=== PATIENT | female | born 1960 | race Caucasian/White ===

== ENCOUNTER 2016-12-09 10:14 | Inpatient (IN) | payer OTHER ==
[2016-12-09] MEDS ORDERED: LIDOCAINE 1% 2 ML INJ ONE (10:40)
[2016-12-09 11:10] LABS: % IMMATURE GRANULYOCYTES 0.4 % (0.0-1.1); ABSOLUTE IMMATURE GRANULOCYTES 0.03 10^3/uL (0.00-0.10); ADD DIFF? NO; ADD MORPH? NO; ADD SCAN? NO; ATYPICAL LYMPHOCYTE FLAG 0 (0-99); FRAGMENT RBC FLAG 0 (0-99); HEMATOCRIT 42.2 % (38.0-47.0); LEFT SHIFT FLG 0 (0-99); LIPEMIA HEMOLYSIS FLAG 90 (0-99); MEAN CELL HEMOGLOBIN 30.9 pg (27.9-34.1); MEAN CELL HEMOGLOBIN CONCENTR. 35.5 g/dL (32.4-36.7); MEAN CELL VOLUME 86.8 fL (81.5-99.8); MEAN PLATELET VOLUME 10.5 fL (8.7-11.7); PLATELET CLUMPS FLAG 0 (0-99); PLATELET COUNT 261 10^3/uL (150-400); RED BLOOD CELL COUNT 4.86 10^6/uL (4.18-5.33); RED CELL DISTRIBUTION WIDTH 14.1 % (11.5-15.2)
[2016-12-09] MEDS ORDERED: cefOXitin SODIUM 1 GM in D5W 50 ML IV ONE (11:30)
[2016-12-09 11:43] LABS: ANION GAP 14 mEq/L (8-16); CALCIUM 9.7 mg/dL (8.5-10.4); CARBON DIOXIDE 26 mEq/l (22-31); CHLORIDE 99 mEq/L (97-110); CREATININE 0.7 mg/dL (0.6-1.0); GLOMERULAR FILTRATION RATE > 60; GLUCOSE 104 mg/dL (70-100); POTASSIUM 3.4 mEq/L (3.5-5.2); SODIUM 139 mEq/L (134-144)
[2016-12-09] MEDS ORDERED: BUPIVACAINE 0.5% 30 ML SDV ONE (11:43)
[2016-12-09] MEDS ORDERED: SKIN ADHESIVE (DERMABOND) 1 EACH TP ONE (11:43)
[2016-12-09] MEDS ORDERED: morphINE *ANESTHESIA ONLY* 10 MG/ML VIAL ONE (11:51)
[2016-12-09] MEDS ORDERED: LIDOCAINE 2% 5 ML SDV ONE (11:54)
[2016-12-09] MEDS ORDERED: diphenhydrAMINE 25 MG CAP PO PRN (12:01)
[2016-12-09] MEDS ORDERED: HYDROCODONE/APAP 5/325 TAB PO PRN (12:01)
[2016-12-09] MEDS ORDERED: ONDANSETRON DISINTEGRATING 4 MG TAB PO PRN (12:01)
[2016-12-09] MEDS ORDERED: NALOXONE HCL 0.4 MG/ML INJ IVP PRN (12:01)
[2016-12-09] MEDS ORDERED: DEXAMETHASONE 4 MG/ML VIAL ONE (12:50)
[2016-12-09] MEDS ORDERED: ONDANSETRON 4 MG/2 ML VIAL ONE (12:50)
[2016-12-09] MEDS ORDERED: PROPOFOL/EMULSION 500 MG/50 ML BOTTLE IV ONE (12:56)
[2016-12-09] MEDS ORDERED: NEOSTIGMINE METHYLSULFATE 5 MG/5 ML SYR ONE (13:32)
[2016-12-09] MEDS ORDERED: GLYCOPYRROLATE 0.2 MG/1 ML VIAL ONE ×2 (13:32)
--- NOTE | 2016-12-09 14:43 | GOP ---
[f rep st] OPERATIVE REPORT DATE OF OPERATION: 12/09/2016 SURGEON: Tasha Cat MD WIRE SPINNER: MARIA DEL ROSARIO Flaherty ANESTHESIA: General. ANESTHESIOLOGIST: Dr. Christina Bahena PREOPERATIVE DIAGNOSIS: Moderately differentiated adenocarcinoma of the ascending colon. POSTOPERATIVE DIAGNOSIS: Moderately differentiated adenocarcinoma of the ascending colon. PROCEDURE PERFORMED: 1. Laparoscopic right hemicolectomy with primary anastomosis. 2. Laparoscopic adhesiolysis. FINDINGS: She had a lot of adhesions from her previous surgeries. SPECIMENS: Ascending colon. ESTIMATED BLOOD LOSS: 25 cc. INDICATIONS: The patient is a 56-year-old woman who had a screening colonoscopy. An 8 mm polyp was found in the ascending colon, which showed moderately differentiated adenocarcinoma and it was completely removed at the time of colonoscopy. She presents for right hemicolectomy. DESCRIPTION OF PROCEDURE: The patient was brought into the operating room, placed supine on the table, and general anesthesia was administered. Her abdomen was prepped and draped in the usual sterile fashion. I infiltrated all sites with 0.5% Marcaine prior to making incisions. I made an incision beneath her umbilicus. I elevated it. I inserted the Veress needle, it passed the hanging drop test. Her abdomen insufflated easily to a pressure of 15 mmHg. Under direct vision, I placed a 5 mm trocar in her lower abdomen. I explored. I performed adhesiolysis. I then was able to place a 10 mm trocar in her upper midline. I continued to perform more adhesiolysis, getting her omentum down from her abdominal wall. I then lifted her right colon anterior, I identified the right colic artery. I divided this with the Harmonic. Her appendix was completely retrocecal. I then divided these attachments. The terminal ileum was quite mobile. I continued my dissection medial, and then I retracted the colon to perform my lateral dissection, coming around the hepatic flexure. Again, there were a lot of adhesions in this area. The duodenum was visualized and protected. Once I felt there was enough reach, I then made a small midline incision over a previous scar. I inserted an Herbert wound protector. I pulled up the terminal ileum and the ascending colon. I selected my points of transection on the terminal ileum and on the transverse colon. I could palpate the blood supply on the transverse colon. I aligned these on the antimesenteric borders. I placed Vicryl pop-offs. I then made enterotomies in each limb of the bowel. I transected the terminal ileum and the transverse colon. I passed the specimen off the field. I made an enterotomy in each limb of the bowel to create a [id number], functional end-to-end anastomosis. There was healthy bleeding mucosa. I then sutured the defect closed with 3-0 Vicryl swedge, followed by 3-0 Vicryl pop- offs. The bowel was returned to the abdomen. I placed a [place] drain around the Herbert wound protector, replaced the 10 mm port and examined the abdomen. There were no signs of injury. The anastomosis was widely patent, and there was no twisting or torsion of the bowel. The ports removed under direct vision. The abdomen was allowed to desufflate. I closed the fascia at the 10 mm trocar site with 0 Vicryl. I closed skin with 3-0 Vicryl followed by 4-0 Monocryl. Dermabond applied. She was awakened in the operating room, extubated, transferred to PACU in stable condition. /[id number]/MODL MTDD
[2016-12-09] MEDS: HYDROmorphONE/DILAUDID 6 MG/30 ML PCA IV PRN (15:58)
[2016-12-09] MEDS: NS 1,000 ML IV SCH (15:58)
[2016-12-09] MEDS: ONDANSETRON 4 MG/2 ML VIAL IVP PRN (16:03)
[2016-12-10] MEDS: ONDANSETRON 4 MG/2 ML VIAL IVP PRN (01:49)
[2016-12-10] MEDS: NS 1,000 ML IV SCH ×2 (01:53→21:31)
[2016-12-10] MEDS: HYDROmorphONE/DILAUDID 6 MG/30 ML PCA IV PRN ×2 (02:59→18:55)
[2016-12-10 05:23] LABS: % IMMATURE GRANULYOCYTES 0.3 % (0.0-1.1); ABSOLUTE IMMATURE GRANULOCYTES 0.04 10^3/uL (0.00-0.10); ADD DIFF? NO; ADD MORPH? NO; ADD SCAN? NO; ATYPICAL LYMPHOCYTE FLAG 0 (0-99); FRAGMENT RBC FLAG 0 (0-99); HEMATOCRIT 35.3 % (38.0-47.0); HEMOGLOBIN 12.4 g/dL (12.6-16.3); LEFT SHIFT FLG 0 (0-99); LIPEMIA HEMOLYSIS FLAG 90 (0-99); MEAN CELL HEMOGLOBIN 31.2 pg (27.9-34.1); MEAN CELL HEMOGLOBIN CONCENTR. 35.1 g/dL (32.4-36.7); MEAN CELL VOLUME 88.7 fL (81.5-99.8); MEAN PLATELET VOLUME 10.6 fL (8.7-11.7); PLATELET CLUMPS FLAG 0 (0-99); PLATELET COUNT 218 10^3/uL (150-400); RED BLOOD CELL COUNT 3.98 10^6/uL (4.18-5.33); RED CELL DISTRIBUTION WIDTH 14.6 % (11.5-15.2)
[2016-12-10 05:36] LABS: ANION GAP 10 mEq/L (8-16); CALCIUM 8.9 mg/dL (8.5-10.4); CARBON DIOXIDE 25 mEq/l (22-31); CHLORIDE 101 mEq/L (97-110); CREATININE 0.7 mg/dL (0.6-1.0); GLOMERULAR FILTRATION RATE > 60; GLUCOSE 108 mg/dL (70-100); POTASSIUM 3.8 mEq/L (3.5-5.2); SODIUM 136 mEq/L (134-144)
[2016-12-10] MEDS: HYDROCHLOROTHIAZIDE 25 MG TAB PO SCH (08:40)
[2016-12-10] MEDS: ERTAPENEM 1 GM in NS 100 ML IV SCH (08:40)
[2016-12-10] MEDS: ENOXAPARIN 40 MG/0.4 ML SYR SC SCH (08:40)
[2016-12-10] MEDS: LISINOPRIL 40 MG TAB PO SCH (08:41)
[2016-12-10] MEDS ORDERED: NON-FORMULARY NEW DRUG (Quinapril Hcl [Accupril 40 Mg] 40 MG) PO SCH (09:00)
[2016-12-10] MEDS ORDERED: HYDROCHLOROTHIAZIDE 50 MG TAB PO SCH (09:00)
[2016-12-10] MEDS: KETOROLAC 15 MG/1 ML SDV IVP SCH ×2 (11:14→18:12)
--- NOTE | 2016-12-10 12:45 | SOAPPROG ---
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, IS, S: Feeling well o: Sitting in bed CTAB no increased work of breathing Regular rate BS present, soft and appropriately tender Incisions cdi Plan: 12/10/16 12:43 Objective: Vital Signs Temp Pulse Resp BP Pulse Ox 36.8 C 80 16 93/76 L 95 12/10/16 10:00 12/10/16 12:00 12/10/16 12:00 12/10/16 12:00 12/10/16 12:00 Laboratory Results 12/10/16 04:50 12/10/16 04:50 12/09/16 12/10/16 12/11/16 05:59 05:59 05:59 Intake Total 4851 342 Output Total 525 Balance 5380 342 ICD10 Worksheet Patient Problems: Problems Problem Status Onset Colon cancer Acute - ICD10 Problem Qualifiers (1) Colon cancer Qualifiers: Colon location: C
[2016-12-11] MEDS: KETOROLAC 15 MG/1 ML SDV IVP SCH ×5 (00:12→23:13)
[2016-12-11] MEDS: ACETAMINOPHEN 325 MG TAB PO PRN ×2 (00:36→14:58)
[2016-12-11 05:53] LABS: % IMMATURE GRANULYOCYTES 0.4 % (0.0-1.1); ABSOLUTE IMMATURE GRANULOCYTES 0.04 10^3/uL (0.00-0.10); ADD DIFF? NO; ADD MORPH? NO; ADD SCAN? NO; ATYPICAL LYMPHOCYTE FLAG 0 (0-99); FRAGMENT RBC FLAG 0 (0-99); HEMATOCRIT 33.1 % (38.0-47.0); HEMOGLOBIN 11.2 g/dL (12.6-16.3); LEFT SHIFT FLG 0 (0-99); LIPEMIA HEMOLYSIS FLAG 90 (0-99); MEAN CELL HEMOGLOBIN 31.1 pg (27.9-34.1); MEAN CELL HEMOGLOBIN CONCENTR. 33.8 g/dL (32.4-36.7); MEAN CELL VOLUME 91.9 fL (81.5-99.8); MEAN PLATELET VOLUME 10.6 fL (8.7-11.7); PLATELET CLUMPS FLAG 0 (0-99); PLATELET COUNT 192 10^3/uL (150-400); RED CELL DISTRIBUTION WIDTH 15.2 % (11.5-15.2)
[2016-12-11] MEDS: NS 1,000 ML IV SCH ×2 (07:31→18:18)
[2016-12-11] MEDS: LISINOPRIL 40 MG TAB PO SCH (09:11)
[2016-12-11] MEDS: ENOXAPARIN 40 MG/0.4 ML SYR SC SCH (09:12)
[2016-12-11] MEDS: HYDROCHLOROTHIAZIDE 25 MG TAB PO SCH (09:12)
[2016-12-11] MEDS: ERTAPENEM 1 GM in NS 100 ML IV SCH (09:12)
[2016-12-11] MEDS: HYDROmorphONE/DILAUDID 6 MG/30 ML PCA IV PRN (09:52)
--- NOTE | 2016-12-11 09:54 | SOAPPROG ---
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 Still belching o: Sitting in bed CTAB no increased work of breathing Regular rate BS present, distended and appropriately tender Incisions cdi Plan: 12/10/16 12:43 12/11/16 09:53 Objective: Vital Signs Temp Pulse Resp BP Pulse Ox 37.3 C 98 16 135/96 H 92 12/11/16 07:59 12/11/16 07:59 12/11/16 07:59 12/11/16 07:59 12/11/16 07:59 Laboratory Results 12/11/16 05:12 12/10/16 04:50 12/10/16 12/11/16 12/12/16 05:59 05:59 05:59 Intake Total 2586 4595 Output Total 525 550 Balance 0 2526 ICD10 Worksheet Patient Problems: Problems Problem Status Onset Colon cancer Acute - ICD10 Problem Qualifiers (1) Colon cancer Qualifiers: Colon location: C
[2016-12-11] MEDS ORDERED: FAMOTIDINE 20 MG/2 ML SDV IVP ONE (15:54)
[2016-12-11] MEDS ORDERED: FAMOTIDINE 20 MG/NACL/50 ML BAG IV ONE (16:30)
[2016-12-11] MEDS: FAMOTIDINE 20 MG/NACL/50 ML BAG IV SCH (20:07)
[2016-12-12] MEDS: NS 1,000 ML IV SCH ×3 (05:39→20:03)
[2016-12-12] MEDS: KETOROLAC 15 MG/1 ML SDV IVP SCH ×4 (05:39→23:18)
[2016-12-12] MEDS: FAMOTIDINE 20 MG/NACL/50 ML BAG IV SCH ×2 (07:35→20:03)
[2016-12-12] MEDS: HYDROCHLOROTHIAZIDE 25 MG TAB PO SCH (07:35)
[2016-12-12] MEDS: LISINOPRIL 40 MG TAB PO SCH (07:36)
[2016-12-12] MEDS: ENOXAPARIN 40 MG/0.4 ML SYR SC SCH (07:36)
[2016-12-12] MEDS: HYDROmorphONE/DILAUDID 6 MG/30 ML PCA IV PRN (07:47)
[2016-12-12] MEDS: ERTAPENEM 1 GM in NS 100 ML IV SCH (07:55)
--- NOTE | 2016-12-12 11:08 | SOAPPROG ---
SOAP Progress Note Assessment/Plan: Assessment:POD #3 s/p right hemicolectomy for moderately differentiated adenocarcinoma in a polyp that was completely removed ascending colon Path pending Neuro- MANAGER INCOME TAX Supplemental O2, encouraged ambulation, IS Home BP meds Passing flatus yesterday, none yet today. Limited clear liquids until passing more flatus Increased distension - AXR this am to determine SBO versus ileus Heme/ID - IV invanz for leukocytosis, continue to follow Ppx - lovenox Dispo: continue inpatient until return of bowel function S: Still distended, stable compared to yesterday. Pain controlled with MANAGER INCOME TAX o: Sitting in bed, appears uncomfortable due to distension CTAB no increased work of breathing Regular rate BS hypoactive, distended and tender Incisions cdi Objective: Vital Signs Temp Pulse Resp BP Pulse Ox 37.1 C 113 H 22 H 140/87 H 87 L 12/12/16 09:34 12/12/16 09:34 12/12/16 09:34 12/12/16 09:34 12/12/16 09:34 Laboratory Results 12/11/16 05:12 12/10/16 04:50 12/11/16 12/12/16 12/13/16 05:59 05:59 05:59 Intake Total 3815 2602 Output Total 550 750 Balance 3889 170 ICD10 Worksheet Patient Problems: Problems Problem Status Onset Colon cancer Acute
[2016-12-12] MEDS: ACETAMINOPHEN 325 MG TAB PO PRN ×2 (12:05→18:10)
[2016-12-12 13:23] LABS: COLOR AMBER; LEUKOCYTE ESTERASE,URINE 2+ (NEGATIVE); NITRITE,URINE NEGATIVE (NEGATIVE)
[2016-12-12 13:30] LABS: BACTERIA TRACE /hpf (NONE SEEN); MUCUS TRACE /lpf (NONE-1+); WBC,URINE 50-182 /hpf (0-3)
[2016-12-13] MEDS: HYDROmorphONE/DILAUDID 6 MG/30 ML PCA IV PRN (04:51)
[2016-12-13] MEDS: KETOROLAC 15 MG/1 ML SDV IVP SCH (04:51)
[2016-12-13 05:26] LABS: ANION GAP 12 mEq/L (8-16); CALCIUM 8.3 mg/dL (8.5-10.4); CARBON DIOXIDE 24 mEq/l (22-31); CHLORIDE 104 mEq/L (97-110); CREATININE 1.8 mg/dL (0.6-1.0); GLOMERULAR FILTRATION RATE 29; GLUCOSE 85 mg/dL (70-100); POTASSIUM 3.2 mEq/L (3.5-5.2); SODIUM 140 mEq/L (134-144)
[2016-12-13 05:32] LABS: % IMMATURE GRANULYOCYTES 0.5 % (0.0-1.1); ABSOLUTE IMMATURE GRANULOCYTES 0.02 10^3/uL (0.00-0.10); ADD DIFF? NO; ADD MORPH? NO; ADD SCAN? YES; ATYPICAL LYMPHOCYTE FLAG 0 (0-99); FRAGMENT RBC FLAG 0 (0-99); HEMATOCRIT 34.6 % (38.0-47.0); HEMOGLOBIN 11.9 g/dL (12.6-16.3); LIPEMIA HEMOLYSIS FLAG 90 (0-99); MEAN CELL HEMOGLOBIN 30.4 pg (27.9-34.1); MEAN CELL HEMOGLOBIN CONCENTR. 34.4 g/dL (32.4-36.7); MEAN CELL VOLUME 88.5 fL (81.5-99.8); MEAN PLATELET VOLUME 11.1 fL (8.7-11.7); PLATELET CLUMPS FLAG 0 (0-99); PLATELET COUNT 252 10^3/uL (150-400); RED BLOOD CELL COUNT 3.91 10^6/uL (4.18-5.33); RED CELL DISTRIBUTION WIDTH 14.9 % (11.5-15.2)
[2016-12-13 05:36] LABS: LEFT SHIFT FLG 300 (0-99)
[2016-12-13 06:04] LABS: SCAN POSITIVE
[2016-12-13 06:10] LABS: POLYCHROMASIA 2+
[2016-12-13 06:12] LABS: PLATELET ESTIMATE ADEQUATE (ADEQ)
[2016-12-13] MEDS: ERTAPENEM 1 GM in NS 100 ML IV SCH (08:00)
[2016-12-13] MEDS ORDERED: D5W 1/2 NS W/ 20 KCl/L 1,000 ML IV SCH (08:00)
[2016-12-13] MEDS: ENOXAPARIN 40 MG/0.4 ML SYR SC SCH (08:02)
[2016-12-13] MEDS: POTASSIUM Cl (KCl) 100 ML IV SCH ×2 (08:36→10:17)
[2016-12-13] MEDS ORDERED: NS 500 ML IV ONE ×2 (08:46→18:11)
[2016-12-13] MEDS: FAMOTIDINE 20 MG/NACL/50 ML BAG IV SCH (08:52)
--- NOTE | 2016-12-13 09:11 | SOAPPROG ---
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 Supplemental O2, encouraged ambulation, IS CV - Home BP meds held d/t hypotension this morning GI - AXR yesterday shows ileus - no SBO. No flatus or BM. Place NG tube - UA yesterday + for trichomonas, pt has history and treated in past with flagyl. Not sexually active. Will treat with flagyl when taking PO FEN - Hypokalemia - replacement today, fluids changed from NS to D5 1/2+20K. Elevated Cr - check urine lytes. NPO Heme/ID - Leukocytosis resolved. Continue IV invanz Ppx - Lovenox, SCDs Dispo: Hospitalist consult today for assistance with complicated clinical picture and comorbidities. Continue inpatient until return of bowel function. Seen with Dr. Cat S: Increasing distension. Became hypotensive while sitting upright in chair. Very uncomfortable but pain controlled with SUPERVISOR TILE AND MOTTLE. Went for 3 walks yesterday and sat up in chair. o: Laying in bed, appears uncomfortable due to distension Decreased at bases bilaterally, tachypneic Regular rate BS hypoactive, distended and tender throughout Incisions cdi Objective: Vital Signs Temp Pulse Resp BP Pulse Ox 36.9 C 102 H 18 81/62 L 96 12/13/16 08:00 12/13/16 08:00 12/13/16 08:00 12/13/16 08:00 12/13/16 08:00 Laboratory Results 12/13/16 04:53 12/13/16 04:53 12/12/16 12/13/16 12/14/16 05:59 05:59 05:59 Intake Total 6131 4752 Output Total 958 950 Balance 1702 3201 ICD10 Worksheet Patient Problems: Problems Problem Status Onset Colon cancer Acute
--- NOTE | 2016-12-13 09:59 | GCON ---
[f rep st] CONSULTATION INTERNAL MEDICINE CONSULTATION DATE OF CONSULTATION: 12/13/2016 REASON FOR CONSULTATION: Acute renal failure, hypertension. HISTORY OF PRESENT ILLNESS: This is a 56-year-old female with a history of hypertension. A polyp w as found under routine colonoscopy, and she underwent hemicolectomy on 12/09/2016. This apparently went well without any complications. Over the last 7 days, she has had some failure to progress in terms of bowel function. In fact, today she is a lot more distended and an NG tube has been ordered . Labs were drawn today and creatinine is 1.8 with a baseline of 0.7. She has also had some elemen t of hypotension this morning with blood pressures in the 80s. The patient was actually feeling a l ittle bit dyspneic when I saw her. She says sitting up improves her dyspnea. She has not had any f latus. Her abdominal pain seems to be manageable. No chest pain. No wheezing. No cough or produc tive phlegm. No dysuria. REVIEW OF SYSTEMS: A 10-point review of systems was obtained and other than stated above is negativ e. PAST MEDICAL HISTORY: Hypertension. PAST SURGICAL HISTORY: Cholecystectomy and spinal surgery. MEDICATIONS: Medications in the hospital are reviewed and have included hydrochlorothiazide 50 mg, lisinopril. She also had a few doses of Toradol with 1 dose early this morning. She has also been o n amlodipine. These medications have been held. SOCIAL HISTORY: Patient does smoke 2-3 cigarettes per day. Moderate alcohol use. 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 FAMILY HISTORY: Had an uncle with colon cancer. PHYSICAL EXAM: VITAL SIGNS: Afebrile. Blood pressure this morning is 81/62, heart rate 102, oxyge n saturation is 96% on 3 L. GENERAL: The patient was sitting up with moderate dyspnea but in no ap parent distress. HEENT: Nonicteric sclerae. Extraocular muscles intact. Moist mucous membranes. NECK: Supple. No thyromegaly. LUNGS: Good effort. Markedly decreased breath sounds but no wheez ing. No rales either. CARDIOVASCULAR: Regular rate and rhythm. No murmurs or gallops. ABDOMEN: Decreased bowel sounds, distended, a little bit on the firmer side. EXTREMITIES: No clubbing, cya nosis, or edema. SKIN: Without rash. Warm, dry, intact. NEUROLOGIC: Alert and oriented x3. Mov es all 4 extremities equally. PSYCH: Normal mood and affect. LABS: White blood cell count is 4, which is down from 15 the day after surgery. Sodium is 140, pot assium 3.2, creatinine again is 1.8. UA done yesterday shows 2+ leukocyte esterase and 50-182 white cells. Chest x-ray I personally reviewed and interpreted, shows bibasilar atelectasis. ASSESSMENT: This is a 56-year-old female who is status post colectomy, postoperative day #4, with p ostoperative ileus, hypotension, and acute renal failure. PLAN: 1. Hypotension. I think most likely she is intravascularly dry, although I am thrown off a little bit by her dyspnea and mild hypoxia. I think those are related to atelectasis and especially due to the severe distention. She also has very decreased breath sounds and she probably also has an [place] ent of COPD exacerbation. I agree with fluid bolus and will switch her fluids to normal saline and increase the rate. However, I will get a chest x-ray, just to rule out evolving pulmonary edema. 2. Acute renal failure. This also could be prerenal versus less likely ATN or medication-related. Agree with holding all of her antihypertensives and would probably not restart her hydrochlorothiaz mallika until she is discharged or somewhat after that. I agree with holding Toradol. We will check ur ine lytes to get a better idea, although the dose of hydrochlorothiazide that she got yesterday may skew this. We will continue with volume resuscitation and increase IV fluids. We will follow this closely and avoid any nephrotoxins. 3. Possible urinary tract infection. We will check urine culture. She does have Trichomonas on he r urine. Probably should treat that. 4. History of hypertension. Again, we will hold her medications. 5. Possible COPD exacerbation. We will start DuoNeb here we will hold off on any steroids unless w e absolutely need it since she just had surgery. 6. DVT prophylaxis. I am going to hold her Lovenox for tomorrow to wait and see what her creatinin e does, either use a lower dose or switch her over to heparin if it is worse. Thank you for this consultation, and we will follow along with you. /[id number]/MODL
[2016-12-13] MEDS: NS W/ 20 KCl/L 1,000 ML IV SCH ×2 (10:15→18:41)
[2016-12-13] MEDS: IPRATROPIUM/ALBUTEROL 3 ML DEYVIAL IH SCH ×4 (10:19→21:30)
[2016-12-13] MEDS ORDERED: ACETAMINOPHEN 160 MG/5 ML UDCUP PO PRN (13:05)
[2016-12-13] MEDS ORDERED: NS 1,000 ML IV ONE (19:57)
--- NOTE | 2016-12-13 20:04 | HOSPPROG ---
Hospitalist Progress Note Assessment/Plan: Called to bedside for increased WOB, abd pain and black stool, persistent hypotension S: c/o increased crampy abd pain, distension, dizzy with standing A&P: 1. Persistent hypotension some improvement this afternoon after 1L bolus and NS running since then. Bolused 500cc this emerald and still BP <90 -check H/H, lactate, type/screen, AXR -+UTI, on Ertapenem. Afebrile 2. SOB -may be due to abd distension, atelectasis on CXR today -repeat CXR now since been getting IVFs 3. Melena: concern for bleeding -check H/H 4. Abdominal pain: AXR with new pneumoperitoneum (personally reviewed by me) -discussed cased with Dr. Cat and is taking to OR tonight 5.MARTA: likely multifactorial with hypotension, ACEI, [place]. Transfer to ICU Critical care time spent: 60min bedside with patient, evaluating labs/imaging, and d/w Dr. Cat Objective: Vital Signs Temp Pulse Resp BP Pulse Ox 36.7 C 122 H 46 H 83/65 L 87 L 12/13/16 19:45 12/13/16 19:45 12/13/16 19:45 12/13/16 19:45 12/13/16 17:52 Laboratory Results 12/13/16 04:53 12/13/16 04:53 12/12/16 12/13/16 12/14/16 05:59 05:59 05:59 Intake Total 2452 2785 1800 Output Total 750 950 800 Balance 1702 1835 1000 - Physical Exam Constitutional: other (mild distress) Eyes: PERRL Ears, Nose, Mouth, Throat: moist mucous membranes, hearing normal, other (NG in place) Cardiovascular: tachycardia Respiratory: no respiratory distress, other (increased WOB, ) Gastrointestinal: normoactive bowel sounds, soft, non-tender abdomen, distension Genitourinary: no bladder fullness Skin: warm Musculoskeletal: full muscle strength Neurologic: AAOx3 Psychiatric: interacting appropriately ICD10 Worksheet Patient Problems: Problems Problem Status Onset Colon cancer Acute
[2016-12-13 20:57] LABS: HEMATOCRIT 33.6 % (38.0-47.0); HEMOGLOBIN 11.3 g/dL (12.6-16.3)
[2016-12-13] MEDS ORDERED: NS BOLUS 1000 ML (Wide open) IV ONE (21:00)
[2016-12-13] MEDS ORDERED: fentaNYL 100 MCG/2 ML INJ ONE (21:34)
[2016-12-13] MEDS ORDERED: PROPOFOL 200 MG/20 ML VIAL ONE (21:34)
[2016-12-13] MEDS ORDERED: ROCURONIUM 50 MG/5 ML VIAL ONE (21:35)
[2016-12-13] MEDS ORDERED: PHENYLEPHRINE HCL 100 MCG/ML SYR ONE (21:35)
[2016-12-13] MEDS ORDERED: ONDANSETRON 4 MG/2 ML VIAL ONE (21:35)
[2016-12-13] MEDS ORDERED: epHEDrine SULFATE 10 MG/ML SYR ONE (21:36)
[2016-12-13] MEDS ORDERED: MIDAZOLAM 2 MG/2 ML VIAL ONE ×2 (21:38→22:44)
--- NOTE | 2016-12-13 21:40 | SOAPPROG ---
SOAP Progress Note Assessment/Plan: Assessment: Worsening respiratory status. CXR now with free air that I did not see prior. Will take to OR to explore. Risks and benefits discussed. Plan: 12/10/16 12:43 12/11/16 09:53 12/13/16 21:40 Objective: Vital Signs Temp Pulse Resp BP Pulse Ox 36.7 C 121 H 36 H 92/66 L 90 L 12/13/16 19:45 12/13/16 20:44 12/13/16 20:44 12/13/16 20:44 12/13/16 20:44 Laboratory Results 12/13/16 20:35 12/13/16 04:53 12/12/16 12/13/16 12/14/16 05:59 05:59 05:59 Intake Total 2452 2785 1800 Output Total 750 950 800 Balance 1702 1835 1000 ICD10 Worksheet Patient Problems: Problems Problem Status Onset Colon cancer Acute - ICD10 Problem Qualifiers (1) Colon cancer Qualifiers: Colon location: C
--- NOTE | 2016-12-13 23:46 | POSTOPPROG ---
Post Op Note Date of Operation: 12/13/16 Surgeon: Tasha Cat Circular Knife Machine Cutter: khoa Anesthesiologist: ant Anesthesia: GET(General Endotracheal) Pre-op Diagnosis: sepsis, free air Post-op Diagnosis: anastomotic leak Indication: 56 yo with colon cancer. Worsening condition Procedure: ex lap bowel resection Findings: leak at anastomosis Inf/Abcess present in the surg proc area at time of surgery?: Yes Depth: Organ Space Drains: Rick Brush, Wound Vac Specimen(s): ileocolic anastomosis
[2016-12-14] MEDS: PROPOFOL/EMULSION 100 ML IV SCH ×4 (00:24→23:05)
[2016-12-14] MEDS: fentaNYL/NACL 100 ML IV SCH ×3 (00:24→19:55)
[2016-12-14] MEDS ORDERED: ALTEPLASE 2 MG VIAL IVP PRN (00:27)
[2016-12-14 00:39] LABS: BASE EXCESS -10.4 mEq/L (-2.5-2.5); BICARBONATE 18 mEq/L (22-26); MEASURED OXYGEN SATURATION 95 % (92-95); PCO2 56 mmHg (34-38); PO2 97 mmHg (65-75); TCO2 20 mEq/L (23-27)
[2016-12-14 00:40] LABS: SIMV YES
[2016-12-14 00:41] LABS: END TIDAL CO2 39; P/F RATIO 97 RATIO; PATIENT RATE 12; PRESSURE SUPPORT 7
[2016-12-14 00:44] LABS: O2 CONCENTRATIION 100 % (0-100)
[2016-12-14] MEDS: PETROLAT,WHT/MIN OIL/SOD CHL 3.5 GM OPHT.OINT EACHEYE PRN (01:34)
[2016-12-14] MEDS ORDERED: NS BOLUS 1000 ML (Wide open) IV ONE ×2 (02:30→11:00)
[2016-12-14 04:45] LABS: ABSOLUTE NRBC COUNT 0.02 10^3/uL (0-0.01); ADD MORPH? NO; ADD SCAN? YES; ATYPICAL LYMPHOCYTE FLAG 0 (0-99); FRAGMENT RBC FLAG 0 (0-99); HEMATOCRIT 29.3 % (38.0-47.0); HEMOGLOBIN 9.8 g/dL (12.6-16.3); LIPEMIA HEMOLYSIS FLAG 80 (0-99); MEAN CELL HEMOGLOBIN 30.7 pg (27.9-34.1); MEAN CELL HEMOGLOBIN CONCENTR. 33.4 g/dL (32.4-36.7); MEAN CELL VOLUME 91.8 fL (81.5-99.8); MEAN PLATELET VOLUME 10.8 fL (8.7-11.7); NRBC-AUTO% 0.3 % (0.0-0.2); PLATELET CLUMPS FLAG 0 (0-99); PLATELET COUNT 225 10^3/uL (150-400); RED BLOOD CELL COUNT 3.19 10^6/uL (4.18-5.33)
[2016-12-14 04:52] LABS: LEFT SHIFT FLG 300 (0-99)
[2016-12-14 05:01] LABS: ANION GAP 11 mEq/L (8-16); CARBON DIOXIDE 19 mEq/l (22-31); CHLORIDE 113 mEq/L (97-110); GLUCOSE 69 mg/dL (70-100); POTASSIUM 4.6 mEq/L (3.5-5.2); SODIUM 143 mEq/L (134-144)
[2016-12-14 05:07] LABS: CREATININE 3.1 mg/dL (0.6-1.0); GLOMERULAR FILTRATION RATE 15
[2016-12-14 05:17] LABS: BASE EXCESS -7.9 mEq/L (-2.5-2.5); BICARBONATE 18 mEq/L (22-26); MEASURED OXYGEN SATURATION 93 % (92-95); PCO2 38 mmHg (34-38); PO2 72 mmHg (65-75); TCO2 19 mEq/L (23-27)
[2016-12-14] MEDS: IPRATROPIUM/ALBUTEROL 3 ML DEYVIAL IH SCH (05:18)
[2016-12-14 05:22] LABS: END TIDAL CO2 30; O2 CONCENTRATIION 60 % (0-100); P/F RATIO 120 RATIO; PATIENT RATE 18; PRESSURE SUPPORT 7
[2016-12-14 05:25] LABS: ADD DIFF? YES; SCAN POSITIVE
[2016-12-14] MEDS ORDERED: PROTOCOL POTASSIUM 1 DOSE MISC PRN (05:26)
[2016-12-14 05:31] LABS: PLATELET ESTIMATE ADEQUATE (ADEQ)
[2016-12-14 05:32] LABS: POLYCHROMASIA 1+
[2016-12-14] MEDS ORDERED: NS 1,000 ML IV SCH (07:15)
[2016-12-14] MEDS: CHLORHEXIDINE GLUCONATE 15 ML UDL PO SCH ×2 (08:29→20:03)
[2016-12-14] MEDS ORDERED: FAMOTIDINE 20 MG/NACL 50 ML IV SCH (09:00)
[2016-12-14] MEDS ORDERED: FAMOTIDINE 20 MG/NACL/50 ML BAG IV SCH (09:00)
--- NOTE | 2016-12-14 09:26 | SOAPPROG ---
SOAP Progress Note Assessment/Plan: Assessment:s/p ex lap bowel resection for anastomotic leak s/p R hemicolectomy for moderately differentiated adenocarcinoma in a polyp that was completely removed ascending colon Neuro - sedated propofol/fentanyl Resp - intubated post-op. maybe extubate today CV - hypotension, fluid resuscitation. PICC placement today GI - NG tube in place. awaiting return of bowel function - ponce. trichomonas in urine. MARTA Wound - midline abdomen wound vac change monday FEN- NPO. hypokalemia resolved - continue to follow. Heme/ID - IV invanz. PPx - PPI, heparin, scds Dispo: continue ICU care. appreciate hospitalists. Seen c Dr. Cat S: Intubated and sedated o: Laying in bed, intubated and sedated Decreased at bases bilaterally Regular rate BS absent, less distended than yesterday TARA x 2 serosanguinous Wound vac intact to suction Ponce 12/26/16 15:23 Objective: Vital Signs Temp Pulse Resp BP Pulse Ox 39.2 C H 109 H 22 H 73/44 L 96 12/14/16 08:00 12/14/16 08:37 12/14/16 08:37 12/14/16 08:00 12/14/16 08:37 Microbiology 12/13/16 22:05 Gram Stain - Final Abdomen - Aspirate Laboratory Results 12/14/16 04:30 12/14/16 04:30 12/13/16 12/14/16 12/15/16 05:59 05:59 05:59 Intake Total 5974 0419 Output Total 950 1320 Balance 1830 7868 ICD10 Worksheet Patient Problems: Problems Problem Status Onset Colon cancer Acute
[2016-12-14] MEDS: NOREPINEPHRINE/NS 500 ML IV SCH ×2 (09:50→17:10)
[2016-12-14] MEDS: ERTAPENEM 1 GM in NS 100 ML IV SCH ×2 (09:53→12:43)
[2016-12-14] MEDS ORDERED: ALBUMIN 5% 500 ML IV ONE (09:55)
[2016-12-14] MEDS ORDERED: NOREPINEPHRINE BITARTRATE 4 MG in D5W 500 ML IV SCH (10:00)
[2016-12-14] MEDS ORDERED: ALBUMIN 5% 500 ML BOTTLE IV ONE (10:00)
[2016-12-14] MEDS ORDERED: PANTOPRAZOLE SODIUM 40 MG in NS 100 ML IV SCH (10:00)
[2016-12-14] MEDS: ACETAMINOPHEN 650 MG SUPP PR PRN ×2 (10:12→17:39)
[2016-12-14 10:24] LABS: BICARBONATE 16 mEq/L (22-26); MEASURED OXYGEN SATURATION 93 % (92-95); PCO2 34 mmHg (34-38); PO2 80 mmHg (65-75); TCO2 17 mEq/L (23-27)
[2016-12-14 10:25] LABS: END TIDAL CO2 25; O2 CONCENTRATIION 50 % (0-100); P/F RATIO 160 RATIO; PATIENT RATE 22; PRESSURE SUPPORT 7; SIMV YES
[2016-12-14] MEDS ORDERED: SODIUM BICARBONATE 50 MEQ/50 ML SYR IVP ONE ×3 (10:54→17:14)
--- NOTE | 2016-12-14 11:12 | GCON ---
[f rep st] CONSULTATION INFECTIOUS DISEASE CONSULTATION DATE OF CONSULTATION: 12/14/2016 REFERRING PHYSICIAN: Tarah Lawton MD REASON FOR CONSULTATION: Septic shock. HISTORY OF PRESENT ILLNESS: The patient is a 56-year-old female who was recently diagnosed with desiree nocarcinoma of the ascending colon and underwent laparoscopic right hemicolectomy with primary anast omosis and lysis of adhesions on 12/09/2016, who I am asked to see in consultation for septic shock. Yesterday, the patient was noted to have acute renal failure with increasing dyspnea, as well as h ypotension. Chest x-ray was performed and revealed free air under the diaphragm. Based on that fin ding, patient was taken to the operating room yesterday, at which point in time she was noted to hav e an anastomotic leak requiring laparotomy and bowel resection. The patient had been receiving erta penem 1 g IV daily postoperatively. Gram stain of the abdominal fluid intraoperatively shows 3+ gra m-positive rods, 4+ gram-positive cocci, 3+ gram-negative rods, and 1+ yeast. Cultures are currentl y pending. The patient has experienced persistent hypotension and has been initiated on Levophed. Her renal function has continued to decline with a creatinine this morning of 3.1. She has remained intubated. A wound VAC was placed over her abdominal wound. Two TARA drains are in place with seros anguineous output. Blood cultures were obtained this a.m. The patient's urinalysis was notable for 50-182 white blood cells, with Trichomonas being present. Chest x-ray has shown right basilar cons olidation or atelectasis. Given the above findings, I am now asked to assist in the patient's ongoi ng management. PAST MEDICAL HISTORY: Hypertension. PAST SURGICAL HISTORY: As above; cholecystectomy, spinal surgery. CURRENT MEDICATIONS: Ertapenem 1 g IV daily. Levophed drip. DuoNebs q.i.d. Norvasc 10 mg p.o. austyn hermosillo (held). Peridex b.i.d. Fentanyl drip. Heparin 5000 units subcutaneous q.8 hours. Protonix 40 mg IV daily. Propofol drip. ALLERGIES: No known drug allergies. SOCIAL HISTORY: Patient smokes 2-3 cigarettes daily. Moderate alcohol use is noted. FAMILY HISTORY: Colon cancer in an uncle. REVIEW OF SYSTEMS: A 10-system review cannot be completed due to the patient being intubated. Othe r items were reviewed with nursing staff this a.m. PHYSICAL EXAMINATION: VITAL SIGNS: Temperature 39.2, heart rate 110, blood pressure 73/44, respira tory rate 23, oxygen saturation 96% on 50% FiO2. GENERAL: Patient is an obese female who is [place] taqu[employer] and sedated. She appears nontoxic. HEENT: There is no scleral icterus, conjunctival injection , or conjunctival petechiae. Endotracheal tube is in place. There is an NG tube in place. NECK: Supple without palpable lymphadenopathy or thyromegaly. CHEST: Clear to auscultation bilaterally w ithout adventitious sounds. The patient is mechanically ventilated. The respiratory effort is incr eased. CARDIOVASCULAR: Tachycardic without murmurs, gallops, or rubs. ABDOMEN: Distended with a wound VAC in place in the midline. There is no surrounding erythema. TARA drains x2 shows serosangui neous output. No bowel sounds are present. Diffuse tenderness is present. MUSCULOSKELETAL: There is no cyanosis, clubbing, or edema. SKIN: No rash is noted. No stigmata of endocarditis. : A Koenig catheter is in place. NEUROLOGIC: Patient is intubated and sedated. LYMPHATICS: There are no cervical or supraclavicular nodes palpable. LABORATORY DATA: White blood cell count 6.5, hematocrit 29.3, platelets 225, neutrophils 43%, bands 29%. Serum creatinine is 3.1, bicarb 19, pH 7.29. Lactic acid is pending. Urinalysis shows 50-18 2 white blood cells with Trichomonas being noted. Abdominal Gram stain as outlined in the history o f present illness. Blood cultures x2 sets pending. IMPRESSION: Septic shock due to anastomotic leak post hemicolectomy with polymicrobial Gram stain, including yeast: Gram stain consistent with enteric lemuel. Gram-positive cocci are present, rawilliamin g the possibility of Enterococcus. Postoperative nature of infection and prior receipt of ertapenem does raise consideration of Pseudomonas as potential contributor. Will modify antibiotic therapy t o include daptomycin, piperacillin/tazobactam, and micafungin. Will use daptomycin instead of vanco mycin given acute renal failure and recent data showing that increased risk of nephrotoxicity with v ancomycin and piperacillin/tazobactam in combination. We will continue blood pressure support with vasopressors as needed. Follow up of cultures over time will be necessary for definitive antibiotic therapy. RECOMMENDATIONS: 1. Zosyn 2.25 g IV q.6 hours. 2. Daptomycin 600 mg IV q.48 hours. 3. Micafungin 100 mg IV daily. 4. Discontinue ertapenem. 5. Followup abdominal and blood cultures as available. 6. Continued ICU supportive care/treatment of septic shock. Thank you for this consultation. We will continue to follow the patient with you. /[id number]/MODL
[2016-12-14] MEDS ORDERED: ALBUTEROL 60 PUFFS/8 GM MDI IH SCH (11:15)
[2016-12-14 11:29] LABS: CK-MB INTERPRETATION NEGATIVE (NEGATIVE)
[2016-12-14] MEDS: ALBUMIN 5% 500 ML IV ONE ×2 (11:37→12:29)
[2016-12-14] MEDS: DAPTOmycin 600 MG in NS 100 ML IV SCH (11:50)
[2016-12-14] MEDS: ALBUTEROL 60 PUFFS/8 GM MDI IH SCH ×3 (11:53→20:30)
[2016-12-14] MEDS: VASOPRESSIN/DEXTROSE 250 ML IV SCH ×2 (12:28→23:27)
[2016-12-14] MEDS: MICAFUNGIN NA 100 MG in NS 100 ML IV SCH (12:28)
[2016-12-14] MEDS: PIPERACILLIN/TAZO 2.25 GM/DEX 50 ML IV SCH ×3 (13:00→23:35)
--- NOTE | 2016-12-14 14:31 | HOSPPROG ---
Hospitalist Progress Note Assessment/Plan: * status post colectomy with anastomotic leak and intra-abdominal sepsis/ abscess * ID consulted and antibiotics modified * septic shock * on vasopressin and Levophed * lactate has normalized * continue aggressive care * acute respiratory failure * continue ventilator * oliguric acute failure * nephrology consulted * continue IV fluids * potassium is normal * history of hypertension * holding medications * Trichomonas in urine * DVT prophylaxis * heparin * GI prophylaxis 40 minutes of critical care time spent Subjective: Events overnight noted. Currently on 2 pressors. Is denying pain Objective: Vital Signs Temp Pulse Resp BP Pulse Ox 38.7 C H 107 H 22 H 89/59 L 95 12/14/16 12:00 12/14/16 12:00 12/14/16 12:00 12/14/16 12:00 12/14/16 12:00 Microbiology 12/13/16 22:05 Gram Stain - Final Abdomen - Aspirate Laboratory Results 12/14/16 04:30 12/14/16 04:30 12/13/16 12/14/16 12/15/16 05:59 05:59 05:59 Intake Total 2785 4236 Output Total 950 1320 135 Balance 1835 2916 -135 discussed with General surgery, Infectious Disease, Nephrology - Physical Exam Constitutional: no apparent distress, appears nourished, not in pain Eyes: anicteric sclera Ears, Nose, Mouth, Throat: moist mucous membranes Cardiovascular: tachycardia Respiratory: no respiratory distress, no rales or rhonchi, clear to auscultation Gastrointestinal: other ( absent bowel sounds distended soft) Neurologic: other ( responding to questions) ICD10 Worksheet Patient Problems: Problems Problem Status Onset Colon cancer Acute
[2016-12-14 15:08] LABS: HEMOGLOBIN 9.3 g/dL (12.6-16.3); MEAN CELL HEMOGLOBIN 31.1 pg (27.9-34.1); MEAN CELL HEMOGLOBIN CONCENTR. 34.4 g/dL (32.4-36.7); MEAN CELL VOLUME 90.3 fL (81.5-99.8); RED BLOOD CELL COUNT 2.99 10^6/uL (4.18-5.33); RED CELL DISTRIBUTION WIDTH 16.1 % (11.5-15.2)
[2016-12-14 15:44] LABS: ANION GAP 11 mEq/L (8-16); CALCIUM 6.6 mg/dL (8.5-10.4); CARBON DIOXIDE 17 mEq/l (22-31); CHLORIDE 114 mEq/L (97-110); CREATININE 2.9 mg/dL (0.6-1.0); GLOMERULAR FILTRATION RATE 17; GLUCOSE 164 mg/dL (70-100); POTASSIUM 3.7 mEq/L (3.5-5.2); SODIUM 142 mEq/L (134-144)
--- NOTE | 2016-12-14 15:53 | GCON ---
[f rep st] CONSULTATION PULMONARY CRITICAL CARE CONSULTATION. DATE OF CONSULTATION: 12/14/2016 REASON FOR CONSULTATION: Acute respiratory failure in a patient with abdominal sepsis from perforation. HISTORY OF PRESENT ILLNESS: The patient is a 56-year-old, who underwent hemicolectomy on 12/09 for recently diagnosed adenocarcinoma of the ascending colon. Postoperatively, she developed hypotension, renal insufficiency, and dyspnea. Evaluation showed air under the diaphragm, and she was felt to have an anastomotic leak. She was taken back to the operating room late yesterday, where she was found to have an anastomotic leak. The bowel otherwise looked good. A Rick-Brush drain was placed, along with a wound VAC. The bowel was repaired. The patient was returned to the intensive care unit on the ventilator. She has been hypotensive, requiring norepinephrine. CVP has been in the 8-13 range. Postop x-ray shows bibasilar atelectasis/consolidation, worse on the right than the left. She has been seen by Infectious Disease. PAST MEDICAL HISTORY: Remarkable for systemic hypertension. HOME MEDICATIONS: Included amlodipine, hydrochlorothiazide, aspirin and Accupril. PAST SURGICAL HISTORY: Cholecystectomy, spinal surgery. DRUG ALLERGIES: None known. SOCIAL HISTORY: The patient is single, with a supportive family. She smokes minimally, drinks some alcohol. FAMILY HISTORY: Positive for colon cancer. REVIEW OF SYSTEMS: Unobtainable. PHYSICAL EXAMINATION: GENERAL: Reveals a woman who appears comfortable, on the ventilator. VITAL SIGNS: Blood pressure is currently 90/60, heart rate 105 , with sinus rhythm on the monitor. Respiratory rate is 22. She is on the ventilator. FiO2 is at 40%. Saturations are 95%. She is febrile to 38.7. HEENT: Remarkable for a nasogastric tube draining bilious material and an oral endotracheal tube. Pupils appear equal. NECK: Without thyromegaly or lymphadenopathy. There is no obvious jugular venous distention. CHEST: Clear anteriorly. Breath sounds are diminished at the bases. There are a few rales present, primarily at the right base, more so than the left. There are no rhonchi, no wheezes. HEART: Tachycardic and regular. There is a soft systolic murmur. ABDOMEN: Postoperative. Rick Brush drains are in place. Wound VAC is in place. Koenig catheter is present. She is making little urine postoperatively. EXTREMITIES: Remarkable for some edema/anasarca. NEUROLOGIC: Appears to be intact. She moves all extremities, opens eyes to stimulation, can nod weakly. DATABASE: Chest x-ray shows bibasilar atelectasis and/or infiltrate, right greater than left. Lines and tubes are in good position. LABORATORY: Arterial blood gas shows a pH of 7.31, pCO2 of 34, and pO2 of 80, on 50% FiO2, and a tidal volume of 700. CO2 of 17, base excess -8. Lactate is 1.5. White blood cell count is 6500, hematocrit 29, platelets 225,000. Sodium is 143, potassium 4.6, CO2 19, BUN 39, with a creatinine of 3.1, up from 23 and 1.8 yesterday. On admission, creatinine was 0.7, with a BUN of 10. Urinalysis 2 days ago showed red cells, as well as white cells. Blood cultures are pending. Abdominal cultures are pending. Some yeast was seen. Urine culture is no growth at 24 hours. ASSESSMENT: 1. Abdominal sepsis, with hypotension, requiring norepinephrine. This is associated with acidosis. Intravenous fluids are being given. CVP is currently high at 13 to 14. Appropriate antibiotics are being given. 2. Peritonitis, status post anastomotic leak. Status post re-exploration and repair of her anastomotic leak yesterday. Stable at this time. 3. Acute respiratory failure secondary to #1 and #2. The patient will be kept on the ventilator. Appropriate ventilatory support will be maintained. Bicarb will be given. Chest x-ray and blood gases will be followed. Appropriate sedation and pain control will be maintained per protocols. Albuterol will be given while on the ventilator. 4. History of carcinoma of the colon. 5. Deep vein thrombosis prophylaxis, on subcu heparin. However, this is currently being held secondary to her surgery and some rectal blood. 6. Gastrointestinal prophylaxis: Pepcid. 7. Anemia. Postoperative hematocrit is 29, secondary to acute blood loss anemia and delusional issues. Hematocrit on admission was 42. 8. Acute renal failure. She is making little urine, BUN has climbed to 39, with a creatinine of 3.1. Renal consultation will be obtained. 9. Metabolic: Hypokalemia, on replacement. Metabolic acidosis: For bicarb. Hypocalcemia also is present. PLAN AND RECOMMENDATIONS: Patient will be kept on the ventilator for now, with appropriate ventilatory strategies. Blood gas and chest x-ray will be followed. Antibiotics will be continued per recommendations of Infectious Disease. She is on antifungals as well. Blood pressure will be supported with norepinephrine and with vasopressin initially. CVP will be kept in the 12 range. Sedation and pain management will be maintained. Subcu heparin can likely be started tomorrow. Laboratory, blood gas and chest x-rays will be followed. 65 minutes of critical care time spent directly with the patient. Discussed with her surgery, respiratory, nursing. Further plans and recommendations will be made based on her progress over the next 12-24 hours. /[id number]/MODL MTDD
--- NOTE | 2016-12-14 16:08 | WOCRNPDOC ---
WOCRN Advanced Assessment Note - Skin Integrity Problem, Advanced Assess Abdomen Dressing Type: Black Vac Foam (one piece), Wound Vac Dressing Description: Clean/Dry, Intact Exudate Amount: Scant Exudate Color: Red Exudate Characteristic(s): Serosanguinous Integumentary Issue Intervention: Dressing Changed (three pieces black foam, to follow wound contour.) Sirisha Wound Tissue: Intact Sirisha Wound Swelling: Mild Wound Bed Color: Red Wound Bed Constitution: Granulation Tissue, Smooth Tissue Wound Edges: Well Defined Site Odor: None Site Measurement - Head-to-Toe Length X Width X Depth (cm): 22 x 3.5 x 3.5 Skin Integrity Problem Comment: VAC dressing change to L abd surgical wound per protocol and request of Dr. Cat. Used one package small granufoam. Report to ESTER Hall.
[2016-12-14] MEDS: HEPARIN 5,000 UNIT/0.5 ML SYR SC SCH ×2 (16:23→21:07)
[2016-12-14 16:33] LABS: BASE EXCESS -6.5 mEq/L (-2.5-2.5); BICARBONATE 18 mEq/L (22-26); MEASURED OXYGEN SATURATION 93 % (92-95); PCO2 35 mmHg (34-38); PO2 79 mmHg (65-75); TCO2 19 mEq/L (23-27)
[2016-12-14 16:34] LABS: END TIDAL CO2 26; O2 CONCENTRATIION 40 % (0-100); P/F RATIO 198 RATIO; PRESSURE SUPPORT 7; SIMV YES
--- NOTE | 2016-12-14 16:43 | GCON ---
[f rep st] CONSULTATION REFERRING PHYSICIAN: Tarah Lawton MD REASON FOR CONSULTATION: Acute renal failure, sepsis. HISTORY OF PRESENT ILLNESS: The patient is a 56-year-old female, who was admitted on December 09 for elective hemicolectomy for a colon polyp. This was done with primary anastomosis. She failed to progress normally following her surgery, in terms of bowel function and became more distended. Yesterday, she developed some hypotension. She was noted to have some free air on chest x-ray , and taken back to the operating room for exploration and found to have an anastomotic leak. She underwent further resection with ileocolic anastomosis. She received approximately 4 L fluid resuscitation; she is net 13 kg up from admission. Overnight she was oliguric, but her urine output has picked up this morning. She was started on vasopressor and Levophed. Her blood pressure dipped as low as the 70s systolic, but now is back up to the low 100s. Her creatinine was 0.7 on December 10, then bumped to 1.8 yesterday and 3.1 today. A subsequent lab later this afternoon showed a creatinine of 2.9. She was receiving Toradol 15 mg 4 times daily up through yesterday, as well as lisinopril up to 2 days ago. PAST MEDICAL HISTORY: Hypertension. SURGICAL HISTORY: Cholecystectomy and spinal surgery. CURRENT MEDICATIONS: Daptomycin 600 mg IV q.40 hours, micafungin 100 mg IV daily, Zosyn 2.25 g IV q.6 hours, vasopressin, Levophed, subcutaneous heparin. SOCIAL HISTORY: She smokes 2-3 cigarettes per day and uses alcohol moderately. 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 FAMILY HISTORY: Uncle with colon cancer. REVIEW OF SYSTEMS: Unable to obtain as patient is intubated. PHYSICAL EXAMINATION: VITAL SIGNS: Blood pressure 103/68, heart rate 100, respiratory rate 22, saturating 94% on 40% FiO2. Last temp 38.7 Celsius. CVP 14. GENERAL: Intubated, sedated, but does open eyes to touch on exam. HEAD: Atraumatic. NECK: No gross lymphadenopathy. HEART: Tachycardic. Regular rate. No murmurs gallops, rubs. LUNGS: Clear to auscultation bilaterally. ABDOMEN: Soft, nondistended. She has an open wound centrally with a wound VAC on and 2 TARA drains with serosanguineous fluid. Absent bowel sounds. LOWER EXTREMITIES: Appear mildly edematous but without pitting. Hands and feet are warm and still well perfused. SKIN: No obvious rashes. MUSCULOSKELETAL: No gross joint swelling or deformities. LABS: Sodium 143, potassium 4.6, CO2 19, BUN 39, creatinine 2.9, calcium 7.0. CK 47. Bicarbonate 16. White count 7, hemoglobin 9.3, platelets 208. Urine 2 days ago showed infection. Urine sodium was 45, creatinine was 214. Micro: Enterococcus growing from her abdomen. Urine culture: No growth thus far. Chest x-ray, I personally reviewed, showed bibasilar atelectasis, and poor expansion of both lungs. IMPRESSION AND PLAN: 1. Acute kidney injury. This likely is related to a combination of fluid shifts related to her abdominal infection, vasoconstrictive issues related to use of Toradol as well as lisinopril, and hypotension. She likely has acute tubular necrosis but does appear to have shown some initial response to IV fluids with increase in urine output and decreasing creatinine. I am hopeful that she will recover without requiring hemodialysis. Avoid further NSAIDs, CHRISTIAN inhibitors, ARBs, and nephrotoxins. Pharmacy to adjust antibiotic doses based on renal function. 2. Abdominal sepsis. Resection of further segment of bowel due to anastomotic leak yesterday, with ileocolic anastomosis. She appears to be doing better after the surgery and with fluid resuscitation. 3. Acidosis, this is mild. She has received bicarbonate boluses and I do not feel that further sodium bicarbonate is warranted at this time. However, she will develop further acidosis with use of ongoing saline, so I will add some bicarbonate to her maintenance IV fluids. 4. Anemia, mild, postoperative. Follow, transfuse p.r.n. Thank you for this consultation. /[id number]/MODL MTDD
[2016-12-14] MEDS: SODIUM BICARBONATE 75 MEQ in 1/2 NS 1,000 ML IV SCH ×2 (17:10→23:50)
[2016-12-14] MEDS: ACETAMINOPHEN 650 MG/20.3 ML UDCUP PO PRN (22:20)
[2016-12-15] MEDS: ALBUTEROL 60 PUFFS/8 GM MDI IH SCH ×7 (00:14→23:37)
[2016-12-15] MEDS: ACETAMINOPHEN 650 MG/20.3 ML UDCUP PO PRN ×4 (03:14→15:12)
[2016-12-15] MEDS: fentaNYL/NACL 100 ML IV SCH ×5 (03:46→23:33)
[2016-12-15 04:11] LABS: BASE EXCESS -5.5 mEq/L (-2.5-2.5); BICARBONATE 18 mEq/L (22-26); MEASURED OXYGEN SATURATION 92 % (92-95); PCO2 34 mmHg (34-38); PO2 77 mmHg (65-75); TCO2 19 mEq/L (23-27)
[2016-12-15 04:13] LABS: O2 CONCENTRATIION 40 % (0-100); P/F RATIO 193 RATIO; PATIENT RATE 22; PRESSURE SUPPORT 7; SIMV YES
[2016-12-15 04:31] LABS: ABSOLUTE NRBC COUNT 0.02 10^3/uL (0-0.01); ADD DIFF? YES; ADD MORPH? NO; ATYPICAL LYMPHOCYTE FLAG 0 (0-99); FRAGMENT RBC FLAG 0 (0-99); HEMATOCRIT 29.6 % (38.0-47.0); HEMOGLOBIN 10.3 g/dL (12.6-16.3); LIPEMIA HEMOLYSIS FLAG 90 (0-99); MEAN CELL HEMOGLOBIN 30.2 pg (27.9-34.1); MEAN CELL HEMOGLOBIN CONCENTR. 34.8 g/dL (32.4-36.7); MEAN CELL VOLUME 86.8 fL (81.5-99.8); MEAN PLATELET VOLUME 10.8 fL (8.7-11.7); NRBC-AUTO% 0.2 % (0.0-0.2); PLATELET CLUMPS FLAG 20 (0-99); PLATELET COUNT 251 10^3/uL (150-400); RED BLOOD CELL COUNT 3.41 10^6/uL (4.18-5.33); RED CELL DISTRIBUTION WIDTH 15.9 % (11.5-15.2)
[2016-12-15 04:41] LABS: LEFT SHIFT FLG 300 (0-99)
[2016-12-15 04:42] LABS: ADD SCAN? NO
[2016-12-15 04:46] LABS: INR 1.32 (0.83-1.16); PROTIME(PATIENT) 16.4 SEC (12.0-15.0)
[2016-12-15 04:47] LABS: APTT 44.8 SEC (23.0-38.0)
[2016-12-15 04:56] LABS: ALANINE AMINOTRANSFERASE 64 IU/L (9-52); ALBUMIN 2.1 g/dL (3.5-5.0); ALKALINE PHOSPHATASE 94 IU/L (38-126); ANION GAP 12 mEq/L (8-16); ASPARTATE AMINOTRANSFERASE 346 IU/L (14-46); BILIRUBIN,TOTAL 2.8 mg/dL (0.1-1.4); CALCIUM 6.9 mg/dL (8.5-10.4); CARBON DIOXIDE 17 mEq/l (22-31); CHLORIDE 114 mEq/L (97-110); CREATININE 2.3 mg/dL (0.6-1.0); GLOMERULAR FILTRATION RATE 22; GLUCOSE 101 mg/dL (70-100); POTASSIUM 3.6 mEq/L (3.5-5.2); SODIUM 143 mEq/L (134-144); TOTAL PROTEIN 4.5 g/dL (6.3-8.2)
[2016-12-15 05:02] LABS: BILIRUBIN-CONJUGATED 2.3 mg/dL (0.0-0.5); BILIRUBIN-UNCONJUGATED 0.5 mg/dL (0.0-1.1)
[2016-12-15 05:33] LABS: LARGE PLATELETS PRESENT; PLATELET ESTIMATE ADEQUATE (ADEQ); TOXIC VACUOLIZATION PRESENT
[2016-12-15] MEDS: PROPOFOL/EMULSION 100 ML IV SCH ×4 (05:35→20:17)
[2016-12-15 05:37] LABS: POLYCHROMASIA 1+
[2016-12-15] MEDS: PIPERACILLIN/TAZO 2.25 GM/DEX 50 ML IV SCH ×4 (05:37→23:30)
[2016-12-15] MEDS: HEPARIN 5,000 UNIT/0.5 ML SYR SC SCH ×3 (05:44→22:52)
[2016-12-15] MEDS: NOREPINEPHRINE/NS 500 ML IV SCH ×3 (07:19→17:28)
[2016-12-15] MEDS: VASOPRESSIN/DEXTROSE 250 ML IV SCH ×3 (07:43→21:31)
[2016-12-15] MEDS: CHLORHEXIDINE GLUCONATE 15 ML UDL PO SCH ×2 (07:58→20:18)
[2016-12-15] MEDS: MICAFUNGIN NA 100 MG in NS 100 ML IV SCH (08:53)
[2016-12-15] MEDS ORDERED: FAMOTIDINE 20 MG/NACL 50 ML IV SCH (09:00)
--- NOTE | 2016-12-15 09:37 | PCMIDPN ---
Assessment/Plan: # Severe Sepsis secondary to peritonitis following anastomotic leak s/p washout 12/13, generally remains quite ill remaining on 2 pressors, persistent bandemia and fever. Some measures of improvement including Vent setting minimal and increased UOP & Cr down a bit, tachycardia resolved. Gram stain from OR polymicrobial including yeast. Cx only show enterococcus to date --continue current abx regiment as below for coverage of polymicrobial intra- abdominal source with yeast on gram stain. Daptomycin currently being used for MRSA coverage in light tenuous renal function Medications 3 Generic Name Dose Route Start Last Admin Trade Name Freq PRN Reason Stop Dose Admin Micafungin Sodium 100 mg/ 100 mls @ 100 mls/hr 12/14/16 10:30 12/15/16 08:53 Sodium Chloride IV 01/13/17 10:29 100 mls DAILY KATRIN, D#2 Daptomycin 600 mg/ Sodium 112 mls @ 200 mls/hr 12/14/16 10:30 12/14/16 11:50 Chloride IV 01/13/17 10:29 112 mls Q48H KATRIN Protocol, D#2 Piperacillin/Tazobactam/Dextrose 50 mls @ 100 mls/hr 12/14/16 12:00 12/15/16 05:37 Zosyn 2.25 Gm (Premix) IV 01/13/17 11:59 50 mls Q6HRS KATRIN Protocol, D#1 microbiology 12/13 surgery gram stain: GPR, GPC, GNR, yeast: Cx enterococcus / blood cx (2) NGTD Subjective: no specific events overnight from nursing Objective: Vital Signs Temp Pulse Resp BP Pulse Ox 38.4 C H 88 22 H 94/60 L 100 12/15/16 09:00 12/15/16 09:00 12/15/16 09:00 12/15/16 09:00 12/15/16 09:00 Microbiology 12/13/16 22:05 Gram Stain - Final Abdomen - Aspirate Laboratory Results 12/15/16 04:14 12/15/16 04:14 12/14/16 12/15/16 12/16/16 05:59 05:59 05:59 Intake Total 4236 7078 Output Total 1320 7955 Balance 2916 4786 - Physical Exam General Appearance: other (opens eye to verbal stimulation) EENT: pale conjunctiva, ET Tube, NG Tube (black output), No scleral icterus Respiratory: lungs clear Neck: supple Cardiac/Chest: regular rate, rhythm Extremities: pedal edema Abdomen: distended, other (no bowel sounds, midline incision with wound vac) Pelvic Exam: ponce Skin: No rash Neuro/Psych: alert - Line/s RUE PICC Lines: No drainage, No erythema other Lines: other (R A-line), No drainage, No erythema - Time Spent With Patient Time Spent with Patient: greater than 35 minutes Time Spent with Patient: Greater than 35 minutes spent on this patients care, greater than 50% of time spent counseling, educating, and coordinating care regarding the above mentioned plan. ICD10 Worksheet Patient Problems: Problems Problem Status Onset Colon cancer Acute
--- NOTE | 2016-12-15 10:02 | SOAPPROG ---
SOAP Progress Note Assessment/Plan: Assessment/Plan: Continue to wean down pressors Hopefully off vent within next 1-2 days fever - tylenol, will continue to monitor S: Patient was asleep before examined Fever this morning (101.6) O: Gen: opens eye to verbal stimulation HEENT: ET tube, NG tube Abd: distended, tender to palpation, wound vac intact to suction, TARA with serosanguineous drain Pelvic: ponce (Output 1000cc overnight) 12/15/16 09:59 12/15/16 10:30 Objective: Vital Signs Temp Pulse Resp BP Pulse Ox 37.3 C 88 22 H 90/60 L 100 12/15/16 09:55 12/15/16 09:55 12/15/16 09:55 12/15/16 09:55 12/15/16 09:55 Microbiology 12/13/16 22:05 Gram Stain - Final Abdomen - Aspirate Laboratory Results 12/15/16 04:14 12/15/16 04:14 12/14/16 12/15/16 12/16/16 05:59 05:59 05:59 Intake Total 5827 7064 Output Total 2740 5485 Balance 2916 0375 PT 16.4 SEC (12.0-15.0) H 12/15/16 04:14 INR 1.32 (0.83-1.16) H 12/15/16 04:14 ICD10 Worksheet Patient Problems: Problems Problem Status Onset Colon cancer Acute
[2016-12-15] MEDS: SODIUM BICARBONATE 75 MEQ in 1/2 NS 1,000 ML IV SCH ×3 (11:31→20:18)
[2016-12-15 11:54] LABS: MAGNESIUM 2.3 mg/dL (1.6-2.3)
--- NOTE | 2016-12-15 12:03 | SOAPPROG ---
SOAP Progress Note Assessment/Plan: Assessment: 1. Severe Sepsis On full support, multiple pressors. Fortunately, appears to be appropriately perfusing. On broad antimicrobial coverage. ID following. 2. MARTA Non oliguric and Cr improving. 3. Acidosis AG nl, bicarb 18, on bicarb drip 4. Volume Gaining net volume. FiO2 40% at present. Follow. Subjective: Awake Objective: Vital Signs Temp Pulse Resp BP Pulse Ox 37.9 C 86 22 H 93/51 L 100 12/15/16 11:00 12/15/16 11:00 12/15/16 11:00 12/15/16 11:00 12/15/16 11:00 Microbiology 12/13/16 11:10 Urine Culture - Final Urine,Catheterized 12/13/16 22:05 Gram Stain - Final Abdomen - Aspirate Laboratory Results 12/15/16 04:14 12/15/16 04:14 12/14/16 12/15/16 12/16/16 05:59 05:59 05:59 Intake Total 4236 7047 Output Total 1320 2275 Balance 2916 4772 PT 16.4 SEC (12.0-15.0) H 12/15/16 04:14 INR 1.32 (0.83-1.16) H 12/15/16 04:14 Physical Exam - Physical Exam General Appearance: mild distress, other (intubated) Respiratory: lungs clear Cardiac/Chest: tachycardia Abdomen: distended Pelvic Exam: other (ponce) Extremities: pedal edema Neuro/Psych: other (awake, appears alerts) ICD10 Worksheet Patient Problems: Problems Problem Status Onset Colon cancer Acute
--- NOTE | 2016-12-15 14:53 | PDINTPN ---
Sales Support Representative Progress Note Assessment/Plan: Assessment: Status post perforated bowel/anastomotic leak with peritonitis. Repaired 12/13. Id following. On broad-spectrum antibiotics and antifungals. Sepsis, hypotension. Remains on 2 pressors. Metabolic acidosis persists for unclear reasons. On a bicarb drip. Acute respiratory failure. Remains on the ventilator, unable to wean significantly. CPAP trials can be initiated but likely due will be short. Abdominal issues affecting pulmonary status. Possible right lower lobe pneumonia, query aspiration. On broad-spectrum antibiotics for her peritonitis. Will cover pulmonary issues adequately. Acute renal failure: Improving. Urine output increased, creatinine coming down. Renal following. Remains volume overloaded. Nutrition: Will need TPN. Additional lines will be needed for this. Another PICC line will be requested Recent diagnosis of colon cancer, status post resection on . DVT prophylaxis: Subcu heparin GI prophylaxis: Pepcid will be added to TPN Plan: Continue ventilatory support. Continue fluids and pressors to maintain a mean arterial pressure of 60 or above. Follow laboratory and chest x-ray, blood gas. Can start short CPAP trials, but not a candidate for extubation at this time. Continue antibiotics, sedation and pain control. Continue aggressive supportive care. 55 mins of critical care time spent directly with the patient. Discussed with respiratory, nursing, surgery, and the ICU multi disciplinary team. Subjective: Sedated, on ventilator. Arouses weekly, responds. Objective: Vital Signs Temp Pulse Resp BP Pulse Ox 37.9 C 83 22 H 91/60 L 100 12/15/16 13:57 12/15/16 13:57 12/15/16 13:57 12/15/16 13:57 12/15/16 13:57 Microbiology 12/13/16 22:05 Gram Stain - Final Abdomen - Aspirate 12/13/16 11:10 Urine Culture - Final Urine,Catheterized Laboratory Results 12/15/16 04:14 12/15/16 04:14 12/14/16 12/15/16 12/16/16 05:59 05:59 05:59 Intake Total 4236 7047 Output Total 1320 2275 Balance 2916 4772 PT 16.4 SEC (12.0-15.0) H 12/15/16 04:14 INR 1.32 (0.83-1.16) H 12/15/16 04:14 Laboratory Tests 0412/15/16 12/15/16 04:05 04:14 04:14 pCO2 34 pO2 77 H ABG pH 7.36 O2 Concentration % 40 Actual Respiration Rate 22 SIMV YES Tidal Volume 700 Calcium 6.9 L Phosphorus 4.3 Magnesium 2.3 Total Bilirubin 2.8 H AST 346 H ALT 64 H Albumin 2.1 L CXR: Right basilar infiltrate persists, small retrocardiac infiltrate is present. Small lung volumes. Lines and tubes in good position. Physical Exam - Physical Exam General Appearance: no apparent distress, obese, other (On vent) EENT: PERRL/EOMI, ET tube, other (NG to suction) Neck: normal inspection (JVD present. CVP approximately 12) Respiratory: decreased breath sounds (Bilaterally.), rales (Present at bases), No rhonchi, No wheezing Cardiac/Chest: regular rate, rhythm (Distant heart tones, soft systolic murmur, no obvious gallop.) Abdomen: distended, other (Postoperative changes present), No normal bowel sounds (Decreased) Pelvic Exam: other (Koenig catheter in place, improved urine output but input greater than output by about 4 L last 24 hours) Skin: normal color, warm/dry Extremities: pedal edema (1 to 2+) Neuro/Psych: no motor/sensory deficits (Moves all extremities), No cognition abnormalities (Difficult to assess) ICD10 Worksheet Patient Problems: Problems Problem Status Onset Colon cancer Acute
[2016-12-15] MEDS ORDERED: D10W 1,000 ML IV PRN (16:25)
[2016-12-15 17:01] LABS: ALANINE AMINOTRANSFERASE 62 IU/L (9-52); ALKALINE PHOSPHATASE 85 IU/L (38-126); ANION GAP 10 mEq/L (8-16); ASPARTATE AMINOTRANSFERASE 319 IU/L (14-46); BILIRUBIN,TOTAL 2.5 mg/dL (0.1-1.4); CALCIUM 6.6 mg/dL (8.5-10.4); CARBON DIOXIDE 21 mEq/l (22-31); CHLORIDE 110 mEq/L (97-110); CREATININE 1.8 mg/dL (0.6-1.0); GLOMERULAR FILTRATION RATE 29; GLUCOSE 112 mg/dL (70-100); MAGNESIUM 2.2 mg/dL (1.6-2.3); POTASSIUM 3.2 mEq/L (3.5-5.2); SODIUM 141 mEq/L (134-144); TOTAL PROTEIN 4.2 g/dL (6.3-8.2)
[2016-12-15 17:19] LABS: BILIRUBIN-CONJUGATED 2.1 mg/dL (0.0-0.5); BILIRUBIN-UNCONJUGATED 0.4 mg/dL (0.0-1.1)
[2016-12-15 17:25] LABS: TRIGLYCERIDE 1225 mg/dL (35-135)
[2016-12-15] MEDS ORDERED: POTASSIUM Cl (KCl) 100 ML IV ONE (18:00)
--- NOTE | 2016-12-15 18:29 | HOSPPROG ---
Hospitalist Progress Note Assessment/Plan: * Anastomotic leak - return to OR for washout/resection -wound vac * Septic shock due to peritonitis/intra-abd abscess -IV levophed -Zosyn, dapto, micafungin * Acute respiratory failure - vent * Acute renal failure - improved * Metabolic acidosis -bicarb gtt * Colon cancer s/p lap right hemicolectomy * Nutrition - TPN * Morbid obesity - BMI 40 Subjective: More stable, pressors requirement the same, maybe some CPAP weans this afternoon Objective: Vital Signs Temp Pulse Resp BP Pulse Ox 37.4 C 80 22 H 135/84 H 100 12/15/16 18:00 12/15/16 18:00 12/15/16 18:00 12/15/16 18:00 12/15/16 18:00 Microbiology 12/13/16 22:05 Gram Stain - Final Abdomen - Aspirate 12/13/16 11:10 Urine Culture - Final Urine,Catheterized Laboratory Results 12/15/16 04:14 12/15/16 16:30 12/14/16 12/15/16 12/16/16 05:59 05:59 05:59 Intake Total 4236 7047 3376 Output Total 1320 2275 815 Balance 2916 4772 2561 PT 16.4 SEC (12.0-15.0) H 12/15/16 04:14 INR 1.32 (0.83-1.16) H 12/15/16 04:14 - Physical Exam Constitutional: no apparent distress, appears nourished, not in pain Cardiovascular: regular rate and rhythym, no murmur, rub, or gallop Respiratory: no respiratory distress, no rales or rhonchi, clear to auscultation Gastrointestinal: distension, No normoactive bowel sounds, No tenderness, No ascites, No hepatosplenomegally Skin: no rashes or abrasions, no fluctuance, no induration Psychiatric: other (sedated, awakens appropriately when sedation lightened and follows commands) ICD10 Worksheet Patient Problems: Problems Problem Status Onset Colon cancer Acute
--- NOTE | 2016-12-15 20:39 | SOAPPROG ---
SOAP Progress Note Assessment/Plan: Assessment/Plan: Continue to wean down pressors Hopefully off vent within next 1-2 days fever - tylenol, will continue to monitor S: Patient was asleep before examined Fever this morning (101.6) O: Gen: opens eye to verbal stimulation HEENT: ET tube, NG tube Abd: distended, tender to palpation, wound vac intact to suction, TARA with serosanguineous drain Pelvic: ponce (Output 1000cc overnight) 12/15/16 09:59 12/15/16 10:30 12/15/16 20:37 CONTINUES TO IMPROVE THIS P.M. WITH GOOD URINE OUTPUT AND LOW-GRADE FEVER ABDOMEN TIMBER SETTER BUT TOLERATING A CPAP TRIALS / WOUND VAC FUNCTIONING Objective: Vital Signs Temp Pulse Resp BP Pulse Ox 37.4 C 80 22 H 107/53 L 98 12/15/16 18:00 12/15/16 19:00 12/15/16 19:00 12/15/16 19:00 12/15/16 19:00 Microbiology 12/13/16 22:05 Gram Stain - Final Abdomen - Aspirate 12/13/16 11:10 Urine Culture - Final Urine,Catheterized Laboratory Results 12/15/16 04:14 12/15/16 16:30 12/14/16 12/15/16 12/16/16 05:59 05:59 05:59 Intake Total 9776 4111 4877 Output Total 1320 2355 815 Balance 7651 7055 9003 PT 16.4 SEC (12.0-15.0) H 12/15/16 04:14 INR 1.32 (0.83-1.16) H 12/15/16 04:14 ICD10 Worksheet Patient Problems: Problems Problem Status Onset Colon cancer Acute
[2016-12-15] MEDS: TPN W/ FAMOTIDINE 1 EA BAG IV SCH (21:29)
[2016-12-16] MEDS: PROPOFOL/EMULSION 100 ML IV SCH ×6 (00:27→20:08)
[2016-12-16] MEDS: SODIUM BICARBONATE 75 MEQ in 1/2 NS 1,000 ML IV SCH ×2 (03:38→08:02)
[2016-12-16] MEDS: ALBUTEROL 60 PUFFS/8 GM MDI IH SCH ×5 (04:00→20:42)
[2016-12-16 04:52] LABS: ABSOLUTE NRBC COUNT 0.02 10^3/uL (0-0.01); ADD DIFF? YES; ADD MORPH? NO; FRAGMENT RBC FLAG 0 (0-99); HEMATOCRIT 29.5 % (38.0-47.0); HEMOGLOBIN 10.3 g/dL (12.6-16.3); LIPEMIA HEMOLYSIS FLAG 90 (0-99); MEAN CELL HEMOGLOBIN 30.3 pg (27.9-34.1); MEAN CELL HEMOGLOBIN CONCENTR. 34.9 g/dL (32.4-36.7); MEAN CELL VOLUME 86.8 fL (81.5-99.8); MEAN PLATELET VOLUME 10.8 fL (8.7-11.7); NRBC-AUTO% 0.1 % (0.0-0.2); PLATELET CLUMPS FLAG 10 (0-99); PLATELET COUNT 229 10^3/uL (150-400); RED CELL DISTRIBUTION WIDTH 16.1 % (11.5-15.2)
[2016-12-16 04:52] LABS: BASE EXCESS -2.2 mEq/L (-2.5-2.5); BICARBONATE 24 mEq/L (22-26); MEASURED OXYGEN SATURATION 87 % (92-95); PCO2 49 mmHg (34-38); PO2 65 mmHg (65-75); TCO2 25 mEq/L (23-27)
[2016-12-16 04:54] LABS: CPAP YES; END TIDAL CO2 39; O2 CONCENTRATIION 40 % (0-100); P/F RATIO 163 RATIO; PATIENT RATE 20; PRESSURE SUPPORT 7
[2016-12-16 04:57] LABS: ADD SCAN? NO; ATYPICAL LYMPHOCYTE FLAG 160 (0-99); LEFT SHIFT FLG 240 (0-99)
[2016-12-16 05:21] LABS: ALANINE AMINOTRANSFERASE 61 IU/L (9-52); ALBUMIN 2.1 g/dL (3.5-5.0); ALKALINE PHOSPHATASE 96 IU/L (38-126); ANION GAP 9 mEq/L (8-16); ASPARTATE AMINOTRANSFERASE 262 IU/L (14-46); CALCIUM 6.9 mg/dL (8.5-10.4); CARBON DIOXIDE 25 mEq/l (22-31); CHLORIDE 111 mEq/L (97-110); CREATININE 1.6 mg/dL (0.6-1.0); GLOMERULAR FILTRATION RATE 33; GLUCOSE 144 mg/dL (70-100); MAGNESIUM 2.5 mg/dL (1.6-2.3); POTASSIUM 3.3 mEq/L (3.5-5.2); SODIUM 145 mEq/L (134-144); TOTAL PROTEIN 4.5 g/dL (6.3-8.2)
[2016-12-16 05:28] LABS: PLATELET ESTIMATE ADEQUATE (ADEQ)
[2016-12-16] MEDS: HEPARIN 5,000 UNIT/0.5 ML SYR SC SCH ×3 (05:28→21:28)
[2016-12-16] MEDS: PIPERACILLIN/TAZO 2.25 GM/DEX 50 ML IV SCH ×2 (05:28→12:55)
[2016-12-16] MEDS: ACETAMINOPHEN 650 MG/20.3 ML UDCUP PO PRN ×3 (05:28→14:24)
[2016-12-16 05:30] LABS: INR 1.2 (0.83-1.16); LARGE PLATELETS PRESENT; PROTIME(PATIENT) 15.2 SEC (12.0-15.0); TOXIC VACUOLIZATION PRESENT
[2016-12-16 05:31] LABS: APTT 40.6 SEC (23.0-38.0)
[2016-12-16] MEDS: fentaNYL/NACL 100 ML IV SCH ×4 (06:57→20:08)
[2016-12-16] MEDS: CHLORHEXIDINE GLUCONATE 15 ML UDL PO SCH ×2 (07:27→20:07)
[2016-12-16] MEDS: MICAFUNGIN NA 100 MG in NS 100 ML IV SCH (08:29)
[2016-12-16 08:37] LABS: ALANINE AMINOTRANSFERASE 56 IU/L (9-52); ALBUMIN 1.9 g/dL (3.5-5.0); ALKALINE PHOSPHATASE 82 IU/L (38-126); ANION GAP 8 mEq/L (8-16); ASPARTATE AMINOTRANSFERASE 227 IU/L (14-46); BILIRUBIN,TOTAL 1.7 mg/dL (0.1-1.4); CALCIUM 6.6 mg/dL (8.5-10.4); CARBON DIOXIDE 23 mEq/l (22-31); CHLORIDE 109 mEq/L (97-110); CREATININE 1.6 mg/dL (0.6-1.0); GLOMERULAR FILTRATION RATE 33; GLUCOSE 163 mg/dL (70-100); POTASSIUM 3.2 mEq/L (3.5-5.2); SODIUM 140 mEq/L (134-144); TOTAL PROTEIN 4.2 g/dL (6.3-8.2)
--- NOTE | 2016-12-16 09:33 | SOAPPROG ---
SOAP Progress Note Assessment/Plan: Assessment: 1. MARTA. Ischemic ATN d/t sepsis/nsaids/acei +/- prerenal. Improving. Creat down to 1.6. EV volume up but BP borderline, not ready to mobilize fluid yet Good uop. 2. Acidosis. Resolved. Can d/c HCO3 gtt. 3. Abdominal sepsis. Continue broad spectrum ABx. Wound open. Per surg. 4. Hypokalemia. Replace. Plan: 12/16/16 09:29 Subjective: CPAP trial over night. Off pressors this am. Wound vac removed. No new concerns per RN. Objective: Vital Signs Temp Pulse Resp BP Pulse Ox 38.2 C 96 23 H 134/63 H 100 12/16/16 08:00 12/16/16 08:00 12/16/16 08:00 12/16/16 08:00 12/16/16 08:00 Microbiology 12/13/16 22:05 Gram Stain - Final Abdomen - Aspirate 12/13/16 11:10 Urine Culture - Final Urine,Catheterized Laboratory Results 12/16/16 04:41 12/16/16 08:08 12/15/16 12/16/16 12/17/16 05:59 05:59 05:59 Intake Total 7047 6512 Output Total 2275 1503 Balance 4772 5009 PT 15.2 SEC (12.0-15.0) H 12/16/16 04:41 INR 1.20 (0.83-1.16) H 12/16/16 04:41 Restless, awake, on vent RRR, no m/g/r Coarse breath sounds throughout Abdom obese. Open wound with pink granulation tissue Tr LE edema ICD10 Worksheet Patient Problems: Problems Problem Status Onset Colon cancer Acute
[2016-12-16] MEDS ORDERED: BUPIVACAINE 0.5% 30 ML SDV IF PRN (09:37)
[2016-12-16] MEDS: DAPTOmycin 600 MG in NS 100 ML IV SCH (09:41)
[2016-12-16] MEDS: POTASSIUM Cl (KCl) 100 ML IV SCH (10:33)
--- NOTE | 2016-12-16 11:35 | PCMIDPN ---
Assessment/Plan: 1. Sepsis secondary to peritonitis after anastomotic leak post hemicolectomy: Very slowly improving. Elevated white blood cell count today for unclear reasons, although bandemia has decreased, and other physiologic parameters are improving. Daptomycin started instead of vancomycin given recent data showing increased risk for nephrotoxicity with use of vancomycin and Zosyn concomitantly. That being said, no evidence of resistant g positives at this point in time, and the patient's Enterococcus is susceptible to ampicillin. Continue daptomycin for now, but suspect this can be discontinued in the next 24 -48 hours. Will continue while critically ill. I have asked pharmacy to review Zosyn dose in the setting of the patient's improved creatinine. Continue Micafungin with yeast on Gram stain. Also of note, the patient's baseline CK is elevated--likely secondary to critical illness. Will follow if she requires longer duration of daptomycin. 2. Right lower lobe infiltrate: Patient likely aspirated. May require bronchoscopy in the future. On appropriate antibiotics in the form of Zosyn---doubt MRSA pneumonia (daptomycin would not be the drug of choice for this) Subjective: Levophed just stopped. Blood pressure remains tenuous however. No other new overnight events. Still not tolerating CPAP trial. Objective: Daptomycin 600 mg IV Q 48 hours day 3. Zosyn 2.25 g IV q.6 hours day 2. Micafungin 100 mg IV daily day 3. T-max 38.8degrees Vital Signs Temp Pulse Resp BP Pulse Ox 37.7 C 88 22 H 83/52 L 100 12/16/16 11:00 12/16/16 11:00 12/16/16 11:00 12/16/16 11:00 12/16/16 11:00 Microbiology 12/13/16 22:05 Gram Stain - Final Abdomen - Aspirate 12/13/16 11:10 Urine Culture - Final Urine,Catheterized Laboratory Results 12/16/16 04:41 12/16/16 08:08 12/15/16 12/16/16 12/17/16 05:59 05:59 05:59 Intake Total 7012 6512 Output Total 9261 9543 Balance 9179 4949 December 13 abdominal culture with enterococcus faecalis susceptible to ampicillin Blood cultures on December 14 no growth so far CK 487 - Physical Exam General Appearance: other (Intubated, sedated. Opens eyes to voice.) EENT: ET Tube, other (Conjunctival injection bilaterally) Respiratory: crackles (Bilateral lung bases) Cardiac/Chest: tachycardia Extremities: other (PICC lines both upper extremities look fine.) Abdomen: other (Central wound VAC in place. No surrounding erythema or evidence of cellulitis. Hypoactive bowel sounds. Distended. [address] with minimal serosanguineous fluid) Skin: No rash ICD10 Worksheet Patient Problems: Problems Problem Status Onset Colon cancer Acute
--- NOTE | 2016-12-16 12:22 | SOAPPROG ---
SOAP Progress Note Assessment/Plan: Assessment/Plan: wound vac removed continue to monitor fever with tylenol Hopefully off vent within next 1-2 days S: Patient was asleep when examined O: Gen: opens eye to verbal stimulation HEENT: ET tube, NG tube Abd: distended, tender to palpation, wound vac intact to suction, TARA with serosanguineous drain Pelvic: ponce 12/15/16 20:37 CONTINUES TO IMPROVE THIS P.M. WITH GOOD URINE OUTPUT AND LOW-GRADE FEVER ABDOMEN COORDINATOR CARDIOPULMONARY SERVICES BUT TOLERATING A CPAP TRIALS / WOUND VAC FUNCTIONING 12/16/16 12:19 Objective: Vital Signs Temp Pulse Resp BP Pulse Ox 37.6 C 83 22 H 99/52 L 100 12/16/16 12:00 12/16/16 12:00 12/16/16 12:00 12/16/16 12:00 12/16/16 12:00 Microbiology 12/13/16 22:05 Gram Stain - Final Abdomen - Aspirate 12/13/16 11:10 Urine Culture - Final Urine,Catheterized Laboratory Results 12/16/16 04:41 12/16/16 08:08 12/15/16 12/16/16 12/17/16 05:59 05:59 05:59 Intake Total 7061 6512 Output Total 1521 1503 Balance 4721 5009 PT 15.2 SEC (12.0-15.0) H 12/16/16 04:41 INR 1.20 (0.83-1.16) H 12/16/16 04:41 ICD10 Worksheet Patient Problems: Problems Problem Status Onset Colon cancer Acute
[2016-12-16] MEDS ORDERED: FUROSEMIDE 20 MG/2 ML VIAL IV ONE (13:00)
--- NOTE | 2016-12-16 14:22 | PDINTPN ---
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 Repaired 12/13. Id following. On broad-spectrum antibiotics and antifungals. Sepsis, hypotension. Resolving, off pressors currently. Metabolic acidosis improving. Off bicarb drip. Acute respiratory failure. Remains on the ventilator, unable to wean significantly. Not a candidate for extubation at this time. This will be reassessed several times per day based on her progress from a pulmonary standpoint and stability of other medical issues. CPAP trials can be initiated but likely will be short. Abdominal issues affecting pulmonary status. Possible right lower lobe pneumonia, query aspiration. On broad-spectrum antibiotics for her peritonitis. Will cover pulmonary issues adequately. May require bronchoscopy if secretions increase her x-ray worsens. Acute renal failure: Improving. Urine output increased, creatinine down. Renal following. Remains volume overloaded. Nutrition: On TPN Recent diagnosis of colon cancer, status post resection on . DVT prophylaxis: Subcu heparin GI prophylaxis: Pepcid will be added to TPN Plan: Continue ventilatory support. Continue CPAP trials, advancing to 1 hour or more today if tolerated x4. Decrease IV fluids as possible as blood pressure permits. Diuresis will be indicated once renal failure has resolved. If not, CRRT or hemodialysis may be needed. Renal will continue to follow. Follow laboratory and chest x-ray, blood gas. Continue antibiotics, sedation and pain control. Continue aggressive supportive care. 50 mins of critical care time spent directly with the patient. Discussed with RT, nursing, surgery, renal and the ICU multi disciplinary team. Subjective: Sedated, on the ventilator. Appears comfortable. Does arouse and respond. Tolerating CPAP weans for about 1 hour however remains tachypneic, CO2 increases , tidal volumes relatively small. Not ready for extubation. Objective: Vital Signs Temp Pulse Resp BP Pulse Ox 37.5 C 84 22 H 114/73 100 12/16/16 14:00 12/16/16 14:00 12/16/16 14:00 12/16/16 14:00 12/16/16 14:00 Microbiology 12/13/16 22:05 Gram Stain - Final Abdomen - Aspirate 12/13/16 11:10 Urine Culture - Final Urine,Catheterized Laboratory Results 12/16/16 04:41 12/16/16 08:08 12/15/16 12/16/16 12/17/16 05:59 05:59 05:59 Intake Total 7047 6512 Output Total 2278 1503 Balance 4772 5009 PT 15.2 SEC (12.0-15.0) H 12/16/16 04:41 INR 1.20 (0.83-1.16) H 12/16/16 04:41 Laboratory Tests 12/16/16 12/16/16 12/16/16 04:35 04:41 04:41 PT 15.2 H INR 1.20 H APTT 40.6 H pCO2 49 H pO2 65 ABG pH 7.31 L VBG Lactic Acid 1.5 O2 Concentration % 40 PEEP 5 Pressure Support 7 CPAP YES Calcium Total Bilirubin AST ALT Albumin 12/16/16 08:08 PT INR APTT pCO2 pO2 ABG pH VBG Lactic Acid O2 Concentration % PEEP Pressure Support CPAP Calcium 6.6 L Total Bilirubin 1.7 H AST 227 H ALT 56 H Albumin 1.9 L CXR: About the same. Right basilar infiltrate persists. Lines and tubes in good position. Physical Exam - Physical Exam General Appearance: obese, other (Sedated, on ventilator) EENT: ET tube, other (NG tube to drainage) Neck: normal inspection (Large neck) Respiratory: decreased breath sounds, rales (Few rales at bases), rhonchi ( Rhonchi present bilaterally) Cardiac/Chest: regular rate, rhythm (Distant heart tones), other (CVP approximately 14) Abdomen: distended, other (Postop changes, drains in wound VAC in place.), No normal bowel sounds (Present, decreased. Did pass some stool.) Skin: normal color, warm/dry Extremities: pedal edema, swelling (Anasarca) Neuro/Psych: no motor/sensory deficits (Moves all extremities), No cognition abnormalities (Hard to assess but appears intact) ICD10 Worksheet Patient Problems: Problems Problem Status Onset Colon cancer Acute
--- NOTE | 2016-12-16 14:51 | WOCRNPDOC ---
SEMAJ Advanced Assessment Note - Skin Integrity Problem, Advanced Assess Abdomen Dressing Type: Gauze (wet-to-dry, placed by Dr. Adkins and team after exam this a.m.) Dressing Description: Intact Exudate Amount: Minimal Exudate Color: Clear, Reddish/Yellow Exudate Characteristic(s): Serosanguinous Integumentary Issue Intervention: Dressing Applied (3 pieces black VAC foam: one long, two short pieces) Sirisha Wound Swelling: Mild Wound Bed Constitution: Granulation Tissue Wound Edges: Well Defined Site Odor: None Skin Integrity Problem Comment: Clean granulating wound bed. Wound VAC dressing re-applied per protocol, as requested by Dr. Adkins via TOSHA Cornejo. Resumed tx at standard settings. ESTER Wilkins assisting.
--- NOTE | 2016-12-16 15:26 | HOSPPROG ---
Hospitalist Progress Note Assessment/Plan: * Anastomotic leak - return to OR for washout/resection -wound vac * Septic shock due to peritonitis/intra-abd abscess -IV levophed - off -Zosyn, dapto, micafungin * Acute respiratory failure - vent * Acute renal failure - improved * Metabolic acidosis -bicarb gtt off * Colon cancer s/p lap right hemicolectomy * Nutrition - TPN * Morbid obesity - BMI 40 * Volume overload -intermittent IV lasix Subjective: intubated, pressors off, weaning poorly Objective: Vital Signs Temp Pulse Resp BP Pulse Ox 37.6 C 97 18 128/80 H 100 12/16/16 15:00 12/16/16 15:00 12/16/16 15:00 12/16/16 15:00 12/16/16 14:00 Microbiology 12/13/16 22:05 Gram Stain - Final Abdomen - Aspirate 12/13/16 11:10 Urine Culture - Final Urine,Catheterized Laboratory Results 12/16/16 04:41 12/16/16 08:08 12/15/16 12/16/16 12/17/16 05:59 05:59 05:59 Intake Total 7047 6512 Output Total 2275 1503 Balance 4772 5009 PT 15.2 SEC (12.0-15.0) H 12/16/16 04:41 INR 1.20 (0.83-1.16) H 12/16/16 04:41 d/w Dr. Aquiles Dillon ICU rounds regarding improvement and plan of care CXR viewed - my personal interpretation is - CHF - Physical Exam Constitutional: no apparent distress, appears nourished, not in pain Cardiovascular: regular rate and rhythym, no murmur, rub, or gallop Respiratory: no respiratory distress, no rales or rhonchi, clear to auscultation Gastrointestinal: normoactive bowel sounds, soft, non-tender abdomen, no palpable masses Skin: no rashes or abrasions, no fluctuance, no induration Neurologic: No AAOx3 Psychiatric: encephalopathic, anxious, other (sedated but agitated), No interacting appropriately ICD10 Worksheet Patient Problems: Problems Problem Status Onset Colon cancer Acute
[2016-12-16] MEDS ORDERED: FUROSEMIDE 40 MG/4 ML VIAL IVP ONE (16:16)
[2016-12-16 17:04] LABS: ALANINE AMINOTRANSFERASE 56 IU/L (9-52); ALBUMIN 1.9 g/dL (3.5-5.0); ALKALINE PHOSPHATASE 79 IU/L (38-126); ANION GAP 8 mEq/L (8-16); ASPARTATE AMINOTRANSFERASE 192 IU/L (14-46); BILIRUBIN,TOTAL 1.9 mg/dL (0.1-1.4); CALCIUM 7.1 mg/dL (8.5-10.4); CARBON DIOXIDE 24 mEq/l (22-31); CHLORIDE 109 mEq/L (97-110); CREATININE 1.9 mg/dL (0.6-1.0); GLOMERULAR FILTRATION RATE 27; GLUCOSE 105 mg/dL (70-100); POTASSIUM 3.4 mEq/L (3.5-5.2); SODIUM 141 mEq/L (134-144); TOTAL PROTEIN 4.1 g/dL (6.3-8.2)
[2016-12-16] MEDS: PIPERACILLIN/TAZO 3.375 GM/DEX 50 ML IV SCH ×2 (18:00→23:12)
[2016-12-16] MEDS: TPN W/ FAMOTIDINE 1 EA BAG IV SCH (20:04)
[2016-12-17] MEDS: ALBUTEROL 60 PUFFS/8 GM MDI IH SCH ×7 (00:11→23:50)
[2016-12-17] MEDS: fentaNYL/NACL 100 ML IV SCH ×4 (01:03→21:50)
[2016-12-17 01:04] LABS: ALANINE AMINOTRANSFERASE 56 IU/L (9-52); ALBUMIN 1.9 g/dL (3.5-5.0); ALKALINE PHOSPHATASE 91 IU/L (38-126); ANION GAP 10 mEq/L (8-16); ASPARTATE AMINOTRANSFERASE 160 IU/L (14-46); CALCIUM 7.4 mg/dL (8.5-10.4); CARBON DIOXIDE 22 mEq/l (22-31); CHLORIDE 112 mEq/L (97-110); CREATININE 2.2 mg/dL (0.6-1.0); GLOMERULAR FILTRATION RATE 23; GLUCOSE 101 mg/dL (70-100); POTASSIUM 3.4 mEq/L (3.5-5.2); SODIUM 144 mEq/L (134-144); TOTAL PROTEIN 4.3 g/dL (6.3-8.2)
[2016-12-17 04:13] LABS: ABSOLUTE NRBC COUNT 0.02 10^3/uL (0-0.01); ADD DIFF? YES; ADD MORPH? NO; FRAGMENT RBC FLAG 0 (0-99); HEMATOCRIT 25.2 % (38.0-47.0); HEMOGLOBIN 8.8 g/dL (12.6-16.3); LIPEMIA HEMOLYSIS FLAG 90 (0-99); MEAN CELL HEMOGLOBIN 30.1 pg (27.9-34.1); MEAN CELL HEMOGLOBIN CONCENTR. 34.9 g/dL (32.4-36.7); MEAN CELL VOLUME 86.3 fL (81.5-99.8); MEAN PLATELET VOLUME 11.2 fL (8.7-11.7); NRBC-AUTO% 0.2 % (0.0-0.2); PLATELET CLUMPS FLAG 0 (0-99); PLATELET COUNT 187 10^3/uL (150-400); RED BLOOD CELL COUNT 2.92 10^6/uL (4.18-5.33); RED CELL DISTRIBUTION WIDTH 16.3 % (11.5-15.2)
[2016-12-17 04:16] LABS: ADD SCAN? NO; ATYPICAL LYMPHOCYTE FLAG 300 (0-99); LEFT SHIFT FLG 130 (0-99)
[2016-12-17 04:27] LABS: INR 1.16 (0.83-1.16); PROTIME(PATIENT) 14.8 SEC (12.0-15.0)
[2016-12-17 04:28] LABS: APTT 34.4 SEC (23.0-38.0)
[2016-12-17 04:36] LABS: ALANINE AMINOTRANSFERASE 56 IU/L (9-52); ALBUMIN 1.9 g/dL (3.5-5.0); ALKALINE PHOSPHATASE 92 IU/L (38-126); ANION GAP 10 mEq/L (8-16); ASPARTATE AMINOTRANSFERASE 151 IU/L (14-46); CALCIUM 7.4 mg/dL (8.5-10.4); CARBON DIOXIDE 22 mEq/l (22-31); CHLORIDE 111 mEq/L (97-110); CREATININE 2.3 mg/dL (0.6-1.0); GLOMERULAR FILTRATION RATE 22; GLUCOSE 98 mg/dL (70-100); MAGNESIUM 2.4 mg/dL (1.6-2.3); POTASSIUM 3.4 mEq/L (3.5-5.2); SODIUM 143 mEq/L (134-144); TOTAL PROTEIN 4.5 g/dL (6.3-8.2)
[2016-12-17 04:45] LABS: HYPOCHROMIA 1+; PLATELET ESTIMATE ADEQUATE (ADEQ); TOXIC GRANULATION PRESENT; TOXIC VACUOLIZATION PRESENT
[2016-12-17] MEDS: HEPARIN 5,000 UNIT/0.5 ML SYR SC SCH ×3 (05:07→21:07)
[2016-12-17] MEDS: PIPERACILLIN/TAZO 3.375 GM/DEX 50 ML IV SCH (05:07)
[2016-12-17] MEDS: MICAFUNGIN NA 100 MG in NS 100 ML IV SCH (08:38)
[2016-12-17] MEDS: CHLORHEXIDINE GLUCONATE 15 ML UDL PO SCH ×2 (08:38→19:14)
--- NOTE | 2016-12-17 09:41 | SOAPPROG ---
SOAP Progress Note Assessment/Plan: Assessment: 56yo female with resolving sepsis, s/p laparotomy for anastomotic leak after right colon resection for adenocarcinoma, acute renal failure. PE Intubated, responds to stimuli, opens eyes Chest B/L right worse than left crackles Abdomen midline VAC with no signs of leak or discharge, abdomen very soft to palpation LE no edema CXR worsening right pleural effusion Plan: seen with Dr Adkins. 12/17/16 09:38 Objective: Vital Signs Temp Pulse Resp BP Pulse Ox 37.4 C 78 20 95/57 L 91 L 12/17/16 05:00 12/17/16 09:00 12/17/16 09:00 12/17/16 09:00 12/17/16 09:00 Microbiology 12/13/16 22:05 Gram Stain - Final Abdomen - Aspirate Laboratory Results 12/17/16 04:00 12/17/16 04:00 12/16/16 12/17/16 12/18/16 05:59 05:59 05:59 Intake Total 6512 3467.3 Output Total 1503 1015 Balance 5009 2452.3 PT 14.8 SEC (12.0-15.0) 12/17/16 04:00 INR 1.16 (0.83-1.16) 12/17/16 04:00 ICD10 Worksheet Patient Problems: Problems Problem Status Onset Colon cancer Acute
--- NOTE | 2016-12-17 09:42 | SOAPPROG ---
SOAP Progress Note Assessment/Plan: Assessment: 56yo female with resolving sepsis, s/p laparotomy for anastomotic leak after right colon resection for adenocarcinoma, acute renal failure. PE Intubated, responds to stimuli, opens eyes Chest B/L right worse than left crackles Abdomen midline VAC with no signs of leak or discharge, abdomen very soft to palpation, TARA drains with small amount of serosag drainage. LE no edema CXR worsening right pleural effusion NG tube 400/24hrs Plan: seen with Dr Adkins. 12/17/16 09:38 12/17/16 09:42 Objective: Vital Signs Temp Pulse Resp BP Pulse Ox 37.4 C 78 20 95/57 L 91 L 12/17/16 05:00 12/17/16 09:00 12/17/16 09:00 12/17/16 09:00 12/17/16 09:00 Microbiology 12/13/16 22:05 Gram Stain - Final Abdomen - Aspirate Laboratory Results 12/17/16 04:00 12/17/16 04:00 12/16/16 12/17/16 12/18/16 05:59 05:59 05:59 Intake Total 6512 3467.3 Output Total 1503 1015 Balance 5009 2452.3 PT 14.8 SEC (12.0-15.0) 12/17/16 04:00 INR 1.16 (0.83-1.16) 12/17/16 04:00 ICD10 Worksheet Patient Problems: Problems Problem Status Onset Colon cancer Acute
[2016-12-17] MEDS: PIPERACILLIN/TAZO 2.25 GM/DEX 50 ML IV SCH ×3 (12:01→23:25)
--- NOTE | 2016-12-17 12:59 | PDINTPN ---
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 Initial surgery 12/09 with subsequent perforation. Repaired 12/13. On ventilator since. Id following. On broad-spectrum antibiotics and antifungals. Wound VAC and drains in place. Sepsis, hypotension. Resolving, off pressors. Metabolic acidosis improved. Off bicarb drip. Acute respiratory failure. Remains on the ventilator, unable to wean significantly. CPAP trials initiated but not a candidate for extubation. Increasing secretions in right lower lobe pneumonia are present. Oxygen requirements have increased to 60%. For bronchoscopy today to remove secretions. Abdominal issues also affecting pulmonary status. Right lower lobe pneumonia, query aspiration. On broad-spectrum antibiotics for her peritonitis. Will cover pulmonary issues adequately. For bronchoscopy today. Please see the comments above. Acute renal failure: Improved, however urine output remains marginal, creatinine slightly higher again today. Renal following. Remains volume overloaded: CVP 13. Nutrition: On TPN Recent diagnosis of colon cancer, status post resection on . DVT prophylaxis: Subcu heparin GI prophylaxis: Pepcid in TPN Plan: Continue ventilatory support. Continue short CPAP trials as tolerated. Continue broad-spectrum antibiotics. Continue bronchopulmonary therapies. Will do bronchoscopy today to remove secretions, obtain deep cultures, and tried improve respiratory status. Follow laboratory and chest x-ray, blood gas. Continue antibiotics, sedation and pain control. She will need diuresis when possible from a renal standpoint. Continue present management and aggressive supportive care. 50 mins of critical care time spent directly with the patient, not including bronchoscopy. Discussed with the patient's sister, RT, nursing, renal, and the ICU multi disciplinary team. Subjective: Lightly sedated, on ventilator, arouses, responds. Objective: Vital Signs Temp Pulse Resp BP Pulse Ox 37.4 C 83 20 119/69 93 12/17/16 05:00 12/17/16 12:00 12/17/16 12:00 12/17/16 12:00 12/17/16 12:00 Microbiology 12/13/16 22:05 Gram Stain - Final Abdomen - Aspirate Laboratory Results 12/17/16 04:00 12/17/16 04:00 12/16/16 12/17/16 12/18/16 05:59 05:59 05:59 Intake Total 6512 3467.3 Output Total 1503 1015 Balance 5009 2452.3 PT 14.8 SEC (12.0-15.0) 12/17/16 04:00 INR 1.16 (0.83-1.16) 12/17/16 04:00 Microbiology 12/13/16 22:05 Abdomen - Aspirate Gram Stain - Final 12/13/16 22:05 Abdomen - Aspirate Anaerobic Culture - Preliminary Enterococcus Faecalis Laboratory Tests 12/17/16 12/17/16 04:00 04:00 PT 14.8 INR 1.16 APTT 34.4 Calcium 7.4 L Phosphorus 3.5 Magnesium 2.4 H Total Bilirubin 2.0 H AST 151 H ALT 56 H Albumin 1.9 L CXR: Increase in infiltrate/atelectasis/effusion at the right base. Lines and tubes are in good position. Physical Exam - Physical Exam General Appearance: no apparent distress, obese, other (On ventilator) EENT: PERRL/EOMI, ET tube, other (NG to) Neck: normal inspection (Large neck, jugular venous distension hard to assess), No lymphadenopathy (R), No lymphadenopathy (L) Respiratory: decreased breath sounds (At the bases, right more so than the left) , rales (Rales at bases, bronchial changes), rhonchi (Present), No lungs clear, No wheezing Cardiac/Chest: regular rate, rhythm (Distant heart tones) Abdomen: distended, other (Wound VAC and drains in place), No normal bowel sounds (Decreased, present), No non-tender Pelvic Exam: other (Koenig catheter in place: Only 500 mls a urine out last 24 hours.) Skin: normal color, warm/dry Extremities: pedal edema, swelling (Anasarca, 1 to 2+) Neuro/Psych: no motor/sensory deficits (Moves all extremities equally), cognition abnormalities (Doubt follows simple commands) ICD10 Worksheet Patient Problems: Problems Problem Status Onset Colon cancer Acute
[2016-12-17] MEDS: PROPOFOL/EMULSION 100 ML IV SCH ×2 (13:23→18:17)
--- NOTE | 2016-12-17 13:56 | PCMIDPN ---
Assessment/Plan: 1. Sepsis secondary to peritonitis after anastomotic leak post hemicolectomy: Continued improvement. Continue same antibiotics. If she continues with this upward trajectory, will likely stop daptomycin tomorrow, as no evidence of resistant gram positives, and her Enterococcus is susceptible to ampicillin. I have asked the micro lab to set up a fungal culture as outlined above. 2. Right lower lobe infiltrate: Patient likely aspirated. Bronchoscopy later today. On appropriate antibiotics in the form of Zosyn---doubt MRSA pneumonia (daptomycin would not be the drug of choice for this) 3. Acute kidney injury/elevated creatinine: Creatinine is slightly increased today. Zosyn readjusted. Check urine for eosinophils. No other stigmata of AIN. Being followed by Nephrology. Subjective: Patient is now completely off pressors since yesterday morning. Continues to struggle from a respiratory standpoint however; she becomes agitated, with increased respiratory rate, tachycardia with CPAP trial. She will have a bronchoscopy later today given concerns for history of aspiration event and increased haziness in the right lower lobe Radiographically. Creatinine also slightly up again today for unclear reasons. Objective: Daptomycin 600 mg IV Q 48 hours day for Zosyn 2.26 g IV q.6 hours day 3. Micafungin 100 mg IV daily day 4 T-max 37.5degrees Vital Signs Temp Pulse Resp BP Pulse Ox 37.4 C 84 20 130/64 H 95 12/17/16 05:00 12/17/16 13:00 12/17/16 13:00 12/17/16 13:00 12/17/16 13:00 Microbiology 12/13/16 22:05 Gram Stain - Final Abdomen - Aspirate Laboratory Results 12/17/16 04:00 12/16/16 12/17/16 12/18/16 05:59 05:59 05:59 Intake Total 6512 3467.3 Output Total 1503 1015 Balance 5009 2452.3 Abdominal aspirate continues to grow sensitive Enterococcus G stain from same aspirate showed 1+ yeast. I called the micro lab, and unfortunately a fungal culture has not yet been set up. I asked them to please do this. Blood cultures negative - Physical Exam General Appearance: other (Intubated, sedated but opens eyes to voice.) EENT: No scleral icterus Respiratory: crackles (Decreased breath sounds and crackles right lung base as well as left lung base.) Cardiac/Chest: regular rate, rhythm Extremities: other (PICC lines in both upper extremities. They look fine.) Abdomen: other (Hypoactive bowel sounds. Midline wound VAC in place with clean margins and no surrounding evidence of cellulitis.) Skin: No rash ICD10 Worksheet Patient Problems: Problems Problem Status Onset Colon cancer Acute
[2016-12-17] MEDS ORDERED: POTASSIUM Cl (KCl) 50 ML IV ONE (14:00)
[2016-12-17 14:09] LABS: ALANINE AMINOTRANSFERASE 60 IU/L (9-52); ALBUMIN 2.1 g/dL (3.5-5.0); ALKALINE PHOSPHATASE 113 IU/L (38-126); ANION GAP 9 mEq/L (8-16); ASPARTATE AMINOTRANSFERASE 133 IU/L (14-46); BILIRUBIN,TOTAL 2.1 mg/dL (0.1-1.4); CALCIUM 7.6 mg/dL (8.5-10.4); CARBON DIOXIDE 24 mEq/l (22-31); CHLORIDE 111 mEq/L (97-110); CREATININE 2.4 mg/dL (0.6-1.0); GLOMERULAR FILTRATION RATE 21; GLUCOSE 104 mg/dL (70-100); POTASSIUM 3.7 mEq/L (3.5-5.2); SODIUM 144 mEq/L (134-144); TOTAL PROTEIN 4.7 g/dL (6.3-8.2)
[2016-12-17] MEDS ORDERED: BENZOCAINE UNIT DOSE SPRAY HURRICAINE MM ONE (14:11)
[2016-12-17] MEDS ORDERED: LIDOCAINE 2% JELLY 5 ML TUBE TP ONE (14:11)
[2016-12-17] MEDS ORDERED: LIDOCAINE 1% 30 ML SDV MISC ONE (14:11)
--- NOTE | 2016-12-17 14:12 | SOAPPROG ---
SOAP Progress Note Assessment/Plan: Assessment: MARTA, uop better shock, off pressors weight remains up, bp better, but would not be too aggressive about diuresing with marginal bp. Plan: continue support follow lytes vol and renal function no HD needs at this point 12/17/16 14:09 Subjective: opens eyes to her name remains on the vent not very communicative, her friend is at the bedside Objective: Vital Signs Temp Pulse Resp BP Pulse Ox 37.4 C 86 20 121/63 H 94 12/17/16 05:00 12/17/16 14:00 12/17/16 14:00 12/17/16 14:00 12/17/16 14:00 Microbiology 12/13/16 22:05 Gram Stain - Final Abdomen - Aspirate Laboratory Results 12/17/16 04:00 12/16/16 12/17/16 12/18/16 05:59 05:59 05:59 Intake Total 6512 3467.3 Output Total 1503 1015 Balance 5009 2452.3 PT 14.8 SEC (12.0-15.0) 12/17/16 04:00 INR 1.16 (0.83-1.16) 12/17/16 04:00 Physical Exam - Physical Exam General Appearance: other (arouseable on the vent) Respiratory: No rhonchi, No wheezing Cardiac/Chest: regular rate, rhythm, edema, No friction rub Abdomen: non-tender, soft Skin: warm/dry Extremities: pedal edema (arouses, shakes and nods her head to questions) ICD10 Worksheet Patient Problems: Problems Problem Status Onset Colon cancer Acute
[2016-12-17] MEDS ORDERED: LIDOCAINE 1% 30 ML SDV ONE (14:16)
[2016-12-17] MEDS ORDERED: MIDAZOLAM 2 MG/2 ML VIAL ONE (14:16)
[2016-12-17 14:37] LABS: BILIRUBIN-CONJUGATED 1.9 mg/dL (0.0-0.5); BILIRUBIN-UNCONJUGATED 0.2 mg/dL (0.0-1.1)
[2016-12-17] MEDS ORDERED: MIDAZOLAM 2 MG/2 ML VIAL IVP ONE (14:49)
--- NOTE | 2016-12-17 15:07 | HOSPPROG ---
Hospitalist Progress Note Assessment/Plan: * Anastomotic leak - return to OR for washout/resection -wound vac * Septic shock due to peritonitis/intra-abd abscess -IV levophed - off -Zosyn, dapto, micafungin * Acute respiratory failure - vent -bronch today * Acute renal failure - slow improvement * Colon cancer s/p lap right hemicolectomy * Nutrition - TPN * Morbid obesity - BMI 40 * Volume overload -intermittent IV lasix Subjective: no events Objective: Vital Signs Temp Pulse Resp BP Pulse Ox 37.4 C 86 20 121/63 H 94 12/17/16 05:00 12/17/16 14:00 12/17/16 14:00 12/17/16 14:00 12/17/16 14:00 Microbiology 12/13/16 22:05 Gram Stain - Final Abdomen - Aspirate Laboratory Results 12/17/16 04:00 12/17/16 13:45 12/16/16 12/17/16 12/18/16 05:59 05:59 05:59 Intake Total 6512 3467.3 Output Total 1503 1015 Balance 5009 2452.3 PT 14.8 SEC (12.0-15.0) 12/17/16 04:00 INR 1.16 (0.83-1.16) 12/17/16 04:00 d/w Dr. Dillon ICU rounds - updated status CXR - increasing right pleural effusion - Physical Exam Constitutional: no apparent distress, appears nourished, not in pain Cardiovascular: regular rate and rhythym, no murmur, rub, or gallop, edema Respiratory: no respiratory distress, no rales or rhonchi, clear to auscultation Gastrointestinal: normoactive bowel sounds, soft, non-tender abdomen, no palpable masses Neurologic: No AAOx3 Psychiatric: encephalopathic, other (sedated), No interacting appropriately, No agitated ICD10 Worksheet Patient Problems: Problems Problem Status Onset Colon cancer Acute
--- NOTE | 2016-12-17 15:17 | GPN ---
[f rep st] PROCEDURE NOTE DATE OF PROCEDURE: 12/17/2016 Therapeutic Bronchoscopy Note. REASON FOR PROCEDURE: Increasing secretions in a patient on the ventilator with pneumonia and perit onitis. Oxygen requirements have increased. This procedure is being done to remove secretions and obtain deep cultures. DESCRIPTION OF PROCEDURE: The procedure was done in the intensive care unit. Informed consent was obtained from the patient's sister. Appropriate time-out was performed. An N95 mask was worn. Inc reased sedation was accomplished with 2 mg of IV Versed. The patient was on propofol and fentanyl p er ventilatory protocols. Topical anesthesia included approximately 15 mL of 1% lidocaine applied d own the patient's endotracheal tube and topically to the tracheobronchial mucosa. The fiberoptic bronchoscope was passed via an adapter on the end of the patient's endotracheal tube. The tube was found to be high and was advanced approximately 3 cm so that the end of the endotrach eal tube was approximately 2-3 cm above the main edelmira. The bronchoscope was advanced into the low er tracheobronchial tree bilaterally. All areas were observed to at least the segmental levels. Se cretions were present in the distal trachea and in the right and left mainstem bilaterally. Secreti ons were removed with suction and lavage. They were moderate in amounts. Cultures were obtained fr om both sides and combined and sent to the laboratory for Gram stain and anaerobic culture. The pat ient tolerated the procedure well. There were no complications. Vital signs and oxygen saturation on the ventilator remained stable throughout the procedure. /[id number]/MODL
[2016-12-17 16:56] LABS: EOSMR EOSINOPHILS NO EOS SEEN (NO EOS SEEN); EOSMR EPITHELIAL CELLS FEW EPITH CELLS
[2016-12-17 16:57] LABS: EOSMR PMNS FEW PMN CELLS; EOSMR RBCS NO RBCS SEEN
[2016-12-17] MEDS: TPN W/ FAMOTIDINE 1 EA BAG IV SCH (21:04)
[2016-12-18] MEDS: PROPOFOL/EMULSION 100 ML IV SCH ×2 (01:13→05:09)
[2016-12-18] MEDS: ALBUTEROL 60 PUFFS/8 GM MDI IH SCH ×6 (03:55→23:48)
[2016-12-18] MEDS: fentaNYL/NACL 100 ML IV SCH ×3 (04:03→22:41)
[2016-12-18 04:33] LABS: ABSOLUTE NRBC COUNT 0.04 10^3/uL (0-0.01); ADD DIFF? YES; ADD MORPH? NO; FRAGMENT RBC FLAG 0 (0-99); HEMATOCRIT 26.7 % (38.0-47.0); LIPEMIA HEMOLYSIS FLAG 80 (0-99); MEAN CELL HEMOGLOBIN CONCENTR. 33.7 g/dL (32.4-36.7); NRBC-AUTO% 0.2 % (0.0-0.2); PLATELET CLUMPS FLAG 10 (0-99); PLATELET COUNT 222 10^3/uL (150-400)
[2016-12-18 04:34] LABS: LEFT SHIFT FLG 170 (0-99)
[2016-12-18 04:35] LABS: ADD SCAN? NO; ATYPICAL LYMPHOCYTE FLAG 280 (0-99)
[2016-12-18 04:41] LABS: APTT 34.2 SEC (23.0-38.0); INR 1.16 (0.83-1.16); PROTIME(PATIENT) 14.8 SEC (12.0-15.0)
[2016-12-18 04:45] LABS: ALANINE AMINOTRANSFERASE 57 IU/L (9-52); ALBUMIN 2.1 g/dL (3.5-5.0); ALKALINE PHOSPHATASE 153 IU/L (38-126); ANION GAP 9 mEq/L (8-16); ASPARTATE AMINOTRANSFERASE 121 IU/L (14-46); BILIRUBIN,TOTAL 2.2 mg/dL (0.1-1.4); BILIRUBIN-UNCONJUGATED 0.2 mg/dL (0.0-1.1); CALCIUM 7.8 mg/dL (8.5-10.4); CARBON DIOXIDE 23 mEq/l (22-31); CHLORIDE 112 mEq/L (97-110); CREATININE 2.2 mg/dL (0.6-1.0); GLOMERULAR FILTRATION RATE 23; GLUCOSE 104 mg/dL (70-100); MAGNESIUM 2.5 mg/dL (1.6-2.3); POTASSIUM 4.2 mEq/L (3.5-5.2); SODIUM 144 mEq/L (134-144); TOTAL PROTEIN 5.3 g/dL (6.3-8.2)
[2016-12-18 04:49] LABS: BASE EXCESS -3.4 mEq/L (-2.5-2.5); BICARBONATE 23 mEq/L (22-26); MEASURED OXYGEN SATURATION 89 % (92-95); PCO2 52 mmHg (34-38); PO2 70 mmHg (65-75); TCO2 24 mEq/L (23-27)
[2016-12-18 04:50] LABS: END TIDAL CO2 38; O2 CONCENTRATIION 60 % (0-100); P/F RATIO 117 RATIO; PATIENT RATE 24; PRESSURE SUPPORT 7
[2016-12-18 04:51] LABS: CPAP YES
[2016-12-18] MEDS: PIPERACILLIN/TAZO 2.25 GM/DEX 50 ML IV SCH ×4 (05:09→23:44)
[2016-12-18] MEDS: HEPARIN 5,000 UNIT/0.5 ML SYR SC SCH ×3 (05:12→22:45)
[2016-12-18 05:30] LABS: PLATELET ESTIMATE ADEQUATE (ADEQ); TOXIC GRANULATION PRESENT; TOXIC VACUOLIZATION PRESENT
[2016-12-18 05:31] LABS: LARGE PLATELETS PRESENT
[2016-12-18] MEDS: CHLORHEXIDINE GLUCONATE 15 ML UDL PO SCH ×2 (07:44→20:23)
[2016-12-18] MEDS: MICAFUNGIN NA 100 MG in NS 100 ML IV SCH (08:17)
[2016-12-18] MEDS: DAPTOmycin 600 MG in NS 100 ML IV SCH (09:29)
[2016-12-18] MEDS: DEXMEDETOMIDINE HCL 400 MCG in NS 100 ML IV SCH ×4 (10:57→20:34)
--- NOTE | 2016-12-18 11:10 | SOAPPROG ---
SOAP Progress Note Assessment/Plan: Assessment: 56yo female with resolving sepsis, s/p laparotomy for anastomotic leak after right colon resection for adenocarcinoma, acute renal failure. PE Intubated, responds to stimuli, opens eyes Chest B/L right worse than left crackles Abdomen midline VAC with no signs of leak or discharge, abdomen very soft to palpation, TARA drains with small amount of serosag drainage. LE no edema CXR right pleural effusion increased WBCs Plan: Discussed with Dr Adkins, Dr Lim -- CT of abd/pelvis, if there is a collection hopefully amenable to perc drain. 12/17/16 09:38 12/17/16 09:42 12/18/16 11:08 Objective: Vital Signs Temp Pulse Resp BP Pulse Ox 38.3 C 95 29 H 132/68 H 97 12/18/16 08:00 12/18/16 10:00 12/18/16 10:00 12/18/16 10:00 12/18/16 10:00 Microbiology 12/17/16 14:40 - Final Sputum, Induced/Suctioned Laboratory Results 12/18/16 04:20 12/18/16 04:20 12/17/16 12/18/16 12/19/16 05:59 05:59 05:59 Intake Total 3467.3 2227 Output Total 1015 1295 200 Balance 2452.3 932 -200 PT 14.8 SEC (12.0-15.0) 12/18/16 04:20 INR 1.16 (0.83-1.16) 12/18/16 04:20 ICD10 Worksheet Patient Problems: Problems Problem Status Onset Colon cancer Acute
--- NOTE | 2016-12-18 12:02 | SOAPPROG ---
SOAP Progress Note Assessment/Plan: Assessment: MARTA, uop much better today shock, off pressors, remains on the vent weight remains up, bp better, but would not be too aggressive about diuresing with marginal bp. Plan: continue support follow lytes vol and renal function no HD needs at this point, looks like she is opening up from a renal standpoint 12/17/16 14:09 12/18/16 11:59 Subjective: opens eyes to her name not communicative on the vent Objective: Vital Signs Temp Pulse Resp BP Pulse Ox 38.3 C 95 32 H 149/70 H 97 12/18/16 08:00 12/18/16 11:50 12/18/16 11:00 12/18/16 11:00 12/18/16 11:50 Microbiology 12/17/16 14:40 - Final Sputum, Induced/Suctioned Laboratory Results 12/18/16 04:20 12/18/16 04:20 12/17/16 12/18/16 12/19/16 05:59 05:59 05:59 Intake Total 3467.3 2227 Output Total 1015 1295 900 Balance 2452.3 932 -900 PT 14.8 SEC (12.0-15.0) 12/18/16 04:20 INR 1.16 (0.83-1.16) 12/18/16 04:20 Physical Exam - Physical Exam General Appearance: other (on the vent, arouseable) Respiratory: No rhonchi, No wheezing Cardiac/Chest: regular rate, rhythm, edema (+1), No gallop, No friction rub Abdomen: other (quiet, distended) Extremities: swelling Neuro/Psych: other (arouseable) ICD10 Worksheet Patient Problems: Problems Problem Status Onset Colon cancer Acute
--- NOTE | 2016-12-18 12:09 | PDINTPN ---
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 Initial surgery 12/09 with subsequent perforation. Repaired 12/13. On ventilator since. ID following. On broad-spectrum antibiotics and antifungals. Wound VAC and drains in place. Increased WBC today. For CT scan of the abdomen. Sepsis, hypotension. Resolved, off pressors. Metabolic acidosis improved. Off bicarb drip. Acute respiratory failure. Remains on the ventilator, day 6, unable to wean significantly. Short CPAP trials initiated but not a candidate for extubation. Secretions gus right lower lobe pneumonia are present. Oxygen requirements at 50%, slightly better today. Bronchoscopy yesterday positive for moderate secretions which were removed. Cultures pending. Abdominal distension also affecting pulmonary status. Right lower lobe pneumonia, query aspiration. On broad-spectrum antibiotics for her peritonitis. Will cover pulmonary issues adequately. See the comments above. Acute renal failure: Improved, starting to auto diurese finally today. Creatinine slightly better. Renal following. Remains volume overloaded: CVP 14. Nutrition: TPN Recent diagnosis of colon cancer, status post resection on . DVT prophylaxis: Subcu heparin GI prophylaxis: Pepcid in TPN Plan: Continue ventilatory support. Continue short CPAP trials as tolerated. Continue broad-spectrum antibiotics. Will adjust ventilator: Decreased tidal volume, increased respiratory rate. Follow laboratory and chest x-ray, blood gas. Continue antibiotics, sedation and pain control. Follow urine output. May need Lasix with this slows down. For CT scan of the abdomen today. Continue present management and aggressive supportive care. 55 mins of critical care time spent directly with the patient, not including bronchoscopy. Discussed with the surgery, ID, RT, nursing, Renal, and the ICU multi disciplinary team. 12/18/16 12:13 12/18/16 12:15 12/18/16 12:17 Subjective: Sedated, on the ventilator. Arouses. Appears anxious. Will follow simple commands. Objective: Vital Signs Temp Pulse Resp BP Pulse Ox 37.7 C 95 28 H 143/77 H 96 12/18/16 11:55 12/18/16 11:55 12/18/16 11:55 12/18/16 11:55 12/18/16 11:55 Microbiology 12/17/16 14:40 - Final Sputum, Induced/Suctioned Laboratory Results 12/18/16 04:20 12/18/16 04:20 12/17/16 12/18/16 12/19/16 05:59 05:59 05:59 Intake Total 3467.3 2227 Output Total 1015 1295 900 Balance 2452.3 932 -900 PT 14.8 SEC (12.0-15.0) 12/18/16 04:20 INR 1.16 (0.83-1.16) 12/18/16 04:20 Laboratory Tests 12/18/16 12/18/16 12/18/16 04:20 04:20 04:43 PT 14.8 INR 1.16 APTT 34.2 pCO2 52 H pO2 70 ABG pH 7.27 L PEEP 5 Pressure Support 7 CPAP YES Calcium 7.8 L Phosphorus 4.2 Magnesium 2.5 H Total Bilirubin 2.2 H AST 121 H ALT 57 H Albumin 2.1 L CXR: Right lower lobe infiltrate/atelectasis/effusion about the same. Small retrocardiac area of density. Lines and tubes in good position. Physical Exam - Physical Exam General Appearance: mild distress, obese, other (Sedated, on ventilator) EENT: PERRL/EOMI, ET tube, other (NG tube to drainage) Neck: normal inspection (CVP 14) Respiratory: lungs clear (Anteriorly), decreased breath sounds (At both bases), rales (Some basilar rales present), rhonchi (Rhonchi present, mostly on right), No wheezing Cardiac/Chest: regular rate, rhythm (Distant heart tones) Abdomen: non-tender, distended, No normal bowel sounds (Few bowel sounds present ) Pelvic Exam: other (Koenig catheter in place with significantly increased urine output: Soft diuresing) Skin: normal color, warm/dry Extremities: pedal edema, swelling (Anasarca present) Neuro/Psych: no motor/sensory deficits (Moves all extremities equally), No cognition abnormalities (Hard to assess) ICD10 Worksheet Patient Problems: Problems Problem Status Onset Colon cancer Acute
--- NOTE | 2016-12-18 12:31 | PCMIDPN ---
Assessment/Plan: 1. Sepsis secondary to peritonitis after anastomotic leak post hemicolectomy status post washout on December 13: Worse today for unclear reasons. Will await results of the CT of the abdomen and pelvis, as she may require additional surgical intervention. Will not deescalate antibiotics at this point in time. Continue all 3 for now. Will repeat blood cultures and discontinue daptomycin if negative) 2. Right lower lobe infiltrate: Likely from previous aspiration event. On Zosyn. (doubt MRSA involved. Daptomycin would not be the drug of choice for this) 3. Acute kidney injury/elevated creatinine: Urine eosinophils negative. Continue to monitor. Likely secondary to ischemic insult. Subjective: Patient just left for repeat abdominal CT scan. Her white blood cell count is up today, she has low-grade fevers, and her bandemia is also up. Yesterday, the patient underwent a bronchoscopy. Findings were notable for minimal secretions. She remains dependent on the ventilator. Objective: Daptomycin 600 mg IV Q 48 hours day 5 Micafungin 100 mg IV daily day 5 Zosyn 2.25 g IV q.6 hours day 4 TPN Vital Signs Temp Pulse Resp BP Pulse Ox 37.7 C 95 28 H 143/77 H 96 12/18/16 11:55 12/18/16 11:55 12/18/16 11:55 12/18/16 11:55 12/18/16 11:55 Microbiology 12/17/16 14:40 - Final Sputum, Induced/Suctioned Laboratory Results 12/18/16 04:20 12/18/16 04:20 12/17/16 12/18/16 12/19/16 05:59 05:59 05:59 Intake Total 3467.3 2227 Output Total 1015 1295 900 Balance 2452.3 932 -900 December 17 sputum culture: Oral lemuel December 14 blood cultures x2 negative December 13 abdominal culture with enterococcus faecalis susceptible to ampicillin ICD10 Worksheet Patient Problems: Problems Problem Status Onset Colon cancer Acute
[2016-12-18 13:44] LABS: CK-MB INTERPRETATION NEGATIVE (NEGATIVE); CREATINE KINASE-MB FRACTION 1.56 ng/mL (0-3.19)
--- NOTE | 2016-12-18 14:51 | HOSPPROG ---
Hospitalist Progress Note Assessment/Plan: * Anastomotic leak - return to OR for washout/resection -wound vac -repeat CT abd okay * Septic shock due to peritonitis/intra-abd abscess -IV levophed - off -Zosyn, dapto, micafungin * Acute respiratory failure - vent -weaning poorly - hopefully will improve when volume status better * Acute renal failure - likely ATN due to sepsis -volume overload - starting to auto-diurese -per renal hold off on lasix for now * Colon cancer s/p lap right hemicolectomy * Nutrition - TPN * Morbid obesity - BMI 40 Subjective: weaning poorly Objective: Vital Signs Temp Pulse Resp BP Pulse Ox 37.7 C 83 26 H 139/60 H 96 12/18/16 11:55 12/18/16 14:00 12/18/16 14:00 12/18/16 14:00 12/18/16 14:00 Microbiology 12/17/16 14:40 - Final Sputum, Induced/Suctioned Laboratory Results 12/18/16 04:20 12/18/16 04:20 12/17/16 12/18/16 12/19/16 05:59 05:59 05:59 Intake Total 3467.3 2227 Output Total 1015 1295 900 Balance 2452.3 932 -900 PT 14.8 SEC (12.0-15.0) 12/18/16 04:20 INR 1.16 (0.83-1.16) 12/18/16 04:20 d/w Dr. Aquiles Dillon - poor wean from vent CT abd/pelvis - ascites/anasarca - Physical Exam Constitutional: no apparent distress, appears nourished, not in pain Cardiovascular: regular rate and rhythym, no murmur, rub, or gallop, edema (4+) Respiratory: respiratory distress, No expiratory wheeze, No inspiratory crackles , No rhonchi Gastrointestinal: distension, No normoactive bowel sounds, No tenderness, No guarding, No rebound Skin: no rashes or abrasions, no fluctuance, no induration Neurologic: No AAOx3 Psychiatric: encephalopathic, agitated, poor insight, poor judgement, poor memory, No interacting appropriately ICD10 Worksheet Patient Problems: Problems Problem Status Onset Colon cancer Acute
[2016-12-18] MEDS: TPN W/ FAMOTIDINE 1 EA BAG IV SCH (20:47)
[2016-12-19] MEDS: DEXMEDETOMIDINE HCL 400 MCG in NS 100 ML IV SCH ×5 (01:48→12:06)
[2016-12-19] MEDS: ALBUTEROL 60 PUFFS/8 GM MDI IH SCH ×6 (03:59→23:46)
[2016-12-19 04:42] LABS: ABSOLUTE NRBC COUNT 0.03 10^3/uL (0-0.01); ADD DIFF? YES; ADD MORPH? NO; FRAGMENT RBC FLAG 0 (0-99); HEMATOCRIT 26.2 % (38.0-47.0); HEMOGLOBIN 8.9 g/dL (12.6-16.3); LIPEMIA HEMOLYSIS FLAG 90 (0-99); MEAN CELL HEMOGLOBIN 30.5 pg (27.9-34.1); MEAN CELL VOLUME 89.7 fL (81.5-99.8); NRBC-AUTO% 0.1 % (0.0-0.2); PLATELET CLUMPS FLAG 10 (0-99); PLATELET COUNT 269 10^3/uL (150-400); RED BLOOD CELL COUNT 2.92 10^6/uL (4.18-5.33); RED CELL DISTRIBUTION WIDTH 16.6 % (11.5-15.2)
[2016-12-19 04:44] LABS: ADD SCAN? NO; ATYPICAL LYMPHOCYTE FLAG 140 (0-99); LEFT SHIFT FLG 150 (0-99)
[2016-12-19] MEDS: fentaNYL/NACL 100 ML IV SCH ×4 (04:50→23:40)
[2016-12-19 05:00] LABS: ALANINE AMINOTRANSFERASE 54 IU/L (9-52); ALBUMIN 2.3 g/dL (3.5-5.0); ALKALINE PHOSPHATASE 203 IU/L (38-126); ANION GAP 9 mEq/L (8-16); ASPARTATE AMINOTRANSFERASE 95 IU/L (14-46); BILIRUBIN,TOTAL 3.1 mg/dL (0.1-1.4); CALCIUM 8.3 mg/dL (8.5-10.4); CARBON DIOXIDE 25 mEq/l (22-31); CHLORIDE 117 mEq/L (97-110); CREATININE 1.6 mg/dL (0.6-1.0); GLOMERULAR FILTRATION RATE 33; GLUCOSE 121 mg/dL (70-100); MAGNESIUM 2.3 mg/dL (1.6-2.3); POTASSIUM 4.7 mEq/L (3.5-5.2); SODIUM 151 mEq/L (134-144); TOTAL PROTEIN 5.4 g/dL (6.3-8.2); TRIGLYCERIDE 361 mg/dL (35-135)
[2016-12-19] MEDS: PIPERACILLIN/TAZO 2.25 GM/DEX 50 ML IV SCH ×4 (05:07→23:40)
[2016-12-19 05:08] LABS: INR 1.2 (0.83-1.16); PROTIME(PATIENT) 15.2 SEC (12.0-15.0)
[2016-12-19 05:09] LABS: APTT 38.8 SEC (23.0-38.0)
[2016-12-19 05:24] LABS: HYPOCHROMIA 1+; MACROCYTES 1+; POLYCHROMASIA 1+
[2016-12-19 05:25] LABS: LARGE PLATELETS PRESENT; PLATELET ESTIMATE ADEQUATE (ADEQ)
[2016-12-19 05:26] LABS: TOXIC GRANULATION PRESENT
[2016-12-19] MEDS: ACETAMINOPHEN 650 MG SUPP PR PRN ×2 (05:28→14:07)
[2016-12-19 05:34] LABS: BILIRUBIN-CONJUGATED 2.7 mg/dL (0.0-0.5); BILIRUBIN-UNCONJUGATED 0.4 mg/dL (0.0-1.1)
[2016-12-19 05:41] LABS: BASE EXCESS -1.1 mEq/L (-2.5-2.5); BICARBONATE 23 mEq/L (22-26); MEASURED OXYGEN SATURATION 87 % (92-95); PCO2 41 mmHg (34-38); PO2 64 mmHg (65-75); TCO2 24 mEq/L (23-27)
[2016-12-19 05:42] LABS: END TIDAL CO2 30; O2 CONCENTRATIION 40 % (0-100); P/F RATIO 160 RATIO; PATIENT RATE 39; PRESSURE SUPPORT 7; SIMV YES
[2016-12-19] MEDS: HEPARIN 5,000 UNIT/0.5 ML SYR SC SCH ×5 (05:58→22:25)
[2016-12-19] MEDS: CHLORHEXIDINE GLUCONATE 15 ML UDL PO SCH ×2 (08:41→21:36)
--- NOTE | 2016-12-19 08:41 | HOSPPROG ---
Hospitalist Progress Note Assessment/Plan: #Septic shock: due to #Peritonitis/intraabdominal abscess: due to anastomosis leak. Grew Enterococcus. ID to review imaging given increase leukocytosis. ID following. Cont Zosyn, Daptom Micafungin #Hypernatremia: likely post-ATN diuresis. Add D5W, repeat BMP this afternoon #Acute hypoxemic resp failure: atelectasis on right on CXR. Bronch today with min mucus, normal mucosa #Fever: drug fever vs abd/lung source. ID to review imaging. Bronch today with min mucus #MARTA: improving #Acute hypoxemic resp failure: failing CPAP trials. Bronch today #Diet: TPN #Goals: I updated sisters (Ella and Ivette) on phone today. Explained that she is still very clinically ill Subjective: no acute events in 24hr Objective: Vital Signs Temp Pulse Resp BP Pulse Ox 39.1 C H 87 30 H 140/66 H 98 12/19/16 07:31 12/19/16 08:00 12/19/16 08:00 12/19/16 08:00 12/19/16 08:00 Microbiology 12/13/16 22:05 Gram Stain - Final Abdomen - Aspirate 12/17/16 14:40 - Final Sputum, Induced/Suctioned Laboratory Results 12/19/16 04:08 12/19/16 04:08 12/18/16 12/19/16 12/20/16 05:59 05:59 05:59 Intake Total 2227 2509 Output Total 1295 3630 155 Balance 932 -1121 -155 PT 15.2 SEC (12.0-15.0) H 12/19/16 04:08 INR 1.20 (0.83-1.16) H 12/19/16 04:08 - Physical Exam Constitutional: chronically ill appearing Eyes: PERRL Ears, Nose, Mouth, Throat: moist mucous membranes, other (NG in place) Cardiovascular: regular rate and rhythym, tachycardia Respiratory: rhonchi Gastrointestinal: distension (significant distension, no bowel sounds. Wound vac in place), other (2 right-sided TARA drains with min drainage) Genitourinary: ponce in urethra Musculoskeletal: other (BL PICC lines) Neurologic: other (sedated) Psychiatric: other (sedated) ICD10 Worksheet Patient Problems: Problems Problem Status Onset Colon cancer Acute
[2016-12-19] MEDS: MICAFUNGIN NA 100 MG in NS 100 ML IV SCH (08:43)
[2016-12-19] MEDS ORDERED: D5W 1,000 ML IV SCH (08:45)
--- NOTE | 2016-12-19 08:56 | PDINTPN ---
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 Initial surgery 12/09 with subsequent perforation. Repaired 12/13. On ventilator since. ID following. On broad-spectrum antibiotics and antifungals. Wound VAC and drains in place. Increased WBC today. For CT scan of the abdomen. * Sepsis, hypotension. Resolved * Acute respiratory failure. Remains on the ventilator, day 6, unable to wean significantly. Failed CPAP -ABG better. Will decrease VT -bronch today * Right lower lobe pneumonia, query aspiration. On broad-spectrum antibiotics for her peritonitis. Will cover pulmonary issues adequately. * Acute renal failure: Improved, starting to auto diurese finally today. Creatinine slightly better. Renal following. Remains volume overloaded: CVP 14. * Nutrition: TPN -cont BS checks * Recent diagnosis of colon cancer, status post resection on . * DVT prophylaxis: Subcu heparin * GI prophylaxis: Pepcid in TPN 35 min of critical care time spent with patient Case discussed with RT and nursing Subjective: Sedated. Opens eyes Objective: Vital Signs Temp Pulse Resp BP Pulse Ox 39.1 C H 90 41 H 140/66 H 98 12/19/16 07:31 12/19/16 08:32 12/19/16 08:32 12/19/16 08:00 12/19/16 08:32 Microbiology 12/13/16 22:05 Gram Stain - Final Abdomen - Aspirate 12/17/16 14:40 - Final Sputum, Induced/Suctioned Laboratory Results 12/19/16 04:08 12/19/16 04:08 12/18/16 12/19/16 12/20/16 05:59 05:59 05:59 Intake Total 2227 2509 Output Total 1295 3630 155 Balance 932 -1121 -155 PT 15.2 SEC (12.0-15.0) H 12/19/16 04:08 INR 1.20 (0.83-1.16) H 12/19/16 04:08 CXR-reviewed by myself. MATTHEW chapman. Right mid lung field atelectasis. Laboratory Results 12/19/16 04:08 12/19/16 04:08 12/19/16 12/19/16 05:30 04:08 Patient Temperature 38.9 DEGREES DEGREES pCO2 41 mmHg H mmHg (34 - 38) pO2 64 mmHg L mmHg (65 - 75) Total CO2 24 mEq/L mEq/L (23 - 27) ABG pH 7.37 (7.35 - 7.45) ABG PO2/FiO2 Ratio 160 RATIO RATIO ABG O2 Saturation 87 % L % (92 - 95) ABG Base Excess -1.1 mEq/L mEq/L (-2.5 - 2.5) O2 Concentration % 40 % % Actual Respiration Rate 39 Set Respiration Rate 22 SIMV YES Tidal Volume 600 End Tidal CO2 30 PEEP 5 Pressure Support 7 Calcium 8.3 mg/dL L mg/dL (8.5 - 10.4) Phosphorus 4.0 mg/dL mg/dL (2.5 - 4.5) Magnesium 2.3 mg/dL mg/dL (1.6 - 2.3) Total Bilirubin 3.1 mg/dL H mg/dL (0.1 - 1.4) Conjugated Bilirubin 2.7 mg/dL H mg/dL (0.0 - 0.5) Unconjugated Bilirubin 0.4 mg/dL mg/dL (0.0 - 1.1) AST 95 IU/L H IU/L (14 - 46) ALT 54 IU/L H IU/L (9 - 52) Alkaline Phosphatase 203 IU/L H IU/L (38 - 126) Total Protein 5.4 g/dL L g/dL (6.3 - 8.2) Albumin 2.3 g/dL L g/dL (3.5 - 5.0) Triglycerides 361 mg/dL H mg/dL (35 - 135) - Time Spent With Patient Time Spent With Patient: 35 Physical Exam - Physical Exam General Appearance: WD/WN, No alert EENT: PERRL/EOMI, ET tube Neck: non-tender, full range of motion, supple, normal inspection Respiratory: crackles (right base), No respiratory distress, No stridor, No wheezing Cardiac/Chest: normal peripheral pulses, regular rate, rhythm Abdomen: distended, No normal bowel sounds, No soft Pelvic Exam: deferred Rectal: deferred Skin: normal color, warm/dry Lymphatic: no adenopathy Extremities: normal range of motion, non-tender, normal inspection, normal capillary refill ICD10 Worksheet Patient Problems: Problems Problem Status Onset Colon cancer Acute
--- NOTE | 2016-12-19 09:21 | SOAPPROG ---
SOAP Progress Note Assessment/Plan: Assessment: s/p right hemicolectomy for colon cancer and anastomotic dehiscence at staple line s/p ex lap with washout and reanastomosis Remains critically ill Neuro - fentanyl Resp - ABG improved. Bronch today. Difficulty weaning from vent Cards - much improved GI - hypoactive bowel sounds. Smears of stool last night. On TPN Renal - Cr improved. UOP adequate Skin - Wound vac change MWF Heme/ID- on broad spectrum - WBC up today. Dispo - continue ICU S: Smears of stool , not tolerating CPAP trials O: Lying in bed comfortable intubated and sedated, lungs decreased at bases right worse than left, regular rate, hypoactive bowel sounds, soft, wv to suction. Minimal output of drains. SCDs in place Plan: 12/10/16 12:43 12/11/16 09:53 12/13/16 21:40 12/19/16 09:17 Objective: Vital Signs Temp Pulse Resp BP Pulse Ox 39.1 C H 86 29 H 153/63 H 98 12/19/16 07:31 12/19/16 09:00 12/19/16 09:00 12/19/16 09:00 12/19/16 09:00 Microbiology 12/13/16 22:05 Gram Stain - Final Abdomen - Aspirate 12/17/16 14:40 - Final Sputum, Induced/Suctioned Laboratory Results 12/19/16 04:08 12/19/16 04:08 12/18/16 12/19/16 12/20/16 05:59 05:59 05:59 Intake Total 2227 2509 Output Total 1295 3630 230 Balance 932 -1121 -230 PT 15.2 SEC (12.0-15.0) H 12/19/16 04:08 INR 1.20 (0.83-1.16) H 12/19/16 04:08 ICD10 Worksheet Patient Problems: Problems Problem Status Onset Colon cancer Acute - ICD10 Problem Qualifiers (1) Colon cancer Qualifiers: Colon location: C
[2016-12-19] MEDS ORDERED: LIDOCAINE 2% JELLY 5 ML TUBE TP ONE (10:30)
[2016-12-19] MEDS ORDERED: LIDOCAINE 1% 30 ML SDV MISC ONE (10:30)
--- NOTE | 2016-12-19 10:34 | SOAPPROG ---
SOAP Progress Note Assessment/Plan: Assessment/Plan: MARTA: likely ATN in setting of sepsis and shock, now improving with good UOP and Cr down to 1.6. - No need for HD, expect she will not need it. - Will continue to monitor renal function and recovery. - Avoid hypotension in setting of renal recovery. - Avoid MOM, morphine, demerol, NSAIDs, contrast, aminoglycosides, fleets, and other nephrotoxins. Hypernatremia: Na up to 151, likely with increased UOP. Free water deficit approximately 5.2L. - Agree with starting D5W, will increase rate to 125ml/hr. - Will continue to monitor. Subjective: No acute events overnight. Pt remains intubated and failing CPAP trials. She remains off pressors. Having good UOP now, 3430ml in past 24 hours. Objective: Vital Signs Temp Pulse Resp BP Pulse Ox 39.1 C H 85 27 H 148/64 H 98 12/19/16 07:31 12/19/16 10:00 12/19/16 10:00 12/19/16 10:00 12/19/16 10:00 Microbiology 12/13/16 22:05 Gram Stain - Final Abdomen - Aspirate 12/17/16 14:40 - Final Sputum, Induced/Suctioned Laboratory Results 12/19/16 04:08 12/19/16 04:08 12/18/16 12/19/16 12/20/16 05:59 05:59 05:59 Intake Total 2227 2509 Output Total 1295 3630 380 Balance 932 -1121 -380 PT 15.2 SEC (12.0-15.0) H 12/19/16 04:08 INR 1.20 (0.83-1.16) H 12/19/16 04:08 General: sedated, no acute distress OP: intubated CV: RRR Resp: intubated and on vent Ext: +1 edema all extremities Neuro: no asterixis : ponce cath in place, draining yellow urine ICD10 Worksheet Patient Problems: Problems Problem Status Onset Colon cancer Acute
[2016-12-19] MEDS ORDERED: MIDAZOLAM 2 MG/2 ML VIAL ONE (10:49)
[2016-12-19] MEDS ORDERED: MIDAZOLAM 2 MG/2 ML VIAL IVP ONE (11:00)
--- NOTE | 2016-12-19 11:29 | GPN ---
[f rep st] PROCEDURE NOTE PROCEDURE: Fiberoptic bronchoscopy. INDICATION: Right middle lobe round atelectasis, possible mucous plugging. ANESTHESIA: The patient is currently sedated and on mechanical ventilation. She was given 2 mg of Versed. The patient is on mechanical ventilation which by definition is a closed system and poses n o risk to airborne pathogens. N95 masks were used throughout the procedure. DESCRIPTION OF PROCEDURE: The bronchoscope was entered through a #7.5 endotracheal tube. Distal tr achea and edelmira were visualized and showed no endobronchial lesions and normal-appearing mucosa. B ronchoscope in the left lung: Left upper lobe, lingula, left lower lobe, including sub-segments, we re subsequently visualized and showed no endobronchial lesions and normal-appearing mucosa. Broncho scope in the right lung: Right upper lobe, right lower lobe including sub-segments, were visualized and showed no endobronchial lesions and normal-appearing mucosa. There were minimal amounts of muc ous plugging in the right middle lobe. These were therapeutically aspirated. The patient tolerated the procedure well. There were no apparent complications. A portable chest x-ray will be dillan davila /[id number]/MODL
[2016-12-19 12:46] LABS: ANION GAP 7 mEq/L (8-16); CALCIUM 7.7 mg/dL (8.5-10.4); CARBON DIOXIDE 25 mEq/l (22-31); CHLORIDE 118 mEq/L (97-110); CREATININE 1.5 mg/dL (0.6-1.0); GLOMERULAR FILTRATION RATE 36; GLUCOSE 144 mg/dL (70-100); POTASSIUM 4.4 mEq/L (3.5-5.2); SODIUM 150 mEq/L (134-144)
[2016-12-19] MEDS: DEXMEDETOMIDINE HCL 400 MCG in D5W 100 ML IV SCH ×2 (15:11→20:30)
[2016-12-19] MEDS ORDERED: LORazepam 2 MG/ML INJ ONE (15:56)
--- NOTE | 2016-12-19 16:00 | PCMIDPN ---
Assessment/Plan: Assessment/Plan: * Septic shock due to anastomotic leak with polymicrobial peritoneal contamination: Peritoneal fluid cultures with growth of enterococcus faecalis although Gram stain was polymicrobial. Recurrent fever with increasing white blood cell count. CT abdomen pelvis reviewed showing some ascitic fluid which may be loculated. Will proceed with ultrasound-guided aspiration of fluid collection to assess for residual infection. Continue Zosyn and micafungin. Will discontinue daptomycin given no growth of resistant gram-positive organisms and Enterococcus covered by Zosyn. Await follow-up blood cultures. Clinical findings and plan reviewed with Dr. Cat today. * Acute renal failure: Creatinine improved. If continues to improve, may require additional adjustment of antibiotic dosing. 12/19/16 15:57 12/19/16 16:01 Subjective: Intubated, sedated. Febrile this a.m. to 39 degrees. Bronchoscopy performed earlier today shown minimal right sided mucus plugging. Objective: Vital Signs Temp Pulse Resp BP Pulse Ox 39.3 C H 86 29 H 152/58 H 92 12/19/16 15:00 12/19/16 15:00 12/19/16 15:00 12/19/16 15:00 12/19/16 15:00 Microbiology 12/17/16 14:40 - Final Sputum, Induced/Suctioned 12/13/16 22:05 Gram Stain - Final Abdomen - Aspirate Laboratory Results 12/19/16 04:08 12/19/16 12:14 12/18/16 12/19/16 12/20/16 05:59 05:59 05:59 Intake Total 2227 2509 Output Total 1295 3630 1060 Balance 932 -1121 -1060 Daptomycin # 6 Micafungin # 6 Zosyn # 5 Peritoneal cultures with growth of enterococcus faecalis Tm 39.4 Blood cultures x2 pending CT abdomen pelvis reviewed with findings of ascitic fluid present which has loculated appearance on left - Physical Exam General Appearance: other (Intubated, sedated) EENT: ET Tube, No scleral icterus, No conjunctival petechiae Respiratory: coarse breath sounds, other (Increased respiratory effort present) Cardiac/Chest: regular rate, rhythm, systolic murmur (2/6 left upper sternal border) Extremities: No inflammation Abdomen: distended, other (Wound VAC in place centrally; TARA with minimal serosanguineous appearing output x2) Skin: No rash - Line/s RUE PICC Lines: No drainage, No erythema LUE PICC Lines: No drainage, No erythema ICD10 Worksheet Patient Problems: Problems Problem Status Onset Colon cancer Acute
[2016-12-19] MEDS ORDERED: LORazepam 2 MG/ML INJ IV ONE (16:30)
[2016-12-19] MEDS: D5W 1,000 ML IV SCH ×2 (17:06→21:37)
--- NOTE | 2016-12-19 19:28 | WOCRNPDOC ---
WOCRN Advanced Assessment Note - Skin Integrity Problem, Advanced Assess Abdomen Dressing Type: Black Vac Foam, Wound Vac Dressing Description: Clean/Dry, Intact Exudate Amount: Moderate (Weekly canister change per protocol) Exudate Characteristic(s): Sanguinopurulent (Canister changed per protocol (q week)) Integumentary Issue Intervention: Dressing Changed Sirisha Wound Tissue: Intact Sirisha Wound Swelling: Mild Wound Bed Color: Red Wound Bed Constitution: Granulation Tissue Wound Edges: Well Defined Site Odor: None (drainage contained in canister.) Site Measurement - Head-to-Toe Length X Width X Depth (cm): 22 x 5 x 3 Skin Integrity Problem Comment: Vac dressing and canister changed per protocol: One long piece of black granufoam placed, plus three smaller pieces to fill in gaps. Abdomen markedly more distended than observed last Monday, perhaps reflected in wound width measurement at this time. ESTER Biswas (float) assisting w/dressing change; ESTER Gallegos present.
[2016-12-19] MEDS: TPN W/ FAMOTIDINE 1 EA BAG IV SCH (21:36)
[2016-12-19] MEDS: LORazepam 2 MG/ML INJ IVP PRN (22:25)
[2016-12-20] MEDS: DEXMEDETOMIDINE HCL 400 MCG in D5W 100 ML IV SCH ×6 (01:43→22:03)
[2016-12-20] MEDS: ALBUTEROL 60 PUFFS/8 GM MDI IH SCH ×5 (04:06→20:17)
[2016-12-20 05:29] LABS: ADD DIFF? YES; ADD MORPH? NO; ATYPICAL LYMPHOCYTE FLAG 90 (0-99); FRAGMENT RBC FLAG 10 (0-99); HEMATOCRIT 23.5 % (38.0-47.0); HEMOGLOBIN 7.6 g/dL (12.6-16.3); LIPEMIA HEMOLYSIS FLAG 80 (0-99); MEAN CELL HEMOGLOBIN 30.2 pg (27.9-34.1); MEAN CELL HEMOGLOBIN CONCENTR. 32.3 g/dL (32.4-36.7); MEAN CELL VOLUME 93.3 fL (81.5-99.8); PLATELET CLUMPS FLAG 0 (0-99); PLATELET COUNT 300 10^3/uL (150-400); RED BLOOD CELL COUNT 2.52 10^6/uL (4.18-5.33); RED CELL DISTRIBUTION WIDTH 16.9 % (11.5-15.2)
[2016-12-20 05:34] LABS: ADD SCAN? NO; LEFT SHIFT FLG 140 (0-99)
[2016-12-20] MEDS: PIPERACILLIN/TAZO 2.25 GM/DEX 50 ML IV SCH ×3 (05:46→18:20)
[2016-12-20] MEDS: HEPARIN 5,000 UNIT/0.5 ML SYR SC SCH ×3 (05:46→22:38)
[2016-12-20] MEDS: fentaNYL/NACL 100 ML IV SCH ×3 (05:46→18:20)
[2016-12-20 06:12] LABS: HYPOCHROMIA 2+
[2016-12-20 06:14] LABS: PLATELET ESTIMATE ADEQUATE (ADEQ); POLYCHROMASIA 1+
[2016-12-20 08:13] LABS: ANION GAP 8 mEq/L (8-16); CARBON DIOXIDE 25 mEq/l (22-31); CHLORIDE 114 mEq/L (97-110); CREATININE 1.6 mg/dL (0.6-1.0); GLOMERULAR FILTRATION RATE 33; GLUCOSE 136 mg/dL (70-100); POTASSIUM 5.1 mEq/L (3.5-5.2); SODIUM 147 mEq/L (134-144)
--- NOTE | 2016-12-20 08:27 | PDINTPN ---
Assistant Store Leader Progress Note Assessment/Plan: Assessment/Plan: * Status post perforated bowel/anastomotic leak with peritonitis. Initial surgery 12/09 with subsequent perforation. Repaired 12/13. On ventilator since. ID following. On broad-spectrum antibiotics and antifungals. -to IR for paracentesis today. * Sepsis, hypotension. Resolved * Acute respiratory failure. Remains on the ventilator, day 8, however oxygen requirements have improved. -ABG pending. Will decrease FiO2 * Right lower lobe pneumonia, query aspiration. On broad-spectrum antibiotics for her peritonitis. Will cover pulmonary issues adequately. * Atelectasis-likely secondary to abdominal distention. Bronch showed no evidence of mucous plugging. * Acute renal failure: Improved, creatinine is stable * Nutrition: TPN -cont BS checks * Recent diagnosis of colon cancer, status post resection on . * DVT prophylaxis: Subcu heparin. On hold for paracentesis * GI prophylaxis: Pepcid in TPNcreatinine stable 40 min of critical care time spent with patient Case discussed with RT and nursing Subjective: Patient is sedated and is on mechanical ventilation. Objective: Vital Signs Temp Pulse Resp BP Pulse Ox 39.4 C H 74 22 H 132/57 H 95 12/20/16 00:00 12/20/16 07:00 12/20/16 07:00 12/20/16 07:00 12/20/16 07:00 Microbiology 12/14/16 09:38 Blood Culture - Final Blood 12/14/16 09:38 Blood Culture - Final Blood 12/17/16 14:40 - Final Sputum, Induced/Suctioned 12/13/16 22:05 Gram Stain - Final Abdomen - Aspirate Laboratory Results 12/20/16 05:00 12/19/16 12/20/16 12/21/16 05:59 05:59 05:59 Intake Total 2509 4540 Output Total 3630 2210 Balance -1121 2330 PT 15.2 SEC (12.0-15.0) H 12/19/16 04:08 INR 1.20 (0.83-1.16) H 12/19/16 04:08 - Time Spent With Patient Time Spent With Patient: 40 Physical Exam - Physical Exam General Appearance: other (Sedated), No alert EENT: PERRL/EOMI, normal ENT inspection, ET tube Neck: non-tender, full range of motion, supple, normal inspection Respiratory: crackles (Few basilar), No normal breath sounds, No respiratory distress, No accessory muscle use, No wheezing Cardiac/Chest: normal peripheral pulses, regular rate, rhythm Peripheral Pulses: 2+: carotid (R), carotid (L), femoral (R), femoral (L), dorsalis-pedis (R), dorsalis-pedis (L) Abdomen: distended, No normal bowel sounds, No soft Pelvic Exam: deferred Rectal: deferred Skin: normal color, warm/dry Extremities: normal range of motion, non-tender, normal inspection, normal capillary refill Neuro/Psych: No alert ICD10 Worksheet Patient Problems: Problems Problem Status Onset Colon cancer Acute
--- NOTE | 2016-12-20 08:47 | PCMIDPN ---
Assessment/Plan: Assessment/Plan: 1. Septic shock secondary to Polymicrobial peritonitis associated with anastomotic leak: -History of AdenoCa of colon s/p hemicolectomy 12/09/16 complicated by anastomotic leak as above. -S/p Wash out 12/13/16 -Recent abdominal cx: Gs many organisms, cx with E. fecalis -For paracentesis today. May need additional formal wash out depending on paracentesis findings -Currently on Zosyn + Micafungin -Care coordinated with intensitivist, RN Meds zosyn 2.25gm q6-12/17/16 micafungin 100mg daily- 12/14/16 Subjective: REmains in ICU, intubated, sedated. Spiking temps noted. Currently with low grade temp. FIO2 55%. Abdomen distended. wound vac. Objective: Vital Signs Temp Pulse Resp BP Pulse Ox 37.8 C 86 33 H 157/72 H 100 12/20/16 08:00 12/20/16 08:21 12/20/16 08:21 12/20/16 08:00 12/20/16 08:21 Microbiology 12/14/16 09:38 Blood Culture - Final Blood 12/14/16 09:38 Blood Culture - Final Blood 12/17/16 14:40 - Final Sputum, Induced/Suctioned 12/13/16 22:05 Gram Stain - Final Abdomen - Aspirate Laboratory Results 12/20/16 05:00 12/20/16 07:30 12/19/16 12/20/16 12/21/16 05:59 05:59 05:59 Intake Total 2509 4540 Output Total 3630 2210 Balance -1121 2330 - Physical Exam General Appearance: other (sedated, intubated in icu) EENT: ET Tube Respiratory: coarse breath sounds Cardiac/Chest: regular rate, rhythm Abdomen: distended, other (wound vac. ) Skin: No erythema ICD10 Worksheet Patient Problems: Problems Problem Status Onset Colon cancer Acute
[2016-12-20 08:52] LABS: BASE EXCESS -2.8 mEq/L (-2.5-2.5); BICARBONATE 23 mEq/L (22-26); MEASURED OXYGEN SATURATION 85 % (92-95); PCO2 45 mmHg (34-38); PO2 56 mmHg (65-75); TCO2 24 mEq/L (23-27)
[2016-12-20 08:53] LABS: END TIDAL CO2 35; O2 CONCENTRATIION 40 % (0-100); P/F RATIO 140 RATIO
[2016-12-20 08:54] LABS: PATIENT RATE 31; PRESSURE SUPPORT 7
[2016-12-20 08:56] LABS: CALCIUM 8.1 mg/dL (8.5-10.4)
--- NOTE | 2016-12-20 09:03 | HOSPPROG ---
Hospitalist Progress Note Assessment/Plan: #Septic shock: resolved. Due to abdominal source. #Peritonitis/intraabdominal abscess: due to anastomosis leak. Grew Enterococcus. ID to review imaging given increase leukocytosis. -continues to fever. Paracenteis today. Cont Zosyn & Micafungin #Hypernatremia: likely post-ATN diuresis. Improving with D5W #Acute hypoxemic resp failure: atelectasis on right on CXR. Bronch with min mucus, normal mucosa #Fever: drug fever vs abd/lung source. ID to review imaging. Bronch (12/19) with min mucus #MARTA: improving #Acute hypoxemic resp failure: failing CPAP trials. Bronch today #Diet: TPN #Goals: still critically ill, requiring IV abx, ventilator Subjective: fever to 103 overnight Objective: Vital Signs Temp Pulse Resp BP Pulse Ox 37.8 C 86 33 H 157/72 H 100 12/20/16 08:00 12/20/16 08:21 12/20/16 08:21 12/20/16 08:00 12/20/16 08:21 Microbiology 12/14/16 09:38 Blood Culture - Final Blood 12/14/16 09:38 Blood Culture - Final Blood 12/17/16 14:40 - Final Sputum, Induced/Suctioned 12/13/16 22:05 Gram Stain - Final Abdomen - Aspirate Laboratory Results 12/20/16 05:00 12/20/16 07:30 12/19/16 12/20/16 12/21/16 05:59 05:59 05:59 Intake Total 2509 4540 Output Total 3630 2210 Balance -1121 2330 PT 15.2 SEC (12.0-15.0) H 12/19/16 04:08 INR 1.20 (0.83-1.16) H 12/19/16 04:08 - Physical Exam Constitutional: no apparent distress, other (sedated) Eyes: PERRL Ears, Nose, Mouth, Throat: moist mucous membranes, other (NG in place) Cardiovascular: regular rate and rhythym, tachycardia Respiratory: reduced air movement (right >L base) Gastrointestinal: distension, other (2 TARA drains with min output. Wound vac in place) Genitourinary: ponce in urethra Skin: warm Musculoskeletal: full muscle strength Neurologic: other (sedated) Psychiatric: other (sedated) ICD10 Worksheet Patient Problems: Problems Problem Status Onset Colon cancer Acute
[2016-12-20] MEDS: CHLORHEXIDINE GLUCONATE 15 ML UDL PO SCH ×2 (09:56→19:57)
[2016-12-20] MEDS: MICAFUNGIN NA 100 MG in NS 100 ML IV SCH (09:56)
--- NOTE | 2016-12-20 09:56 | SOAPPROG ---
SOAP Progress Note Assessment/Plan: Assessment: s/p right hemicolectomy for colon cancer and anastomotic dehiscence at staple line s/p ex lap with washout and reanastomosis Remains critically ill Neuro - sedated propofol/fentanyl Resp - intubated, difficulty weaning from vent. Bronch yest with min mucous CV - improved, off pressors GI - awaiting return of bowel function, hypoactive BS - ponce. Cr improved but still elevated. Appreciate nephrology following Wound - Vac change MWF FEN- TPN with pepcid. monitor electolytes Heme/ID - WBC improved today. On Zosyn and Micafungin per ID PPx - subq heparin, scds Dispo: continue ICU care. Plan for paracentesis/US-guided aspiration of ? loculated fluid collection S: Intubated and sedated. No changes per RN o: Laying in bed comfortable, intubated and sedated Decreased at bases bilaterally, R>L Regular rate Hypoactive BS, softly distended TARA x 2 serosanguinous Wound vac intact to suction Ponce SCDs Objective: Vital Signs Temp Pulse Resp BP Pulse Ox 37.8 C 86 33 H 157/72 H 100 12/20/16 08:00 12/20/16 08:21 12/20/16 08:21 12/20/16 08:00 12/20/16 08:21 Microbiology 12/14/16 09:38 Blood Culture - Final Blood 12/14/16 09:38 Blood Culture - Final Blood 12/17/16 14:40 - Final Sputum, Induced/Suctioned 12/13/16 22:05 Gram Stain - Final Abdomen - Aspirate Laboratory Results 12/20/16 05:00 12/20/16 07:30 12/19/16 12/20/16 12/21/16 05:59 05:59 05:59 Intake Total 2509 4540 Output Total 3630 2210 Balance -1121 2330 PT 15.2 SEC (12.0-15.0) H 12/19/16 04:08 INR 1.20 (0.83-1.16) H 12/19/16 04:08 ICD10 Worksheet Patient Problems: Problems Problem Status Onset Colon cancer Acute
[2016-12-20] MEDS: LORazepam 2 MG/ML INJ IVP PRN ×2 (10:43→15:40)
[2016-12-20 12:04] LABS: HEMATOCRIT 22.6 % (38.0-47.0); HEMOGLOBIN 7.5 g/dL (12.6-16.3)
[2016-12-20 12:30] LABS: ANION GAP 10 mEq/L (8-16); CALCIUM 8.1 mg/dL (8.5-10.4); CARBON DIOXIDE 25 mEq/l (22-31); CHLORIDE 114 mEq/L (97-110); CREATININE 1.7 mg/dL (0.6-1.0); GLOMERULAR FILTRATION RATE 31; GLUCOSE 125 mg/dL (70-100); POTASSIUM 5.3 mEq/L (3.5-5.2); SODIUM 149 mEq/L (134-144)
--- NOTE | 2016-12-20 15:48 | SOAPPROG ---
SOAP Progress Note Assessment/Plan: Assessment: 1. arf: ischemic atn from hypotension in face of toradol, acei. Had been recovering but now plateauing. May actually be sl prerenal given third spacing. Will give a dose of albumin. K trending up, getting 70meq in tpn. Reduced to 50meq earlier today but I'm concerned that she will develop sig hyperK if creat doesn't trend down. Would not hang next tpn bag until am labs back, if K<5.3 should be safe to hang. D/w pharamcy, nursing. 2. Volume: quite volume up but in light of above issues would hold off on diuresis. 3. HyperNa: improved from yesterday, cont d5w. No Na in tpn. Plan: 12/20/16 15:43 12/20/16 15:48 Subjective: Remains intubated. Hemodynamically stable, on tpn. D5W increased earlier today. Objective: Vital Signs Temp Pulse Resp BP Pulse Ox 37.4 C 75 24 H 149/62 H 93 12/20/16 12:00 12/20/16 15:00 12/20/16 15:00 12/20/16 15:00 12/20/16 15:00 Microbiology 12/13/16 22:05 Gram Stain - Final Abdomen - Aspirate 12/17/16 14:40 - Final Sputum, Induced/Suctioned Sputum Culture - Final Yeast, Not Ana Albicans Ana Albicans 12/14/16 09:38 Blood Culture - Final Blood 12/14/16 09:38 Blood Culture - Final Blood Laboratory Results 12/20/16 11:45 12/20/16 11:45 12/19/16 12/20/16 12/21/16 05:59 05:59 05:59 Intake Total 2509 4540 Output Total 3630 2210 450 Balance -1121 2330 -450 PT 15.2 SEC (12.0-15.0) H 12/19/16 04:08 INR 1.20 (0.83-1.16) H 12/19/16 04:08 Physical Exam - Physical Exam General Appearance: other (intubated, sedated) Respiratory: lungs clear (anteriorly) Cardiac/Chest: regular rate, rhythm Extremities: pedal edema (LE/dependent edema) ICD10 Worksheet Patient Problems: Problems Problem Status Onset Colon cancer Acute
[2016-12-20] MEDS ORDERED: ALBUMIN 25% 100 ML IV ONE (15:50)
[2016-12-20] MEDS: D5W 1,000 ML IV SCH (19:57)
[2016-12-20] MEDS: ALTEPLASE 2 MG VIAL IVP PRN (22:25)
[2016-12-20] MEDS: TPN W/ FAMOTIDINE 1 EA BAG IV SCH (22:35)
[2016-12-21] MEDS: ALBUTEROL 60 PUFFS/8 GM MDI IH SCH ×6 (00:20→19:59)
[2016-12-21] MEDS: PIPERACILLIN/TAZO 2.25 GM/DEX 50 ML IV SCH ×5 (00:36→23:55)
[2016-12-21] MEDS: fentaNYL/NACL 100 ML IV SCH ×4 (00:37→18:20)
[2016-12-21] MEDS: DEXMEDETOMIDINE HCL 400 MCG in D5W 100 ML IV SCH ×8 (01:03→23:55)
[2016-12-21] MEDS: LORazepam 2 MG/ML INJ IVP PRN ×3 (01:46→23:54)
[2016-12-21 04:25] LABS: ADD DIFF? YES; ADD MORPH? NO; ATYPICAL LYMPHOCYTE FLAG 0 (0-99); FRAGMENT RBC FLAG 0 (0-99); HEMATOCRIT 24.6 % (38.0-47.0); HEMOGLOBIN 8.2 g/dL (12.6-16.3); LIPEMIA HEMOLYSIS FLAG 80 (0-99); MEAN CELL HEMOGLOBIN 30.6 pg (27.9-34.1); MEAN CELL HEMOGLOBIN CONCENTR. 33.3 g/dL (32.4-36.7); MEAN CELL VOLUME 91.8 fL (81.5-99.8); MEAN PLATELET VOLUME 10.9 fL (8.7-11.7); PLATELET CLUMPS FLAG 0 (0-99); PLATELET COUNT 355 10^3/uL (150-400); RED BLOOD CELL COUNT 2.68 10^6/uL (4.18-5.33); RED CELL DISTRIBUTION WIDTH 16.9 % (11.5-15.2)
[2016-12-21 04:30] LABS: LEFT SHIFT FLG 130 (0-99)
[2016-12-21 04:31] LABS: ADD SCAN? NO
[2016-12-21 04:41] LABS: ANION GAP 10 mEq/L (8-16); CALCIUM 8.2 mg/dL (8.5-10.4); CARBON DIOXIDE 21 mEq/l (22-31); CHLORIDE 110 mEq/L (97-110); CREATININE 1.8 mg/dL (0.6-1.0); GLOMERULAR FILTRATION RATE 29; GLUCOSE 99 mg/dL (70-100); POTASSIUM 5.2 mEq/L (3.5-5.2); SODIUM 141 mEq/L (134-144)
[2016-12-21 05:08] LABS: PLATELET ESTIMATE ADEQUATE (ADEQ); TOXIC GRANULATION PRESENT; TOXIC VACUOLIZATION PRESENT
[2016-12-21 05:09] LABS: HYPOCHROMIA 1+; TARGET CELLS 1+
[2016-12-21 05:18] LABS: LARGE PLATELETS PRESENT
[2016-12-21 05:26] LABS: BASE EXCESS -3.4 mEq/L (-2.5-2.5); BICARBONATE 21 mEq/L (22-26); MEASURED OXYGEN SATURATION 89 % (92-95); PCO2 42 mmHg (34-38); PO2 64 mmHg (65-75); TCO2 23 mEq/L (23-27)
[2016-12-21 05:35] LABS: END TIDAL CO2 30; O2 CONCENTRATIION 60 % (0-100); P/F RATIO 107 RATIO; SIMV YES
[2016-12-21 05:36] LABS: PATIENT RATE 24; PRESSURE SUPPORT 7
[2016-12-21] MEDS: HEPARIN 5,000 UNIT/0.5 ML SYR SC SCH ×3 (06:25→20:59)
[2016-12-21] MEDS: MICAFUNGIN NA 100 MG in NS 100 ML IV SCH (08:28)
[2016-12-21] MEDS: CHLORHEXIDINE GLUCONATE 15 ML UDL PO SCH ×2 (08:28→20:58)
[2016-12-21] MEDS: D5W 1,000 ML IV SCH (08:30)
--- NOTE | 2016-12-21 08:40 | HOSPPROG ---
Hospitalist Progress Note Assessment/Plan: #Septic shock: resolved. Due to abdominal source. #Peritonitis/intraabdominal abscess: -due to anastomosis leak after hemicolectomy. s/p ex-lap on 12/13. +Enterococcus on culture -s/p paracentesis 12/19 -Cont Zosyn & Micafungin #Hyperkalemia: resolved. Will remove from tube feeds #Hypernatremia: resolved with IVFs. DC if Na normal this afternoon since on hypotonic TFs #Acute hypoxemic resp failure: trial low-dose lasix today #Fever: still fevering. Bronch (12/19) with min mucus. #MARTA: Cr up to 1.8. Multifactorial. Albumin today #Colon cancer: s/p hemicolectomy 12/09 #Diet: TPN #Goals: still critically ill, requiring IV abx, ventilator Subjective: fevered to 38.5. S/p paracentesis, 2L yesterday Objective: Vital Signs Temp Pulse Resp BP Pulse Ox 38.5 C H 83 24 H 134/62 H 96 12/21/16 08:00 12/21/16 08:00 12/21/16 08:00 12/21/16 08:00 12/21/16 08:00 Microbiology 12/20/16 15:00 Gram Stain - Final Abdomen - Aspirate 12/13/16 22:05 Gram Stain - Final Abdomen - Aspirate 12/17/16 14:40 - Final Sputum, Induced/Suctioned Sputum Culture - Final Yeast, Not Ana Albicans Ana Albicans 12/14/16 09:38 Blood Culture - Final Blood 12/14/16 09:38 Blood Culture - Final Blood Laboratory Results 12/21/16 04:10 12/21/16 04:10 12/20/16 12/21/16 12/22/16 05:59 05:59 05:59 Intake Total 4540 5365 Output Total 2210 4070 Balance 2330 1295 PT 15.2 SEC (12.0-15.0) H 12/19/16 04:08 INR 1.20 (0.83-1.16) H 12/19/16 04:08 - Physical Exam Constitutional: no apparent distress, chronically ill appearing Eyes: PERRL Ears, Nose, Mouth, Throat: moist mucous membranes Cardiovascular: regular rate and rhythym Respiratory: reduced air movement Gastrointestinal: distension (wound vac. TARA drain with min output) Genitourinary: ponce in urethra Musculoskeletal: other (PICCs BL UEs) Neurologic: other (opens eyes) ICD10 Worksheet Patient Problems: Problems Problem Status Onset Colon cancer Acute
--- NOTE | 2016-12-21 08:54 | PDINTPN ---
Manager Ambulatory Progress Note Assessment/Plan: Assessment/Plan: * Status post perforated bowel/anastomotic leak with peritonitis. Initial surgery 12/09 with subsequent perforation. Repaired 12/13. On ventilator since. ID following. On broad-spectrum antibiotics and antifungals. -S/P paracentesis * Sepsis, hypotension. Resolved * Acute respiratory failure. Remains on the ventilator, day 8, however oxygen requirements have improved. -likely fluid overload -will try gentle diurese * Right lower lobe pneumonia, query aspiration. On broad-spectrum antibiotics for her peritonitis. * Atelectasis-likely secondary to abdominal distention. Bronch showed no evidence of mucous plugging. * Acute renal failure: Improved, creatinine is stable * Nutrition: TPN -cont BS checks * Recent diagnosis of colon cancer, status post resection on . * DVT prophylaxis: Subcu heparin. On hold for paracentesis * GI prophylaxis: Pepcid in TPNcreatinine stable 35 min of critical care time spent with patient Case discussed with RT and nursing 12/21/16 08:19 Subjective: Patient is sedated and on mechanical ventilation. Sedated of Precedex and fentanyl appears adequate. Objective: Vital Signs Temp Pulse Resp BP Pulse Ox 36.5 C 79 25 H 127/55 H 96 12/21/16 06:00 12/21/16 07:00 12/21/16 07:00 12/21/16 07:00 12/21/16 07:00 Microbiology 12/20/16 15:00 Gram Stain - Final Abdomen - Aspirate 12/13/16 22:05 Gram Stain - Final Abdomen - Aspirate 12/17/16 14:40 - Final Sputum, Induced/Suctioned Sputum Culture - Final Yeast, Not Ana Albicans Ana Albicans 12/14/16 09:38 Blood Culture - Final Blood 12/14/16 09:38 Blood Culture - Final Blood Laboratory Results 12/21/16 04:10 12/21/16 04:10 12/20/16 12/21/16 12/22/16 05:59 05:59 05:59 Intake Total 4540 5365 Output Total 2210 4070 Balance 2330 1295 PT 15.2 SEC (12.0-15.0) H 12/19/16 04:08 INR 1.20 (0.83-1.16) H 12/19/16 04:08 Laboratory Results 12/21/16 04:10 12/21/16 04:10 12/21/16 12/20/16 05:15 15:00 Patient Temperature 37.9 DEGREES DEGREES pCO2 42 mmHg H mmHg (34 - 38) pO2 64 mmHg L mmHg (65 - 75) Total CO2 23 mEq/L mEq/L (23 - 27) ABG pH 7.34 L (7.35 - 7.45) ABG PO2/FiO2 Ratio 107 RATIO RATIO ABG O2 Saturation 89 % L % (92 - 95) ABG Base Excess -3.4 mEq/L L mEq/L (-2.5 - 2.5) O2 Concentration % 60 % % Actual Respiration Rate 24 Set Respiration Rate 22 SIMV YES Tidal Volume 550 End Tidal CO2 30 PEEP 5 Pressure Support 7 Fluid Meso/Macro/Roane % 8 % L % (70 - 100) Fl Pathologist Review Pending Peritoneal Source PERITONEAL Peritoneal Color YELLOW H Peritoneal Appearance HAZY H Peritoneal WBC 611 /mm3 H /mm3 (0 - 0) Peritoneal RBC 849 /mm3 H /mm3 (0 - 0) Periton Neutrophils 77 % H % (0 - 7) Peritoneal Basophils 1 % H % (0 - 0) Periton Lymphocytes % 14 % % (0 - 18) 12/17/16 14:40 - Final Sputum, Induced/Suctioned Sputum Culture - Preliminary Yeast, Not Ana Albicans 12/17/16 14:40 - Final Sputum, Induced/Suctioned Sputum Culture - Final Yeast, Not Ana Albicans Ana Albicans 12/13/16 22:05 Gram Stain - Final Abdomen - Aspirate Anaerobic Culture - Preliminary Enterococcus Faecalis 12/13/16 22:05 Gram Stain - Final Abdomen - Aspirate Anaerobic Culture - Preliminary Enterococcus Faecalis - Time Spent With Patient Time Spent With Patient: 35 Physical Exam - Physical Exam General Appearance: other (Sedated), No alert EENT: PERRL/EOMI, normal ENT inspection, ET tube Neck: non-tender, full range of motion, supple, normal inspection Respiratory: crackles (Few basilar) Cardiac/Chest: normal peripheral pulses, regular rate, rhythm Abdomen: distended, No normal bowel sounds, No non-tender, No soft Pelvic Exam: deferred Rectal: deferred Skin: normal color, warm/dry Extremities: swelling Neuro/Psych: No alert ICD10 Worksheet Patient Problems: Problems Problem Status Onset Colon cancer Acute
[2016-12-21] MEDS ORDERED: FUROSEMIDE 20 MG/2 ML VIAL IVP ONE (09:00)
--- NOTE | 2016-12-21 09:15 | SOAPPROG ---
SOAP Progress Note Assessment/Plan: Assessment: 1. MARTA. Ischemic ATN d/t sepsis/nsaids/acei +/- prerenal. Creat has crept up for last several days despite albumin bolus yesterday. Possible prerenal d/t third spacing? Give additional albumin today. Good UOP. 2. Hyperkalemia. Improved to 5.2. OK to resume tpn with 50 meq K today but would remove K for tomorrow. 3. Hypernatremia. Improved with D5W. Getting hypotonic TPN, D5W reduced to 75 cc /h. 4. Respiratory failure. PNA, possible volume component. To get a small dose of lasix today. Plan: 12/16/16 09:29 12/21/16 09:12 12/21/16 09:13 12/21/16 09:16 Subjective: O2 requirements have increased a bit in the last day. Objective: Vital Signs Temp Pulse Resp BP Pulse Ox 38.5 C H 83 24 H 134/62 H 96 12/21/16 08:00 12/21/16 08:00 12/21/16 08:00 12/21/16 08:00 12/21/16 08:00 Microbiology 12/20/16 15:00 Gram Stain - Final Abdomen - Aspirate 12/13/16 22:05 Gram Stain - Final Abdomen - Aspirate 12/17/16 14:40 - Final Sputum, Induced/Suctioned Sputum Culture - Final Yeast, Not Ana Albicans Ana Albicans 12/14/16 09:38 Blood Culture - Final Blood 12/14/16 09:38 Blood Culture - Final Blood Laboratory Results 12/21/16 04:10 12/21/16 04:10 12/20/16 12/21/16 12/22/16 05:59 05:59 05:59 Intake Total 4540 5365 Output Total 2210 4070 Balance 2330 1295 PT 15.2 SEC (12.0-15.0) H 12/19/16 04:08 INR 1.20 (0.83-1.16) H 12/19/16 04:08 Intubated, sedated, arouses somewhat to voice FiO2 60% RRR, no m/g/r Coarse rhonchi heard throughout Abdom distended. Wound vac in place. 3-4+ LE/3+ UE pitting edema ICD10 Worksheet Patient Problems: Problems Problem Status Onset Colon cancer Acute
[2016-12-21] MEDS ORDERED: ALBUMIN 25% 100 ML IV ONE (09:22)
[2016-12-21] MEDS: TPN W/ FAMOTIDINE 1 EA BAG IV SCH ×2 (11:10→20:57)
--- NOTE | 2016-12-21 13:22 | SOAPPROG ---
SOAP Progress Note Assessment/Plan: Assessment: s/p right hemicolectomy for colon cancer and anastomotic dehiscence at staple line s/p ex lap with washout and reanastomosis Remains critically ill Neuro - sedated propofol/fentanyl Resp - intubated, difficulty weaning from vent. Bronch 12/19 with min mucous CV - improved, off pressors GI - awaiting return of bowel function, hypoactive BS. Paracentesis yesterday with removal of 2.2L cloudy fluid - no bacterial growth - ponce. Cr elevated. Appreciate nephrology following Wound - Vac change MWF FEN- TPN with pepcid. monitor electolytes Heme/ID - WBC improved today. On Zosyn and Micafungin per ID PPx - subq heparin, scds Dispo: continue ICU care. Seen c Dr. Cat, discussed c pharmacy and Dr. Kruger S: Intubated and sedated. Difficulty weaning from vent. comfortable this morning. o: Laying in bed comfortable, intubated and sedated Hypoactive BS, softly distended. Left side of abdomen softer today than yesterday TARA x 2 serosanguinous. Superior drain removed without difficulty Wound clean and dry without evidence of infection. Wound vac dressing reapplied Ponce SCDs Objective: Vital Signs Temp Pulse Resp BP Pulse Ox 38.3 C H 80 27 H 159/69 H 96 12/21/16 12:00 12/21/16 12:00 12/21/16 12:00 12/21/16 12:00 12/21/16 12:00 Microbiology 12/13/16 22:05 Gram Stain - Final Abdomen - Aspirate Anaerobic Culture - Final Enterococcus Faecalis 12/20/16 15:00 Gram Stain - Final Abdomen - Aspirate 12/17/16 14:40 - Final Sputum, Induced/Suctioned Sputum Culture - Final Yeast, Not Ana Albicans Ana Albicans 12/14/16 09:38 Blood Culture - Final Blood 12/14/16 09:38 Blood Culture - Final Blood Laboratory Results 12/21/16 04:10 12/21/16 12:52 12/20/16 12/21/16 12/22/16 05:59 05:59 05:59 Intake Total 4540 5365 Output Total 2210 4070 Balance 2330 1295 PT 15.2 SEC (12.0-15.0) H 12/19/16 04:08 INR 1.20 (0.83-1.16) H 12/19/16 04:08 ICD10 Worksheet Patient Problems: Problems Problem Status Onset Colon cancer Acute
[2016-12-21] MEDS ORDERED: LORazepam 2 MG/ML INJ IVP ONE (14:30)
--- NOTE | 2016-12-21 17:11 | PCMIDPN ---
Assessment/Plan: Assessment: Peritonitis and sepsis status post anastomotic leak. Currently covered with both Zosyn and micafungin therapy. Abdominal aspirate from 12/13 growing sensitive Enterococcus faecalis. Cultures of the fluid from paracentesis yesterday is not showing any growth at this point. Patient remains intubated in requiring 60% FiO2. Abdomen is significantly distended and may be inhibiting diaphragmatic excursion resulting in decreased recruitment of alveoli. Plan: 1. Continue both Zosyn and micafungin. 2. Follow clinical course and most recent abdominal fluid culture data. 12/21/16 18:23 12/21/16 18:23 12/21/16 18:23 Subjective: Patient remains in the ICU both intubated and sedated. She is hemodynamically stable. She is requiring no pressors. No significant jacquard loom card changer the last 24 hours. Objective: Zosyn # 7 Micafungin # 8 Vital Signs Temp Pulse Resp BP Pulse Ox 38.2 C 80 30 H 160/69 H 98 12/21/16 16:00 12/21/16 16:00 12/21/16 16:00 12/21/16 16:00 12/21/16 16:00 Microbiology 12/20/16 15:00 Gram Stain - Final Abdomen - Aspirate 12/13/16 22:05 Gram Stain - Final Abdomen - Aspirate Anaerobic Culture - Final Enterococcus Faecalis 12/17/16 14:40 - Final Sputum, Induced/Suctioned Sputum Culture - Final Yeast, Not Ana Albicans Ana Albicans Laboratory Results 12/21/16 04:10 12/21/16 12:52 12/20/16 12/21/16 12/22/16 05:59 05:59 05:59 Intake Total 4540 5365 Output Total 2210 4070 Balance 2330 1295 - Physical Exam General Appearance: WD/WN, no apparent distress, other (Intubated and sedated) Respiratory: lungs clear, No normal breath sounds (Decreased breath sounds in the bases bilaterally), No crackles Cardiac/Chest: regular rate, rhythm, No tachycardia Extremities: non-tender, normal inspection Abdomen: soft, distended, ascites Skin: normal color, warm/dry, No rash ICD10 Worksheet Patient Problems: Problems Problem Status Onset Colon cancer Acute
[2016-12-21] MEDS: ALTEPLASE 2 MG VIAL IVP PRN (23:54)
[2016-12-22] MEDS: fentaNYL/NACL 100 ML IV SCH ×4 (00:07→19:14)
[2016-12-22] MEDS: ALBUTEROL 60 PUFFS/8 GM MDI IH SCH ×7 (00:10→23:56)
[2016-12-22] MEDS: DEXMEDETOMIDINE HCL 400 MCG in D5W 100 ML IV SCH ×7 (02:05→23:48)
[2016-12-22 04:31] LABS: BASE EXCESS -3.6 mEq/L (-2.5-2.5); BICARBONATE 21 mEq/L (22-26); MEASURED OXYGEN SATURATION 92 % (92-95); PCO2 42 mmHg (34-38); PO2 73 mmHg (65-75); TCO2 23 mEq/L (23-27)
[2016-12-22 04:35] LABS: END TIDAL CO2 32; O2 CONCENTRATIION 50 % (0-100); P/F RATIO 146 RATIO; PATIENT RATE 30; PRESSURE SUPPORT 10; SIMV YES
[2016-12-22 04:36] LABS: ADD DIFF? YES; ADD MORPH? NO; ADD SCAN? NO; ATYPICAL LYMPHOCYTE FLAG 20 (0-99); FRAGMENT RBC FLAG 0 (0-99); HEMATOCRIT 24.3 % (38.0-47.0); HEMOGLOBIN 8.2 g/dL (12.6-16.3); LEFT SHIFT FLG 50 (0-99); LIPEMIA HEMOLYSIS FLAG 80 (0-99); MEAN CELL HEMOGLOBIN 30.6 pg (27.9-34.1); MEAN CELL HEMOGLOBIN CONCENTR. 33.7 g/dL (32.4-36.7); MEAN CELL VOLUME 90.7 fL (81.5-99.8); MEAN PLATELET VOLUME 10.5 fL (8.7-11.7); PLATELET CLUMPS FLAG 0 (0-99); PLATELET COUNT 469 10^3/uL (150-400); RED BLOOD CELL COUNT 2.68 10^6/uL (4.18-5.33); RED CELL DISTRIBUTION WIDTH 16.2 % (11.5-15.2)
[2016-12-22 04:43] LABS: ANION GAP 8 mEq/L (8-16); CALCIUM 8.4 mg/dL (8.5-10.4); CARBON DIOXIDE 24 mEq/l (22-31); CHLORIDE 110 mEq/L (97-110); CREATININE 1.8 mg/dL (0.6-1.0); GLOMERULAR FILTRATION RATE 29; GLUCOSE 113 mg/dL (70-100); POTASSIUM 4.7 mEq/L (3.5-5.2); SODIUM 142 mEq/L (134-144)
[2016-12-22] MEDS: LORazepam 2 MG/ML INJ IVP PRN ×4 (04:54→20:10)
[2016-12-22 05:49] LABS: HYPOCHROMIA 1+; PLATELET ESTIMATE INCREASED (ADEQ); TARGET CELLS 1+
[2016-12-22] MEDS: HEPARIN 5,000 UNIT/0.5 ML SYR SC SCH ×3 (05:57→22:58)
[2016-12-22] MEDS: PIPERACILLIN/TAZO 2.25 GM/DEX 50 ML IV SCH ×3 (05:59→18:01)
[2016-12-22] MEDS: CHLORHEXIDINE GLUCONATE 15 ML UDL PO SCH ×2 (08:30→20:10)
[2016-12-22] MEDS: PETROLAT,WHT/MIN OIL/SOD CHL 3.5 GM OPHT.OINT EACHEYE PRN (08:31)
[2016-12-22] MEDS: MICAFUNGIN NA 100 MG in NS 100 ML IV SCH (08:31)
--- NOTE | 2016-12-22 08:33 | PDINTPN ---
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 Initial surgery 12/09 with subsequent perforation. Repaired 12/13. On ventilator since. ID following. On broad-spectrum antibiotics and antifungals. White count is elevated however fevers improved -S/P paracentesis-cultures are pending * Sepsis, hypotension. Resolved * Acute respiratory failure. Remains on the ventilator, day 9, however oxygen requirements have improved. Improved after diuresis -will perform CPAP trial today * Right lower lobe pneumonia, query aspiration. On broad-spectrum antibiotics for her peritonitis. * Atelectasis-likely secondary to abdominal distention. * Right-sided pleural effusion-will consider thoracentesis tomorrow * Acute renal failure: Improved, creatinine is stable * Nutrition: TPN -cont BS checks * Recent diagnosis of colon cancer, status post resection on . * DVT prophylaxis: Subcu heparin. On hold for paracentesis * GI prophylaxis: Pepcid in TPNcreatinine stable 35 min of critical care time spent with patient Case discussed with Surgeon, RT and nursing Subjective: Sedated on mechanical ventilation Objective: Vital Signs Temp Pulse Resp BP Pulse Ox 37.9 C 79 29 H 119/69 96 12/22/16 06:00 12/22/16 06:00 12/22/16 06:00 12/22/16 06:00 12/22/16 06:00 Microbiology 12/20/16 15:00 Gram Stain - Final Abdomen - Aspirate 12/13/16 22:05 Gram Stain - Final Abdomen - Aspirate Anaerobic Culture - Final Enterococcus Faecalis Laboratory Results 12/22/16 04:20 12/22/16 04:20 12/21/16 12/22/16 12/23/16 05:59 05:59 05:59 Intake Total 5365 2881 Output Total 4070 3605 Balance 1295 -724 PT 15.2 SEC (12.0-15.0) H 12/19/16 04:08 INR 1.20 (0.83-1.16) H 12/19/16 04:08 Laboratory Results 12/22/16 04:20 12/22/16 04:20 12/22/16 04:23 Patient Temperature 37.9 DEGREES DEGREES pCO2 42 mmHg H mmHg (34 - 38) pO2 73 mmHg mmHg (65 - 75) Total CO2 23 mEq/L mEq/L (23 - 27) ABG pH 7.33 L (7.35 - 7.45) ABG PO2/FiO2 Ratio 146 RATIO RATIO ABG O2 Saturation 92 % % (92 - 95) ABG Base Excess -3.6 mEq/L L mEq/L (-2.5 - 2.5) O2 Concentration % 50 % % Actual Respiration Rate 30 Set Respiration Rate 22 SIMV YES Tidal Volume 550 End Tidal CO2 32 PEEP 7 Pressure Support 10 12/20/16 15:00 Gram Stain - Final Abdomen - Aspirate Anaerobic Culture - Preliminary 12/13/16 22:05 Gram Stain - Final Abdomen - Aspirate Anaerobic Culture - Final Enterococcus Faecalis Chest x-ray reviewed by myself. Endotracheal tube in good position. Possible right pleural effusion. Physical Exam - Physical Exam General Appearance: other (Sedated), No alert EENT: PERRL/EOMI, ET tube Neck: non-tender, full range of motion, supple, normal inspection Respiratory: crackles (Right lower), No respiratory distress, No wheezing, No prolonged expiration Cardiac/Chest: normal peripheral pulses, regular rate, rhythm Abdomen: distended, No non-tender, No soft Pelvic Exam: deferred Rectal: deferred Skin: normal color, warm/dry Extremities: normal range of motion, non-tender, normal inspection, normal capillary refill Neuro/Psych: No alert (Sedated) ICD10 Worksheet Patient Problems: Problems Problem Status Onset Colon cancer Acute
--- NOTE | 2016-12-22 10:17 | SOAPPROG ---
SOAP Progress Note Assessment/Plan: Assessment: s/p right hemicolectomy for colon cancer and anastomotic dehiscence at staple line s/p ex lap with washout and reanastomosis Remains critically ill Neuro - fentanyl and precedex Resp - Pleural effusion but FIO2 down. If remains a contribution to weaning, then may consider thoracentesis tomorrow. Cards - much improved. Off pressors GI - hypoactive bowel sounds. On TPN. Softer today Renal - Cr stable. Diuresis of 2 L with Lasix. Skin - Wound vac change MWF Heme/ID- on broad spectrum - WBC up today. Platelets up too. H/H stable. Paracentesis with NGTD Dispo - continue ICU S: Will try CPAP again today O: Lying in bed comfortable intubated and sedated, lungs decreased at bases right worse than left, regular rate, hypoactive bowel sounds, soft, wv to suction. Minimal output of drains. SCDs in place Plan: 12/10/16 12:43 12/11/16 09:53 12/13/16 21:40 12/19/16 09:17 12/22/16 10:15 Objective: Vital Signs Temp Pulse Resp BP Pulse Ox 37.9 C 81 28 H 135/75 H 98 12/22/16 06:00 12/22/16 08:11 12/22/16 08:11 12/22/16 08:11 12/22/16 08:11 Microbiology 12/20/16 15:00 Gram Stain - Final Abdomen - Aspirate 12/13/16 22:05 Gram Stain - Final Abdomen - Aspirate Anaerobic Culture - Final Enterococcus Faecalis Laboratory Results 12/22/16 04:20 12/22/16 04:20 12/21/16 12/22/16 12/23/16 05:59 05:59 05:59 Intake Total 5365 2881 Output Total 4070 3605 Balance 1295 -724 PT 15.2 SEC (12.0-15.0) H 12/19/16 04:08 INR 1.20 (0.83-1.16) H 12/19/16 04:08 ICD10 Worksheet Patient Problems: Problems Problem Status Onset Colon cancer Acute - ICD10 Problem Qualifiers (1) Colon cancer Qualifiers: Colon location: C
--- NOTE | 2016-12-22 10:18 | PCMIDPN ---
Assessment/Plan: Assessment: Peritonitis and sepsis status post anastomotic leak. Currently covered with both Zosyn and micafungin therapy. Abdominal aspirate from 12/13 growing sensitive Enterococcus faecalis. Cultures of the fluid from paracentesis yesterday is not showing any growth at this point. Patient remains intubated and requiring 40% FiO2. Showing reasonable tolerance of CPAP trials today. Plan: 1. Continue both Zosyn and micafungin. 2. Follow clinical course and most recent abdominal fluid culture data. Subjective: Patient remains intubated and sedated. On 40% FiO2. Tolerating CPAP trials and sedation has been lightened. Objective: Zosyn # 8 Micafungin # 9 Vital Signs Temp Pulse Resp BP Pulse Ox 37.9 C 81 28 H 135/75 H 98 12/22/16 06:00 12/22/16 08:11 12/22/16 08:11 12/22/16 08:11 12/22/16 08:11 Microbiology 12/20/16 15:00 Gram Stain - Final Abdomen - Aspirate 12/13/16 22:05 Gram Stain - Final Abdomen - Aspirate Anaerobic Culture - Final Enterococcus Faecalis Laboratory Results 12/22/16 04:20 12/22/16 04:20 12/21/16 12/22/16 12/23/16 05:59 05:59 05:59 Intake Total 5399 2167 Output Total 9899 2584 Balance 1295 -724 - Physical Exam General Appearance: WD/WN, obese, non-toxic, other (Intubated and sedated) Respiratory: lungs clear, normal breath sounds, No respiratory distress Cardiac/Chest: regular rate, rhythm, No tachycardia Abdomen: soft, distended, No mass Skin: normal color, warm/dry, No rash ICD10 Worksheet Patient Problems: Problems Problem Status Onset Colon cancer Acute
--- NOTE | 2016-12-22 10:58 | SOAPPROG ---
SOAP Progress Note Assessment/Plan: Assessment:Plan: ARF-likely ATn -non-oliguric -edematous -discussed with Dr. Kruger -he will give trial of low-dose lasix to see if we can improve volume status FEN-K and Na balance okay -discussed with pharmacy -they will increase protein in TPN 12/22/16 10:55 Subjective: intubated sedated on vent Objective: Vital Signs Temp Pulse Resp BP Pulse Ox 37.9 C 82 23 H 119/66 96 12/22/16 06:00 12/22/16 10:45 12/22/16 10:45 12/22/16 10:45 12/22/16 10:45 Microbiology 12/20/16 15:00 Gram Stain - Final Abdomen - Aspirate 12/13/16 22:05 Gram Stain - Final Abdomen - Aspirate Anaerobic Culture - Final Enterococcus Faecalis Laboratory Results 12/22/16 04:20 12/22/16 04:20 12/21/16 12/22/16 12/23/16 05:59 05:59 05:59 Intake Total 5365 2881 Output Total 4070 3605 Balance 1295 -724 PT 15.2 SEC (12.0-15.0) H 12/19/16 04:08 INR 1.20 (0.83-1.16) H 12/19/16 04:08 Physical Exam - Physical Exam General Appearance: no apparent distress EENT: ET tube Neck: normal inspection Respiratory: other (coarse breath sounds) Cardiac/Chest: regular rate, rhythm Abdomen: normal bowel sounds, other (wound vac) Extremities: swelling (into thighs) ICD10 Worksheet Patient Problems: Problems Problem Status Onset Colon cancer Acute
[2016-12-22] MEDS ORDERED: D5W 1,000 ML IV SCH (11:00)
--- NOTE | 2016-12-22 14:51 | HOSPPROG ---
Hospitalist Progress Note Assessment/Plan: #Septic shock: resolved. Due to abdominal source. #Peritonitis/intraabdominal abscess: -due to anastomosis leak after hemicolectomy. s/p ex-lap on 12/13. +Enterococcus on culture -s/p paracentesis 12/20, awaiting culture data -Cont Zosyn & Micafungin #Hyperkalemia: resolved. Will remove from tube feeds #Hypernatremia: resolved with D5W #Acute hypoxemic resp failure: improved vent settings. Trial low-dose lasix #Fever: still fevering. Bronch (12/19) with min mucus. #MARTA: still 1.8. Multifactorial. #Colon cancer: s/p hemicolectomy 12/09 #Diet: TPN #Goals: still critically ill, requiring IV abx, ventilator Subjective: no acute events overnight Objective: Vital Signs Temp Pulse Resp BP Pulse Ox 37.4 C 77 26 H 124/75 H 92 12/22/16 12:00 12/22/16 14:00 12/22/16 14:00 12/22/16 14:00 12/22/16 14:00 Microbiology 12/20/16 15:00 Gram Stain - Final Abdomen - Aspirate 12/13/16 22:05 Gram Stain - Final Abdomen - Aspirate Anaerobic Culture - Final Enterococcus Faecalis Laboratory Results 12/22/16 04:20 12/22/16 04:20 12/21/16 12/22/16 12/23/16 05:59 05:59 05:59 Intake Total 5365 2881 Output Total 4070 3605 Balance 1295 -724 PT 15.2 SEC (12.0-15.0) H 12/19/16 04:08 INR 1.20 (0.83-1.16) H 12/19/16 04:08 - Physical Exam Constitutional: other (sedated) Eyes: PERRL Ears, Nose, Mouth, Throat: moist mucous membranes Cardiovascular: regular rate and rhythym Respiratory: other (crackles, BL) Gastrointestinal: distension, other (wound vac, firm, no grimace with palpation) Genitourinary: ponce in urethra Skin: warm Musculoskeletal: other (BL UE PICC lines) Neurologic: other (sedated) Psychiatric: other (opens eyes to voice) ICD10 Worksheet Patient Problems: Problems Problem Status Onset Colon cancer Acute
[2016-12-22] MEDS: TPN W/ FAMOTIDINE 1 EA BAG IV SCH (20:53)
[2016-12-23] MEDS: fentaNYL/NACL 100 ML IV SCH ×4 (01:02→22:20)
[2016-12-23] MEDS: PIPERACILLIN/TAZO 2.25 GM/DEX 50 ML IV SCH ×4 (01:39→18:01)
[2016-12-23] MEDS: DEXMEDETOMIDINE HCL 400 MCG in D5W 100 ML IV SCH ×5 (02:57→23:20)
[2016-12-23] MEDS: ALBUTEROL 60 PUFFS/8 GM MDI IH SCH ×5 (04:24→20:49)
[2016-12-23 05:21] LABS: HEMATOCRIT 24.5 % (38.0-47.0); HEMOGLOBIN 8.2 g/dL (12.6-16.3); MEAN CELL HEMOGLOBIN 30.8 pg (27.9-34.1); MEAN CELL HEMOGLOBIN CONCENTR. 33.5 g/dL (32.4-36.7); MEAN CELL VOLUME 92.1 fL (81.5-99.8); RED BLOOD CELL COUNT 2.66 10^6/uL (4.18-5.33); RED CELL DISTRIBUTION WIDTH 16.3 % (11.5-15.2)
[2016-12-23 05:34] LABS: ANION GAP 8 mEq/L (8-16); CALCIUM 8.4 mg/dL (8.5-10.4); CARBON DIOXIDE 23 mEq/l (22-31); CHLORIDE 112 mEq/L (97-110); CREATININE 1.7 mg/dL (0.6-1.0); GLOMERULAR FILTRATION RATE 31; GLUCOSE 121 mg/dL (70-100); POTASSIUM 4.2 mEq/L (3.5-5.2); SODIUM 143 mEq/L (134-144)
[2016-12-23] MEDS: HEPARIN 5,000 UNIT/0.5 ML SYR SC SCH ×3 (06:20→21:47)
[2016-12-23] MEDS: CHLORHEXIDINE GLUCONATE 15 ML UDL PO SCH ×2 (07:50→20:00)
[2016-12-23] MEDS: LORazepam 2 MG/ML INJ IVP PRN ×3 (07:50→20:00)
[2016-12-23] MEDS: MICAFUNGIN NA 100 MG in NS 100 ML IV SCH (08:53)
--- NOTE | 2016-12-23 09:02 | PDINTPN ---
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 Initial surgery 12/09 with subsequent perforation. Repaired 12/13. On ventilator since. ID following. On broad-spectrum antibiotics and antifungals. White count is elevated however fevers improved -S/P paracentesis-cultures are pending * Sepsis, hypotension. Resolved * Acute respiratory failure. Remains on the ventilator, day 10, however oxygen requirements have improved. Improved after diuresis -will perform CPAP trial today and assess for extubation * Sedation-will hold to assess for extubation * Right lower lobe pneumonia, query aspiration. Chest x-ray appears worse however patient is clinically improved -continue broad-spectrum antibiotics for her peritonitis. * Atelectasis-likely secondary to abdominal distention. * Right-sided pleural effusion-will consider thoracentesis tomorrow * Acute renal failure: Improved, creatinine is stable * Nutrition: TPN -cont BS checks * Recent diagnosis of colon cancer, status post resection on . * DVT prophylaxis: Subcu heparin. On hold for paracentesis * GI prophylaxis: Pepcid in TPN. 40 min of critical care time spent with patient Case discussed with Surgeon, RT and nursing I discussed case with patient's daughter yesterday. Subjective: Sedated, but stable on mechanical ventilation. She has had no periods of agitation last 24 hours Objective: Vital Signs Temp Pulse Resp BP Pulse Ox 37.2 C 79 27 H 130/74 H 93 12/23/16 07:59 12/23/16 07:59 12/23/16 07:59 12/23/16 07:59 12/23/16 07:59 Microbiology 12/20/16 15:00 Gram Stain - Final Abdomen - Aspirate Laboratory Results 12/23/16 05:07 12/23/16 05:07 12/22/16 12/23/16 12/24/16 05:59 05:59 05:59 Intake Total 2881 2600 Output Total 3605 2650 Balance -724 -50 PT 15.2 SEC (12.0-15.0) H 12/19/16 04:08 INR 1.20 (0.83-1.16) H 12/19/16 04:08 Chest [id number] by myself. Worsening bibasilar consolidation, endotracheal tube is in good position. Physical Exam - Physical Exam General Appearance: no apparent distress, No alert EENT: PERRL/EOMI, normal ENT inspection, ET tube Neck: non-tender, full range of motion, supple, normal inspection Respiratory: crackles (Bases), No respiratory distress, No stridor, No wheezing Cardiac/Chest: normal peripheral pulses, regular rate, rhythm, systolic murmur Peripheral Pulses: 2+: carotid (R), carotid (L), femoral (R), femoral (L), dorsalis-pedis (R), dorsalis-pedis (L) Abdomen: distended, No non-tender, No soft Pelvic Exam: deferred Rectal: deferred Skin: normal color, warm/dry Extremities: normal range of motion, non-tender, normal inspection, normal capillary refill Neuro/Psych: No alert (Sedated) ICD10 Worksheet Patient Problems: Problems Problem Status Onset Colon cancer Acute
[2016-12-23 10:24] LABS: BASE EXCESS -5.3 mEq/L (-2.5-2.5); BICARBONATE 22 mEq/L (22-26); MEASURED OXYGEN SATURATION 83 % (92-95); PCO2 57 mmHg (34-38); PO2 61 mmHg (65-75); TCO2 24 mEq/L (23-27)
--- NOTE | 2016-12-23 10:30 | SOAPPROG ---
SOAP Progress Note Assessment/Plan: Assessment: s/p right hemicolectomy for colon cancer and anastomotic dehiscence at staple line s/p ex lap with washout and reanastomosis Remains critically ill Neuro - sedated propofol/fentanyl Resp - intubated, difficulty weaning from vent. Bronch 12/19 with min mucous. R pleural effusion - poss. thoracentesis today CV - improved, off pressors GI - awaiting return of bowel function, hypoactive BS. s/p Paracentesis 12/20 - ponce. Appreciate nephrology following Wound - Vac change MWF FEN- TPN with pepcid. monitor electolytes Heme/ID - WBC increasing. On Zosyn and Micafungin per ID PPx - subq heparin, scds Dispo: continue ICU care. Seen c Dr. Cat, discussed c Dr. Chen and Dr. Kruger S: Intubated and sedated. Currently CPAP trial - increased WOB o: Laying in bed comfortable, intubated and sedated Decreased breath sound RLL Tachycardic Hypoactive BS, left abdomen softly distended. Right side of abdomen firm Wound vac dressing intact Ponce SCDs Objective: Vital Signs Temp Pulse Resp BP Pulse Ox 37.2 C 128 H 27 H 166/63 H 87 L 12/23/16 07:59 12/23/16 10:00 12/23/16 10:00 12/23/16 10:00 12/23/16 10:00 Microbiology 12/20/16 15:00 Gram Stain - Final Abdomen - Aspirate Laboratory Results 12/23/16 05:07 12/23/16 05:07 12/22/16 12/23/16 12/24/16 05:59 05:59 05:59 Intake Total 2881 2600 Output Total 3605 2650 Balance -724 -50 PT 15.2 SEC (12.0-15.0) H 12/19/16 04:08 INR 1.20 (0.83-1.16) H 12/19/16 04:08 ICD10 Worksheet Patient Problems: Problems Problem Status Onset Colon cancer Acute
[2016-12-23 10:36] LABS: CPAP YES; O2 CONCENTRATIION 40 % (0-100); P/F RATIO 153 RATIO; PRESSURE SUPPORT 7
[2016-12-23 10:37] LABS: END TIDAL CO2 49
--- NOTE | 2016-12-23 11:03 | SOAPPROG ---
SOAP Progress Note Assessment/Plan: Assessment: 1)Non-oliguric MARTA -Cr stable 1.7 today -ok to use prn IV lasix to help with volume status if UOP drops off- good so far today off it 2)Nutrition- on TPN, will add phos and Mg to am labs 3)Bowel perf with Anastomotic leak, peritonitis -on broad spectrum antibiotics, ID following -wound vac in -underlying colon CA 4)Acute resp failure -CXR suggestive of pleural effusion but attempt by IR today for thoracentesis no significant amt fluid to tap -failed wean trial today -ok for prn IV Lasix as needed to augment uop 5)resp acidosis I discussed with REELING MACHINE OPERATOR I am extension clerk for our group for the weekend [phone] 12/23/16 12:30 Subjective: Failed vent weaning trial this am. Good UOP 2.6 L, Cr stable 1.7. Discussed with RN. Objective: Vital Signs Temp Pulse Resp BP Pulse Ox 37.2 C 125 H 27 H 166/63 H 88 L 12/23/16 07:59 12/23/16 10:05 12/23/16 10:00 12/23/16 10:00 12/23/16 10:05 Microbiology 12/20/16 15:00 Gram Stain - Final Abdomen - Aspirate Laboratory Results 12/23/16 05:07 12/23/16 05:07 12/22/16 12/23/16 12/24/16 05:59 05:59 05:59 Intake Total 2881 2600 Output Total 3605 2650 Balance -724 -50 PT 15.2 SEC (12.0-15.0) H 12/19/16 04:08 INR 1.20 (0.83-1.16) H 12/19/16 04:08 Physical Exam - Physical Exam General Appearance: other (intubated, sedated) EENT: ET tube Respiratory: lungs clear (anteriorly bilat) Cardiac/Chest: regular rate, rhythm, other (no rub) Abdomen: other (wound vac in place, +bs) Rectal: other (ponce in, dark urine in bag) Extremities: other (+edema bilat LE) Neuro/Psych: other (sedated) ICD10 Worksheet Patient Problems: Problems Problem Status Onset Colon cancer Acute
--- NOTE | 2016-12-23 13:43 | WOCRNPDOC ---
WOCRN Advanced Assessment Note - Skin Integrity Problem, Advanced Assess Abdomen Dressing Type: Black Vac Foam, Wound Vac Dressing Description: Intact Exudate Amount: Minimal Exudate Characteristic(s): Serosanguinous Integumentary Issue Intervention: Dressing Changed Sirisha Wound Tissue: Intact Sirisha Wound Swelling: None Wound Bed Color: Red, Yellow Wound Bed Constitution: Granulation Tissue, Subcutaneous Fat Site Odor: None Site Measurement - Head-to-Toe Length X Width X Depth (cm): 22cmx4.9cmx2.8cm Skin Integrity Problem Comment: Large midline abdominal wound 95% granulation tissue, 5% yellow fat in the medial base of the wound. Some trace necrotic subcutaneous fat was noted along R lateral margin, but this was easily removed w / gauze and NS when wound cleansed. Sirisha-wound prepped and draped, and 1 continuous piece of black [place] foam placed in wound bed. Vac set at 125mmHg , low, continuous suction, no leak detected. networking specialist Joann present and assisting. Report given to TOSHA Flaherty and Dr. Cat.
--- NOTE | 2016-12-23 15:40 | PCMIDPN ---
Assessment/Plan: Assessment: Peritonitis and sepsis status post anastomotic leak. Currently covered with both Zosyn and micafungin therapy. Abdominal aspirate from 12/13 growing sensitive Enterococcus faecalis. Cultures of the fluid from paracentesis yesterday is not showing any growth at this point. Patient remains intubated and requiring 40% FiO2. Patient appears clinically stable. Plan: 1. Continue both Zosyn and micafungin. 2. Follow clinical course and most recent abdominal fluid culture data. 12/23/16 15:31 Subjective: Patient remains intubated with light sedation this morning. She is able to follow some commands but not others. Currently not on CPAP but plans today are to switch her to CPAP for possible extubation. No changes overnight. Objective: Zosyn # 9 Micafungin # 10 Vital Signs Temp Pulse Resp BP Pulse Ox 37.3 C 73 21 H 138/72 H 94 12/23/16 12:00 12/23/16 15:00 12/23/16 15:00 12/23/16 15:00 12/23/16 15:00 Microbiology 12/18/16 12:55 Blood Culture - Final Blood 12/18/16 13:05 Blood Culture - Final Blood 12/20/16 15:00 Gram Stain - Final Abdomen - Aspirate Laboratory Results 12/23/16 05:07 12/23/16 05:07 12/22/16 12/23/16 12/24/16 05:59 05:59 05:59 Intake Total 2881 2600 Output Total 3605 2650 Balance -724 -50 - Physical Exam General Appearance: WD/WN, no apparent distress, non-toxic, other (Intubated and mildly sedated.) Respiratory: lungs clear, normal breath sounds (With decreased breath sounds at the bases bilaterally.), No crackles Cardiac/Chest: regular rate, rhythm, No tachycardia Skin: normal color, warm/dry, No rash ICD10 Worksheet Patient Problems: Problems Problem Status Onset Colon cancer Acute
--- NOTE | 2016-12-23 16:39 | HOSPPROG ---
Hospitalist Progress Note Assessment/Plan: #Septic shock: resolved. Due to abdominal source. #Peritonitis/intraabdominal abscess: -due to anastomosis leak after hemicolectomy. s/p ex-lap on 12/13, +Enterococcus on culture -s/p paracentesis 12/20, culture negative -Cont Zosyn & Micafungin #Acute hypoxemic resp failure -improved oxygen requirements, but day 10. Failed CPAP trial. U/S did not show simple fluid to drain. Check CT scan #Hyperkalemia: resolved. Will remove from tube feeds #Hypernatremia: resolved with D5W #Fever: still fevering. Bronch (12/19) with min mucus. #MARTA: Cr 1.7. #Colon cancer: s/p hemicolectomy 12/09 #Diet: TPN #Goals: still critically ill, requiring IV abx, ventilator. I have been updating daughterEvelin daily Subjective: no acute events Objective: Vital Signs Temp Pulse Resp BP Pulse Ox 37.3 C 72 25 H 135/71 H 93 12/23/16 12:00 12/23/16 16:00 12/23/16 16:00 12/23/16 16:00 12/23/16 16:00 Microbiology 12/18/16 12:55 Blood Culture - Final Blood 12/18/16 13:05 Blood Culture - Final Blood 12/20/16 15:00 Gram Stain - Final Abdomen - Aspirate Laboratory Results 12/23/16 05:07 12/23/16 05:07 12/22/16 12/23/16 12/24/16 05:59 05:59 05:59 Intake Total 2881 2600 Output Total 3605 2650 Balance -724 -50 PT 15.2 SEC (12.0-15.0) H 12/19/16 04:08 INR 1.20 (0.83-1.16) H 12/19/16 04:08 - Physical Exam Constitutional: no apparent distress Eyes: PERRL Ears, Nose, Mouth, Throat: moist mucous membranes Cardiovascular: regular rate and rhythym, tachycardia Respiratory: reduced air movement (right base) Gastrointestinal: other (less distension, softer on exam today. Wound vac ) Genitourinary: ponce in urethra Skin: warm Musculoskeletal: other Neurologic: other (only opens eyes to voice, not tracking or following commands) ICD10 Worksheet Patient Problems: Problems Problem Status Onset Colon cancer Acute
[2016-12-23] MEDS: TPN W/ FAMOTIDINE 1 EA BAG IV SCH (21:08)
[2016-12-24] MEDS: PIPERACILLIN/TAZO 2.25 GM/DEX 50 ML IV SCH ×5 (00:04→23:38)
[2016-12-24] MEDS: ALBUTEROL 60 PUFFS/8 GM MDI IH SCH ×6 (00:42→20:33)
[2016-12-24] MEDS: DEXMEDETOMIDINE HCL 400 MCG in D5W 100 ML IV SCH ×6 (02:45→23:04)
[2016-12-24] MEDS: LORazepam 2 MG/ML INJ IVP PRN ×2 (03:31→20:46)
[2016-12-24 05:47] LABS: HEMATOCRIT 23.2 % (38.0-47.0); HEMOGLOBIN 7.6 g/dL (12.6-16.3); LIPEMIA HEMOLYSIS FLAG 80 (0-99); MEAN CELL HEMOGLOBIN 30.4 pg (27.9-34.1); MEAN CELL HEMOGLOBIN CONCENTR. 32.8 g/dL (32.4-36.7); MEAN CELL VOLUME 92.8 fL (81.5-99.8); PLATELET COUNT 574 10^3/uL (150-400); RED CELL DISTRIBUTION WIDTH 16.5 % (11.5-15.2)
[2016-12-24] MEDS: HEPARIN 5,000 UNIT/0.5 ML SYR SC SCH ×3 (06:08→21:14)
[2016-12-24 06:34] LABS: ALBUMIN 2.3 g/dL (3.5-5.0); ANION GAP 9 mEq/L (8-16); CALCIUM 8.6 mg/dL (8.5-10.4); CARBON DIOXIDE 23 mEq/l (22-31); CHLORIDE 113 mEq/L (97-110); CREATININE 1.3 mg/dL (0.6-1.0); GLOMERULAR FILTRATION RATE 42; GLUCOSE 125 mg/dL (70-100); MAGNESIUM 1.7 mg/dL (1.6-2.3); POTASSIUM 4.1 mEq/L (3.5-5.2); SODIUM 145 mEq/L (134-144)
[2016-12-24] MEDS: fentaNYL/NACL 100 ML IV SCH ×3 (06:40→23:37)
[2016-12-24] MEDS: MICAFUNGIN NA 100 MG in NS 100 ML IV SCH (08:32)
--- NOTE | 2016-12-24 08:34 | SOAPPROG ---
SOAP Progress Note Assessment/Plan: Assessment: s/p right hemicolectomy for colon cancer and anastomotic dehiscence at staple line s/p ex lap with washout and reanastomosis RLL pneumonia Remains critically ill Neuro - fentanyl and precedex. coming down on fentanyl Resp - Pneumonia. bronch today. cxr slightly improved today Cards - much improved. Off pressors GI - hypoactive bowel sounds. On TPN. Sof and does not grimace to palpation Renal - Cr 1.3. good uop Skin - Wound vac change tues fri Heme/ID- on broad spectrum - WBC stable. Platelets up. H/H stable. Paracentesis with NGTD 72 hrs Dispo - continue ICU S: no big changes over night O: Lying in bed comfortable intubated and sedated, lungs decreased at bases right worse than left, regular rate, hypoactive bowel sounds, soft, wv to suction. SCDs in place. less anasarca Plan: 12/10/16 12:43 12/11/16 09:53 12/13/16 21:40 12/19/16 09:17 12/22/16 10:15 12/24/16 08:32 12/24/16 08:35 Objective: Vital Signs Temp Pulse Resp BP Pulse Ox 37.6 C 88 25 H 177/69 H 94 12/24/16 08:00 12/24/16 08:00 12/24/16 08:00 12/24/16 08:00 12/24/16 08:00 Microbiology 12/18/16 12:55 Blood Culture - Final Blood 12/18/16 13:05 Blood Culture - Final Blood 12/20/16 15:00 Gram Stain - Final Abdomen - Aspirate Laboratory Results 12/24/16 05:30 12/24/16 05:30 12/23/16 12/24/16 12/25/16 05:59 05:59 05:59 Intake Total 2600 2788 Output Total 2650 1995 Balance -50 -487 PT 15.2 SEC (12.0-15.0) H 12/19/16 04:08 INR 1.20 (0.83-1.16) H 12/19/16 04:08 ICD10 Worksheet Patient Problems: Problems Problem Status Onset Colon cancer Acute - ICD10 Problem Qualifiers (1) Colon cancer Qualifiers: Colon location: C
--- NOTE | 2016-12-24 08:44 | PDINTPN ---
Biomedical Engineering Technician Progress Note Assessment/Plan: Assessment/Plan: * Status post perforated bowel/anastomotic leak with peritonitis. Initial surgery 12/09 with subsequent perforation. Repaired 12/13. On ventilator since. ID following. On broad-spectrum antibiotics and antifungals. White count is elevated however fevers improved -S/P paracentesis-cultures are pending * Sepsis, hypotension. Resolved * Acute respiratory failure. Remains on the ventilator, day 11, however oxygen requirements have improved. Improved after diuresis -will start IMV wean today * Sedation-will gradually reduce Precedex as well as fentanyl * Right lower lobe pneumonia, query aspiration. Chest x-ray appears worse however patient is clinically improved -continue broad-spectrum antibiotics for her peritonitis. -will bronch today * Atelectasis-likely secondary to abdominal distention. * Right-sided pleural effusion-will consider thoracentesis tomorrow * Acute renal failure: Improved, creatinine is stable * Nutrition: TPN -cont BS checks * Recent diagnosis of colon cancer, status post resection on . * DVT prophylaxis: Subcu heparin. On hold for paracentesis * GI prophylaxis: Pepcid in TPN. 35 min of critical care time spent with patient Case discussed with Surgeon, RT and nursing Subjective: Resting comfortably, will awaken and follow simple commands. Objective: Vital Signs Temp Pulse Resp BP Pulse Ox 37.6 C 88 25 H 177/69 H 94 12/24/16 08:00 12/24/16 08:00 12/24/16 08:00 12/24/16 08:00 12/24/16 08:00 Microbiology 12/18/16 12:55 Blood Culture - Final Blood 12/18/16 13:05 Blood Culture - Final Blood 12/20/16 15:00 Gram Stain - Final Abdomen - Aspirate Laboratory Results 12/24/16 05:30 12/24/16 05:30 12/23/16 12/24/16 12/25/16 05:59 05:59 05:59 Intake Total 2600 2788 Output Total 2650 7755 Balance -50 -487 PT 15.2 SEC (12.0-15.0) H 12/19/16 04:08 INR 1.20 (0.83-1.16) H 12/19/16 04:08 Chest x-ray reviewed by myself. Endotracheal tube is in good position. Minimal change in lower lobe infiltrates. Chest CT-by there are bibasilar infiltrates present air bronchograms. There is a moderate right-sided pleural effusion. - Time Spent With Patient Time Spent With Patient: 35 Physical Exam - Physical Exam General Appearance: other (Sedated), No alert EENT: PERRL/EOMI, ET tube Neck: non-tender, full range of motion, supple, normal inspection Respiratory: crackles (Bibasilar), No respiratory distress, No stridor, No wheezing Cardiac/Chest: normal peripheral pulses, regular rate, rhythm, systolic murmur Peripheral Pulses: 2+: carotid (R), carotid (L), femoral (R), femoral (L), dorsalis-pedis (R), dorsalis-pedis (L) Abdomen: non-tender (Less), distended, No soft Pelvic Exam: deferred Rectal: deferred Skin: normal color, warm/dry Extremities: normal range of motion, non-tender, normal inspection, normal capillary refill Neuro/Psych: No alert ICD10 Worksheet Patient Problems: Problems Problem Status Onset Colon cancer Acute
[2016-12-24] MEDS ORDERED: MAGNESIUM SULF 1 GM/DEXTROSE 100 ML IV ONE (09:00)
[2016-12-24] MEDS: CHLORHEXIDINE GLUCONATE 15 ML UDL PO SCH ×2 (09:24→19:12)
[2016-12-24] MEDS ORDERED: LIDOCAINE 2% JELLY 5 ML TUBE TP ONE (10:19)
[2016-12-24] MEDS ORDERED: LIDOCAINE 1% 30 ML SDV MISC ONE (10:19)
--- NOTE | 2016-12-24 10:48 | PCMIDPN ---
Assessment/Plan: Assessment: Peritonitis and sepsis status post anastomotic leak. Currently covered with both Zosyn and micafungin therapy. Abdominal aspirate from 12/13 growing sensitive Enterococcus faecalis. Repeat cultures of the abdominal fluid still not growing anything. Patient remains intubated and requiring 40% FiO2. Although improved from a respiratory status she failed CPAP trials yesterday. She will undergo a therapeutic bronchoscopy today. Patient appears clinically stable. Plan: 1. Continue both Zosyn and micafungin. 2. Follow clinical course and most recent abdominal fluid culture data. Subjective: Patient remains intubated and sedated. No fevers overnight. No changes in clinical status. Objective: Zosyn # 10 Micafungin # 11 Vital Signs Temp Pulse Resp BP Pulse Ox 37.6 C 84 28 H 149/67 H 95 12/24/16 08:00 12/24/16 09:00 12/24/16 09:00 12/24/16 09:00 12/24/16 09:00 Microbiology 12/18/16 12:55 Blood Culture - Final Blood 12/18/16 13:05 Blood Culture - Final Blood 12/20/16 15:00 Gram Stain - Final Abdomen - Aspirate Laboratory Results 12/24/16 05:30 12/24/16 05:30 12/23/16 12/24/16 12/25/16 05:59 05:59 05:59 Intake Total 2600 2788 Output Total 2650 7595 Balance -50 -487 - Physical Exam General Appearance: WD/WN, obese, other (Intubated and sedated) Respiratory: coarse breath sounds, No lungs clear, No respiratory distress, No stridor Cardiac/Chest: regular rate, rhythm, No tachycardia Extremities: non-tender, normal inspection Abdomen: soft, No mass Skin: normal color, warm/dry, No rash ICD10 Worksheet Patient Problems: Problems Problem Status Onset Colon cancer Acute
--- NOTE | 2016-12-24 11:31 | GPN ---
[f rep st] PROCEDURE NOTE PROCEDURE PERFORMED: Fiberoptic bronchoscopy. INDICATION: Possible mucous plugging. ANESTHESIA: Patient is currently sedated and on mechanical ventilation. DESCRIPTION OF PROCEDURE: Procedure was performed in the intensive care unit with continuous pulse ox, EKG, and blood pressure monitoring. Bronchoscope was entered through a #7.5 endotracheal tube. Distal trachea and edelmira were visualize d, showed moderate amount of secretions that were therapeutically aspirated. Bronchoscope was in th e right lung. Right upper lobe, right middle lobe, right lower lobe including subsegments were visu alized, showed no endobronchial lesions and normal-appearing mucosa. Bronchoscope was in the left l judi. The left upper lobe. including subsegments were visualized, showed no endobronchial lesion, no rmal-appearing mucosa. Bronchoscope was in the left lower lobe. Left lower lobe showed a mild amou nt of mucous plugging that was therapeutically aspirated. Bronchoscope was then removed. Patient t olerated the procedure well. There were no apparent complications. /[id number]/MODL
--- NOTE | 2016-12-24 13:26 | HOSPPROG ---
Hospitalist Progress Note Assessment/Plan: * status post colectomy for colon cancer with anastomotic leak and intra- abdominal sepsis/ abscess * on Micofungin and Zosyn * aspirate 12/13 with Enterococcus * recent aspirate 12/20 has not grown organisms * septic shock * resolved * acute respiratory failure * trying to wean to extubate * acute renal failure * stable * nutrition * TPN * history of hypertension * Trichomonas in urine * DVT prophylaxis * heparin * GI prophylaxis Subjective: no events Objective: Vital Signs Temp Pulse Resp BP Pulse Ox 37.6 C 77 28 H 162/77 H 93 12/24/16 08:00 12/24/16 12:01 12/24/16 12:01 12/24/16 11:00 12/24/16 12:01 Microbiology 12/20/16 15:00 Gram Stain - Final Abdomen - Aspirate 12/18/16 12:55 Blood Culture - Final Blood 12/18/16 13:05 Blood Culture - Final Blood Laboratory Results 12/24/16 05:30 12/24/16 05:30 12/23/16 12/24/16 12/25/16 05:59 05:59 05:59 Intake Total 2600 2788 Output Total 2650 3275 Balance -50 -487 PT 15.2 SEC (12.0-15.0) H 12/19/16 04:08 INR 1.20 (0.83-1.16) H 12/19/16 04:08 - Physical Exam Constitutional: no apparent distress, appears nourished, not in pain Cardiovascular: regular rate and rhythym, no murmur, rub, or gallop Respiratory: no respiratory distress, no rales or rhonchi, clear to auscultation Gastrointestinal: soft, non-tender abdomen, distension, No normoactive bowel sounds Genitourinary: ponce in urethra Skin: warm Neurologic: other ( sedated) ICD10 Worksheet Patient Problems: Problems Problem Status Onset Colon cancer Acute
--- NOTE | 2016-12-24 14:57 | SOAPPROG ---
SOAP Progress Note Assessment/Plan: Assessment: 1)Non-oliguric MARTA -Cr improved 1.3 today -ok to use prn IV lasix to help with volume status if UOP drops off- good so far today off it 2)Nutrition- on TPN, follow lytes 3)Bowel perf with Anastomotic leak, peritonitis -on broad spectrum antibiotics, ID following -wound vac in -underlying colon CA 4)Acute resp failure -CXR suggestive of pleural effusion but attempt by IR 12/23 for thoracentesis no significant amt fluid to tap -ongoing weaning trials -ok for prn IV Lasix as needed to augment uop 5)resp acidosis 6)HTN- can add in hydralazine or amlodipine- will defer to crit care We will sign off now but please call with any questions I am authorization representative for our group for the weekend [phone] Geovanna Gordon MD [facility] 12/24/16 15:38 Subjective: FIO2 needs stable- discussed with RN and plans for weaning trial again tomorrow after sedation decreased. Cr improved 1.3, good UOP. Objective: Vital Signs Temp Pulse Resp BP Pulse Ox 37.1 C 97 29 H 182/74 H 90 L 12/24/16 14:00 12/24/16 14:00 12/24/16 14:00 12/24/16 14:00 12/24/16 14:00 Microbiology 12/20/16 15:00 Gram Stain - Final Abdomen - Aspirate 12/18/16 12:55 Blood Culture - Final Blood 12/18/16 13:05 Blood Culture - Final Blood Laboratory Results 12/24/16 05:30 12/24/16 05:30 12/23/16 12/24/16 12/25/16 05:59 05:59 05:59 Intake Total 2600 2788 Output Total 2650 3275 Balance -50 -487 PT 15.2 SEC (12.0-15.0) H 12/19/16 04:08 INR 1.20 (0.83-1.16) H 12/19/16 04:08 Physical Exam - Physical Exam General Appearance: other (intubated, sedated) EENT: other (OG bilious output) Respiratory: other (coarse bs bilat) Cardiac/Chest: regular rate, rhythm, other (no rub) Abdomen: distended, other (wound vac in place) Pelvic Exam: other (ponce in) Skin: warm/dry Extremities: other (+Edema bilat LE) Neuro/Psych: other (sedated) ICD10 Worksheet Patient Problems: Problems Problem Status Onset Colon cancer Acute
[2016-12-24 15:48] LABS: BASE EXCESS -4.1 mEq/L (-2.5-2.5); BICARBONATE 23 mEq/L (22-26); MEASURED OXYGEN SATURATION 68 % (92-95); PCO2 60 mmHg (34-38); PO2 43 mmHg (65-75); TCO2 25 mEq/L (23-27)
[2016-12-24 15:49] LABS: END TIDAL CO2 37; O2 CONCENTRATIION 40 % (0-100); P/F RATIO 108 RATIO; PATIENT RATE 33; PRESSURE SUPPORT 7; SIMV YES
[2016-12-24] MEDS: TPN W/ FAMOTIDINE 1 EA BAG IV SCH (20:57)
[2016-12-25] MEDS: ALBUTEROL 60 PUFFS/8 GM MDI IH SCH ×6 (00:08→20:40)
[2016-12-25] MEDS: LORazepam 2 MG/ML INJ IVP PRN ×3 (02:26→21:33)
[2016-12-25] MEDS: DEXMEDETOMIDINE HCL 400 MCG in D5W 100 ML IV SCH ×7 (02:30→23:14)
[2016-12-25 05:13] LABS: HEMATOCRIT 23.8 % (38.0-47.0); HEMOGLOBIN 7.7 g/dL (12.6-16.3); LIPEMIA HEMOLYSIS FLAG 80 (0-99); MEAN CELL HEMOGLOBIN 30.6 pg (27.9-34.1); MEAN CELL HEMOGLOBIN CONCENTR. 32.4 g/dL (32.4-36.7); MEAN CELL VOLUME 94.4 fL (81.5-99.8); PLATELET COUNT 619 10^3/uL (150-400); RED BLOOD CELL COUNT 2.52 10^6/uL (4.18-5.33)
[2016-12-25 05:20] LABS: ALBUMIN 2.4 g/dL (3.5-5.0); ANION GAP 9 mEq/L (8-16); CALCIUM 8.7 mg/dL (8.5-10.4); CARBON DIOXIDE 26 mEq/l (22-31); CHLORIDE 112 mEq/L (97-110); CREATININE 1.2 mg/dL (0.6-1.0); GLOMERULAR FILTRATION RATE 46; GLUCOSE 127 mg/dL (70-100); MAGNESIUM 1.7 mg/dL (1.6-2.3); POTASSIUM 3.9 mEq/L (3.5-5.2); SODIUM 147 mEq/L (134-144)
[2016-12-25 05:41] LABS: BASE EXCESS -2.8 mEq/L (-2.5-2.5); BICARBONATE 23 mEq/L (22-26); MEASURED OXYGEN SATURATION 91 % (92-95); PCO2 49 mmHg (34-38); PO2 68 mmHg (65-75); TCO2 25 mEq/L (23-27)
[2016-12-25 05:42] LABS: SIMV YES
[2016-12-25 05:43] LABS: O2 CONCENTRATIION 60 % (0-100); P/F RATIO 113 RATIO; PATIENT RATE 30; PRESSURE SUPPORT 7
[2016-12-25] MEDS: PIPERACILLIN/TAZO 2.25 GM/DEX 50 ML IV SCH ×4 (06:18→23:16)
[2016-12-25] MEDS: fentaNYL/NACL 100 ML IV SCH ×3 (07:45→21:34)
[2016-12-25] MEDS: HEPARIN 5,000 UNIT/0.5 ML SYR SC SCH ×3 (08:45→23:16)
[2016-12-25] MEDS: CHLORHEXIDINE GLUCONATE 15 ML UDL PO SCH ×2 (08:46→19:54)
[2016-12-25] MEDS: MICAFUNGIN NA 100 MG in NS 100 ML IV SCH (08:46)
--- NOTE | 2016-12-25 08:46 | PDINTPN ---
Guidance Director Progress Note Assessment/Plan: Assessment/Plan: * Status post perforated bowel/anastomotic leak with peritonitis. Initial surgery 12/09 with subsequent perforation. Repaired 12/13. On ventilator since. ID following. On broad-spectrum antibiotics and antifungals. White count is elevated however fevers improved * Sepsis, hypotension. Resolved * Acute respiratory failure. Remains on the ventilator, day 12. Hypercarbic on recent ABG. -will try wean today. * Mental status-markedly improved. Patient following commands and answering questions in a yes/no fashion. * Sedation-minimal * Right lower lobe pneumonia, query aspiration. Chest x-ray appears worse however patient is clinically improved -continue broad-spectrum antibiotics for peritonitis. * Atelectasis-likely secondary to abdominal distention. * Right-sided pleural effusion-will consider thoracentesis tomorrow * Acute renal failure: Improved, creatinine is stable * Nutrition: TPN -cont BS checks * Recent diagnosis of colon cancer, status post resection on . * DVT prophylaxis: Subcu heparin. On hold for paracentesis * GI prophylaxis: Pepcid in TPN. 40 min of critical care time spent with patient Case discussed with Surgeon, RT and nursing Subjective: Patient is awake and alert today. Answering yes/no questions. She is not currently any pain. Objective: Vital Signs Temp Pulse Resp BP Pulse Ox 36.9 C 71 38 H 150/70 H 100 12/25/16 07:00 12/25/16 08:27 12/25/16 08:02 12/25/16 07:00 12/25/16 08:27 Microbiology 12/20/16 15:00 Gram Stain - Final Abdomen - Aspirate Laboratory Results 12/25/16 04:53 12/25/16 04:53 12/24/16 12/25/16 12/26/16 05:59 05:59 05:59 Intake Total 2788 2640 Output Total 3275 3750 Balance -487 -1110 PT 15.2 SEC (12.0-15.0) H 12/19/16 04:08 INR 1.20 (0.83-1.16) H 12/19/16 04:08 - Time Spent With Patient Time Spent With Patient: 40 Physical Exam - Physical Exam General Appearance: alert, no apparent distress EENT: PERRL/EOMI, ET tube Neck: non-tender, full range of motion, supple, normal inspection Respiratory: crackles (Few basilar), No respiratory distress, No wheezing Cardiac/Chest: normal peripheral pulses, regular rate, rhythm, systolic murmur Peripheral Pulses: 2+: carotid (R), carotid (L), femoral (R), femoral (L), dorsalis-pedis (R), dorsalis-pedis (L) Abdomen: distended (Less), No non-tender, No soft Pelvic Exam: deferred Rectal: deferred Skin: normal color, warm/dry Extremities: normal range of motion, non-tender, normal inspection, normal capillary refill Neuro/Psych: alert ICD10 Worksheet Patient Problems: Problems Problem Status Onset Colon cancer Acute
[2016-12-25] MEDS ORDERED: FUROSEMIDE 40 MG/4 ML VIAL IVP ONE (08:47)
[2016-12-25 09:29] LABS: BASE EXCESS -4.1 mEq/L (-2.5-2.5); BICARBONATE 24 mEq/L (22-26); MEASURED OXYGEN SATURATION 87 % (92-95); PCO2 70 mmHg (34-38); TCO2 27 mEq/L (23-27)
[2016-12-25 09:30] LABS: PO2 68 mmHg (65-75)
[2016-12-25 09:31] LABS: CPAP YES; END TIDAL CO2 48; O2 CONCENTRATIION 60 % (0-100); P/F RATIO 113 RATIO; PATIENT RATE 48; PRESSURE SUPPORT 7
[2016-12-25] MEDS ORDERED: MAGNESIUM SULF 1 GM/DEXTROSE 100 ML IV ONE (10:00)
--- NOTE | 2016-12-25 10:29 | SOAPPROG ---
SOAP Progress Note Assessment/Plan: Assessment: s/p right hemicolectomy for colon cancer and anastomotic dehiscence at staple line s/p ex lap with washout and reanastomosis RLL pneumonia Remains critically ill Neuro - fentanyl and precedex. coming down on fentanyl Resp - Pneumonia. bronch with minimal mucous plugging LLL. Failing CPAP trials. Likely perc trach tomorrow Cards - much improved. Off pressors GI - hypoactive bowel sounds. On TPN. Consider trickle feeds Renal - good uop Skin - Wound vac change tues fri Heme/ID- on broad spectrum - . Paracentesis with NGTD 72 hrs Dispo - continue ICU S: no big changes over night O: Lying in bed comfortable intubated and sedated, lungs decreased at bases right worse than left, regular rate, hypoactive bowel sounds, soft, wv to suction. Soft and does not grimace to palpation SCDs in place. Plan: 12/10/16 12:43 12/11/16 09:53 12/13/16 21:40 12/19/16 09:17 12/22/16 10:15 12/24/16 08:32 12/24/16 08:35 12/25/16 10:28 Objective: Vital Signs Temp Pulse Resp BP Pulse Ox 36.9 C 71 38 H 150/70 H 100 12/25/16 07:00 12/25/16 08:27 12/25/16 08:02 12/25/16 07:00 12/25/16 08:27 Microbiology 12/20/16 15:00 Gram Stain - Final Abdomen - Aspirate Laboratory Results 12/25/16 04:53 12/25/16 04:53 12/24/16 12/25/16 12/26/16 05:59 05:59 05:59 Intake Total 2788 2640 Output Total 7585 3750 Balance -487 -1110 PT 15.2 SEC (12.0-15.0) H 12/19/16 04:08 INR 1.20 (0.83-1.16) H 12/19/16 04:08 ICD10 Worksheet Patient Problems: Problems Problem Status Onset Colon cancer Acute - ICD10 Problem Qualifiers (1) Colon cancer Qualifiers: Colon location: C
--- NOTE | 2016-12-25 11:07 | PCMIDPN ---
Assessment/Plan: Assessment: Peritonitis and sepsis status post anastomotic leak. Currently covered with both Zosyn and micafungin therapy. Abdominal aspirate from 12/13 growing sensitive Enterococcus faecalis. Repeat cultures of the abdominal fluid still not growing anything. Patient remains intubated and requiring 60% FiO2. Patient remains intubated and is a difficult wean as she is failing CPAP status. Plan: 1. Continue both Zosyn and micafungin. 2. Follow clinical course and most recent abdominal fluid culture data. 12/25/16 15:41 Subjective: Patient remains intubated and sedated. She is now requiring 60% FiO2 on SIMV settings. Bronchoscopy yesterday. No new data. Objective: Zosyn # 11 Micafungin # 12 Vital Signs Temp Pulse Resp BP Pulse Ox 36.9 C 71 38 H 150/70 H 100 12/25/16 07:00 12/25/16 08:27 12/25/16 08:02 12/25/16 07:00 12/25/16 08:27 Microbiology 12/20/16 15:00 Gram Stain - Final Abdomen - Aspirate Laboratory Results 12/25/16 04:53 12/25/16 04:53 12/24/16 12/25/16 12/26/16 05:59 05:59 05:59 Intake Total 6627 2640 Output Total 8198 3610 Balance -487 -1113 - Physical Exam General Appearance: WD/WN, no apparent distress, obese, other (Intubated and sedated) Respiratory: lungs clear, normal breath sounds, No respiratory distress Cardiac/Chest: regular rate, rhythm, No tachycardia Abdomen: non-tender, soft, distended, No mass Skin: normal color, warm/dry, No rash ICD10 Worksheet Patient Problems: Problems Problem Status Onset Colon cancer Acute
--- NOTE | 2016-12-25 14:10 | HOSPPROG ---
Hospitalist Progress Note Assessment/Plan: * status post colectomy for colon cancer with anastomotic leak and intra- abdominal sepsis/ abscess * on Micofungin and Zosyn * aspirate 12/13 with Enterococcus * recent aspirate 12/20 has not grown organisms * white blood cell count and platelets increasing but clinically seems to be better * septic shock * resolved * acute respiratory failure * tracheostomy tomorrow * possible pneumonia * antibiotics * acute renal failure * stable * nutrition * TPN * history of hypertension * Trichomonas in urine * DVT prophylaxis * heparin * GI prophylaxis Subjective: failed weaning. Probable tracheostomy tomorrow Objective: Vital Signs Temp Pulse Resp BP Pulse Ox 36.7 C 71 26 H 154/72 H 100 12/25/16 12:00 12/25/16 14:00 12/25/16 14:00 12/25/16 14:00 12/25/16 14:00 Microbiology 12/20/16 15:00 Gram Stain - Final Abdomen - Aspirate Laboratory Results 12/25/16 04:53 12/25/16 04:53 12/24/16 12/25/16 12/26/16 05:59 05:59 05:59 Intake Total 2788 2640 Output Total 3275 3750 Balance -487 -1110 PT 15.2 SEC (12.0-15.0) H 12/19/16 04:08 INR 1.20 (0.83-1.16) H 12/19/16 04:08 discussed with pulmonology - Physical Exam Constitutional: no apparent distress, appears nourished, not in pain Eyes: anicteric sclera, EOMI Ears, Nose, Mouth, Throat: moist mucous membranes Cardiovascular: regular rate and rhythym, no murmur, rub, or gallop Respiratory: no respiratory distress, no rales or rhonchi, clear to auscultation Gastrointestinal: soft, non-tender abdomen, distension, other ( decreased bowel sounds) Skin: warm Neurologic: other ( sedated but responds to questions) Psychiatric: interacting appropriately, not anxious, not encephalopathic, thought process linear ICD10 Worksheet Patient Problems: Problems Problem Status Onset Colon cancer Acute
[2016-12-25 14:20] LABS: BASE EXCESS -1.1 mEq/L (-2.5-2.5); BICARBONATE 24 mEq/L (22-26); MEASURED OXYGEN SATURATION 92 % (92-95); PCO2 44 mmHg (34-38); PO2 66 mmHg (65-75); TCO2 25 mEq/L (23-27)
[2016-12-25 14:22] LABS: END TIDAL CO2 33; O2 CONCENTRATIION 60 % (0-100); P/F RATIO 110 RATIO; PATIENT RATE 30; PRESSURE SUPPORT 7; SIMV YES
[2016-12-25] MEDS: TPN W/ FAMOTIDINE 1 EA BAG IV SCH (20:32)
[2016-12-26] MEDS: ALBUTEROL 60 PUFFS/8 GM MDI IH SCH ×7 (00:40→23:27)
[2016-12-26] MEDS: LORazepam 2 MG/ML INJ IVP PRN ×3 (03:57→22:48)
[2016-12-26] MEDS: DEXMEDETOMIDINE HCL 400 MCG in D5W 100 ML IV SCH ×2 (04:26→07:39)
[2016-12-26 04:43] LABS: HEMATOCRIT 22.7 % (38.0-47.0); HEMOGLOBIN 7.2 g/dL (12.6-16.3); LIPEMIA HEMOLYSIS FLAG 80 (0-99); MEAN CELL HEMOGLOBIN 29.9 pg (27.9-34.1); MEAN CELL HEMOGLOBIN CONCENTR. 31.7 g/dL (32.4-36.7); MEAN CELL VOLUME 94.2 fL (81.5-99.8); PLATELET COUNT 625 10^3/uL (150-400); RED BLOOD CELL COUNT 2.41 10^6/uL (4.18-5.33); RED CELL DISTRIBUTION WIDTH 16.8 % (11.5-15.2)
[2016-12-26 05:03] LABS: ALANINE AMINOTRANSFERASE 42 IU/L (9-52); ALBUMIN 2.5 g/dL (3.5-5.0); ALKALINE PHOSPHATASE 294 IU/L (38-126); ANION GAP 12 mEq/L (8-16); ASPARTATE AMINOTRANSFERASE 38 IU/L (14-46); BILIRUBIN,TOTAL 2.9 mg/dL (0.1-1.4); CALCIUM 8.7 mg/dL (8.5-10.4); CARBON DIOXIDE 25 mEq/l (22-31); CHLORIDE 111 mEq/L (97-110); CREATININE 1.2 mg/dL (0.6-1.0); GLOMERULAR FILTRATION RATE 46; GLUCOSE 124 mg/dL (70-100); MAGNESIUM 1.7 mg/dL (1.6-2.3); POTASSIUM 3.4 mEq/L (3.5-5.2); SODIUM 148 mEq/L (134-144); TRIGLYCERIDE 213 mg/dL (35-135)
[2016-12-26 05:10] LABS: BILIRUBIN-CONJUGATED 2.6 mg/dL (0.0-0.5); BILIRUBIN-UNCONJUGATED 0.3 mg/dL (0.0-1.1)
[2016-12-26] MEDS: PIPERACILLIN/TAZO 2.25 GM/DEX 50 ML IV SCH (05:26)
[2016-12-26 07:22] LABS: LACTATE DEHYDROGENASE 636 IU/L (313-618)
[2016-12-26] MEDS: CHLORHEXIDINE GLUCONATE 15 ML UDL PO SCH ×2 (08:30→20:19)
[2016-12-26] MEDS ORDERED: VECURONIUM BROMIDE 10 MG VIAL IV ONE (09:00)
--- NOTE | 2016-12-26 09:13 | PDINTPN ---
Llama Farmer Progress Note Assessment/Plan: Assessment/Plan: * Status post perforated bowel/anastomotic leak with peritonitis. Initial surgery 12/09 with subsequent perforation. Repaired 12/13. On ventilator since. ID following. On broad-spectrum antibiotics and antifungals. White count is elevated however fevers improved * Sepsis, hypotension. Resolved * Acute respiratory failure. Remains on the ventilator, day 12. Hypercarbic on recent ABG. Not weanable currently -percutaneous tracheostomy today * Mental status-markedly improved. Patient following commands and answering questions in a yes/no fashion. * Sedation-minimal * Right lower lobe pneumonia, query aspiration. Chest x-ray appears worse however patient is clinically improved -continue broad-spectrum antibiotics for peritonitis. * Atelectasis-likely secondary to abdominal distention. * Right-sided pleural effusion-will consider thoracentesis tomorrow * Acute renal failure: Improved, creatinine is stable * Nutrition: TPN -cont BS checks * Recent diagnosis of colon cancer, status post resection on . * DVT prophylaxis: Subcu heparin. On hold for paracentesis * GI prophylaxis: Pepcid in TPN. 35 min of critical care time spent with patient Case discussed with Surgeon, RT and nursing 12/26/16 09:11 Subjective: Sedated on mechanical ventilation Objective: Vital Signs Temp Pulse Resp BP Pulse Ox 38 C 75 32 H 140/70 H 98 12/26/16 05:00 12/26/16 08:30 12/26/16 08:30 12/26/16 08:30 12/26/16 08:30 Microbiology 12/20/16 15:00 Gram Stain - Final Abdomen - Aspirate Laboratory Results 12/26/16 04:30 12/26/16 04:30 12/25/16 12/26/16 12/27/16 05:59 05:59 05:59 Intake Total 2640 3110 Output Total 3750 4340 Balance -1110 -1230 PT 15.2 SEC (12.0-15.0) H 12/19/16 04:08 INR 1.20 (0.83-1.16) H 12/19/16 04:08 - Time Spent With Patient Time Spent With Patient: 35 Physical Exam - Physical Exam General Appearance: no apparent distress, No alert EENT: PERRL/EOMI, ET tube Neck: non-tender, full range of motion, supple, normal inspection Respiratory: rhonchi (Few), No respiratory distress Cardiac/Chest: normal peripheral pulses, regular rate, rhythm Peripheral Pulses: 2+: carotid (R), carotid (L), femoral (R), femoral (L), dorsalis-pedis (R), dorsalis-pedis (L) Abdomen: soft, No normal bowel sounds (Improved), No non-tender Pelvic Exam: deferred Rectal: deferred Skin: normal color, warm/dry Extremities: normal range of motion, non-tender, normal inspection, normal capillary refill Neuro/Psych: No alert ICD10 Worksheet Patient Problems: Problems Problem Status Onset Colon cancer Acute
[2016-12-26] MEDS: MICAFUNGIN NA 100 MG in NS 100 ML IV SCH (09:56)
[2016-12-26] MEDS: DEXMEDETOMIDINE HCL 1,000 MCG in D5W 250 ML IV SCH ×2 (10:15→15:24)
--- NOTE | 2016-12-26 10:18 | SOAPPROG ---
SOAP Progress Note Assessment/Plan: Assessment: s/p right hemicolectomy for colon cancer and anastomotic dehiscence at staple line s/p ex lap with washout and reanastomosis RLL pneumonia Remains critically ill Neuro - sedated precedex/fentanyl Resp - intubated, difficulty weaning from vent. RLL pneumonia. Perc. trach today. CV - improved, off pressors GI - awaiting return of bowel function, hypoactive BS. s/p Paracentesis 12/20. consider trickle feeds - ponce, monitor UOP Wound - Vac change Tuesdays and Fridays FEN- TPN with pepcid. monitor electrolytes Heme/ID - WBC improving. On Zosyn and Micafungin per ID PPx - subq heparin, scds Dispo: continue ICU care. S: Intubated and sedated. No changes. Trach today o: Laying in bed comfortable, intubated and sedated Decreased breath sound R>L RRR Hypoactive BS, abdomen soft, does not grimace to palpation Wound vac dressing intact Ponce SCDs Objective: Vital Signs Temp Pulse Resp BP Pulse Ox 38 C 75 32 H 140/70 H 98 12/26/16 05:00 12/26/16 08:30 12/26/16 08:30 12/26/16 08:30 12/26/16 08:30 Microbiology 12/20/16 15:00 Gram Stain - Final Abdomen - Aspirate Laboratory Results 12/26/16 04:30 12/26/16 04:30 12/25/16 12/26/16 12/27/16 05:59 05:59 05:59 Intake Total 2640 3110 Output Total 3750 4340 Balance -1110 -1230 PT 15.2 SEC (12.0-15.0) H 12/19/16 04:08 INR 1.20 (0.83-1.16) H 12/19/16 04:08 ICD10 Worksheet Patient Problems: Problems Problem Status Onset Colon cancer Acute
[2016-12-26] MEDS ORDERED: POTASSIUM Cl (KCl) 50 ML IV ONE (11:00)
[2016-12-26] MEDS ORDERED: MIDAZOLAM 2 MG/2 ML VIAL ONE (12:08)
[2016-12-26] MEDS: MIDAZOLAM 2 MG/2 ML VIAL IVP ONE (12:10)
[2016-12-26] MEDS: fentaNYL/NACL 100 ML IV SCH ×2 (12:16→18:48)
[2016-12-26] MEDS: PIPERACILLIN/TAZO 3.375 GM/DEX 50 ML IV SCH ×2 (14:03→18:32)
--- NOTE | 2016-12-26 14:22 | HOSPPROG ---
Hospitalist Progress Note Assessment/Plan: * status post colectomy for colon cancer with anastomotic leak and intra- abdominal sepsis/ abscess * on Micofungin and Zosyn * aspirate 12/13 with Enterococcus * recent aspirate 12/20 has not grown organisms * white blood cell count better today * anemia * check iron studies * septic shock * resolved * acute respiratory failure * tracheostomy today * possible pneumonia * antibiotics * acute renal failure * stable * nutrition * TPN * considering trickle feeds * history of hypertension * Trichomonas in urine * DVT prophylaxis * heparin * GI prophylaxis Subjective: no new events. Tracheostomy today Objective: Vital Signs Temp Pulse Resp BP Pulse Ox 38 C 69 20 137/57 H 99 12/26/16 05:00 12/26/16 14:00 12/26/16 14:00 12/26/16 14:00 12/26/16 14:00 Microbiology 12/20/16 15:00 Gram Stain - Final Abdomen - Aspirate Laboratory Results 12/26/16 04:30 12/26/16 04:30 12/25/16 12/26/16 12/27/16 05:59 05:59 05:59 Intake Total 2640 3110 Output Total 3750 4340 745 Balance -1110 -1230 -745 PT 15.2 SEC (12.0-15.0) H 12/19/16 04:08 INR 1.20 (0.83-1.16) H 12/19/16 04:08 discussed with pulmonology tele personally viewed interpreted normal sinus rhythm - Physical Exam Constitutional: no apparent distress, appears nourished, not in pain Ears, Nose, Mouth, Throat: moist mucous membranes, other ( ETT in place) Cardiovascular: regular rate and rhythym, no murmur, rub, or gallop Respiratory: no respiratory distress, no rales or rhonchi, clear to auscultation Gastrointestinal: soft, non-tender abdomen, distension, No normoactive bowel sounds ( decreased bowel sounds) Skin: warm Neurologic: other ( sedated) ICD10 Worksheet Patient Problems: Problems Problem Status Onset Colon cancer Acute
--- NOTE | 2016-12-26 14:27 | GOP ---
[f rep st] OPERATIVE REPORT DATE OF OPERATION: SURGEON: Akil Kruger DO ANESTHESIA: She is currently on a Precedex and fentanyl drip. She was given Versed 4 mg, Norcuron 8 mg. procedure was performed in the intensive care unit with continuous pulse ox, EKG, blood press ure, and bronchoscopic monitoring. PREOPERATIVE DIAGNOSIS: POSTOPERATIVE DIAGNOSIS: PROCEDURE PERFORMED: Percutaneous tracheostomy. FINDINGS: INDICATIONS: Chronic respiratory failure. DESCRIPTION OF PROCEDURE: The patient was prepped and draped in the usual fashion. A 1 cm incision was made approximately 1 cm above the suprasternal notch. Blunt dissection was then made to the tr achea. Needle with catheter was inserted through the 2nd tracheal interspace. Catheter was advance d, and the needle was removed. Tracheal position was confirmed via bronchoscopy. Guidewire was the n inserted through the catheter, and the catheter was removed. A small bore dilator was inserted ov er the guidewire and then removed. A tapering size dilator was then inserted over the guidewire. T rachea was dilated to a #36-Uzbek. Dilator was then removed. A #8 Shiley trach was loaded over a #28-Uzbek dilator. This was inserted over the guidewire, and the guidewire and dilator were then r emoved. Tracheal position was then reconfirmed via bronchoscopy. #8 Shiley trach was then sewn int o place. Patient tolerated the procedure well. There were no apparent complications. [facility]able [facility] x-ray has been called for. /[id number]/MODL
[2016-12-26 15:41] LABS: % SATURATION 10 % (20-55); TOTAL IRON BINDING CAPACITY 218 ug/dL (260-490)
--- NOTE | 2016-12-26 17:07 | PCMIDPN ---
Assessment/Plan: Assessment: Peritonitis and sepsis status post anastomotic leak. Currently covered with both Zosyn and micafungin therapy. Abdominal aspirate from 12/13 growing sensitive Enterococcus faecalis. Repeat cultures of the abdominal fluid still not growing anything. Patient remains intubated and requiring 60% FiO2. Patient is going for trach today. Readjust Zosyn dose for improved creatinine clearance. Plan: 1. Continue both Zosyn and micafungin. 2. Follow clinical course and most recent abdominal fluid culture data. 12/26/16 17:06 Subjective: Patient remains in ICU and on the ventilator. She failed her weaning trials probably secondary to abdominal distention and inability to have full diaphragmatic excursion. Low-grade fevers this morning. Objective: Zosyn # Micafungin # Vital Signs Temp Pulse Resp BP Pulse Ox 38 C 74 32 H 118/87 H 97 12/26/16 05:00 12/26/16 16:00 12/26/16 16:00 12/26/16 16:00 12/26/16 16:00 Microbiology 12/20/16 15:00 Gram Stain - Final Abdomen - Aspirate Laboratory Results 12/26/16 04:30 12/26/16 04:30 12/25/16 12/26/16 12/27/16 05:59 05:59 05:59 Intake Total 2640 3110 Output Total 3750 4340 945 Balance -1110 -1230 -945 - Physical Exam General Appearance: WD/WN, obese, non-toxic, other (Intubated and sedated.), No alert Respiratory: lungs clear, No normal breath sounds (Decreased breath sounds at bases.) Cardiac/Chest: regular rate, rhythm, No tachycardia Abdomen: soft, distended, No non-tender, No mass Skin: normal color, warm/dry, No rash ICD10 Worksheet Patient Problems: Problems Problem Status Onset Colon cancer Acute
[2016-12-26] MEDS: TPN W/ FAMOTIDINE 1 EA BAG IV SCH (20:08)
[2016-12-27] MEDS: PIPERACILLIN/TAZO 3.375 GM/DEX 50 ML IV SCH ×4 (00:30→18:10)
[2016-12-27] MEDS: DEXMEDETOMIDINE HCL 1,000 MCG in D5W 250 ML IV SCH ×3 (01:15→20:58)
[2016-12-27] MEDS: ACETAMINOPHEN 650 MG SUPP PR PRN (01:15)
[2016-12-27] MEDS: LORazepam 2 MG/ML INJ IVP PRN ×3 (03:45→22:54)
[2016-12-27] MEDS: fentaNYL/NACL 100 ML IV SCH ×3 (03:45→22:31)
[2016-12-27] MEDS: ALBUTEROL 60 PUFFS/8 GM MDI IH SCH ×6 (04:08→23:50)
[2016-12-27 05:54] LABS: ALBUMIN 2.5 g/dL (3.5-5.0); ANION GAP 9 mEq/L (8-16); CALCIUM 8.6 mg/dL (8.5-10.4); CARBON DIOXIDE 26 mEq/l (22-31); CHLORIDE 111 mEq/L (97-110); CREATININE 1.1 mg/dL (0.6-1.0); GLOMERULAR FILTRATION RATE 51; GLUCOSE 139 mg/dL (70-100); MAGNESIUM 1.7 mg/dL (1.6-2.3); POTASSIUM 3.5 mEq/L (3.5-5.2); SODIUM 146 mEq/L (134-144)
[2016-12-27] MEDS: MICAFUNGIN NA 100 MG in NS 100 ML IV SCH (09:36)
[2016-12-27] MEDS: CHLORHEXIDINE GLUCONATE 15 ML UDL PO SCH ×2 (09:37→20:53)
--- NOTE | 2016-12-27 09:58 | PCMIDPN ---
Assessment/Plan: Assessment/Plan: 1. Septic shock secondary to Polymicrobial peritonitis associated with anastomotic leak: -History of AdenoCa of colon s/p hemicolectomy 12/09/16 complicated by anastomotic leak as above. -S/p Wash out 12/13/16 -Recent abdominal cx: Gs many organisms, cx with E. fecalis -s/p paracentesis last week, ngtd on cultures. -wbc trending down as of 12/26/16. -Currently on Zosyn + Micafungin -Care coordinated with RN Meds zosyn 3.375gm q6 - has been on varying dosing of zosyn since 12/14/16---D#14 micafungin 100mg daily- 12/14/16---D#14 TPN Subjective: intermittent low grade temp. remains in icu. s/p trach. eyes open to verbal stimuli. denies pain. tachypneic. wound vac changed this AM by surgery, per RN. Objective: Vital Signs Temp Pulse Resp BP Pulse Ox 36.9 C 87 38 H 186/82 H 100 12/27/16 08:00 12/27/16 09:00 12/27/16 08:25 12/27/16 08:00 12/27/16 08:25 Microbiology 12/20/16 15:00 Gram Stain - Final Abdomen - Aspirate Laboratory Results 12/26/16 04:30 12/27/16 05:20 12/26/16 12/27/16 12/28/16 05:59 05:59 05:59 Intake Total 3110 2894 Output Total 4340 2670 Balance -1230 224 - Physical Exam General Appearance: other (eyes open to verbal stimuli, tachypneic, ) EENT: other (trach) Respiratory: lungs clear (anteriorly) Cardiac/Chest: regular rate, rhythm Extremities: No swelling Abdomen: other (bs quiet, distended, midline abdominal wound vac noted. ) Pelvic Exam: ponce Skin: No rash ICD10 Worksheet Patient Problems: Problems Problem Status Onset Colon cancer Acute
[2016-12-27] MEDS: ENOXAPARIN 40 MG/0.4 ML SYR SC SCH ×2 (12:20→20:53)
--- NOTE | 2016-12-27 14:23 | SOAPPROG ---
SOAP Progress Note Assessment/Plan: Assessment: s/p right hemicolectomy for colon cancer and anastomotic dehiscence at staple line s/p ex lap with washout and reanastomosis RLL pneumonia Remains critically ill Neuro - sedated Resp - RLL pneumonia. S/p trach CV - improved, off pressors GI - awaiting return of bowel function, hypoactive BS. s/p Paracentesis 12/20. Start trickle feeds today - ponce, monitor UOP. Cr improved Wound - Vac change Tuesdays and Fridays FEN- TPN with pepcid. monitor electrolytes Heme/ID - WBC improving. On Zosyn and Micafungin per ID PPx - switch from heparin to lovenox, scds Dispo: continue ICU care. Seen c Dr. Cat S: resting comfortably o: Laying in bed comfortable Fresh trach on vent Decreased breath sound R>L RRR Hypoactive BS, abdomen softly distended Wound vac dressing removed - wound with healthy granulation tissue, CDI, measures 18.5 x 5 x 1cm. Dressing replaced Ponce SCDs 12/27/16 14:35 12/27/16 14:38 Objective: Vital Signs Temp Pulse Resp BP Pulse Ox 36.9 C 106 H 24 H 250/80 H 96 12/27/16 08:00 12/27/16 14:00 12/27/16 14:00 12/27/16 14:00 12/27/16 14:00 Microbiology 12/20/16 15:00 Gram Stain - Final Abdomen - Aspirate Anaerobic Culture - Final Laboratory Results 12/26/16 04:30 12/27/16 05:20 12/26/16 12/27/16 12/28/16 05:59 05:59 05:59 Intake Total 3110 2894 Output Total 4340 2670 Balance -1230 224 PT 15.2 SEC (12.0-15.0) H 12/19/16 04:08 INR 1.20 (0.83-1.16) H 12/19/16 04:08 ICD10 Worksheet Patient Problems: Problems Problem Status Onset Colon cancer Acute
[2016-12-27] MEDS ORDERED: hydrALAZINE 20 MG/ML VIAL IVP PRN (15:22)
--- NOTE | 2016-12-27 15:27 | HOSPPROG ---
Hospitalist Progress Note Assessment/Plan: * status post colectomy for colon cancer with anastomotic leak and intra- abdominal sepsis/ abscess * on Micofungin and Zosyn * aspirate 12/13 with Enterococcus * recent aspirate 12/20 has not grown organisms * follow-up blood cell count * anemia * iron studies shows possible iron deficiency * will give a few doses of iron * septic shock * resolved * acute respiratory failure * tracheostomy today * possible pneumonia * antibiotics * acute renal failure * stable * nutrition * TPN * considering trickle feeds * history of hypertension * Trichomonas in urine * DVT prophylaxis * Lovenox Subjective: tracheostomy done yesterday Objective: Vital Signs Temp Pulse Resp BP Pulse Ox 36.9 C 106 H 24 H 250/80 H 96 12/27/16 08:00 12/27/16 14:00 12/27/16 14:00 12/27/16 14:00 12/27/16 14:00 Microbiology 12/20/16 15:00 Gram Stain - Final Abdomen - Aspirate Anaerobic Culture - Final Laboratory Results 12/26/16 04:30 12/27/16 05:20 12/26/16 12/27/16 12/28/16 05:59 05:59 05:59 Intake Total 3110 2894 Output Total 4340 2670 Balance -1230 224 PT 15.2 SEC (12.0-15.0) H 12/19/16 04:08 INR 1.20 (0.83-1.16) H 12/19/16 04:08 discussed with pulmonology - Physical Exam Constitutional: no apparent distress, appears nourished, not in pain Eyes: anicteric sclera, EOMI Ears, Nose, Mouth, Throat: moist mucous membranes, hearing normal Cardiovascular: regular rate and rhythym, no murmur, rub, or gallop Respiratory: no respiratory distress, no rales or rhonchi, clear to auscultation Gastrointestinal: other ( decreased bowel sounds soft distended nontender) Skin: warm Neurologic: other ( responding to questions, moving extremities) ICD10 Worksheet Patient Problems: Problems Problem Status Onset Colon cancer Acute
[2016-12-27] MEDS: SODIUM FERRIC GLUCONAT/SUCROSE 125 MG in NS 100 ML IV SCH (15:49)
[2016-12-27] MEDS ORDERED: LABETALOL HCL 5 MG/ML 20 ML MDV IVP PRN (15:55)
--- NOTE | 2016-12-27 16:41 | PDINTPN ---
Clerical Aide Teacher Progress Note Assessment/Plan: Assessment/plan: 56 F with newly diagnosed colon cancer s/p solectomy complicated by anastamotic leak/ periptonitis and sepsis, and respiratory failure. She had difficulty with weans and required tracheostomy 12/[address] Kruger without complication. * Acute respiratory failure with hypoxia- poor weaning and ventilator dependence. She was very tachypneic this am (40's) on SIMV but slowed down to upper 20s on AC. She had significant infiltrate and/or effusion on her CXR 12/26 , which could be consistent with aspiration PNA. Abx are currently Zosyn and Micafungin with a decreasing WBC. Will "rest" on AC and proceed with PS weans as tolerated twice daily. I anticipate she will require a prolonged wean and LTACH evaluation is appropriate. Resume anticoagulation * Peritonitis- spoke with Dr. Emory osorio is pleased with her wound vac progress and agreed to advancing to trice TF for now. * Anemia- H/H low but stable without signs of bleeding. Holding transfusion for hgb<7.0 * MARTA- Resolving. Creatinine continues to drift down with IVF and has excellent UOP. * * * Critical care time 45 minutes Objective: Vital Signs Temp Pulse Resp BP Pulse Ox 36.9 C 94 26 H 230/64 H 95 12/27/16 08:00 12/27/16 16:08 12/27/16 16:00 12/27/16 16:08 12/27/16 16:00 Microbiology 12/20/16 15:00 Gram Stain - Final Abdomen - Aspirate Anaerobic Culture - Final Laboratory Results 12/26/16 04:30 12/27/16 05:20 12/26/16 12/27/16 12/28/16 05:59 05:59 05:59 Intake Total 3110 2894 Output Total 4340 2670 Balance -1230 224 PT 15.2 SEC (12.0-15.0) H 12/19/16 04:08 INR 1.20 (0.83-1.16) H 12/19/16 04:08 Physical Exam - Physical Exam General Appearance: alert, no apparent distress, obese EENT: PERRL/EOMI, ET tube (tracheostomy tube in good position without bleeding or infection) Neck: supple Respiratory: lungs clear, normal breath sounds, No respiratory distress, No rales, No rhonchi Cardiac/Chest: normal peripheral pulses, regular rate, rhythm, No edema Abdomen: non-tender, soft Skin: normal color, warm/dry, No cyanosis Extremities: No pedal edema Neuro/Psych: no motor/sensory deficits, alert ICD10 Worksheet Patient Problems: Problems Problem Status Onset Colon cancer Acute
[2016-12-27] MEDS: TPN W/ FAMOTIDINE 1 EA BAG IV SCH (20:52)
[2016-12-28] MEDS: PIPERACILLIN/TAZO 3.375 GM/DEX 50 ML IV SCH ×4 (00:27→17:49)
[2016-12-28] MEDS: LORazepam 2 MG/ML INJ IVP PRN ×2 (03:10→19:33)
[2016-12-28] MEDS: ALBUTEROL 60 PUFFS/8 GM MDI IH SCH ×6 (03:27→23:34)
[2016-12-28 05:13] LABS: ABSOLUTE NRBC COUNT 0.07 10^3/uL (0-0.01); ADD DIFF? YES; ADD MORPH? NO; ADD SCAN? NO; ATYPICAL LYMPHOCYTE FLAG 0 (0-99); FRAGMENT RBC FLAG 0 (0-99); HEMATOCRIT 22.4 % (38.0-47.0); HEMOGLOBIN 7.5 g/dL (12.6-16.3); LEFT SHIFT FLG 20 (0-99); LIPEMIA HEMOLYSIS FLAG 80 (0-99); MEAN CELL HEMOGLOBIN 31.8 pg (27.9-34.1); MEAN CELL HEMOGLOBIN CONCENTR. 33.5 g/dL (32.4-36.7); MEAN CELL VOLUME 94.9 fL (81.5-99.8); MEAN PLATELET VOLUME 9.7 fL (8.7-11.7); NRBC-AUTO% 0.4 % (0.0-0.2); PLATELET CLUMPS FLAG 0 (0-99); PLATELET COUNT 546 10^3/uL (150-400); RED BLOOD CELL COUNT 2.36 10^6/uL (4.18-5.33); RED CELL DISTRIBUTION WIDTH 16.8 % (11.5-15.2)
[2016-12-28 05:16] LABS: ALBUMIN 2.7 g/dL (3.5-5.0); ANION GAP 14 mEq/L (8-16); CALCIUM 8.8 mg/dL (8.5-10.4); CARBON DIOXIDE 26 mEq/l (22-31); CHLORIDE 110 mEq/L (97-110); GLOMERULAR FILTRATION RATE 57; GLUCOSE 140 mg/dL (70-100); MAGNESIUM 1.8 mg/dL (1.6-2.3); POTASSIUM 3.2 mEq/L (3.5-5.2); SODIUM 150 mEq/L (134-144)
[2016-12-28] MEDS ORDERED: PROTOCOL K PHOSPHATE 1 DOSE IV PRN (05:27)
[2016-12-28] MEDS ORDERED: PROTOCOL POTASSIUM 1 DOSE MISC PRN (05:27)
[2016-12-28] MEDS ORDERED: PROTOCOL MAGNESIUM 1 DOSE IV PRN (05:27)
[2016-12-28] MEDS ORDERED: MAGNESIUM SULF 1 GM/DEXTROSE 100 ML IV ONE (05:30)
[2016-12-28] MEDS ORDERED: POTASSIUM CL 20 MEQ/15 ML UDCUP PO ONE (06:00)
[2016-12-28 06:17] LABS: PLATELET ESTIMATE INCREASED (ADEQ)
[2016-12-28 06:20] LABS: HYPOCHROMIA 1+; MICROCYTES 1+; POLYCHROMASIA 1+; TARGET CELLS 1+
--- NOTE | 2016-12-28 07:02 | GOP ---
[f rep st] OPERATIVE REPORT DATE OF OPERATION: 12/13/2016 SURGEON: Tasha Cat MD NEON GLASS BLOWER: Dr. Mead who was needed for timely completion of the case. ANESTHESIA: General. ANESTHESIOLOGIST: Jin Brennan MD. PREOPERATIVE DIAGNOSIS: Sepsis and free air. POSTOPERATIVE DIAGNOSIS: Anastomotic leak. PROCEDURE PERFORMED: Exploratory laparotomy with bowel resection. FINDINGS: Leak at anastomotic site. SPECIMENS: Ileocolic anastomosis. INDICATIONS: The patient is a 56-year-old woman who was diagnosed with colon cancer. I took her to the operating room for a laparoscopic right hemicolectomy. Her white count had improved; however, she continued to have fevers. She had an x-ray which showed increased free air by my read. Due to the increased air, hypotension and being febrile, I took her to the operating room for exploration. DESCRIPTION OF PROCEDURE: The patient was brought into the operating room and placed supine on the table, and general anesthesia was administered. Her abdomen was prepped and draped in the usual sterile fashion. I made an incision at her midline. I extended it both superior and inferiorly. I dissected down through the subcutaneous tissues. I divided the fascia. I encountered liquid stool. I performed suction. I explored her abdomen and ran her small bowel. I had to perform some adhesiolysis in order to free all the bowel. At the site of her anastomosis, there was a leak at the staple line. The bowel appeared to have good blood supply, and there did not appear to be undue tension. I placed a bowel clamp to decrease further contamination. I then irrigated her abdomen with approximately 10 L of fluid until there was clear return of fluid. I examined her abdomen. She had a lot of adhesions from her prior cholecystectomy above her liver. I freed up her transverse colon further. I used a SUJATHA stapler to resect the previous anastomosis. I then aligned the bowel on the antimesenteric borders. I made an enterotomy in each limb and used a SUJATHA 75 stapler to perform a [id number] functional end-to- end anastomosis. The enterotomy closed with 3-0 Vicryl, followed by 3-0 Vicryl pop-offs. The staple line was reinforced. The mesentery was closed with 3-0 Vicryl. Again, the abdomen was inspected. A 15 round silicone drain was placed above her liver as well as deep into her pelvis. They were sutured into place with 3-0 Nylon. The fascia was closed with #1 PDS. A wound VAC was applied on her skin. She was taken back to the ICU. DRAINS: Rick Brush and a wound VAC. /[id number]/MODL MTDD
[2016-12-28] MEDS: fentaNYL/NACL 100 ML IV SCH ×2 (07:38→14:41)
[2016-12-28] MEDS: SODIUM FERRIC GLUCONAT/SUCROSE 125 MG in NS 100 ML IV SCH (09:05)
[2016-12-28] MEDS: ENOXAPARIN 40 MG/0.4 ML SYR SC SCH ×2 (09:05→20:42)
[2016-12-28] MEDS: CHLORHEXIDINE GLUCONATE 15 ML UDL PO SCH ×2 (09:05→19:34)
[2016-12-28] MEDS: MICAFUNGIN NA 100 MG in NS 100 ML IV SCH (09:05)
[2016-12-28] MEDS ORDERED: ACETAMINOPHEN 325 MG TAB TUBE PRN (09:25)
--- NOTE | 2016-12-28 11:28 | PCMIDPN ---
Assessment/Plan: Assessment/Plan: * Septic shock due to anastomotic leak with polymicrobial peritoneal contamination: Peritoneal fluid cultures with growth of enterococcus faecalis although Gram stain was polymicrobial. Ascitic fluid aspirate subsequently was culture negative. Persistent leukocytosis and fever raising question of ongoing intra-abdominal process. Other consideration would be drug fever. Will proceed with CT scan of abdomen and pelvis to further evaluate for intra- abdominal abscess. Repeat blood cultures to ensure no line related process. * Acute renal failure: Resolved. 12/28/16 11:23 12/28/16 11:25 Subjective: Intubated and sedated. Objective: Vital Signs Temp Pulse Resp BP Pulse Ox 37.2 C 83 28 H 129/75 H 95 12/28/16 10:00 12/28/16 10:00 12/28/16 10:00 12/28/16 10:00 12/28/16 10:00 Microbiology 12/20/16 15:00 Gram Stain - Final Abdomen - Aspirate Anaerobic Culture - Final Laboratory Results 12/28/16 04:55 12/28/16 04:55 12/27/16 12/28/16 12/29/16 05:59 05:59 05:59 Intake Total 2894 3008 Output Total 2670 2300 Balance 224 708 Zosyn # 13 Micafungin # 14 Tm - Physical Exam General Appearance: alert, no apparent distress, other (Opens eyes to name) EENT: No scleral icterus, No conjunctival petechiae Respiratory: coarse breath sounds, No respiratory distress Cardiac/Chest: regular rate, rhythm, systolic murmur (2/6 left upper sternal border) Extremities: No inflammation Abdomen: tender (Right lower quadrant), other (Wound VAC in place centrally without surrounding erythema) Skin: No rash - Line/s LUE PICC Lines: No drainage, No erythema ICD10 Worksheet Patient Problems: Problems Problem Status Onset Colon cancer Acute
[2016-12-28] MEDS ORDERED: K PHOS 10 MMOL in D5W 250 ML IV ONE (12:00)
[2016-12-28] MEDS ORDERED: POTASSIUM Cl (KCl) 50 ML IV SCH (12:00)
[2016-12-28] MEDS ORDERED: IOPAMIDOL (ISOVUE-300) 100 ML BTL IV ONE (13:33)
--- NOTE | 2016-12-28 14:25 | SOAPPROG ---
SOAP Progress Note Assessment/Plan: Assessment: s/p right hemicolectomy for colon cancer and anastomotic dehiscence at staple line s/p ex lap with washout and reanastomosis RLL pneumonia Remains critically ill Neuro - pain controlled Resp - RLL pneumonia. S/p trach CV - improved, off pressors GI - +BM yesterday. s/p Paracentesis 12/20. Trickle feeds - ponce, monitor UOP. Cr improved Wound - Vac change Tuesdays and Fridays FEN- TPN with pepcid. monitor electrolytes Heme/ID - WBC bumped up today - check abd CT. On Zosyn and Micafungin per ID PPx - lovenox, scds Dispo: continue ICU care. S: resting comfortably o: Laying in bed comfortable Fresh trach on vent Decreased breath sound R>L RRR Few BS, abdomen softly distended. Nontender to palpation Wound vac dressing intact to suction Ponce SCDs Objective: Vital Signs Temp Pulse Resp BP Pulse Ox 37.1 C 72 27 H 133/71 H 98 12/28/16 12:00 12/28/16 12:00 12/28/16 12:00 12/28/16 12:00 12/28/16 12:00 Microbiology 12/20/16 15:00 Gram Stain - Final Abdomen - Aspirate Anaerobic Culture - Final Laboratory Results 12/28/16 04:55 12/28/16 04:55 12/27/16 12/28/16 12/29/16 05:59 05:59 05:59 Intake Total 2894 3008 Output Total 2670 2300 Balance 224 708 PT 15.2 SEC (12.0-15.0) H 12/19/16 04:08 INR 1.20 (0.83-1.16) H 12/19/16 04:08 ICD10 Worksheet Patient Problems: Problems Problem Status Onset Colon cancer Acute
[2016-12-28] MEDS: DEXMEDETOMIDINE HCL 1,000 MCG in D5W 250 ML IV SCH (14:41)
--- NOTE | 2016-12-28 14:58 | PDINTPN ---
Leader Assembler Progress Note Assessment/Plan: Assessment/plan: 56 F with newly diagnosed colon cancer s/p solectomy complicated by anastamotic leak/ periptonitis and sepsis, and respiratory failure. She had difficulty with weans and required tracheostomy 12/[address] Kruger without complication. * Acute respiratory failure with hypoxia- poor weaning and ventilator dependence. She did not tolerate weaning today, even on high PS. Holding weans for today until after abdominal CT given fever and increasing WBC. * Peritonitis- ongoing fever and WBC concerning. CT pending * Anemia- H/H low but stable without signs of bleeding. Holding transfusion for hgb<7.0 * MARTA- Resolving. Creatinine continues to drift down with IVF and has excellent UOP. * * * Critical care time 45 minutes 12/28/16 14:55 Objective: Vital Signs Temp Pulse Resp BP Pulse Ox 36.8 C 86 25 H 111/70 91 L 12/28/16 14:00 12/28/16 14:00 12/28/16 14:00 12/28/16 14:00 12/28/16 14:00 Microbiology 12/20/16 15:00 Gram Stain - Final Abdomen - Aspirate Anaerobic Culture - Final Laboratory Results 12/28/16 04:55 12/28/16 04:55 12/27/16 12/28/16 12/29/16 05:59 05:59 05:59 Intake Total 2894 3008 Output Total 2670 2300 Balance 224 708 PT 15.2 SEC (12.0-15.0) H 12/19/16 04:08 INR 1.20 (0.83-1.16) H 12/19/16 04:08 Physical Exam - Physical Exam General Appearance: no apparent distress, obtunded, other EENT: PERRL/EOMI, other (trach site clean and dry) Neck: supple, No subcutaneous emphysema Respiratory: lungs clear, decreased breath sounds, No respiratory distress, No rales, No rhonchi Cardiac/Chest: normal peripheral pulses, regular rate, rhythm, No edema Abdomen: non-tender, soft, No distended Skin: normal color, warm/dry, No cyanosis Extremities: No pedal edema Neuro/Psych: other (squeezes on command), No abnormal computer system validation specialist II-XII ICD10 Worksheet Patient Problems: Problems Problem Status Onset Colon cancer Acute
--- NOTE | 2016-12-28 15:55 | HOSPPROG ---
Hospitalist Progress Note Assessment/Plan: * status post colectomy for colon cancer with anastomotic leak and intra- abdominal sepsis/ abscess * on Micofungin and Zosyn * aspirate 12/13 with Enterococcus * recent aspirate 12/20 has not grown organisms * new fever * get CT scan today * anemia * iron studies shows possible iron deficiency * will give a few doses of iron * hypernatremia * worsening * no sodium in TPN * will start D5W at low rate * acute respiratory failure * status post tracheostomy * difficult weaning * possible pneumonia * antibiotics * acute renal failure * stable * nutrition * TPN * trickle feeds started * will eventually need PEG tube * history of hypertension * septic shock * resolved * Trichomonas in urine * DVT prophylaxis * Lovenox * please update daughter Evelin Rodgers at [phone] scan results tomorrow Subjective: new fever overnight Objective: Vital Signs Temp Pulse Resp BP Pulse Ox 36.8 C 86 25 H 111/70 91 L 12/28/16 14:00 12/28/16 14:00 12/28/16 14:00 12/28/16 14:00 12/28/16 14:00 Microbiology 12/20/16 15:00 Gram Stain - Final Abdomen - Aspirate Anaerobic Culture - Final Laboratory Results 12/28/16 04:55 12/28/16 04:55 12/27/16 12/28/16 12/29/16 05:59 05:59 05:59 Intake Total 2894 3008 Output Total 2670 2300 Balance 224 708 PT 15.2 SEC (12.0-15.0) H 12/19/16 04:08 INR 1.20 (0.83-1.16) H 12/19/16 04:08 discussed with Infectious Disease and pulmonology - Physical Exam Constitutional: no apparent distress, appears nourished, not in pain Cardiovascular: regular rate and rhythym, no murmur, rub, or gallop Respiratory: no respiratory distress, no rales or rhonchi, clear to auscultation , reduced air movement Gastrointestinal: other ( decreased bowel sounds distended soft) Genitourinary: ponce in urethra Skin: warm, no rashes or abrasions Neurologic: other ( sedated) ICD10 Worksheet Patient Problems: Problems Problem Status Onset Colon cancer Acute
[2016-12-28] MEDS: TPN W/ FAMOTIDINE 1 EA BAG IV SCH (20:42)
[2016-12-29] MEDS: PIPERACILLIN/TAZO 3.375 GM/DEX 50 ML IV SCH ×4 (00:28→19:52)
[2016-12-29] MEDS: LORazepam 2 MG/ML INJ IVP PRN ×4 (00:28→23:59)
[2016-12-29] MEDS: DEXMEDETOMIDINE HCL 1,000 MCG in D5W 250 ML IV SCH ×3 (00:30→19:33)
[2016-12-29] MEDS: fentaNYL/NACL 100 ML IV SCH ×3 (02:21→19:33)
[2016-12-29] MEDS: ALBUTEROL 200 PUFFS/18 GM MDI IH SCH ×5 (03:54→20:12)
[2016-12-29] MEDS: ALTEPLASE 2 MG VIAL IVP PRN (05:53)
[2016-12-29 06:30] LABS: HEMATOCRIT 20.6 % (38.0-47.0); MEAN CELL HEMOGLOBIN 31.6 pg (27.9-34.1); MEAN CELL VOLUME 95.8 fL (81.5-99.8); RED BLOOD CELL COUNT 2.15 10^6/uL (4.18-5.33); RED CELL DISTRIBUTION WIDTH 17.2 % (11.5-15.2)
[2016-12-29 06:43] LABS: HEMOGLOBIN 6.8 g/dL (12.6-16.3)
[2016-12-29 06:57] LABS: ALBUMIN 2.5 g/dL (3.5-5.0); ANION GAP 11 mEq/L (8-16); CALCIUM 8.4 mg/dL (8.5-10.4); CARBON DIOXIDE 26 mEq/l (22-31); CHLORIDE 109 mEq/L (97-110); CREATININE 0.9 mg/dL (0.6-1.0); GLOMERULAR FILTRATION RATE > 60; GLUCOSE 118 mg/dL (70-100); MAGNESIUM 1.9 mg/dL (1.6-2.3); POTASSIUM 3.3 mEq/L (3.5-5.2); SODIUM 146 mEq/L (134-144)
[2016-12-29] MEDS: CHLORHEXIDINE GLUCONATE 15 ML UDL PO SCH ×2 (09:08→20:42)
[2016-12-29] MEDS: MICAFUNGIN NA 100 MG in NS 100 ML IV SCH (09:08)
[2016-12-29] MEDS: SODIUM FERRIC GLUCONAT/SUCROSE 125 MG in NS 100 ML IV SCH (09:08)
--- NOTE | 2016-12-29 09:18 | SOAPPROG ---
SOAP Progress Note Assessment/Plan: Assessment: s/p right hemicolectomy for colon cancer and anastomotic dehiscence at staple line s/p ex lap with washout and reanastomosis RLL pneumonia Remains critically ill Neuro - fentanyl and precedex. Resp - Pneumonia. bronch with minimal mucous plugging LLL. Failing CPAP trials. thoracentesis today Cards - stable GI - hypoactive bowel sounds. On TPN. Trickle feeds being held for procedures. Will sample fluid by liver today. Will monitor wound. Renal - good uop Skin - Wound vac change tues/fri Heme/ID- on broad spectrum - . Paracentesis with NG. Will see if abscess by liver on sampling. Transfusion for anemia Dispo - continue ICU S: no big changes over night O: Lying in bed comfortable. Trached. Open eyes. Lungs with coarse breath sounds, decreased RLLregular rate, hypoactive bowel sounds, soft, wv to suction. No succus in tubing. Soft and does not grimace to palpation SCDs in place. Plan: 12/10/16 12:43 12/11/16 09:53 12/13/16 21:40 12/19/16 09:17 12/22/16 10:15 12/24/16 08:32 12/24/16 08:35 12/25/16 10:28 12/29/16 09:15 Objective: Vital Signs Temp Pulse Resp BP Pulse Ox 36.6 C 73 27 H 118/78 97 12/29/16 04:00 12/29/16 08:00 12/29/16 08:00 12/29/16 08:00 12/29/16 08:00 Laboratory Results 12/29/16 05:40 12/29/16 05:40 12/28/16 12/29/16 12/30/16 05:59 05:59 05:59 Intake Total 3008 3972 Output Total 2300 1650 Balance 708 2322 PT 15.2 SEC (12.0-15.0) H 12/19/16 04:08 INR 1.20 (0.83-1.16) H 12/19/16 04:08 ICD10 Worksheet Patient Problems: Problems Problem Status Onset Colon cancer Acute - ICD10 Problem Qualifiers (1) Colon cancer Qualifiers: Colon location: C
--- NOTE | 2016-12-29 10:50 | PCMIDPN ---
Assessment/Plan: Assessment/Plan: * Septic shock due to anastomotic leak with polymicrobial peritoneal contamination: Peritoneal fluid cultures with growth of enterococcus faecalis although Gram stain was polymicrobial. Ascitic fluid aspirate subsequently was culture negative. CT shows loculated collections in perihepatic location. Reviewed with Dr. Cat with plans for IR guided aspiration for diagnostic purposes as therapeutic aspiration is complicated by location. Pleural effusion will also be drained. Continue Zosyn and micafungin. 12/29/16 10:48 Subjective: Tracheostomy in place. Patient able to follow simple commands. Objective: Vital Signs Temp Pulse Resp BP Pulse Ox 36.8 C 75 29 H 128/77 H 93 12/29/16 09:58 12/29/16 10:00 12/29/16 10:00 12/29/16 10:00 12/29/16 10:00 Laboratory Results 12/29/16 05:40 12/29/16 05:40 12/28/16 12/29/16 12/30/16 05:59 05:59 05:59 Intake Total 3008 3972 Output Total 2300 1650 Balance 708 2322 Zosyn # 14 Micafungin # 15 Blood cultures x2 pending CT scan abdomen pelvis with loculated collections and perihepatic location and large right pleural effusion; separate ascitic collections present without enhancement - Physical Exam General Appearance: no apparent distress, non-toxic EENT: other (Tracheostomy in place), No scleral icterus, No conjunctival petechiae Respiratory: lungs clear (Anterolaterally) Cardiac/Chest: regular rate, rhythm Extremities: No inflammation Abdomen: non-tender, distended (Mild), other (Wound VAC in place without surrounding erythema) Skin: No rash - Line/s LUE PICC Lines: No drainage, No erythema ICD10 Worksheet Patient Problems: Problems Problem Status Onset Colon cancer Acute
[2016-12-29] MEDS ORDERED: MIDAZOLAM 2 MG/2 ML VIAL ONE ×3 (10:54→17:52)
[2016-12-29] MEDS ORDERED: fentaNYL 100 MCG/2 ML INJ ONE ×2 (10:54→17:39)
[2016-12-29] MEDS ORDERED: NA BICARBONATE 50 MEQ/50 ML VIAL ONE (10:57)
[2016-12-29] MEDS: POTASSIUM Cl (KCl) 50 ML IV SCH ×5 (13:37→23:19)
[2016-12-29 14:23] LABS: LD, PLEURAL FLUID 1365 IU/L
--- NOTE | 2016-12-29 14:41 | POSTOPPROG ---
Post Op Note Date of Operation: 12/29/16 Surgeon: Geoffrey Chance Anesthesia: Other (Specify) (conscious sedation and fentanyl and precedex drip) Pre-op Diagnosis: Right pleural effusion and perihepatic fluid Post-op Diagnosis: Same Indication: Leukocytosis Procedure: Perihepatic drain placement and right thoracentesis Findings: Purulent perihepatic fluid, ed pleural fluid Inf/Abcess present in the surg proc area at time of surgery?: Yes Depth: Organ Space (Right pleural, perihepatic) EBL: Minimal Complications: No immediate Drains: Rick Brush (10 Frisian locking pigtail placed perihepatic) Specimen(s): 1 mL purulent perihepatic fluid sent to lab. 1000 mL ed pleural fluid, discarded
--- NOTE | 2016-12-29 16:10 | HOSPPROG ---
Hospitalist Progress Note Assessment/Plan: 56 yo F w R hemicolectomy for local CA now w complex postop course status post colectomy for colon cancer with anastomotic leak and intra- abdominal sepsis/ abscess * on Micofungin and Zosyn * aspirate 12/13 with Enterococcus * recent aspirate 12/20 has not grown organisms * R subdiaphragmatic abscess aspirated today * gm stain w gpc continue abx R pleural effusion: exudate likely 2/2 subdiaphragmatic abscess pH 7.0 noted repeat cxr in AM may need chest tube if continued fevers or reaccumulation pleural fluid culture pending (I called micro) anemia * has received three days of IV iron now acute blood loss give 2 units rectal bleeding: chcek venous lactate to eval for ischemia at anastamosis hypernatremia * worsening * no sodium in TPN * will start D5W at low rate improved acute respiratory failure * status post tracheostomy * difficult weaning 2/2 intrabdominal process possible pneumonia * antibiotics acute renal failure * stable nutrition * TPN * trickle feeds started * will eventually need PEG tube history of hypertension septic shock * resolved Trichomonas in urine DVT prophylaxis * Lovenox- on hold given bleeding Subjective: IR drained subdiaphragmatic abscess and pleural effusion. passing clots per rectum. case discussed w arina tran and armand. ct images from yesterday reviewed/interpreted by me Objective: Vital Signs Temp Pulse Resp BP Pulse Ox 38.2 C 74 27 H 108/69 95 12/29/16 14:00 12/29/16 14:00 12/29/16 14:00 12/29/16 14:00 12/29/16 14:00 Microbiology 12/29/16 12:15 Gram Stain - Final Peritoneal Fluid - Aspirate Laboratory Results 12/29/16 05:40 12/29/16 05:40 12/28/16 12/29/16 12/30/16 05:59 05:59 05:59 Intake Total 3008 3972 Output Total 2300 1650 Balance 708 2322 PT 15.2 SEC (12.0-15.0) H 12/19/16 04:08 INR 1.20 (0.83-1.16) H 12/19/16 04:08 - Physical Exam Constitutional: no apparent distress, appears nourished Eyes: PERRL, anicteric sclera Ears, Nose, Mouth, Throat: moist mucous membranes, hearing normal, other (ETT and OGT) Cardiovascular: regular rate and rhythym, no murmur, rub, or gallop Respiratory: no respiratory distress, no rales or rhonchi Gastrointestinal: other (distended. hypoactive bowel sounds. no rebound ) Genitourinary: ponce in urethra Skin: warm, normal color Musculoskeletal: full muscle strength, no muscle tenderness Neurologic: No AAOx3 ICD10 Worksheet Patient Problems: Problems Problem Status Onset Colon cancer Acute
--- NOTE | 2016-12-29 16:48 | PDINTPN ---
Saloonkeeper Progress Note Assessment/Plan: Assessment/plan: 56 F with newly diagnosed colon cancer s/p solectomy complicated by anastamotic leak/ periptonitis and sepsis, and respiratory failure. She had difficulty with weans and required tracheostomy 12/[address] Kruger without complication. * Acute respiratory failure with hypoxia- poor weaning and ventilator dependence. Held today 2/2 multiple procedures planned * Peritonitis- Her CT showed a perihepatic abscess below the diaphragm. She went to IR for percutaneous drainage as well as thoracentesis. Hopefully this will help with weaning * Anemia- H/H low but stable without signs of bleeding. Holding transfusion for hgb<7.0 * MARTA- Resolving. Creatinine continues to drift down with IVF and has excellent UOP. * * * Critical care time 45 minutes 12/28/16 14:55 12/29/16 16:45 Objective: Vital Signs Temp Pulse Resp BP Pulse Ox 38.2 C 79 27 H 119/69 97 12/29/16 14:00 12/29/16 16:00 12/29/16 16:00 12/29/16 16:00 12/29/16 16:00 Microbiology 12/29/16 12:15 Gram Stain - Final Peritoneal Fluid - Aspirate Laboratory Results 12/29/16 05:40 12/29/16 05:40 12/28/16 12/29/16 12/30/16 05:59 05:59 05:59 Intake Total 3008 3972 Output Total 2300 1650 Balance 708 2322 PT 15.2 SEC (12.0-15.0) H 12/19/16 04:08 INR 1.20 (0.83-1.16) H 12/19/16 04:08 Physical Exam - Physical Exam General Appearance: no apparent distress, obtunded, obese EENT: PERRL/EOMI Neck: supple Respiratory: lungs clear, decreased breath sounds, No rales, No rhonchi Cardiac/Chest: regular rate, rhythm Abdomen: soft, No normal bowel sounds Skin: normal color, warm/dry Extremities: No pedal edema Neuro/Psych: cognition abnormalities ICD10 Worksheet Patient Problems: Problems Problem Status Onset Colon cancer Acute
--- NOTE | 2016-12-29 18:23 | GPN ---
[f rep st] PROCEDURE NOTE DATE OF PROCEDURE: 12/26/2016 PROCEDURE PERFORMED: Therapeutic bronchoscopy. REASON FOR PROCEDURE: Respiratory failure in a patient is status post colonic perforation with prol onged respiratory failure, pneumonia, and increasing secretions. PROCEDURE NOTE: The procedure was performed in the intensive care unit. No additional sedation was required as she was on the ventilator. This procedure was timed with tracheostomy performed by Dr. Kruger. Appropriate time-out was performed. N95 masks were used. Despite no risk of airborne res piratory illnesses, a negative pressure room was used. The fiberoptic bronchoscope was passed via an adapter on the end of the patient's endotracheal tube and into the distal trachea. Initial secretions were removed. These were fairly copious and presen t bilaterally as well as in the mainstem trachea, and in an endotracheal tube itself. Once secretio ns were removed and visualization established, the bronchoscope was left at the tip of the endotrach eal tube, and the endotracheal tube was withdrawn. Dr. Kruger then cannulated the trachea and place d a percutaneous tracheostomy tube. This was documented to be in good position with the tip of the new tracheostomy tube in the mid trachea. The patient's endotracheal tube was then removed. Bronchoscopy was then performed. Secretions and a small amount of blood secondary to the tracheosto my procedure was removed from the trachea and secretions were removed from the lower tracheobronchia l tree bilaterally. Anatomy was normal bilaterally. There were no endobronchial lesions. There is no evidence of extrinsic compression. No cultures were sent as the patient had cultures sent withi n 48 hours previously. Her respiratory status was somewhat tenuous. When the bronchoscope was in the trachea via the endot rory tube, desaturations into the upper 70s were noted. The bronchoscope was removed and the pat ient allowed to come back up into the low 90s prior to resuming bronchoscopy visualization on suctio n. The patient tolerated the procedure well. Vital signs remained stable throughout the procedure with the exception of the oxygen saturations as outlined above. At the end of the procedure, on the new tracheostomy tube, saturations were in the mid to low 90s. /[id number]/MODL
[2016-12-29 19:59] LABS: POTASSIUM 3.5 mEq/L (3.5-5.2)
[2016-12-29] MEDS: TPN W/ FAMOTIDINE 1 EA BAG IV SCH (21:10)
[2016-12-29] MEDS: ENOXAPARIN 40 MG/0.4 ML SYR SC SCH (21:15)
[2016-12-29] MEDS: D5W 1,000 ML IV SCH (22:17)
[2016-12-30] MEDS: ALBUTEROL 200 PUFFS/18 GM MDI IH SCH ×7 (00:06→23:59)
[2016-12-30] MEDS: PIPERACILLIN/TAZO 3.375 GM/DEX 50 ML IV SCH ×5 (00:56→23:55)
[2016-12-30] MEDS: DEXMEDETOMIDINE HCL 1,000 MCG in D5W 250 ML IV SCH ×4 (01:45→21:02)
[2016-12-30] MEDS: LORazepam 2 MG/ML INJ IVP PRN ×3 (04:09→23:52)
[2016-12-30] MEDS: fentaNYL/NACL 100 ML IV SCH ×2 (04:44→22:02)
[2016-12-30 05:22] LABS: ALBUMIN 2.6 g/dL (3.5-5.0); ANION GAP 9 mEq/L (8-16); CALCIUM 8.4 mg/dL (8.5-10.4); CARBON DIOXIDE 27 mEq/l (22-31); CHLORIDE 110 mEq/L (97-110); CREATININE 0.9 mg/dL (0.6-1.0); GLOMERULAR FILTRATION RATE > 60; GLUCOSE 120 mg/dL (70-100); MAGNESIUM 1.8 mg/dL (1.6-2.3); POTASSIUM 4.3 mEq/L (3.5-5.2); SODIUM 146 mEq/L (134-144)
[2016-12-30 08:04] LABS: ABSOLUTE NRBC COUNT 0.06 10^3/uL (0-0.01); ADD DIFF? YES; ADD MORPH? NO; ADD SCAN? NO; ATYPICAL LYMPHOCYTE FLAG 30 (0-99); FRAGMENT RBC FLAG 10 (0-99); HEMATOCRIT 25.9 % (38.0-47.0); HEMOGLOBIN 8.6 g/dL (12.6-16.3); LEFT SHIFT FLG 20 (0-99); LIPEMIA HEMOLYSIS FLAG 80 (0-99); MEAN CELL HEMOGLOBIN 30.2 pg (27.9-34.1); MEAN CELL HEMOGLOBIN CONCENTR. 33.2 g/dL (32.4-36.7); MEAN CELL VOLUME 90.9 fL (81.5-99.8); MEAN PLATELET VOLUME 9.9 fL (8.7-11.7); NRBC-AUTO% 0.4 % (0.0-0.2); PLATELET CLUMPS FLAG 10 (0-99); PLATELET COUNT 394 10^3/uL (150-400); RED BLOOD CELL COUNT 2.85 10^6/uL (4.18-5.33); RED CELL DISTRIBUTION WIDTH 17.8 % (11.5-15.2)
[2016-12-30] MEDS ORDERED: MAGNESIUM SULF 1 GM/DEXTROSE 100 ML IV ONE (08:17)
[2016-12-30] MEDS: ENOXAPARIN 40 MG/0.4 ML SYR SC SCH ×2 (08:30→21:21)
[2016-12-30] MEDS: CHLORHEXIDINE GLUCONATE 15 ML UDL PO SCH ×2 (08:30→20:46)
[2016-12-30] MEDS: MICAFUNGIN NA 100 MG in NS 100 ML IV SCH (08:30)
[2016-12-30 08:56] LABS: PLATELET ESTIMATE ADEQUATE (ADEQ)
[2016-12-30 08:57] LABS: HYPOCHROMIA 1+; MACROCYTES 1+; POLYCHROMASIA 1+
--- NOTE | 2016-12-30 09:32 | PCMIDPN ---
Assessment/Plan: # Severe septic shock, now resolved due to peritonitis following anastomotic leak s/p washouts # Respiratory failure s/p trach # Peritonitis/abdominal abscess. Now with multiple abscesses along the liver, reviewed CT personally. IR placed drain yesterday with rare GPCs on Gram stain. But multiple loculations of abscess to return to IR for further drainage today. These multiple undrained abscess likely account for persistent leukocytosis and fever. --continue on zosyn -->GI lemuel and known enterococcus --continue on micafungin --> yeast on gram stain from original surgery --follow cultures from aspirate 12/29 # Fever, leukocytosis likely due to undrained abscesses adjacent to liver. Could also consider pleural fluid. Blood cultures from 12/28 are negative. No diarrhea. --continue to monitor no further studies at this time # R exudative pleural effusion - likely reactive to sid-hepatic abscesses. Appears completely drained on CXR today. Will follow cultures. microbiology 12/13 surgery gram stain: GPR, GPC, GNR, yeast: Cx enterococcus 12/14 blood cx (2) negative 12/17 sputum: Ana albicans and non albicans Ana 12/18 blood cultures 2 set negative 12/20 abdominal aspirate: Gram stain neg; Cx negative 12/28 blood cx (2) NGTD 12/29 Abscess aspirate 1+ GPC, Cx pending 12/29 pleural fluid aspirate: Gram stain neg for organisms, cx pending meds zosyn 3.375gm IV q6h 12/14 #16 micafungin 100mg IV daily #[address] Tai and Dr. Troncoso. Subjective: Now with trach and PEG Trouble with weaning from vent continued fever, diaphoresis intermittently no pressors Objective: Vital Signs Temp Pulse Resp BP Pulse Ox 37.4 C 86 30 H 120/72 100 12/29/16 20:00 12/30/16 06:00 12/30/16 06:00 12/30/16 06:00 12/30/16 06:00 Microbiology 12/29/16 13:30 Gram Stain - Final Pleural Fluid - Aspirate 12/29/16 12:15 Gram Stain - Final Peritoneal Fluid - Aspirate Laboratory Results 12/30/16 07:51 12/30/16 04:53 12/29/16 12/30/16 12/31/16 05:59 05:59 05:59 Intake Total 3972 4378 Output Total 1650 1350 Balance 2322 3028 - Physical Exam General Appearance: alert, no apparent distress EENT: No scleral icterus Respiratory: coarse breath sounds Neck: supple Cardiac/Chest: regular rate, rhythm, No systolic murmur Extremities: pedal edema Abdomen: distended, other (decreased bowel sounds) Pelvic Exam: ponce Skin: pallor, No rash Neuro/Psych: other (sedated) - Line/s LUE PICC Lines: other (pulled out further than expected), No drainage, No erythema - Time Spent With Patient Time Spent with Patient: greater than 35 minutes Time Spent with Patient: Greater than 35 minutes spent on this patients care, greater than 50% of time spent counseling, educating, and coordinating care regarding the above mentioned plan. ICD10 Worksheet Patient Problems: Problems Problem Status Onset Colon cancer Acute
--- NOTE | 2016-12-30 09:53 | HOSPPROG ---
Hospitalist Progress Note Assessment/Plan: 56 yo F w R hemicolectomy for local CA now w complex postop course status post colectomy for colon cancer with anastomotic leak and intra- abdominal sepsis/ abscess * on Micofungin and Zosyn * aspirate 12/13 with Enterococcus * recent aspirate 12/20 has not grown organisms * R subdiaphragmatic abscess aspirated 12/29, albeit incompletely * gm stain w gpc * plan to re-aspirate today * yesterday venous lactate normal at 1.0 continue abx R pleural effusion: exudate likely 2/2 subdiaphragmatic abscess pH 7.0 noted- repeat is 7.4 repeat cxr today w continued airspace disease but has not reaccumlated ( interp by me) may need chest tube if continued fevers or reaccumulation pleural fluid culture pending (I called micro) gm stain neg d/w ID anemia * has received three days of IV iron now acute blood loss give 2 units good hct bump from 12/29 transfusion rectal bleeding: chcek venous lactate to eval for ischemia at anastamosis it turns out that this was vaginal bleeding hypernatremia * stable at 146 * no sodium in TPN * will start D5W at low rate improved acute respiratory failure * status post tracheostomy * difficult weaning 2/2 intrabdominal process possible pneumonia * antibiotics acute renal failure * stable nutrition * TPN * trickle feeds started * will eventually need PEG tube history of hypertension septic shock * resolved Trichomonas in urine DVT prophylaxis * Lovenox- on hold given bleeding 35' crit care Subjective: case d/w arina tran and shivani. telemetry: 2 short episodes NSVT yesterday (interp by me) Objective: Vital Signs Temp Pulse Resp BP Pulse Ox 37.4 C 86 30 H 120/72 100 12/29/16 20:00 12/30/16 06:00 12/30/16 06:00 12/30/16 06:00 12/30/16 06:00 Microbiology 12/29/16 13:30 Gram Stain - Final Pleural Fluid - Aspirate 12/29/16 12:15 Gram Stain - Final Peritoneal Fluid - Aspirate Laboratory Results 12/30/16 07:51 12/30/16 04:53 12/29/16 12/30/16 12/31/16 05:59 05:59 05:59 Intake Total 3972 4378 Output Total 1650 1350 Balance 2322 3028 PT 15.2 SEC (12.0-15.0) H 12/19/16 04:08 INR 1.20 (0.83-1.16) H 12/19/16 04:08 - Physical Exam Constitutional: other (on vent, opens eyes to voice, not following commands, agitated by exam) Eyes: PERRL, anicteric sclera Ears, Nose, Mouth, Throat: moist mucous membranes, hearing normal, other ( tracheostomy) Cardiovascular: regular rate and rhythym, no murmur, rub, or gallop Respiratory: no respiratory distress, other (rhoncorous anterolat) Gastrointestinal: other (absent bowel sounds) Genitourinary: ponce in urethra Skin: warm, normal color Musculoskeletal: no muscle tenderness Neurologic: No AAOx3 Psychiatric: No interacting appropriately, No not anxious Lymph, Heme, Immunologic: no cervical LAD ICD10 Worksheet Patient Problems: Problems Problem Status Onset Colon cancer Acute
--- NOTE | 2016-12-30 10:26 | SOAPPROG ---
SOAP Progress Note Assessment/Plan: Assessment: s/p right hemicolectomy for colon cancer and anastomotic dehiscence at staple line s/p ex lap with washout and reanastomosis RLL pneumonia Remains critically ill Neuro - fentanyl and precedex. Resp - RLL pneumonia. S/p trach. bronch with minimal mucous plugging LLL. Failing CPAP trials. thoracentesis 12/29/16 CV - stable GI - +BM. s/p Paracentesis 12/20. Continue trickle feeds. NG. IR today for aspiration perihepatic abscess - ponce, monitor UOP. Wound - Vac change Tuesdays and Fridays FEN- TPN with pepcid. monitor electrolytes Heme/ID - On Zosyn and Micafungin per ID. S/p transfusion 12/29/16 PPx - lovenox, scds Dispo: continue ICU care. Seen c Dr. Cat. S: resting comfortably. no new changes o: Laying in bed comfortable Trach on vent Course breath sounds, decreased RLL RRR + BS, abdomen softly distended. Nontender to palpation Wound vac dressing removed. No evidence of fistula on exam. Replaced to suction Ponce SCDs Objective: Vital Signs Temp Pulse Resp BP Pulse Ox 37.4 C 76 26 H 120/72 98 12/29/16 20:00 12/30/16 10:04 12/30/16 10:04 12/30/16 06:00 12/30/16 10:04 Microbiology 12/29/16 13:30 Gram Stain - Final Pleural Fluid - Aspirate 12/29/16 12:15 Gram Stain - Final Peritoneal Fluid - Aspirate Laboratory Results 12/30/16 07:51 12/30/16 04:53 12/29/16 12/30/16 12/31/16 05:59 05:59 05:59 Intake Total 3972 4378 Output Total 1650 1350 Balance 2322 3028 PT 15.2 SEC (12.0-15.0) H 12/19/16 04:08 INR 1.20 (0.83-1.16) H 12/19/16 04:08 ICD10 Worksheet Patient Problems: Problems Problem Status Onset Colon cancer Acute
--- NOTE | 2016-12-30 10:51 | CPEKG ---
Heart Rate: 73 RR Interval: 822 P-R Interval: 172 QRSD Interval: 82 QT Interval: 392 QTC Interval: 432 P [place]: 53 QRS [place]: 15 T Wave [place]: 31 EKG Severity - NORMAL ECG - EKG Impression: SINUS RHYTHM Electronically Signed By: Matthew Bee 31-Dec-2016 10:36:52
[2016-12-30] MEDS ORDERED: fentaNYL 100 MCG/2 ML INJ ONE (14:47)
[2016-12-30] MEDS ORDERED: MIDAZOLAM 2 MG/2 ML VIAL ONE (14:47)
--- NOTE | 2016-12-30 17:00 | POSTOPPROG ---
Post Op Note Date of Operation: 12/30/16 Surgeon: María Anne Anesthesia: IV Sedation Pre-op Diagnosis: abscesses Post-op Diagnosis: same Indication: undrained subdiaphragmatic abscess Procedure: CT guided abscess drain placement Findings: Anterolateral approach taken, aiming inferior to superior Inf/Abcess present in the surg proc area at time of surgery?: Yes Depth: Organ Space (subdiaphragmatic) EBL: Minimal Complications: None Drains: Other (12Fr abscess drain)
--- NOTE | 2016-12-30 17:31 | PDINTPN ---
Capsule Filler Progress Note Assessment/Plan: Assessment/plan: 56 F with newly diagnosed colon cancer s/p solectomy complicated by anastamotic leak/ periptonitis and sepsis, and respiratory failure. She had difficulty with weans and required tracheostomy 12/[address] Kruger without complication. * Acute respiratory failure with hypoxia- poor weaning and ventilator dependence. Still with difficulty today. She underwent thoracentesis 12/29 that was consistent with empyema (pH 7.0) but all the fluid was drained and there is no chest tube or recurrent effusion at this point. * Peritonitis- Her CT showed a perihepatic abscess below the diaphragm. She underwent a second attempt today at drain placement which was successful. Abx remains the same * Anemia- H/H low but stable without signs of bleeding. Holding transfusion for hgb<7.0 * MARTA- Resolving. Creatinine continues to drift down with IVF and has excellent UOP. * * * Critical care time 45 minutes in a complex patient with multiorgan failure 12/28/16 14:55 12/29/16 16:45 12/30/16 17:25 Objective: Vital Signs Temp Pulse Resp BP Pulse Ox 37.6 C 72 22 H 120/72 97 12/30/16 14:00 12/30/16 16:00 12/30/16 16:00 12/30/16 14:00 12/30/16 16:00 Microbiology 12/29/16 13:30 Gram Stain - Final Pleural Fluid - Aspirate 12/29/16 12:15 Gram Stain - Final Peritoneal Fluid - Aspirate Laboratory Results 12/30/16 07:51 12/30/16 04:53 12/29/16 12/30/16 12/31/16 05:59 05:59 05:59 Intake Total 3972 4378 Output Total 1650 1350 Balance 2322 3028 PT 15.2 SEC (12.0-15.0) H 12/19/16 04:08 INR 1.20 (0.83-1.16) H 12/19/16 04:08 Physical Exam - Physical Exam General Appearance: no apparent distress, obese, other (somnolent on the vent) EENT: PERRL/EOMI, ET tube (trach site is clean and dry) Neck: supple Respiratory: rhonchi, No respiratory distress Cardiac/Chest: normal peripheral pulses, regular rate, rhythm Abdomen: soft, No distended Skin: normal color, warm/dry Lymphatic: no adenopathy Extremities: No pedal edema Neuro/Psych: cognition abnormalities ICD10 Worksheet Patient Problems: Problems Problem Status Onset Colon cancer Acute
[2016-12-30 20:54] LABS: POTASSIUM 4.2 mEq/L (3.5-5.2)
[2016-12-30] MEDS: TPN W/ FAMOTIDINE 1 EA BAG IV SCH (21:17)
[2016-12-31] MEDS: D5W 1,000 ML IV SCH ×2 (00:22→22:25)
[2016-12-31] MEDS: DEXMEDETOMIDINE HCL 1,000 MCG in D5W 250 ML IV SCH ×3 (03:13→20:41)
[2016-12-31] MEDS: fentaNYL/NACL 100 ML IV SCH ×4 (03:51→23:12)
[2016-12-31] MEDS: ALBUTEROL 200 PUFFS/18 GM MDI IH SCH ×5 (04:18→20:25)
[2016-12-31] MEDS: LORazepam 2 MG/ML INJ IVP PRN ×3 (04:32→15:05)
[2016-12-31 05:11] LABS: MAGNESIUM 1.9 mg/dL (1.6-2.3); POTASSIUM 4.6 mEq/L (3.5-5.2)
[2016-12-31] MEDS: PIPERACILLIN/TAZO 3.375 GM/DEX 50 ML IV SCH ×4 (05:19→23:38)
[2016-12-31 06:31] LABS: ADD DIFF? YES; ADD MORPH? NO; ADD SCAN? NO; ATYPICAL LYMPHOCYTE FLAG 30 (0-99); FRAGMENT RBC FLAG 0 (0-99); HEMATOCRIT 25.2 % (38.0-47.0); HEMOGLOBIN 8.3 g/dL (12.6-16.3); LEFT SHIFT FLG 30 (0-99); LIPEMIA HEMOLYSIS FLAG 80 (0-99); MEAN CELL HEMOGLOBIN 30.9 pg (27.9-34.1); MEAN CELL HEMOGLOBIN CONCENTR. 32.9 g/dL (32.4-36.7); MEAN CELL VOLUME 93.7 fL (81.5-99.8); MEAN PLATELET VOLUME 10.1 fL (8.7-11.7); PLATELET CLUMPS FLAG 0 (0-99); PLATELET COUNT 326 10^3/uL (150-400); RED BLOOD CELL COUNT 2.69 10^6/uL (4.18-5.33); RED CELL DISTRIBUTION WIDTH 18.1 % (11.5-15.2)
[2016-12-31 07:23] LABS: ANION GAP 12 mEq/L (8-16); CALCIUM 8.5 mg/dL (8.5-10.4); CARBON DIOXIDE 24 mEq/l (22-31); CHLORIDE 107 mEq/L (97-110); CREATININE 0.7 mg/dL (0.6-1.0); GLOMERULAR FILTRATION RATE > 60; GLUCOSE 122 mg/dL (70-100); POTASSIUM 4.7 mEq/L (3.5-5.2); SODIUM 143 mEq/L (134-144)
[2016-12-31] MEDS: CHLORHEXIDINE GLUCONATE 15 ML UDL PO SCH ×2 (08:00→21:03)
[2016-12-31 08:24] LABS: TOXIC VACUOLIZATION PRESENT
[2016-12-31 08:27] LABS: GIANT PLATELETS PRESENT; LARGE PLATELETS PRESENT; PLATELET ESTIMATE ADEQUATE (ADEQ); POLYCHROMASIA 1+
[2016-12-31 08:29] LABS: STOMATOCYTES 1+
[2016-12-31] MEDS: ENOXAPARIN 40 MG/0.4 ML SYR SC SCH ×2 (09:23→21:03)
[2016-12-31] MEDS: MICAFUNGIN NA 100 MG in NS 100 ML IV SCH (10:59)
--- NOTE | 2016-12-31 11:47 | SOAPPROG ---
SOAP Progress Note Assessment/Plan: Assessment: s/p right hemicolectomy for colon cancer and anastomotic dehiscence at staple line s/p ex lap with washout and reanastomosis s/p drainage of abscess above liver Neuro - fentanyl and precedex. Resp - Thoracentesis. Tolerating CPAP today. Appreciate Dr. Troncoso Cards - stable GI - Return of bowel function. Start tube feeds again. Advance slowly. If tolerates, wean TPN. Monitor drain output. Renal - good uop Skin - Wound vac change /mon. Wound with healthy granulation tissue on Monday. No evidence of succus Heme/ID- on broad spectrum - . Dispo - continue ICU S: Smiled yesterday. Calm last night. O: Lying in bed comfortable. Trached. Open eyes. Lungs with better airmovement today. Regular rate, bowel sounds present, soft, wv to suction. No succus in tubing. Soft and does not grimace to palpation. Drains with purulent fluid in TARA drains SCDs in place. Plan: 12/10/16 12:43 12/11/16 09:53 12/13/16 21:40 12/19/16 09:17 12/22/16 10:15 12/24/16 08:32 12/24/16 08:35 12/25/16 10:28 12/29/16 09:15 12/31/16 11:43 Objective: Vital Signs Temp Pulse Resp BP Pulse Ox 37.1 C 73 26 H 114/74 100 12/31/16 10:00 12/31/16 10:00 12/31/16 10:00 12/31/16 10:00 12/31/16 10:00 Microbiology 12/29/16 12:15 Gram Stain - Final Peritoneal Fluid - Aspirate 12/30/16 Unknown Gram Stain - Final Peritoneal Fluid - Aspirate 12/29/16 13:30 Gram Stain - Final Pleural Fluid - Aspirate Laboratory Results 12/31/16 06:13 12/31/16 04:39 12/30/16 12/31/16 01/01/17 05:59 05:59 05:59 Intake Total 4378 4187 Output Total 1350 1880 Balance 3028 2307 PT 15.2 SEC (12.0-15.0) H 12/19/16 04:08 INR 1.20 (0.83-1.16) H 12/19/16 04:08 ICD10 Worksheet Patient Problems: Problems Problem Status Onset Colon cancer Acute - ICD10 Problem Qualifiers (1) Colon cancer Qualifiers: Colon location: C
--- NOTE | 2016-12-31 12:41 | PCMIDPN ---
Assessment/Plan: Assessment/Plan: 1. Septic shock secondary to Polymicrobial peritonitis associated with anastomotic leak and sid-hepatic abscesses -History of [place] Ca of colon s/p hemicolectomy 12/09/16 complicated by anastomotic leak as above. -S/p Wash out 12/13/16 -s/p two TARA drains to regarding the sid-hepatic abscesses, on 12/29 and 12/30. -Recent abdominal cx: Gs many organisms, cx with E. fecalis; -Peritoneal cx: 12/29---gpc on GS, ngtd. 12/30: no org on GS, cultures pending. -PLeural cx: no org on GS, cultures pending. -wbc trending down -Currently on Zosyn + Micafungin -Monitor drain output, temps, labs. f/u Ct at some point Meds zosyn 3.375gm q6 - has been on varying dosing of zosyn since 12/14/16---D#18 micafungin 100mg daily- 12/14/16---D#18 TPN Subjective: Remains in ICU. s/p trach. Opens eyes to verbal commands. nods to questions. Denies pain. FIO2 40%. s/p 2nd drain. Temps overall better in last 24 hours. Objective: Vital Signs Temp Pulse Resp BP Pulse Ox 37.1 C 79 27 H 114/74 99 12/31/16 10:00 12/31/16 12:13 12/31/16 12:13 12/31/16 10:00 12/31/16 12:13 Microbiology 12/29/16 13:30 Gram Stain - Final Pleural Fluid - Aspirate 12/29/16 12:15 Gram Stain - Final Peritoneal Fluid - Aspirate 12/30/16 Unknown Gram Stain - Final Peritoneal Fluid - Aspirate Laboratory Results 12/31/16 06:13 12/31/16 04:39 12/30/16 12/31/16 01/01/17 05:59 05:59 05:59 Intake Total 4378 4187 Output Total 1350 1880 Balance 3028 2307 - Physical Exam General Appearance: other (opens eyes to verbal commands and nods) EENT: other (trach) Respiratory: coarse breath sounds (anteriorly) Cardiac/Chest: regular rate, rhythm Extremities: No swelling Abdomen: normal bowel sounds, soft, distended, other (midline wound vac noted. two TARA drains noted on right side. one with more serosanguinous drainage, 2nd, with more serous drainage with debri.) Skin: No erythema ICD10 Worksheet Patient Problems: Problems Problem Status Onset Colon cancer Acute
--- NOTE | 2016-12-31 13:48 | PDINTPN ---
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 She had difficulty with weans and required tracheostomy 12/[address] Kruger without complication. * Acute respiratory failure with hypoxia- Able to wean today after adequate drainage of pleural effusion and supra-hepatic abscess. Will do PS weans BID today- if they go well, will advance to trach collar weans in AM. * Peritonitis- Stable after drainage with decreasing wbc. Continue abx. * Anemia- H/H low but stable without signs of bleeding. Holding transfusion for hgb<7.0 * MARTA- Resolving. Creatinine continues to drift down with IVF and has excellent UOP. * * * Critical care time 45 minutes in a complex patient with multiorgan failure Objective: Vital Signs Temp Pulse Resp BP Pulse Ox 37.1 C 79 27 H 114/74 99 12/31/16 10:00 12/31/16 12:13 12/31/16 12:13 12/31/16 10:00 12/31/16 12:13 Microbiology 12/30/16 Unknown Gram Stain - Final Peritoneal Fluid - Aspirate 12/29/16 13:30 Gram Stain - Final Pleural Fluid - Aspirate 12/29/16 12:15 Gram Stain - Final Peritoneal Fluid - Aspirate Laboratory Results 12/31/16 06:13 12/31/16 04:39 12/30/16 12/31/16 01/01/17 05:59 05:59 05:59 Intake Total 4378 4187 Output Total 1350 1880 Balance 3028 2307 PT 15.2 SEC (12.0-15.0) H 12/19/16 04:08 INR 1.20 (0.83-1.16) H 12/19/16 04:08 Physical Exam - Physical Exam General Appearance: no apparent distress, other (somnolent but improved) EENT: PERRL/EOMI, ET tube (trachesotomy) Neck: supple Respiratory: lungs clear (except EILEEN), normal breath sounds, No respiratory distress, No rales, No rhonchi, No stridor, No wheezing Cardiac/Chest: regular rate, rhythm Abdomen: non-tender, soft, No distended Skin: normal color, warm/dry Lymphatic: no adenopathy Extremities: non-tender, No pedal edema Neuro/Psych: cognition abnormalities ICD10 Worksheet Patient Problems: Problems Problem Status Onset Colon cancer Acute
--- NOTE | 2016-12-31 14:34 | HOSPPROG ---
Hospitalist Progress Note Assessment/Plan: 56 yo F w R hemicolectomy for local CA now w complex postop course status post colectomy for colon cancer with anastomotic leak and intra- abdominal sepsis/ abscess * on Micofungin and Zosyn * aspirate 12/13 with Enterococcus * recent aspirate 12/20 has not grown organisms * R subdiaphragmatic abscess aspirated 12/29, albeit incompletely * reaspirated 12/30 * improved since second aspiration R pleural effusion: exudate likely 2/2 subdiaphragmatic abscess pH 7.0 noted- repeat is 7.4 repeat cxr today w continued airspace disease but has not reaccumlated ( interp by me) may need chest tube if continued fevers or reaccumulation pleural fluid culture pending (I called micro) gm stain neg d/w ID repeat cxr 01/01 anemia * has received three days of IV iron now acute blood loss give 2 units good hct bump from 12/29 transfusion rectal bleeding: chcek venous lactate to eval for ischemia at anastamosis it turns out that this was vaginal bleeding and lactate was normal hypernatremia * now 143 acute respiratory failure * status post tracheostomy * difficult weaning 2/2 intrabdominal process * weaning parameters much improved since second aspiration of subdiaphragmatic abscess possible pneumonia * antibiotics acute renal failure * stable nutrition * TPN- dc once tube feeds at goal * trickle feeds started * will eventually need PEG tube history of hypertension septic shock * resolved Trichomonas in urine DVT prophylaxis * Lovenox- on hold given bleeding 35' crit care Subjective: case d/e arina acuna and [place]. tele: 4 beats NSVT pm 12/30 (interp by me) Objective: Vital Signs Temp Pulse Resp BP Pulse Ox 37.4 C 75 21 H 118/74 100 12/31/16 14:00 12/31/16 14:00 12/31/16 14:00 12/31/16 14:00 12/31/16 14:00 Microbiology 12/30/16 Unknown Gram Stain - Final Peritoneal Fluid - Aspirate 12/29/16 13:30 Gram Stain - Final Pleural Fluid - Aspirate 12/29/16 12:15 Gram Stain - Final Peritoneal Fluid - Aspirate Laboratory Results 12/31/16 06:13 12/31/16 04:39 12/30/16 12/31/16 01/01/17 05:59 05:59 05:59 Intake Total 4378 4187 Output Total 1350 1880 Balance 3028 2307 PT 15.2 SEC (12.0-15.0) H 12/19/16 04:08 INR 1.20 (0.83-1.16) H 12/19/16 04:08 - Physical Exam Constitutional: no apparent distress, appears nourished Eyes: PERRL, anicteric sclera Ears, Nose, Mouth, Throat: moist mucous membranes, hearing normal Cardiovascular: regular rate and rhythym, no murmur, rub, or gallop Respiratory: no respiratory distress, no rales or rhonchi Gastrointestinal: No normoactive bowel sounds, No guarding, No rebound Genitourinary: ponce in urethra Skin: warm, normal color Musculoskeletal: full muscle strength, no muscle tenderness Neurologic: AAOx3 ICD10 Worksheet Patient Problems: Problems Problem Status Onset Colon cancer Acute
[2016-12-31] MEDS: TPN W/ FAMOTIDINE 1 EA BAG IV SCH (21:03)
[2017-01-01] MEDS: ALBUTEROL 200 PUFFS/18 GM MDI IH SCH ×7 (00:05→23:37)
[2017-01-01] MEDS: LORazepam 2 MG/ML INJ IVP PRN (00:59)
[2017-01-01] MEDS: fentaNYL/NACL 100 ML IV SCH ×2 (05:26→20:09)
[2017-01-01] MEDS: DEXMEDETOMIDINE HCL 1,000 MCG in D5W 250 ML IV SCH ×2 (05:30→23:53)
[2017-01-01] MEDS: PIPERACILLIN/TAZO 3.375 GM/DEX 50 ML IV SCH ×4 (05:32→23:54)
[2017-01-01 05:34] LABS: % IMMATURE GRANULYOCYTES 1.7 % (0.0-1.1); ABSOLUTE IMMATURE GRANULOCYTES 0.26 10^3/uL (0.00-0.10); ADD DIFF? NO; ADD MORPH? NO; ADD SCAN? NO; ATYPICAL LYMPHOCYTE FLAG 10 (0-99); FRAGMENT RBC FLAG 10 (0-99); HEMATOCRIT 26.6 % (38.0-47.0); HEMOGLOBIN 8.6 g/dL (12.6-16.3); LEFT SHIFT FLG 20 (0-99); LIPEMIA HEMOLYSIS FLAG 80 (0-99); MEAN CELL HEMOGLOBIN CONCENTR. 32.3 g/dL (32.4-36.7); MEAN CELL VOLUME 92.7 fL (81.5-99.8); MEAN PLATELET VOLUME 10.1 fL (8.7-11.7); PLATELET CLUMPS FLAG 0 (0-99); PLATELET COUNT 320 10^3/uL (150-400); RED BLOOD CELL COUNT 2.87 10^6/uL (4.18-5.33); RED CELL DISTRIBUTION WIDTH 17.6 % (11.5-15.2)
[2017-01-01 05:50] LABS: ANION GAP 7 mEq/L (8-16); CALCIUM 8.6 mg/dL (8.5-10.4); CARBON DIOXIDE 26 mEq/l (22-31); CHLORIDE 105 mEq/L (97-110); CREATININE 0.8 mg/dL (0.6-1.0); GLOMERULAR FILTRATION RATE > 60; GLUCOSE 126 mg/dL (70-100); MAGNESIUM 1.8 mg/dL (1.6-2.3); POTASSIUM 4.9 mEq/L (3.5-5.2); SODIUM 138 mEq/L (134-144)
--- NOTE | 2017-01-01 08:58 | SOAPPROG ---
SOAP Progress Note Assessment/Plan: Assessment/Plan - 56yo F s/p RHC for CC, leak, takeback with washout and repair - Neuro: precedex, benzos appear to snow her but work well for agitation, will give only 1 instead of 2 as it appears to cause less overall sedation - Pulm: trach, did well with weans yesterday, going to try trach collar today - CV: HDS, off pressors. - Abd: soft, minimally distended, JPs draining purulent material. VAC in place. Tube feeds trickling at 15cc but had large BM overnight. Would begin to advance to goal - Renal: making adequate urine. Cr improved - ID: afebrile, WBC 15 from 14, cont BS Abx - Dispo: Cont ICU, making progress with vent weans, abdomen stable to improved. 01/01/17 08:55 Subjective: Opens eyes and squeezes to command. Denies pain Objective: Vital Signs Temp Pulse Resp BP Pulse Ox 37.1 C 71 23 H 104/73 99 01/01/17 08:00 01/01/17 08:00 01/01/17 08:00 01/01/17 08:00 01/01/17 08:00 Microbiology 12/29/16 12:15 Gram Stain - Final Peritoneal Fluid - Aspirate 12/30/16 Unknown Gram Stain - Final Peritoneal Fluid - Aspirate 12/29/16 13:30 Gram Stain - Final Pleural Fluid - Aspirate Laboratory Results 01/01/17 05:10 01/01/17 05:10 12/31/16 01/01/17 01/02/17 05:59 05:59 05:59 Intake Total 4187 4171 Output Total 1880 3315 Balance 2307 856 PT 15.2 SEC (12.0-15.0) H 12/19/16 04:08 INR 1.20 (0.83-1.16) H 12/19/16 04:08 ICD10 Worksheet Patient Problems: Problems Problem Status Onset Colon cancer Acute
[2017-01-01] MEDS: ENOXAPARIN 40 MG/0.4 ML SYR SC SCH ×2 (10:06→20:10)
[2017-01-01] MEDS: MICAFUNGIN NA 100 MG in NS 100 ML IV SCH (10:16)
[2017-01-01] MEDS: CHLORHEXIDINE GLUCONATE 15 ML UDL PO SCH ×2 (10:17→20:09)
--- NOTE | 2017-01-01 12:23 | PDINTPN ---
Video Operator Progress Note Assessment/Plan: Assessment/plan: 56 F with newly diagnosed colon cancer s/p solectomy complicated by anastamotic leak/ periptonitis and sepsis, and respiratory failure. She had difficulty with weans and required tracheostomy 12/[address] Kruger without complication. * Acute respiratory failure with hypoxia- Less successful weaning today even with PS 15. More alert and will continue efforts to weaning. * Peritonitis- Stable after drainage with decreasing wbc. Continue abx. * Anemia- H/H low but stable without signs of bleeding. Holding transfusion for hgb<7.0 * MARTA- Resolving. Creatinine continues to drift down with IVF and has excellent UOP. * May be ready for LTACH early this week- family investigated yesterday * * Critical care time 45 minutes in a complex patient with multiorgan failure 01/01/17 12:21 Objective: Vital Signs Temp Pulse Resp BP Pulse Ox 37.2 C 82 26 H 141/89 H 100 01/01/17 12:00 01/01/17 12:00 01/01/17 12:00 01/01/17 12:00 01/01/17 12:00 Microbiology 12/30/16 Unknown Gram Stain - Final Peritoneal Fluid - Aspirate 12/29/16 13:30 Gram Stain - Final Pleural Fluid - Aspirate 12/29/16 12:15 Gram Stain - Final Peritoneal Fluid - Aspirate Laboratory Results 01/01/17 05:10 01/01/17 05:10 12/31/16 01/01/17 01/02/17 05:59 05:59 05:59 Intake Total 4187 4171 Output Total 1880 3315 Balance 2307 856 PT 15.2 SEC (12.0-15.0) H 12/19/16 04:08 INR 1.20 (0.83-1.16) H 12/19/16 04:08 Physical Exam - Physical Exam General Appearance: alert, no apparent distress, obese EENT: PERRL/EOMI Neck: supple Respiratory: lungs clear, normal breath sounds, No respiratory distress, No rales, No rhonchi Cardiac/Chest: normal peripheral pulses, regular rate, rhythm Abdomen: non-tender, soft, No distended Skin: normal color, warm/dry, No cyanosis Lymphatic: no adenopathy Extremities: No pedal edema Neuro/Psych: alert, normal mood/affect, cognition abnormalities ICD10 Worksheet Patient Problems: Problems Problem Status Onset Colon cancer Acute
--- NOTE | 2017-01-01 13:42 | HOSPPROG ---
Hospitalist Progress Note Assessment/Plan: 56 yo F w R hemicolectomy for local CA now w complex postop course status post colectomy for colon cancer with anastomotic leak and intra- abdominal sepsis/ abscess * on Micofungin and Zosyn * aspirate 12/13 with Enterococcus * recent aspirate 12/20 has not grown organisms * R subdiaphragmatic abscess aspirated 12/29, albeit incompletely * reaspirated 12/30 * improved since second aspiration R pleural effusion: exudate likely 2/2 subdiaphragmatic abscess pH 7.0 noted- repeat is 7.4 repeat cxr today w continued airspace disease but has not reaccumlated ( interp by me) may need chest tube if continued fevers or reaccumulation pleural fluid culture pending (I called micro) gm stain neg d/w ID repeat cxr 01/01 shows R sided airspace disease but no effusion (interp by me) follow NSVT: ekg and trop normal two days ago anemia * has received three days of IV iron now acute blood loss give 2 units good hct bump from 12/29 transfusion rectal bleeding: chcek venous lactate to eval for ischemia at anastamosis it turns out that this was vaginal bleeding and lactate was normal acute respiratory failure * status post tracheostomy * difficult weaning 2/2 intrabdominal process * weaning parameters much improved since second aspiration of subdiaphragmatic abscess possible pneumonia * antibiotics acute renal failure * stable nutrition * TPN- dc once tube feeds at goal * trickle feeds started * will eventually need PEG tube history of hypertension septic shock * resolved Trichomonas in urine DVT prophylaxis * Lovenox- on hold given bleeding 35' crit care Subjective: case d/w dr tran. tele: 4 beats NSVT. alert Objective: Vital Signs Temp Pulse Resp BP Pulse Ox 37.2 C 82 25 H 141/89 H 99 01/01/17 12:00 01/01/17 12:59 01/01/17 12:59 01/01/17 12:00 01/01/17 12:59 Microbiology 12/30/16 Unknown Gram Stain - Final Peritoneal Fluid - Aspirate 12/29/16 13:30 Gram Stain - Final Pleural Fluid - Aspirate 12/29/16 12:15 Gram Stain - Final Peritoneal Fluid - Aspirate Laboratory Results 01/01/17 05:10 01/01/17 05:10 12/31/16 01/01/17 01/02/17 05:59 05:59 05:59 Intake Total 4180 6136 Output Total 4498 4646 Balance 2307 856 PT 15.2 SEC (12.0-15.0) H 12/19/16 04:08 INR 1.20 (0.83-1.16) H 12/19/16 04:08 - Physical Exam Constitutional: no apparent distress, appears nourished Eyes: PERRL, anicteric sclera Ears, Nose, Mouth, Throat: moist mucous membranes, hearing normal Cardiovascular: regular rate and rhythym, no murmur, rub, or gallop Respiratory: no respiratory distress, no rales or rhonchi Gastrointestinal: normoactive bowel sounds, No guarding, No rebound Genitourinary: ponce in urethra Skin: warm, normal color Musculoskeletal: full muscle strength, no muscle tenderness Neurologic: AAOx3, sensation intact bilaterally Psychiatric: interacting appropriately, not anxious Lymph, Heme, Immunologic: no cervical LAD ICD10 Worksheet Patient Problems: Problems Problem Status Onset Colon cancer Acute
[2017-01-01] MEDS: HALOPERIDOL LACT 5 MG/ML INJ IVP PRN ×2 (13:59→23:10)
--- NOTE | 2017-01-01 14:04 | PCMIDPN ---
Assessment/Plan: Assessment/Plan: 1. Septic shock secondary to Polymicrobial peritonitis associated with anastomotic leak and sid-hepatic abscesses -History of Adeno Ca of colon s/p hemicolectomy 12/09/16 complicated by anastomotic leak as above. -S/p Wash out 12/13/16 -s/p two JACIEL drains to regarding the sid-hepatic abscesses, on 12/29 and 12/30. -Recent abdominal cx: Gs many organisms, cx with E. fecalis; -Peritoneal cx: 12/29---gpc on GS, ngtd. 12/30: no org on GS, cultures ngtd -PLeural cx: no org on GS, cultures ngtd -wbc fluctuating -Currently on Zosyn + Micafungin -Monitor drain output, temps, labs. f/u Ct at some point -care coordinated with Rn. Acevedo zosyn 3.375gm q6 - has been on varying dosing of zosyn since 12/14/16---D#19 micafungin 100mg daily- 12/14/16---D#19 TPN Subjective: REmains in icu. awake. Smiling today. Denies pain. intermittently diaphoretic per RN. Objective: Vital Signs Temp Pulse Resp BP Pulse Ox 37.2 C 82 25 H 141/89 H 99 01/01/17 12:00 01/01/17 12:59 01/01/17 12:59 01/01/17 12:00 01/01/17 12:59 Microbiology 12/30/16 Unknown Gram Stain - Final Peritoneal Fluid - Aspirate 12/29/16 13:30 Gram Stain - Final Pleural Fluid - Aspirate 12/29/16 12:15 Gram Stain - Final Peritoneal Fluid - Aspirate Laboratory Results 01/01/17 05:10 01/01/17 05:10 12/31/16 01/01/17 01/02/17 05:59 05:59 05:59 Intake Total 4187 4171 Output Total 1880 3315 Balance 2307 856 - Physical Exam General Appearance: alert, no apparent distress EENT: other (trach) Respiratory: coarse breath sounds Cardiac/Chest: regular rate, rhythm Extremities: No swelling Abdomen: normal bowel sounds, non-tender, soft, distended, other (wound vac. jaciel drains noted. #1: serosanguinous. #2: serous but purulent material mixed in) Skin: No rash ICD10 Worksheet Patient Problems: Problems Problem Status Onset Colon cancer Acute
[2017-01-02] MEDS: DEXMEDETOMIDINE HCL 1,000 MCG in D5W 250 ML IV SCH ×3 (01:57→21:15)
[2017-01-02] MEDS: ALBUTEROL 200 PUFFS/18 GM MDI IH SCH ×6 (03:59→23:39)
[2017-01-02 04:43] LABS: % IMMATURE GRANULYOCYTES 1.7 % (0.0-1.1); ABSOLUTE IMMATURE GRANULOCYTES 0.25 10^3/uL (0.00-0.10); ADD DIFF? NO; ADD MORPH? NO; ADD SCAN? NO; ATYPICAL LYMPHOCYTE FLAG 20 (0-99); FRAGMENT RBC FLAG 10 (0-99); HEMATOCRIT 27.3 % (38.0-47.0); HEMOGLOBIN 8.8 g/dL (12.6-16.3); LEFT SHIFT FLG 20 (0-99); LIPEMIA HEMOLYSIS FLAG 80 (0-99); MEAN CELL HEMOGLOBIN 29.7 pg (27.9-34.1); MEAN CELL HEMOGLOBIN CONCENTR. 32.2 g/dL (32.4-36.7); MEAN CELL VOLUME 92.2 fL (81.5-99.8); MEAN PLATELET VOLUME 10.2 fL (8.7-11.7); PLATELET CLUMPS FLAG 0 (0-99); PLATELET COUNT 312 10^3/uL (150-400); RED BLOOD CELL COUNT 2.96 10^6/uL (4.18-5.33); RED CELL DISTRIBUTION WIDTH 17.3 % (11.5-15.2)
[2017-01-02] MEDS: PIPERACILLIN/TAZO 3.375 GM/DEX 50 ML IV SCH ×3 (05:12→17:57)
[2017-01-02 05:23] LABS: MAGNESIUM 1.8 mg/dL (1.6-2.3)
[2017-01-02] MEDS: MICAFUNGIN NA 100 MG in NS 100 ML IV SCH (08:13)
[2017-01-02] MEDS: fentaNYL/NACL 100 ML IV SCH ×3 (08:36→22:26)
[2017-01-02] MEDS: CHLORHEXIDINE GLUCONATE 15 ML UDL PO SCH ×2 (08:37→20:00)
[2017-01-02] MEDS: ENOXAPARIN 40 MG/0.4 ML SYR SC SCH ×2 (08:37→22:26)
--- NOTE | 2017-01-02 10:25 | PCMIDPN ---
Assessment/Plan: Assessment/Plan: * Septic shock due to anastomotic leak with polymicrobial peritoneal contamination: Perihepatic abscess cultures negative. Clinically improved post drainage. Continue Zosyn and micafungin (colonized with non albicans yeast and initial abdominal Gram stain with yeast). Follow-up perihepatic abscess cultures over time but suspect will remain negative at this point. 01/02/17 10:31 01/02/17 10:32 Subjective: Awake, follows commands. Objective: Vital Signs Temp Pulse Resp BP Pulse Ox 37.2 C 71 251 H 109/72 100 01/02/17 04:00 01/02/17 09:00 01/02/17 09:00 01/02/17 09:00 01/02/17 09:00 Microbiology 12/30/16 Unknown Gram Stain - Final Peritoneal Fluid - Aspirate 12/29/16 13:30 Gram Stain - Final Pleural Fluid - Aspirate 12/29/16 12:15 Gram Stain - Final Peritoneal Fluid - Aspirate Laboratory Results 01/02/17 04:35 01/01/17 05:10 01/01/17 01/02/17 01/03/17 05:59 05:59 05:59 Intake Total 4171 3610 Output Total 3315 2850 300 Balance 856 760 -300 Zosyn # 20 Micafungin # 20 Sirisha hepatic abscess with GPC on Gram stain but culture no growth - Physical Exam General Appearance: alert, no apparent distress EENT: other (Tracheostomy in place), No scleral icterus, No thrush Respiratory: coarse breath sounds Cardiac/Chest: regular rate, rhythm Extremities: pedal edema Abdomen: non-tender, distended (Mild), other (TARA x2 with seropurulent output; wound VAC without surrounding erythema) Skin: No rash - Line/s LUE PICC Lines: No drainage, No erythema ICD10 Worksheet Patient Problems: Problems Problem Status Onset Colon cancer Acute
--- NOTE | 2017-01-02 10:41 | SOAPPROG ---
SOAP Progress Note Assessment/Plan: Assessment: s/p right hemicolectomy for colon cancer and anastomotic dehiscence at staple line s/p ex lap with washout and reanastomosis s/p drainage of abscess above liver Neuro - controlled Resp - Thoracentesis. Tolerating weaning Cards - stable GI - Return of bowel function. Tube feeds to goal. Monitor drain output. Renal - good uop Skin - Wound vac change /mon. Wound with healthy granulation tissue on Monday. No evidence of succus Heme/ID- on broad spectrum Dispo - continue ICU. Discussed c Dr. Adkins S: No new issues O: Lying in bed comfortable. Trached. Open eyes. Decreased at bases. Regular rate. Bowel sounds present, soft, wv to suction. No succus in tubing. Soft and nontender to palpation. Drains with purulent fluid in TARA drains. Koenig clear yellow urine SCDs in place. 01/02/17 10:43 Objective: Vital Signs Temp Pulse Resp BP Pulse Ox 37.2 C 79 29 H 131/74 H 100 01/02/17 04:00 01/02/17 10:00 01/02/17 10:00 01/02/17 10:00 01/02/17 10:00 Microbiology 12/30/16 Unknown Gram Stain - Final Peritoneal Fluid - Aspirate 12/29/16 13:30 Gram Stain - Final Pleural Fluid - Aspirate 12/29/16 12:15 Gram Stain - Final Peritoneal Fluid - Aspirate Laboratory Results 01/02/17 04:35 01/01/17 05:10 01/01/17 01/02/17 01/03/17 05:59 05:59 05:59 Intake Total 4171 3610 Output Total 3315 2850 300 Balance 856 760 -300 PT 15.2 SEC (12.0-15.0) H 12/19/16 04:08 INR 1.20 (0.83-1.16) H 12/19/16 04:08 ICD10 Worksheet Patient Problems: Problems Problem Status Onset Colon cancer Acute
--- NOTE | 2017-01-02 11:03 | PDINTPN ---
Technology Applications Consultant Progress Note Assessment/Plan: Assessment: 56 F with newly diagnosed colon cancer s/p colectomy complicated by anastamotic leak/ periptonitis and sepsis, and respiratory failure. She had difficulty with weans and required tracheostomy 12/[address] Kruger without complication. * Acute respiratory failure with hypoxia- New problem to me 01/02. Tolerating change from AC to IMV today. More alert and will continue efforts to weaning. * Peritonitis- Stable after subphrenic abscess drainage with decreased wbc today. Continue Micafungin, Zosyn. * Anemia- H/H low but stable without signs of bleeding. Holding transfusion for hgb>7.0 * MARTA- Resolved. Excellent UOP, I<O today, but she's 10 liters up for the week. * May be ready for LTACH early this week- family investigated yesterday Plan: Diuresis. Wean down Precedex, Fentanyl. Increase activity. Lasix/albumin today. Follow CXR, continue antibiotics, RUQ abscess drainage. 01/02/17 11:21 Subjective: Pain well controlled. Strength better, sat up at edge of bed. Objective: Vital Signs Temp Pulse Resp BP Pulse Ox 37.2 C 79 29 H 131/74 H 100 01/02/17 04:00 01/02/17 10:00 01/02/17 10:00 01/02/17 10:00 01/02/17 10:00 Microbiology 12/30/16 Unknown Gram Stain - Final Peritoneal Fluid - Aspirate 12/29/16 13:30 Gram Stain - Final Pleural Fluid - Aspirate 12/29/16 12:15 Gram Stain - Final Peritoneal Fluid - Aspirate Laboratory Results 01/02/17 04:35 01/01/17 05:10 01/01/17 01/02/17 01/03/17 05:59 05:59 05:59 Intake Total 4171 3610 Output Total 3315 2850 300 Balance 856 760 -300 PT 15.2 SEC (12.0-15.0) H 12/19/16 04:08 INR 1.20 (0.83-1.16) H 12/19/16 04:08 CXR 01/01: RLL consolidation, ? effusion. Images reviewed. Physical Exam - Physical Exam General Appearance: alert, no apparent distress EENT: normal ENT inspection Neck: other (trach OK) Respiratory: crackles (right base), other (coarse BS.) Cardiac/Chest: regular rate, rhythm, edema (1+) Abdomen: non-tender, soft, No normal bowel sounds (diminished) Skin: normal color, warm/dry Extremities: normal inspection Neuro/Psych: alert, normal mood/affect, oriented x 3 ICD10 Worksheet Patient Problems: Problems Problem Status Onset Colon cancer Acute
[2017-01-02] MEDS ORDERED: ALBUMIN 25% 100 ML IV ONE (11:06)
[2017-01-02] MEDS: FUROSEMIDE 40 MG/4 ML VIAL IVP SCH (11:46)
[2017-01-02 12:38] LABS: ALBUMIN 2.7 g/dL (3.5-5.0); BILIRUBIN,TOTAL 1.4 mg/dL (0.1-1.4); BILIRUBIN-CONJUGATED 1.2 mg/dL (0.0-0.5); BILIRUBIN-UNCONJUGATED 0.2 mg/dL (0.0-1.1); TOTAL PROTEIN 6.3 g/dL (6.3-8.2)
--- NOTE | 2017-01-02 13:35 | HOSPPROG ---
Hospitalist Progress Note Assessment/Plan: 56 yo F w R hemicolectomy for local CA now w complex postop course status post colectomy for colon cancer with anastomotic leak and intra- abdominal sepsis/ abscess * on Micofungin and Zosyn * aspirate 12/13 with Enterococcus * recent aspirate 12/20 has not grown organisms * R subdiaphragmatic abscess aspirated 12/29, albeit incompletely * reaspirated 12/30 * improved since second aspiration * second aspirate micro neg thus far R pleural effusion: exudate likely 2/2 subdiaphragmatic abscess pH 7.0 noted- repeat is 7.4 repeat cxr today w continued airspace disease but has not reaccumlated ( interp by me) may need chest tube if continued fevers or reaccumulation pleural fluid culture pending (I called micro) gm stain neg d/w ID repeat cxr 01/01 shows R sided airspace disease but no effusion (interp by me) follow NSVT: ekg and trop normal two days ago anemia * has received three days of IV iron now acute blood loss give 2 units good hct bump from 12/29 transfusion rectal bleeding: chcek venous lactate to eval for ischemia at anastamosis it turns out that this was vaginal bleeding and lactate was normal acute respiratory failure * status post tracheostomy * difficult weaning 2/2 intrabdominal process * weaning parameters much improved since second aspiration of subdiaphragmatic abscess now doing pretty well w weans possible pneumonia * antibiotics acute renal failure * stable nutrition * TPN- dc once tube feeds at goal * tube feeds started * will eventually need PEG tube unless extubated and able to eat n coming days history of hypertension septic shock * resolved Trichomonas in urine DVT prophylaxis * Lovenox- on hold given bleeding 35' crit care Subjective: case d/w dr anderson. tele: no events (interp by me). up in chair! Objective: Vital Signs Temp Pulse Resp BP Pulse Ox 37.2 C 76 21 H 116/76 100 01/02/17 04:00 01/02/17 12:00 01/02/17 12:00 01/02/17 12:00 01/02/17 12:00 Microbiology 12/30/16 Unknown Gram Stain - Final Peritoneal Fluid - Aspirate 12/29/16 13:30 Gram Stain - Final Pleural Fluid - Aspirate 12/29/16 12:15 Gram Stain - Final Peritoneal Fluid - Aspirate Laboratory Results 01/02/17 04:35 01/01/17 05:10 01/01/17 01/02/17 01/03/17 05:59 05:59 05:59 Intake Total 4171 3610 Output Total 3315 2850 300 Balance 856 760 -300 PT 15.2 SEC (12.0-15.0) H 12/19/16 04:08 INR 1.20 (0.83-1.16) H 12/19/16 04:08 - Physical Exam Constitutional: no apparent distress, appears nourished Eyes: PERRL, anicteric sclera Ears, Nose, Mouth, Throat: moist mucous membranes, hearing normal Cardiovascular: regular rate and rhythym, no murmur, rub, or gallop, No tachycardia Respiratory: no respiratory distress, no rales or rhonchi, clear to auscultation Gastrointestinal: other (distended, bowel sounds hypoactive but present.) Genitourinary: no bladder fullness, ponce in urethra Skin: warm, normal color Musculoskeletal: full muscle strength, no muscle tenderness Neurologic: AAOx3, sensation intact bilaterally Psychiatric: interacting appropriately ICD10 Worksheet Patient Problems: Problems Problem Status Onset Colon cancer Acute
[2017-01-02] MEDS: HALOPERIDOL LACT 5 MG/ML INJ IVP PRN ×2 (16:24→22:24)
[2017-01-03] MEDS: DEXMEDETOMIDINE HCL 1,000 MCG in D5W 250 ML IV SCH ×2 (04:21→20:30)
[2017-01-03] MEDS: ALBUTEROL 200 PUFFS/18 GM MDI IH SCH ×6 (04:41→23:32)
[2017-01-03] MEDS ORDERED: FUROSEMIDE 20 MG/2 ML VIAL ONE (04:41)
[2017-01-03] MEDS: FUROSEMIDE 40 MG/4 ML VIAL IVP SCH (04:43)
[2017-01-03 05:14] LABS: ALANINE AMINOTRANSFERASE 37 IU/L (9-52); ALBUMIN 2.9 g/dL (3.5-5.0); ALKALINE PHOSPHATASE 289 IU/L (38-126); ANION GAP 11 mEq/L (8-16); ASPARTATE AMINOTRANSFERASE 58 IU/L (14-46); BILIRUBIN,TOTAL 1.3 mg/dL (0.1-1.4); CALCIUM 9.1 mg/dL (8.5-10.4); CARBON DIOXIDE 29 mEq/l (22-31); CHLORIDE 101 mEq/L (97-110); CREATININE 0.7 mg/dL (0.6-1.0); GLOMERULAR FILTRATION RATE > 60; GLUCOSE 126 mg/dL (70-100); SODIUM 141 mEq/L (134-144); TOTAL PROTEIN 6.7 g/dL (6.3-8.2)
[2017-01-03] MEDS: fentaNYL/NACL 100 ML IV SCH ×3 (06:22→22:47)
[2017-01-03] MEDS: PIPERACILLIN/TAZO 3.375 GM/DEX 50 ML IV SCH ×4 (06:22→18:29)
--- NOTE | 2017-01-03 09:07 | SOAPPROG ---
SOAP Progress Note Assessment/Plan: Assessment: s/p right hemicolectomy for colon cancer and anastomotic dehiscence at staple line s/p ex lap with washout and reanastomosis s/p drainage of abscess above liver Neuro - controlled Resp - Thoracentesis. Tolerating weaning Cards - stable GI - Return of bowel function. Tube feeds to goal. Monitor drain output. Renal - good uop Skin - Wound vac change tues/fri. Wound with healthy granulation tissue. No evidence of succus Heme/ID- on broad spectrum Dispo - continue ICU. Seen c Dr. Cat S: No new issues. Alert and asking questions O: Lying in bed comfortable. Trached. Open eyes, asking questions, alert. Decreased at bases R>L. Regular rate. Bowel sounds present, soft, Vac dressing changed - healthy granulation in base, no succus. Soft and nontender to palpation. Drains with purulent fluid in TARA drains. Koenig clear yellow urine SCDs in place. Objective: Vital Signs Temp Pulse Resp BP Pulse Ox 36.9 C 78 25 H 138/82 H 98 01/03/17 04:00 01/03/17 06:00 01/03/17 06:00 01/03/17 06:00 01/03/17 06:00 Microbiology 12/28/16 17:48 Blood Culture - Final Blood 12/28/16 15:45 Blood Culture - Final Blood 12/30/16 Unknown Gram Stain - Final Peritoneal Fluid - Aspirate Anaerobic Culture - Final 12/29/16 13:30 Gram Stain - Final Pleural Fluid - Aspirate 12/29/16 12:15 Gram Stain - Final Peritoneal Fluid - Aspirate Laboratory Results 01/02/17 04:35 01/03/17 04:51 01/02/17 01/03/17 01/04/17 05:59 05:59 05:59 Intake Total 3610 2702 Output Total 2850 3430 Balance 760 -728 PT 15.2 SEC (12.0-15.0) H 12/19/16 04:08 INR 1.20 (0.83-1.16) H 12/19/16 04:08 ICD10 Worksheet Patient Problems: Problems Problem Status Onset Colon cancer Acute
[2017-01-03] MEDS: ENOXAPARIN 40 MG/0.4 ML SYR SC SCH ×2 (09:32→20:31)
[2017-01-03] MEDS: MICAFUNGIN NA 100 MG in NS 100 ML IV SCH (09:32)
--- NOTE | 2017-01-03 10:04 | PCMIDPN ---
Assessment/Plan: Assessment/Plan: 1. Septic shock secondary to Polymicrobial peritonitis associated with anastomotic leak and sid-hepatic abscesses -History of Adeno Ca of colon s/p hemicolectomy 12/09/16 complicated by anastomotic leak as above. -S/p Wash out 12/13/16 -s/p two JACIEL drains to regarding the sid-hepatic abscesses, on 12/29 and 12/30. -Recent abdominal cx: Gs many organisms, cx with E. fecalis; -Peritoneal cx: 12/29---gpc on GS, ngtd. 12/30: no org on GS, cultures ngtd -Pleural cx: no org on GS, cultures ngtd -wbc fluctuating -Currently on Zosyn + Micafungin -Monitor drain output, temps, labs. Will need f/u Ct at some point Meds zosyn 3.375gm q6 - has been on varying dosing of zosyn since 12/14/16---D#21 micafungin 100mg daily- 12/14/16---D#21 TPN Subjective: Afebrile. eyes open. nods to questions. mild pain in left abdomen today. ON vent at 40% FIO2. Two drains in place. both with no purulence noted . Objective: Vital Signs Temp Pulse Resp BP Pulse Ox 36.9 C 60 24 H 138/82 H 98 01/03/17 04:00 01/03/17 09:20 01/03/17 09:00 01/03/17 06:00 01/03/17 09:20 Microbiology 12/28/16 17:48 Blood Culture - Final Blood 12/28/16 15:45 Blood Culture - Final Blood 12/30/16 Unknown Gram Stain - Final Peritoneal Fluid - Aspirate Anaerobic Culture - Final 12/29/16 13:30 Gram Stain - Final Pleural Fluid - Aspirate 12/29/16 12:15 Gram Stain - Final Peritoneal Fluid - Aspirate Laboratory Results 01/02/17 04:35 01/03/17 04:51 01/02/17 01/03/17 01/04/17 05:59 05:59 05:59 Intake Total 3610 2702 Output Total 2850 3430 Balance 760 -728 - Physical Exam General Appearance: alert, no apparent distress EENT: other (trach) Respiratory: coarse breath sounds (mild) Cardiac/Chest: regular rate, rhythm Extremities: No swelling Abdomen: normal bowel sounds, non-tender, soft, distended (mild), other (wound vac midline. two jaciel drains noted. more serous and serosanguinous in nature. less purulent than over the weekend.) Pelvic Exam: ponce Skin: No rash ICD10 Worksheet Patient Problems: Problems Problem Status Onset Colon cancer Acute
--- NOTE | 2017-01-03 12:59 | PDINTPN ---
Process Worker Progress Note Assessment/Plan: Assessment: 56 F with newly diagnosed colon cancer s/p colectomy complicated by anastamotic leak/ periptonitis and sepsis, and respiratory failure. She had difficulty with weans and required tracheostomy 12/[address] Kruger without complication. * Acute respiratory failure with hypoxia- New problem to me 01/02. Tolerating change from AC to IMV today. More alert and will continue efforts to weaning. Tolerating CPAP, although VE a bit high at 12 liters/minute. Sats OK on 40%. * Peritonitis- Stable after subphrenic abscess drainage with decreased wbc again today. Continue Micafungin, Zosyn. * Pneumonia: LLL. Improved on CXR, possibly due, in part, to diuresis in addition to antibiotics. * Anemia- H/H low but stable without signs of bleeding. Holding transfusion for hgb>7.0 * MARTA- Resolved. Excellent UOP, I<O today, but she's 10 liters up for the week. * May be ready for LTACH later this week- family investigated yesterday Plan: Diuresis. Wean down Precedex, Fentanyl. Increase activity. Follow CXR, continue antibiotics, RUQ abscess drainage. Possible trial of trach collar. 01/03/17 12:55 Subjective: Alert, denies pain. Objective: Vital Signs Temp Pulse Resp BP Pulse Ox 36.9 C 67 22 H 145/82 H 99 01/03/17 04:00 01/03/17 11:33 01/03/17 11:33 01/03/17 11:33 01/03/17 11:33 Microbiology 12/28/16 17:48 Blood Culture - Final Blood 12/28/16 15:45 Blood Culture - Final Blood 12/30/16 Unknown Gram Stain - Final Peritoneal Fluid - Aspirate Anaerobic Culture - Final 12/29/16 13:30 Gram Stain - Final Pleural Fluid - Aspirate 12/29/16 12:15 Gram Stain - Final Peritoneal Fluid - Aspirate Laboratory Results 01/02/17 04:35 01/03/17 04:51 01/02/17 01/03/17 01/04/17 05:59 05:59 05:59 Intake Total 3610 2702 Output Total 2850 3430 Balance 760 -728 PT 15.2 SEC (12.0-15.0) H 12/19/16 04:08 INR 1.20 (0.83-1.16) H 12/19/16 04:08 Physical Exam - Physical Exam General Appearance: alert EENT: normal ENT inspection Neck: normal inspection, other (trach OK) Respiratory: lungs clear, normal breath sounds Cardiac/Chest: regular rate, rhythm, No edema Abdomen: normal bowel sounds, non-tender Skin: normal color, warm/dry Extremities: normal inspection, other (trace edema) Neuro/Psych: alert, normal mood/affect, oriented x 3 ICD10 Worksheet Patient Problems: Problems Problem Status Onset Colon cancer Acute
[2017-01-03] MEDS: CHLORHEXIDINE GLUCONATE 15 ML UDL PO SCH ×2 (13:54→20:27)
--- NOTE | 2017-01-03 13:55 | HOSPPROG ---
Hospitalist Progress Note Assessment/Plan: 56 yo F w R hemicolectomy for local CA now w complex postop course status post colectomy for colon cancer with anastomotic leak and intra- abdominal sepsis/ abscess * on Micofungin and Zosyn * aspirate 12/13 with Enterococcus * recent aspirate 12/20 has not grown organisms * R subdiaphragmatic abscess aspirated 12/29, albeit incompletely * reaspirated 12/30 * improved since second aspiration * second aspirate micro neg thus far R pleural effusion: exudate likely 2/2 subdiaphragmatic abscess pH 7.0 noted- repeat is 7.4 repeat cxr today w continued airspace disease but has not reaccumlated ( interp by me) may need chest tube if continued fevers or reaccumulation pleural fluid culture pending (I called micro) gm stain neg d/w ID repeat cxr 01/01 shows R sided airspace disease but no effusion (interp by me) 01/03 cxr shows continued improvement NSVT: ekg and trop normal two days ago anemia * has received three days of IV iron now acute blood loss give 2 units good hct bump from 12/29 transfusion currently stable acute respiratory failure * status post tracheostomy * now doing well on CPAP trials- drainage of RUQ abscess is what has caused marked improvement nutrition: tube feeds may not need PEG if continues to improve septic shock * resolved Trichomonas in urine DVT prophylaxis * Lovenox- on hold given bleeding Subjective: cxr w improving RLL infiltrate/effusion (interp by me). case d.w Dr Wheeler Objective: Vital Signs Temp Pulse Resp BP Pulse Ox 36.9 C 67 22 H 145/82 H 99 01/03/17 04:00 01/03/17 11:33 01/03/17 11:33 01/03/17 11:33 01/03/17 11:33 Microbiology 12/29/16 12:15 Gram Stain - Final Peritoneal Fluid - Aspirate 12/28/16 17:48 Blood Culture - Final Blood 12/28/16 15:45 Blood Culture - Final Blood 12/30/16 Unknown Gram Stain - Final Peritoneal Fluid - Aspirate Anaerobic Culture - Final 12/29/16 13:30 Gram Stain - Final Pleural Fluid - Aspirate Laboratory Results 01/02/17 04:35 01/03/17 04:51 01/02/17 01/03/1717 05:59 05:59 05:59 Intake Total 3610 2702 Output Total 9570 0050 Balance 760 -728 PT 15.2 SEC (12.0-15.0) H 12/19/16 04:08 INR 1.20 (0.83-1.16) H 12/19/16 04:08 - Physical Exam Constitutional: no apparent distress, appears nourished, other (more alert) Eyes: PERRL, anicteric sclera Ears, Nose, Mouth, Throat: moist mucous membranes, hearing normal Cardiovascular: regular rate and rhythym, no murmur, rub, or gallop Respiratory: no respiratory distress, no rales or rhonchi Gastrointestinal: distension, other (hypoactive but present bowel sounds), No guarding, No rebound Genitourinary: ponce in urethra Skin: warm, normal color Musculoskeletal: full muscle strength, no muscle tenderness ICD10 Worksheet Patient Problems: Problems Problem Status Onset Colon cancer Acute
[2017-01-04] MEDS: PIPERACILLIN/TAZO 3.375 GM/DEX 50 ML IV SCH ×4 (00:26→17:37)
[2017-01-04] MEDS: ALBUTEROL 200 PUFFS/18 GM MDI IH SCH ×6 (03:53→23:58)
[2017-01-04 04:52] LABS: MAGNESIUM 1.6 mg/dL (1.6-2.3)
[2017-01-04] MEDS: DEXMEDETOMIDINE HCL 1,000 MCG in D5W 250 ML IV SCH ×2 (05:37→20:58)
[2017-01-04] MEDS: fentaNYL/NACL 100 ML IV SCH ×3 (05:50→20:58)
--- NOTE | 2017-01-04 09:21 | HOSPPROG ---
Hospitalist Progress Note Assessment/Plan: status post colectomy for colon cancer with anastomotic leak and intra- abdominal sepsis / abscess * Cont Micofungin and Zosyn, ID following * aspirate 12/13 with Enterococcus, recent aspirate 12/20 ngtd * R subdiaphragmatic abscess aspirated 12/29, albeit incompletely. reaspirated 12/30 with improvement 2nd Cx ngtd Acute respiratory failure in setting of R pleural effusion and poss PNA: trach' d. effusion is exudate, likely 2/2 subdiaphragmatic abscess, on atbx swallow / speech eval today pH 7.0 noted- repeat is 7.4 pleural fluid cx ngtd rpt CXR 01/03 personally reviewed and interpreted, shows interval improvement of effusion and consolidation discussed case with pulm NSVT: ekg and trop normal two days ago anemia: s/p 3 days of IV iron and 2 units prbc's after acute vaginal bleeding, now resolved. cont to monitor acute respiratory failure: status post tracheostomy, improving since drainage of subdiaphragmatic abscess nutrition: tube feeds may not need PEG if continues to improve septic shock: resolved Trichomonas in urine DVT prophylaxis * Lovenox- on hold given bleeding dispo cont inpt / icu Subjective: Pt feels ok, in good spirits. Up in chair yesterday. Tolerating tube feeds. Koenig in place. No fevers. Objective: Vital Signs Temp Pulse Resp BP Pulse Ox 36.7 C 80 24 H 113/72 95 01/04/17 04:00 01/04/17 08:43 01/04/17 05:54 01/04/17 05:54 01/04/17 08:43 Microbiology 12/29/16 12:15 Gram Stain - Final Peritoneal Fluid - Aspirate 12/30/16 Unknown Gram Stain - Final Peritoneal Fluid - Aspirate 12/29/16 13:30 Gram Stain - Final Pleural Fluid - Aspirate Laboratory Results 01/02/17 04:35 01/03/17 04:51 01/03/17 01/04/17 01/05/17 05:59 05:59 05:59 Intake Total 2702 2951 Output Total 3430 4030 Balance -728 -1079 PT 15.2 SEC (12.0-15.0) H 12/19/16 04:08 INR 1.20 (0.83-1.16) H 12/19/16 04:08 - Physical Exam Constitutional: no apparent distress Eyes: PERRL Ears, Nose, Mouth, Throat: moist mucous membranes Cardiovascular: regular rate and rhythym Respiratory: no respiratory distress, bronchial breath sounds Gastrointestinal: normoactive bowel sounds, soft, non-tender abdomen, distension , other (+TARA drains) Skin: warm Musculoskeletal: full muscle strength Neurologic: AAOx3 Psychiatric: interacting appropriately ICD10 Worksheet Patient Problems: Problems Problem Status Onset Colon cancer Acute
[2017-01-04] MEDS: CHLORHEXIDINE GLUCONATE 15 ML UDL PO SCH ×2 (09:38→20:58)
[2017-01-04] MEDS: ENOXAPARIN 40 MG/0.4 ML SYR SC SCH ×2 (09:41→20:58)
[2017-01-04] MEDS: MICAFUNGIN NA 100 MG in NS 100 ML IV SCH (09:43)
[2017-01-04 09:46] LABS: % IMMATURE GRANULYOCYTES 0.9 % (0.0-1.1); ABSOLUTE IMMATURE GRANULOCYTES 0.14 10^3/uL (0.00-0.10); ADD DIFF? NO; ADD MORPH? NO; ADD SCAN? NO; ATYPICAL LYMPHOCYTE FLAG 20 (0-99); FRAGMENT RBC FLAG 10 (0-99); HEMATOCRIT 27.8 % (38.0-47.0); HEMOGLOBIN 9.1 g/dL (12.6-16.3); LEFT SHIFT FLG 30 (0-99); LIPEMIA HEMOLYSIS FLAG 80 (0-99); MEAN CELL HEMOGLOBIN CONCENTR. 32.7 g/dL (32.4-36.7); MEAN CELL VOLUME 91.7 fL (81.5-99.8); MEAN PLATELET VOLUME 10.1 fL (8.7-11.7); PLATELET CLUMPS FLAG 0 (0-99); PLATELET COUNT 308 10^3/uL (150-400); RED BLOOD CELL COUNT 3.03 10^6/uL (4.18-5.33)
[2017-01-04 10:13] LABS: ALANINE AMINOTRANSFERASE 42 IU/L (9-52); ALKALINE PHOSPHATASE 327 IU/L (38-126); ANION GAP 12 mEq/L (8-16); ASPARTATE AMINOTRANSFERASE 71 IU/L (14-46); BILIRUBIN,TOTAL 1.3 mg/dL (0.1-1.4); CARBON DIOXIDE 33 mEq/l (22-31); CHLORIDE 98 mEq/L (97-110); CREATININE 0.7 mg/dL (0.6-1.0); GLOMERULAR FILTRATION RATE > 60; GLUCOSE 109 mg/dL (70-100); POTASSIUM 3.9 mEq/L (3.5-5.2); SODIUM 143 mEq/L (134-144); TOTAL PROTEIN 6.7 g/dL (6.3-8.2)
--- NOTE | 2017-01-04 12:55 | PDINTPN ---
Comptroller Progress Note Assessment/Plan: Assessment: 56 F with newly diagnosed colon cancer s/p colectomy complicated by anastamotic leak/peritonitis and sepsis, and respiratory failure. She had difficulty with weans and required tracheostomy 12/[address] Kruger without complication. * Acute respiratory failure with hypoxia- New problem to me 01/02. Tolerating change from AC to IMV today. More alert and will continue efforts to weaning. Tolerating CPAP, although VE a bit high at 12 liters/minute. Sats OK on 40%. Unable to speak during voicing trial with 8mm trach. * Peritonitis- Stable after subphrenic abscess drainage. WBC high but stable. No fever. Continue Micafungin, Zosyn. * Pneumonia: LLL. Improved on CXR, possibly due, in part, to diuresis in addition to antibiotics. * Anemia- H/H low but trending up without signs of bleeding. * MARTA- Resolved. Excellent UOP, I<O today, but she's 10 liters up for the week. * May be ready for LTACH in a few days. Family prefers [place]. Plan: Diuresis. Wean down Precedex, Fentanyl. Increase activity. Follow CXR, continue antibiotics, RUQ abscess drainage. Will downsize trach today, start voicing trials. 01/04/17 12:53 Subjective: Feels OK, strength improving, but didn't tolerate CPAP as long this morning. Denies pain. Objective: Vital Signs Temp Pulse Resp BP Pulse Ox 36.7 C 80 24 H 113/72 95 01/04/17 04:00 01/04/17 08:43 01/04/17 05:54 01/04/17 05:54 01/04/17 08:43 Microbiology 12/29/16 12:15 Gram Stain - Final Peritoneal Fluid - Aspirate 12/30/16 Unknown Gram Stain - Final Peritoneal Fluid - Aspirate 12/29/16 13:30 Gram Stain - Final Pleural Fluid - Aspirate Laboratory Results 01/04/17 09:30 01/04/17 09:30 01/03/17 01/04/17 01/05/17 05:59 05:59 05:59 Intake Total 2702 2951 Output Total 3430 4030 Balance -728 -1079 PT 15.2 SEC (12.0-15.0) H 12/19/16 04:08 INR 1.20 (0.83-1.16) H 12/19/16 04:08 Physical Exam - Physical Exam General Appearance: alert, no apparent distress EENT: normal ENT inspection Neck: normal inspection Respiratory: lungs clear, normal breath sounds Cardiac/Chest: regular rate, rhythm, No edema Abdomen: normal bowel sounds, non-tender Skin: normal color, warm/dry Extremities: non-tender Neuro/Psych: alert, normal mood/affect, oriented x 3 ICD10 Worksheet Patient Problems: Problems Problem Status Onset Colon cancer Acute
--- NOTE | 2017-01-04 13:21 | SOAPPROG ---
SOAP Progress Note Assessment/Plan: Assessment: s/p right hemicolectomy for colon cancer and anastomotic dehiscence at staple line s/p ex lap with washout and reanastomosis s/p drainage of abscess above liver Neuro - controlled Resp - Thoracentesis. Tolerating weaning Cards - stable GI - Return of bowel function. Tube feeds to goal. Monitor drain output. Renal - good uop Skin - Wound vac change tues/fri. Wound with healthy granulation tissue. No evidence of succus Heme/ID- on broad spectrum Dispo - continue ICU. Swallow study today and continue wean vent. Seen c Dr. Cat S: No new issues. Alert and asking questions. Improving dramatically. O: Lying in bed comfortable. Trached. Open eyes, asking questions, alert. Decreased at bases R>L. Regular rate. Bowel sounds present, soft, Vac dressing intact to suction. Soft and nontender to palpation. Drains with purulent fluid in TARA drains. Koenig clear yellow urine SCDs in place. 01/04/17 13:20 Objective: Vital Signs Temp Pulse Resp BP Pulse Ox 36.7 C 80 24 H 113/72 95 01/04/17 04:00 01/04/17 08:43 01/04/17 05:54 01/04/17 05:54 01/04/17 08:43 Microbiology 12/29/16 12:15 Gram Stain - Final Peritoneal Fluid - Aspirate 12/30/16 Unknown Gram Stain - Final Peritoneal Fluid - Aspirate 12/29/16 13:30 Gram Stain - Final Pleural Fluid - Aspirate Laboratory Results 01/04/17 09:30 01/04/17 09:30 01/03/17 01/04/17 01/05/17 05:59 05:59 05:59 Intake Total 2702 2951 Output Total 3430 4030 Balance -728 -1079 PT 15.2 SEC (12.0-15.0) H 12/19/16 04:08 INR 1.20 (0.83-1.16) H 12/19/16 04:08 ICD10 Worksheet Patient Problems: Problems Problem Status Onset Colon cancer Acute
--- NOTE | 2017-01-04 14:22 | PCMIDPN ---
Assessment/Plan: # Severe septic shock, now resolved due to peritonitis following anastomotic leak s/p washouts # Peritonitis/abdominal abscess. Now with multiple abscesses along the liver, reviewed CT personally. IR placed drains and now significant clinical improvement. Notable purulent discharge from drains, 20-50 cc out from each drain. No fever. WBC remains slightly elevated --continue on zosyn -->GI lemuel and known enterococcus --continue on micafungin --> yeast on gram stain from original surgery --cultures from aspirate 12/29 show enterococcus, await sensi --duration of therapy unclear, discuss timing of repeat imaging with surgery. # R exudative pleural effusion -Cx neg so far microbiology 12/13 surgery gram stain: GPR, GPC, GNR, yeast: Cx enterococcus 12/14 blood cx (2) negative 12/17 sputum: Ana albicans and non albicans Ana 12/18 blood cultures 2 set negative 12/20 abdominal aspirate: Gram stain neg; Cx negative 12/28 blood cx (2) NGTD 12/29 Abscess aspirate 1+ GPC, Cx enterococcu 12/29 pleural fluid aspirate: Gram stain neg for organisms, cx neg meds zosyn 3.375gm IV q6h 12/14 #22 micafungin 100mg IV daily #22 Subjective: Complains of abdominal pain and wants to get back to bed. Objective: Vital Signs Temp Pulse Resp BP Pulse Ox 37.4 C 61 20 148/77 H 96 01/04/17 12:00 01/04/17 13:58 01/04/17 13:58 01/04/17 13:58 01/04/17 13:58 Microbiology 12/30/16 Unknown Gram Stain - Final Peritoneal Fluid - Aspirate 12/29/16 12:15 Gram Stain - Final Peritoneal Fluid - Aspirate 12/29/16 13:30 Gram Stain - Final Pleural Fluid - Aspirate Laboratory Results 01/04/17 09:30 01/04/17 09:30 01/03/17 01/04/17 01/05/17 05:59 05:59 05:59 Intake Total 2702 2951 Output Total 3430 4030 Balance -420 -5971 - Physical Exam General Appearance: alert, other (Sitting up in a chair) EENT: dry mucous membranes, other (Trach in place) Respiratory: other (Decreased breath sounds in the base), No accessory muscle use Neck: supple Cardiac/Chest: regular rate, rhythm Extremities: pedal edema Abdomen: non-tender, soft, other (wound vac in place midline incision; TARA drain RUQ with purulent discharge) Pelvic Exam: ponce Skin: pallor, No rash Neuro/Psych: alert, other (following commands) - Line/s LUE PICC Lines: No drainage, No erythema ICD10 Worksheet Patient Problems: Problems Problem Status Onset Colon cancer Acute
[2017-01-04] MEDS ORDERED: LIDOCAINE 2% 5 ML SDV ONE (15:43)
[2017-01-04] MEDS ORDERED: LIDOCAINE 2% JELLY 5 ML TUBE ONE (15:44)
[2017-01-05] MEDS: PIPERACILLIN/TAZO 3.375 GM/DEX 50 ML IV SCH ×5 (00:30→23:43)
[2017-01-05] MEDS: ALBUTEROL 200 PUFFS/18 GM MDI IH SCH ×6 (04:16→23:42)
[2017-01-05 04:34] LABS: % IMMATURE GRANULYOCYTES 0.9 % (0.0-1.1); ABSOLUTE IMMATURE GRANULOCYTES 0.12 10^3/uL (0.00-0.10); ADD DIFF? NO; ADD MORPH? NO; ADD SCAN? NO; ATYPICAL LYMPHOCYTE FLAG 20 (0-99); FRAGMENT RBC FLAG 10 (0-99); HEMATOCRIT 28.6 % (38.0-47.0); HEMOGLOBIN 9.3 g/dL (12.6-16.3); LEFT SHIFT FLG 10 (0-99); LIPEMIA HEMOLYSIS FLAG 80 (0-99); MEAN CELL HEMOGLOBIN 30.5 pg (27.9-34.1); MEAN CELL HEMOGLOBIN CONCENTR. 32.5 g/dL (32.4-36.7); MEAN CELL VOLUME 93.8 fL (81.5-99.8); MEAN PLATELET VOLUME 10.2 fL (8.7-11.7); PLATELET CLUMPS FLAG 0 (0-99); PLATELET COUNT 304 10^3/uL (150-400); RED BLOOD CELL COUNT 3.05 10^6/uL (4.18-5.33); RED CELL DISTRIBUTION WIDTH 16.9 % (11.5-15.2)
[2017-01-05 04:55] LABS: MAGNESIUM 1.7 mg/dL (1.6-2.3)
[2017-01-05] MEDS: fentaNYL/NACL 100 ML IV SCH (08:28)
[2017-01-05] MEDS: ENOXAPARIN 40 MG/0.4 ML SYR SC SCH (09:49)
[2017-01-05] MEDS: CHLORHEXIDINE GLUCONATE 15 ML UDL PO SCH ×2 (09:49→19:54)
[2017-01-05] MEDS: MICAFUNGIN NA 100 MG in NS 100 ML IV SCH (09:50)
--- NOTE | 2017-01-05 11:44 | PDINTPN ---
Apprentice Architect Progress Note Assessment/Plan: Assessment: 56 F with newly diagnosed colon cancer s/p colectomy complicated by anastamotic leak/peritonitis and sepsis, and respiratory failure. She had difficulty with weans and required tracheostomy 12/[address] Kruger without complication. * Acute respiratory failure with hypoxia- Tolerating CPAP briefly, but not as well as yesterday morning. Sats OK on 40%. Briefly able to speak during voicing trial with 6mm trach yesterday. * Peritonitis- Stable after subphrenic abscess drainage. WBC high but stable. No fever. Continue Micafungin, Zosyn. * Pneumonia: LLL. Improved on CXR, possibly due, in part, to diuresis in addition to antibiotics. * Anemia- H/H low but trending up without signs of bleeding. * MARTA- Resolved. Excellent UOP, I<O today, but she's 10 liters up for the week. * May be ready for LTACH in a few days. Family prefers [place]. * Elevated LFTs: Mildly elevated. ? related to antibiotics, critical illness. Plan: Diuresis. Wean down Fentanyl. Increase activity. Follow CXR, continue antibiotics, RUQ abscess drainage. Repeat Lasix. Continue voicing trials. Repeat CMP. 01/05/17 11:46 Subjective: Feels OK, strength better, denies pain. Only tolerated CPAP for 20 minutes. Objective: Vital Signs Temp Pulse Resp BP Pulse Ox 36.7 C 58 L 18 157/91 H 100 01/05/17 07:46 01/05/17 10:00 01/05/17 10:00 01/05/17 10:00 01/05/17 10:00 Microbiology 12/29/16 12:15 Gram Stain - Final Peritoneal Fluid - Aspirate 12/30/16 Unknown Gram Stain - Final Peritoneal Fluid - Aspirate 12/29/16 13:30 Gram Stain - Final Pleural Fluid - Aspirate Laboratory Results 01/05/17 04:25 01/04/17 09:30 01/04/17 01/05/17 01/06/17 05:59 05:59 05:59 Intake Total 2951 2275 Output Total 4030 1755 1 Balance -1079 520 -1 PT 15.2 SEC (12.0-15.0) H 12/19/16 04:08 INR 1.20 (0.83-1.16) H 12/19/16 04:08 Laboratory Tests 01/04/17 09:30 Total Bilirubin 1.3 AST 71 H Alkaline Phosphatase 327 H Physical Exam - Physical Exam General Appearance: alert, no apparent distress EENT: normal ENT inspection Neck: normal inspection, other (trach OK) Respiratory: lungs clear, normal breath sounds Cardiac/Chest: regular rate, rhythm, edema (trace) Abdomen: normal bowel sounds, non-tender, soft Skin: normal color, warm/dry Extremities: normal inspection Neuro/Psych: alert, normal mood/affect ICD10 Worksheet Patient Problems: Problems Problem Status Onset Colon cancer Acute
[2017-01-05] MEDS ORDERED: FUROSEMIDE 20 MG/2 ML VIAL IVP ONE (11:46)
--- NOTE | 2017-01-05 14:03 | HOSPPROG ---
Hospitalist Progress Note Assessment/Plan: Colon cancer s/p colectomy with anastomotic leak and intra-abdominal abscess - septic shock physiology resolved * Cont Micofungin and Zosyn, ID following * aspirate 12/13 with Enterococcus, recent aspirate 12/20 ngtd * R subdiaphragmatic abscess aspirated 12/29, albeit incompletely, Cx growing enterococcus and anaerobic GNR. reaspirated 12/30, Cx ngtd. Acute respiratory failure in setting of R pleural effusion and suspected PNA: trach'd. effusion is exudate, likely 2/2 subdiaphragmatic abscess, on atbx speech following, able to speak a bit with change in trach from 8 to 6 mm pleural fluid cx ngtd rpt CXR 01/03 personally reviewed and interpreted, shows interval improvement of effusion and consolidation discussed case with pulm wean precedex and fentanyl as able NSVT: ekg and trop normal two days ago anemia: s/p 3 days of IV iron and 2 units prbc's after acute vaginal bleeding, now resolved. hgb stable. cont to monitor. nutrition: tube feeds at goal may not need PEG if continues to improve Trichomonas in urine DVT prophylaxis * Lovenox resumed, watch for signs of bleeding dispo cont inpt / icu, may go to LTAC later in the week Subjective: Pt up in chair, off vent, attempting to vocalize with trach cuff, working with speech. No pain. No fevers. Objective: Vital Signs Temp Pulse Resp BP Pulse Ox 36.8 C 67 26 H 168/94 H 100 01/05/17 12:00 01/05/17 12:37 01/05/17 12:37 01/05/17 12:37 01/05/17 12:37 Microbiology 12/30/16 Unknown Gram Stain - Final Peritoneal Fluid - Aspirate 12/29/16 13:30 Gram Stain - Final Pleural Fluid - Aspirate Anaerobic Culture - Final 12/29/16 12:15 Gram Stain - Final Peritoneal Fluid - Aspirate Laboratory Results 01/05/17 04:25 01/04/17 09:30 01/04/17 01/05/17 01/06/17 05:59 05:59 05:59 Intake Total 2951 2275 Output Total 4030 1755 1 Balance -1079 520 -1 PT 15.2 SEC (12.0-15.0) H 12/19/16 04:08 INR 1.20 (0.83-1.16) H 12/19/16 04:08 - Physical Exam Constitutional: no apparent distress Eyes: PERRL Ears, Nose, Mouth, Throat: moist mucous membranes Cardiovascular: regular rate and rhythym Respiratory: no respiratory distress, bronchial breath sounds Gastrointestinal: normoactive bowel sounds, soft, non-tender abdomen Skin: warm Musculoskeletal: full muscle strength Neurologic: AAOx3 Psychiatric: interacting appropriately ICD10 Worksheet Patient Problems: Problems Problem Status Onset Colon cancer Acute
--- NOTE | 2017-01-05 14:15 | SOAPPROG ---
SOAP Progress Note Assessment/Plan: Assessment: 56yo female with resolving sepsis, s/p laparotomy for anastomotic leak after right colon resection for adenocarcinoma, acute renal failure, resp failure. s/p ex-lap washout s/p drainage of liver abscess PE trach, awake, alert, in chair Abdomen midline VAC with no signs of leak or discharge, abdomen very soft to palpation, TARA drains with small amount of purlent drainage. LE no edema Plan: improving, eventual LTAC, possibly later this week. saw pt with Dr Adkins 12/17/16 09:38 12/17/16 09:42 12/18/16 11:08 01/05/17 14:12 Objective: Vital Signs Temp Pulse Resp BP Pulse Ox 36.8 C 67 26 H 168/94 H 100 01/05/17 12:00 01/05/17 12:37 01/05/17 12:37 01/05/17 12:37 01/05/17 12:37 Microbiology 12/30/16 Unknown Gram Stain - Final Peritoneal Fluid - Aspirate 12/29/16 13:30 Gram Stain - Final Pleural Fluid - Aspirate Anaerobic Culture - Final 12/29/16 12:15 Gram Stain - Final Peritoneal Fluid - Aspirate Laboratory Results 01/05/17 04:25 01/04/17 09:30 01/04/17 01/05/17 01/06/17 05:59 05:59 05:59 Intake Total 2951 2275 Output Total 4030 1755 1 Balance -1079 520 -1 PT 15.2 SEC (12.0-15.0) H 12/19/16 04:08 INR 1.20 (0.83-1.16) H 12/19/16 04:08 ICD10 Worksheet Patient Problems: Problems Problem Status Onset Colon cancer Acute
[2017-01-05] MEDS ORDERED: ENALAPRILAT DIHYDRATE 1.25 MG/ML VIAL ONE (15:22)
[2017-01-05] MEDS: ENALAPRILAT DIHYDRATE 1.25 MG/ML VIAL IVP PRN ×2 (15:28→22:12)
--- NOTE | 2017-01-05 18:14 | PCMIDPN ---
Assessment/Plan: Assessment: Peritonitis and sepsis status post anastomotic leak. Currently covered with both Zosyn and micafungin therapy. Abdominal aspirate from 12/29 growing sensitive Enterococcus faecalis and an anaerobe. Patient now with trach and intermittent vent support. Plan: 1. Continue both Zosyn and micafungin. 2. Follow clinical course and most recent abdominal fluid culture data. 12/26/16 17:06 01/05/17 23:04 Subjective: Patient is resting in her bed. Trach in place. Communicates effectively. No new issues. Breathing comfortably. Some abdominal discomfort. Objective: zosyn #23 micafungin #23 Vital Signs Temp Pulse Resp BP Pulse Ox 36.8 C 77 32 H 180/95 H 97 01/05/17 12:00 01/05/17 17:22 01/05/17 17:22 01/05/17 17:22 01/05/17 17:22 Microbiology 12/29/16 12:15 Gram Stain - Final Peritoneal Fluid - Aspirate 12/30/16 Unknown Gram Stain - Final Peritoneal Fluid - Aspirate 12/29/16 13:30 Gram Stain - Final Pleural Fluid - Aspirate Anaerobic Culture - Final Laboratory Results 01/05/17 04:25 01/04/17 09:30 01/04/17 01/05/17 01/06/17 05:59 05:59 05:59 Intake Total 2951 2275 602 Output Total 4030 1755 1351 Balance -1079 637 -459 - Physical Exam General Appearance: WD/WN, alert, no apparent distress, obese, non-toxic Respiratory: lungs clear, normal breath sounds, No respiratory distress Neck: non-tender, No normal inspection (trach in place) Cardiac/Chest: regular rate, rhythm, No tachycardia Extremities: non-tender, normal inspection Abdomen: soft, No non-tender, No mass Skin: normal color, warm/dry, No rash Neuro/Psych: alert, normal mood/affect, oriented x 3 ICD10 Worksheet Patient Problems: Problems Problem Status Onset Colon cancer Acute
[2017-01-05] MEDS: fentaNYL 100 MCG/2 ML INJ IVP PRN (19:35)
[2017-01-05] MEDS: ONDANSETRON 4 MG/2 ML VIAL IVP PRN (23:42)
[2017-01-06] MEDS: fentaNYL 100 MCG/2 ML INJ IVP PRN (03:03)
[2017-01-06] MEDS: ALBUTEROL 200 PUFFS/18 GM MDI IH SCH ×5 (04:13→20:40)
[2017-01-06 05:17] LABS: ALANINE AMINOTRANSFERASE 45 IU/L (9-52); ALBUMIN 3.4 g/dL (3.5-5.0); ALKALINE PHOSPHATASE 349 IU/L (38-126); ANION GAP 11 mEq/L (8-16); ASPARTATE AMINOTRANSFERASE 56 IU/L (14-46); BILIRUBIN,TOTAL 1.5 mg/dL (0.1-1.4); CALCIUM 9.3 mg/dL (8.5-10.4); CARBON DIOXIDE 35 mEq/l (22-31); CHLORIDE 97 mEq/L (97-110); CREATININE 0.6 mg/dL (0.6-1.0); GLOMERULAR FILTRATION RATE > 60; GLUCOSE 93 mg/dL (70-100); MAGNESIUM 1.5 mg/dL (1.6-2.3); POTASSIUM 3.6 mEq/L (3.5-5.2); SODIUM 143 mEq/L (134-144); TOTAL PROTEIN 7.5 g/dL (6.3-8.2)
[2017-01-06] MEDS: PIPERACILLIN/TAZO 3.375 GM/DEX 50 ML IV SCH ×4 (05:33→23:17)
[2017-01-06] MEDS: ONDANSETRON 4 MG/2 ML VIAL IVP PRN (08:29)
[2017-01-06] MEDS: ENOXAPARIN 40 MG/0.4 ML SYR SC SCH (08:29)
[2017-01-06] MEDS: MICAFUNGIN NA 100 MG in NS 100 ML IV SCH (09:11)
[2017-01-06] MEDS: CHLORHEXIDINE GLUCONATE 15 ML UDL PO SCH ×2 (09:11→21:08)
[2017-01-06] MEDS ORDERED: PROTOCOL MAGNESIUM 1 DOSE IV PRN (10:35)
[2017-01-06] MEDS ORDERED: PROTOCOL POTASSIUM 1 DOSE MISC PRN (10:35)
[2017-01-06] MEDS ORDERED: PROCHLORPERAZINE MALEATE 10 MG TAB PO PRN (10:36)
[2017-01-06] MEDS ORDERED: traZODone 50 MG TAB PO PRN (11:01)
[2017-01-06] MEDS: FAMOTIDINE 20 MG/NACL 50 ML IV SCH ×2 (11:38→21:08)
--- NOTE | 2017-01-06 12:19 | HOSPPROG ---
Hospitalist Progress Note Assessment/Plan: Colon cancer s/p colectomy with anastomotic leak and intra-abdominal abscess - septic shock physiology resolved * Cont Micofungin and Zosyn, ID following * Repeat imaging 10-14 days, cont atbx until then per ID * aspirate 12/13 with Enterococcus, recent aspirate 12/20 ngtd * R subdiaphragmatic abscess aspirated 12/29, albeit incompletely, Cx growing enterococcus and anaerobic GNR. reaspirated 12/30, Cx ngtd. Acute respiratory failure in setting of R pleural effusion and suspected PNA: trach'd, off vent all morning. effusion is exudate, likely 2/2 subdiaphragmatic abscess. weaned off precedex and fentanyl drips. speech following, speaking better today pleural fluid cx ngtd rpt CXR 01/03 with interval improvement of effusion and consolidation discussed case with pulm NSVT: ekg and trop nl, remains stable anemia: s/p 3 days of IV iron and 2 units prbc's after acute vaginal bleeding, now resolved. hgb stable. cont to monitor. nutrition: ng tube out, taking some po though some N/V overnight -add pepcid Trichomonas in urine Koenig present - possibly d/c in 1-2 days when mobility improved DVT prophylaxis * Lovenox resumed, watch for signs of bleeding dispo cont inpt / icu, may go to LTAC later in the week Subjective: PT up in chair, off vent all morning, maintaining sats. She is able to speak, taking po. Had some N/V overnight, but she had been drinking soda. No fevers. Objective: Vital Signs Temp Pulse Resp BP Pulse Ox 37 C 92 30 H 150/89 H 99 01/06/17 07:52 01/06/17 10:00 01/06/17 10:00 01/06/17 10:00 01/06/17 10:00 Microbiology 12/29/16 12:15 Gram Stain - Final Peritoneal Fluid - Aspirate 12/30/16 Unknown Gram Stain - Final Peritoneal Fluid - Aspirate 12/29/16 13:30 Gram Stain - Final Pleural Fluid - Aspirate Anaerobic Culture - Final Laboratory Results 01/05/17 04:25 01/06/17 04:15 01/05/17 01/06/17 01/07/17 05:59 05:59 05:59 Intake Total 7196 2492 Output Total 1566 7057 Balance 520 -2899 PT 15.2 SEC (12.0-15.0) H 12/19/16 04:08 INR 1.20 (0.83-1.16) H 12/19/16 04:08 - Physical Exam Constitutional: no apparent distress Eyes: PERRL Ears, Nose, Mouth, Throat: moist mucous membranes Cardiovascular: regular rate and rhythym Respiratory: no respiratory distress Gastrointestinal: normoactive bowel sounds, distension Skin: warm Musculoskeletal: full muscle strength Neurologic: AAOx3 Psychiatric: interacting appropriately ICD10 Worksheet Patient Problems: Problems Problem Status Onset Colon cancer Acute
[2017-01-06] MEDS ORDERED: FUROSEMIDE 20 MG/2 ML VIAL IVP ONE (12:45)
--- NOTE | 2017-01-06 12:50 | PDINTPN ---
Hospice Consultant Progress Note Assessment/Plan: Assessment: 56 F with newly diagnosed colon cancer s/p colectomy complicated by anastamotic leak/peritonitis and sepsis, and respiratory failure. She had difficulty with weans and required tracheostomy 12/[address] Kruger without complication. * Acute respiratory failure with hypoxia- Doing well on 40% trach collar with PMSV. * Peritonitis- Stable after subphrenic abscess drainage. WBC high, down a bit. No fever. Continue Micafungin, Zosyn. * Pneumonia: Bibasilar. Improved on CXR, possibly due, in part, to diuresis in addition to antibiotics. * Anemia- H/H low but trending up without signs of bleeding. * MARTA- Resolved. Excellent UOP, I<O today. * May be ready for LTACH in a few days. Family prefers [facility]. However, if she continue to improve daily, might be able to go home in the next weeks or two. * Elevated LFTs: Mildly elevated and climbing a bit. ? related to antibiotics, critical illness. Plan: Wean down Fentanyl. Increase activity. Follow CXR, continue antibiotics, RUQ abscess drainage. Repeat Lasix. Continue voicing trials. Repeat CMP. 01/06/17 12:58 Subjective: Feels OK, had vomiting last night and nausea this morning. Now no nausea, resuming POs. Objective: Vital Signs Temp Pulse Resp BP Pulse Ox 37 C 93 25 H 146/88 H 99 01/06/17 12:00 01/06/17 12:00 01/06/17 12:00 01/06/17 12:00 01/06/17 12:00 Microbiology 12/29/16 12:15 Gram Stain - Final Peritoneal Fluid - Aspirate 12/30/16 Unknown Gram Stain - Final Peritoneal Fluid - Aspirate 12/29/16 13:30 Gram Stain - Final Pleural Fluid - Aspirate Anaerobic Culture - Final Laboratory Results 01/05/17 04:25 01/05/17 01/06/17 01/07/17 05:59 05:59 05:59 Intake Total 2275 1272 Output Total 3615 6741 Balance 520 -2899 PT 15.2 SEC (12.0-15.0) H 12/19/16 04:08 INR 1.20 (0.83-1.16) H 12/19/16 04:08 Laboratory Tests 01/06/17 04:15 AST 56 H ALT 45 Alkaline Phosphatase 349 H Physical Exam - Physical Exam General Appearance: alert EENT: normal ENT inspection Neck: normal inspection, other (trach OK) Respiratory: crackles (bases) Cardiac/Chest: regular rate, rhythm, edema (trace) Abdomen: normal bowel sounds, non-tender Skin: normal color, warm/dry Extremities: non-tender, normal inspection Neuro/Psych: alert, normal mood/affect, oriented x 3 ICD10 Worksheet Patient Problems: Problems Problem Status Onset Colon cancer Acute
[2017-01-06 13:05] LABS: MAGNESIUM 1.6 mg/dL (1.6-2.3); POTASSIUM 3.5 mEq/L (3.5-5.2)
--- NOTE | 2017-01-06 13:26 | PCMIDPN ---
Assessment/Plan: # Severe septic shock, now resolved # Polymicrobial Peritonitis/abdominal abscess. Enterococcus and anaerobes isolated. Multiple abscesses along the liver, s/p IR placed drains and now significant clinical improvement. Notable purulent discharge from drains, 20- 50 cc out from each drain. No fever. no new WBC today, yesterday WBC slightly improved --continue on Zosyn for GI lemuel and known enterococcus --continue on micafungin --> yeast on gram stain from original surgery + colonized with non albicans yeast --cultures from aspirate 12/29 show enterococcus, still awaiting sensi --repeat imaging 10-14 days. Will continue antibiotics for that duration. microbiology 12/13 surgery gram stain: GPR, GPC, GNR, yeast: Cx enterococcus 12/14 blood cx (2) negative 12/17 sputum: Ana albicans and non albicans Ana 12/18 blood cultures 2 set negative 12/20 abdominal aspirate: Gram stain neg; Cx negative 12/28 blood cx (2) Neg 12/29 Abscess aspirate 1+ GPC, Cx enterococcus + anaerobic GNR 12/29 pleural fluid aspirate: Gram stain neg for organisms, cx neg meds zosyn 3.375gm IV q6h 12/14 #24 micafungin 100mg IV daily #[address] Cat Subjective: no specific c/o, smiling Objective: Vital Signs Temp Pulse Resp BP Pulse Ox 37 C 93 25 H 146/88 H 99 01/06/17 12:00 01/06/17 12:00 01/06/17 12:00 01/06/17 12:00 01/06/17 12:00 Microbiology 12/29/16 12:15 Gram Stain - Final Peritoneal Fluid - Aspirate 12/30/16 Unknown Gram Stain - Final Peritoneal Fluid - Aspirate 12/29/16 13:30 Gram Stain - Final Pleural Fluid - Aspirate Anaerobic Culture - Final Laboratory Results 01/05/17 04:25 01/06/17 12:00 01/05/17 01/06/17 01/07/17 05:59 05:59 05:59 Intake Total 2275 1272 Output Total 1755 4171 Balance 520 -2899 - Physical Exam General Appearance: alert, no apparent distress Respiratory: lungs clear, accessory muscle use Neck: supple Cardiac/Chest: regular rate, rhythm Abdomen: non-tender, soft, other (TARA drains with purulent drainage) Pelvic Exam: ponce Skin: pallor, No rash Neuro/Psych: alert, normal mood/affect, oriented x 3 - Line/s RUE PICC Lines: No drainage, No erythema ICD10 Worksheet Patient Problems: Problems Problem Status Onset Colon cancer Acute
[2017-01-06] MEDS: OXYCODONE/APAP 5/325 TAB PO PRN (13:48)
[2017-01-06] MEDS: POTASSIUM Cl (KCl) 50 ML IV SCH ×2 (14:39→14:40)
[2017-01-06] MEDS: ALTEPLASE 2 MG VIAL IVP PRN ×3 (14:39→20:55)
[2017-01-06] MEDS ORDERED: MAGNESIUM SULF 1 GM/DEXTROSE 100 ML BAG IV ONE (15:01)
--- NOTE | 2017-01-06 15:10 | WOCRNPDOC ---
WOCROleg Advanced Assessment Note - Skin Integrity Problem, Advanced Assess Abdomen Dressing Type: Black Vac Foam (1 piece), Wound Vac Dressing Description: Intact Exudate Amount: Scant Exudate Color: Reddish/Yellow Exudate Characteristic(s): Serosanguinous Integumentary Issue Intervention: Dressing Changed Sirisha Wound Tissue: Intact Wound Bed Color: Red, Yellow Wound Bed Constitution: Granulation Tissue, Adhered Slough Wound Edges: Epithelizing Site Odor: None Skin Integrity Problem Comment: Midline abdominal wound w/ 15% adhered slough and 85% robust granulation tissue. There is a discrete 2.5cmx1.2cm area of adhered slough in the proximal aspect of the wound that dips down into a small depression. This was explored gently w/ a cotton-tipped applicator, and showed some undermining along the right side 0.3cm under the granulation tissue from 7- 9 o'clock. This could represent an area of deeper underlying necrosis, though I did not probe past slight resistance. Other areas of slough more distally appear to be superficial. Sirisha-wound skin is intact w/ no associated erythema. Wound cleansed w/ NS and gauze, then prepped and draped sirisha-wound. 1 piece of black granulofoam dressing cut and placed into wound bed. Vac set at 125mmHG, low, continuous w/ no leaks, Patient was alert and awake during the dressing change, and tolerated very well. Report given to accordion maker Marce, and to Dr. Cat and TOSHA Flaherty.
[2017-01-06] MEDS ORDERED: MAGNESIUM SULF 1 GM/DEXTROSE 100 ML IV ONE (15:30)
--- NOTE | 2017-01-06 16:29 | SOAPPROG ---
SOAP Progress Note Assessment/Plan: Assessment: s/p right hemicolectomy for colon cancer and anastomotic dehiscence at staple line s/p ex lap with washout and reanastomosis s/p drainage of abscess above liver Neuro - controlled Resp - Thoracentesis. Tolerating weaning Cards - stable GI - Return of bowel function. Starting to take PO. Monitor drain output. Renal - good uop Skin - Wound vac change tues/fri. Wound with healthy granulation tissue. No evidence of succus Heme/ID- on broad spectrum Dispo - continue ICU. NG removed - taking in PO, passed swallow eval. Koenig out today. Seen c Dr. Cat and Dr. Wheeler S: No new issues. Alert and asking questions. Improving dramatically. O: Sitting up in chair comfortable. Trached. Able to whisper around trach. No increased WOB. Bowel sounds present, soft, Vac dressing intact to suction. Soft and nontender to palpation. Drain with purulent fluid. Koenig clear yellow urine SCDs in place. Objective: Vital Signs Temp Pulse Resp BP Pulse Ox 37.4 C 93 30 H 165/92 H 99 01/06/17 16:00 01/06/17 16:00 01/06/17 16:00 01/06/17 16:00 01/06/17 16:00 Microbiology 12/29/16 12:15 Gram Stain - Final Peritoneal Fluid - Aspirate 12/30/16 Unknown Gram Stain - Final Peritoneal Fluid - Aspirate Anaerobic Culture - Final 12/29/16 13:30 Gram Stain - Final Pleural Fluid - Aspirate Anaerobic Culture - Final Laboratory Results 01/05/17 04:25 01/06/17 12:00 01/05/17 01/06/17 01/07/17 05:59 05:59 05:59 Intake Total 2275 1272 Output Total 1755 4171 Balance 520 -2899 PT 15.2 SEC (12.0-15.0) H 12/19/16 04:08 INR 1.20 (0.83-1.16) H 12/19/16 04:08 ICD10 Worksheet Patient Problems: Problems Problem Status Onset Colon cancer Acute
[2017-01-06] MEDS: ENALAPRILAT DIHYDRATE 1.25 MG/ML VIAL IVP PRN (16:42)
[2017-01-07] MEDS: ALBUTEROL 200 PUFFS/18 GM MDI IH SCH ×7 (00:20→23:56)
[2017-01-07 05:16] LABS: % IMMATURE GRANULYOCYTES 0.7 % (0.0-1.1); ABSOLUTE IMMATURE GRANULOCYTES 0.12 10^3/uL (0.00-0.10); ABSOLUTE NRBC COUNT 0.03 10^3/uL (0-0.01); ADD DIFF? NO; ADD MORPH? NO; ADD SCAN? NO; ATYPICAL LYMPHOCYTE FLAG 0 (0-99); FRAGMENT RBC FLAG 10 (0-99); HEMATOCRIT 31.8 % (38.0-47.0); HEMOGLOBIN 10.1 g/dL (12.6-16.3); LEFT SHIFT FLG 10 (0-99); LIPEMIA HEMOLYSIS FLAG 80 (0-99); MEAN CELL HEMOGLOBIN 29.6 pg (27.9-34.1); MEAN CELL HEMOGLOBIN CONCENTR. 31.8 g/dL (32.4-36.7); MEAN CELL VOLUME 93.3 fL (81.5-99.8); MEAN PLATELET VOLUME 10.2 fL (8.7-11.7); NRBC-AUTO% 0.2 % (0.0-0.2); PLATELET CLUMPS FLAG 0 (0-99); PLATELET COUNT 390 10^3/uL (150-400); RED BLOOD CELL COUNT 3.41 10^6/uL (4.18-5.33); RED CELL DISTRIBUTION WIDTH 16.8 % (11.5-15.2)
[2017-01-07 05:24] LABS: ALANINE AMINOTRANSFERASE 41 IU/L (9-52); ALBUMIN 3.6 g/dL (3.5-5.0); ALKALINE PHOSPHATASE 306 IU/L (38-126); ANION GAP 13 mEq/L (8-16); ASPARTATE AMINOTRANSFERASE 54 IU/L (14-46); BILIRUBIN,TOTAL 1.5 mg/dL (0.1-1.4); CALCIUM 8.9 mg/dL (8.5-10.4); CARBON DIOXIDE 30 mEq/l (22-31); CHLORIDE 97 mEq/L (97-110); CREATININE 0.6 mg/dL (0.6-1.0); GLOMERULAR FILTRATION RATE > 60; GLUCOSE 93 mg/dL (70-100); MAGNESIUM 1.6 mg/dL (1.6-2.3); POTASSIUM 3.7 mEq/L (3.5-5.2); SODIUM 140 mEq/L (134-144); TOTAL PROTEIN 7.5 g/dL (6.3-8.2)
[2017-01-07] MEDS: PIPERACILLIN/TAZO 3.375 GM/DEX 50 ML IV SCH ×3 (05:48→17:39)
[2017-01-07] MEDS ORDERED: POTASSIUM Cl (KCl) 50 ML IV ONE (05:50)
[2017-01-07] MEDS: ENOXAPARIN 40 MG/0.4 ML SYR SC SCH (08:59)
[2017-01-07] MEDS: FAMOTIDINE 20 MG/NACL 50 ML IV SCH (08:59)
[2017-01-07] MEDS: MICAFUNGIN NA 100 MG in NS 100 ML IV SCH (09:00)
[2017-01-07] MEDS ORDERED: MAGNESIUM SULF 1 GM/DEXTROSE 100 ML IV ONE (09:22)
--- NOTE | 2017-01-07 09:49 | PDINTPN ---
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 She had difficulty with weans and required tracheostomy 12/[address] Kruger without complication. * Acute respiratory failure with hypoxia- Doing well on 40% trach collar with PMSV. Off vent for 24 hours. * Peritonitis- Stable after subphrenic abscess drainage. WBC up today, but otherwise no signs of worsening. No fever. Off Fentanyl gtt. Continue Micafungin , Zosyn. * Pneumonia: Bibasilar. Improved on CXR, possibly due, in part, to diuresis in addition to antibiotics. * Anemia- H/H low but trending up without signs of bleeding. * MARTA- Resolved. Excellent UOP, I<O today. * May be ready for LTACH in a few days. Family prefers [facility]. However, if she continue to improve daily, might be able to go home in the next weeks or two. * Elevated LFTs: Mildly elevated, down a bit. ? related to antibiotics, critical illness, sub-phrenic abscesses. Plan: Increase activity. Follow CXR, continue antibiotics, RUQ abscess drainage. Repeat Lasix. Continue voicing trials. Follow CMP. 01/07/17 09:58 Subjective: [place] depressed last night, better today. Appetite just fair. Denies pain, except some uterine cramping last night related to her period, which has been more prolonged than usual. Objective: Vital Signs Temp Pulse Resp BP Pulse Ox 37.1 C 83 32 H 167/93 H 99 01/07/17 07:31 01/07/17 07:31 01/07/17 07:31 01/07/17 08:59 01/07/17 07:31 Microbiology 12/29/16 12:15 Gram Stain - Final Peritoneal Fluid - Aspirate 12/30/16 Unknown Gram Stain - Final Peritoneal Fluid - Aspirate Anaerobic Culture - Final Laboratory Results 01/07/17 04:25 01/07/17 04:25 01/06/17 01/07/17 01/08/17 05:59 05:59 05:59 Intake Total 1272 1620 Output Total 8541 2275 Balance -2899 -655 PT 15.2 SEC (12.0-15.0) H 12/19/16 04:08 INR 1.20 (0.83-1.16) H 12/19/16 04:08 Laboratory Tests 01/06/17 11:15 C. difficile Tox (PCR) NEGATIVE Physical Exam - Physical Exam General Appearance: alert, no apparent distress EENT: normal ENT inspection Neck: normal inspection Respiratory: lungs clear (coarse BS), other Cardiac/Chest: regular rate, rhythm, No edema Abdomen: normal bowel sounds, non-tender, soft Skin: normal color, warm/dry Extremities: normal inspection Neuro/Psych: alert, normal mood/affect, oriented x 3 ICD10 Worksheet Patient Problems: Problems Problem Status Onset Colon cancer Acute
--- NOTE | 2017-01-07 09:52 | PCMIDPN ---
Assessment/Plan: # Severe septic shock, now resolved # Polymicrobial Peritonitis/abdominal abscess. Enterococcus and anaerobes isolated. Multiple abscesses along the liver, s/p IR drains. Drain output looks much less purulent today.TARA output is remaining stable with a total of 75 cc/daily. WBC slightly up, but slow clinical improvement. --continue on Zosyn for GI lemuel and known enterococcus; micafungin --> yeast on gram stain from original surgery + colonized with non albicans yeast --if continued increases in WBC may have to get imaging earlier than planned microbiology 12/13 surgery gram stain: GPR, GPC, GNR, yeast: Cx enterococcus 12/14 blood cx (2) negative 12/17 sputum: Ana albicans and non albicans Ana 12/18 blood cultures 2 set negative 12/20 abdominal aspirate: Gram stain neg; Cx negative 12/28 blood cx (2) Neg 12/29 Abscess aspirate 1+ GPC, Cx enterococcus + anaerobic GNR 12/29 pleural fluid aspirate: Gram stain neg for organisms, cx neg meds zosyn 3.375gm IV q6h 12/14 #25 micafungin 100mg IV daily #25 Subjective: decreasing R sided pain General anorexia Objective: Vital Signs Temp Pulse Resp BP Pulse Ox 37.1 C 83 32 H 167/93 H 99 01/07/17 07:31 01/07/17 07:31 01/07/17 07:31 01/07/17 08:59 01/07/17 07:31 Microbiology 12/29/16 12:15 Gram Stain - Final Peritoneal Fluid - Aspirate 12/30/16 Unknown Gram Stain - Final Peritoneal Fluid - Aspirate Anaerobic Culture - Final Laboratory Results 01/07/17 04:25 01/07/17 04:25 01/06/17 01/07/17 01/08/17 05:59 05:59 05:59 Intake Total 1272 1620 Output Total 8265 6348 Balance -1927 -849 General: Smiling, interactive nontoxic HEENT: Moist mucous membranes, several teeth missing CV: RRR no murmur Chest: Coarse breath sounds diffusely Abdomen: Midline wound VAC, mild distention, nontender, [address] right side with mixed purulent and serous material PICC line C/D/I Skin: No rash ICD10 Worksheet Patient Problems: Problems Problem Status Onset Colon cancer Acute
[2017-01-07] MEDS ORDERED: FUROSEMIDE 20 MG/2 ML VIAL IVP ONE (09:54)
[2017-01-07] MEDS: CHLORHEXIDINE GLUCONATE 15 ML UDL PO SCH ×2 (10:18→18:44)
--- NOTE | 2017-01-07 10:54 | SOAPPROG ---
SOAP Progress Note Assessment/Plan: Assessment/Plan: wound vac removed continue to monitor fever with tylenol Hopefully off vent within next 1-2 days S: Patient was asleep when examined O: Gen: opens eye to verbal stimulation HEENT: ET tube, NG tube Abd: distended, tender to palpation, wound vac intact to suction, TARA with serosanguineous drain Pelvic: ponce 12/15/16 20:37 CONTINUES TO IMPROVE THIS P.M. 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 / WOUND VAC FUNCTIONING 12/16/16 12:19 01/07/17 10:52 much improved/ wound ok/ drainage minimal/ afebrile/ ostomy ok/afebrile/ still hypertensive/ off vent/ to med-surg soon Objective: Vital Signs Temp Pulse Resp BP Pulse Ox 37.1 C 88 30 H 156/100 H 100 01/07/17 07:31 01/07/17 10:00 01/07/17 10:00 01/07/17 10:00 01/07/17 10:00 Microbiology 12/29/16 12:15 Gram Stain - Final Peritoneal Fluid - Aspirate 12/30/16 Unknown Gram Stain - Final Peritoneal Fluid - Aspirate Anaerobic Culture - Final Laboratory Results 01/07/17 04:25 01/07/17 04:25 01/06/17 01/07/17 01/08/17 05:59 05:59 05:59 Intake Total 1272 1620 Output Total 0693 1581 Balance -2899 -655 PT 15.2 SEC (12.0-15.0) H 12/19/16 04:08 INR 1.20 (0.83-1.16) H 12/19/16 04:08 ICD10 Worksheet Patient Problems: Problems Problem Status Onset Colon cancer Acute
[2017-01-07] MEDS: FAMOTIDINE 20 MG TAB PO SCH ×2 (11:22→20:12)
--- NOTE | 2017-01-07 11:32 | HOSPPROG ---
Hospitalist Progress Note Assessment/Plan: Colon cancer s/p colectomy with anastomotic leak and intra-abdominal abscess - septic shock physiology resolved * Cont Micofungin and Zosyn, ID following * Repeat imaging 10-14 days, cont atbx until then per ID * aspirate 12/13 with Enterococcus, recent aspirate 12/20 ngtd * R subdiaphragmatic abscess aspirated 12/29, albeit incompletely, Cx growing enterococcus and anaerobic GNR. reaspirated 12/30, Cx ngtd. Acute respiratory failure in setting of R pleural effusion and suspected PNA: trach'd, off vent >24 hrs. effusion is exudate, likely 2/2 subdiaphragmatic abscess. weaned off precedex and fentanyl drips. speech following, speaking now pleural fluid cx ngtd rpt CXR 01/03 with interval improvement of effusion and consolidation discussed case with pulm NSVT: ekg and trop nl, remains stable anemia: s/p 3 days of IV iron and 2 units prbc's after acute vaginal bleeding, now resolved. hgb stable. cont to monitor. nutrition: ng tube out, taking some po though some N/V overnight -add pepcid -encouraging po intake Deconditioning - encourage activity, cont PT/OT Trichomonas in urine Koenig out today DVT prophylaxis * Lovenox resumed, watch for signs of bleeding dispo cont inpt / icu, may go to LTAC later in the week Subjective: Pt doing ok. She is weak. Poor appetite. Denies CP, SOB or abdominal pain. No fevers. Objective: Vital Signs Temp Pulse Resp BP Pulse Ox 37.1 C 88 30 H 156/100 H 100 01/07/17 07:31 01/07/17 10:00 01/07/17 10:00 01/07/17 10:00 01/07/17 10:00 Microbiology 12/29/16 12:15 Gram Stain - Final Peritoneal Fluid - Aspirate 12/30/16 Unknown Gram Stain - Final Peritoneal Fluid - Aspirate Anaerobic Culture - Final Laboratory Results 01/07/17 04:25 01/07/17 04:25 01/06/17 01/07/17 01/08/17 05:59 05:59 05:59 Intake Total 1272 1620 Output Total 4171 2275 Balance -2899 -655 PT 15.2 SEC (12.0-15.0) H 12/19/16 04:08 INR 1.20 (0.83-1.16) H 12/19/16 04:08 - Physical Exam Constitutional: no apparent distress Eyes: PERRL Ears, Nose, Mouth, Throat: moist mucous membranes Cardiovascular: regular rate and rhythym Respiratory: no respiratory distress, clear to auscultation Gastrointestinal: normoactive bowel sounds, soft, non-tender abdomen Skin: warm Musculoskeletal: full muscle strength Neurologic: AAOx3 Psychiatric: interacting appropriately ICD10 Worksheet Patient Problems: Problems Problem Status Onset Colon cancer Acute
[2017-01-07] MEDS: HYDROCHLOROTHIAZIDE 50 MG TAB PO SCH (12:01)
[2017-01-07 18:04] LABS: POTASSIUM 3.6 mEq/L (3.5-5.2)
[2017-01-07] MEDS: POTASSIUM Cl (KCl) 50 ML IV SCH ×3 (19:55→21:30)
[2017-01-07] MEDS: ALTEPLASE 2 MG VIAL IVP PRN (20:18)
[2017-01-08] MEDS: PIPERACILLIN/TAZO 3.375 GM/DEX 50 ML IV SCH ×4 (00:22→18:11)
[2017-01-08] MEDS: ALBUTEROL 200 PUFFS/18 GM MDI IH SCH ×2 (04:50→08:48)
[2017-01-08 05:42] LABS: % IMMATURE GRANULYOCYTES 0.6 % (0.0-1.1); ABSOLUTE NRBC COUNT 0.03 10^3/uL (0-0.01); ADD DIFF? NO; ADD MORPH? NO; ADD SCAN? NO; ATYPICAL LYMPHOCYTE FLAG 10 (0-99); FRAGMENT RBC FLAG 0 (0-99); HEMATOCRIT 32.9 % (38.0-47.0); HEMOGLOBIN 10.8 g/dL (12.6-16.3); LEFT SHIFT FLG 10 (0-99); LIPEMIA HEMOLYSIS FLAG 80 (0-99); MEAN CELL HEMOGLOBIN 29.7 pg (27.9-34.1); MEAN CELL HEMOGLOBIN CONCENTR. 32.8 g/dL (32.4-36.7); MEAN CELL VOLUME 90.4 fL (81.5-99.8); MEAN PLATELET VOLUME 9.9 fL (8.7-11.7); NRBC-AUTO% 0.2 % (0.0-0.2); PLATELET CLUMPS FLAG 10 (0-99); PLATELET COUNT 408 10^3/uL (150-400); RED BLOOD CELL COUNT 3.64 10^6/uL (4.18-5.33); RED CELL DISTRIBUTION WIDTH 16.2 % (11.5-15.2)
[2017-01-08 05:56] LABS: ALANINE AMINOTRANSFERASE 48 IU/L (9-52); ALBUMIN 3.6 g/dL (3.5-5.0); ALKALINE PHOSPHATASE 305 IU/L (38-126); ANION GAP 12 mEq/L (8-16); ASPARTATE AMINOTRANSFERASE 71 IU/L (14-46); BILIRUBIN,TOTAL 1.5 mg/dL (0.1-1.4); CALCIUM 9.4 mg/dL (8.5-10.4); CARBON DIOXIDE 30 mEq/l (22-31); CHLORIDE 95 mEq/L (97-110); CREATININE 0.7 mg/dL (0.6-1.0); GLOMERULAR FILTRATION RATE > 60; GLUCOSE 90 mg/dL (70-100); MAGNESIUM 1.6 mg/dL (1.6-2.3); POTASSIUM 3.8 mEq/L (3.5-5.2); SODIUM 137 mEq/L (134-144); TOTAL PROTEIN 7.9 g/dL (6.3-8.2)
[2017-01-08] MEDS ORDERED: POTASSIUM Cl (KCl) 50 ML IV ONE (06:12)
[2017-01-08] MEDS ORDERED: MAGNESIUM SULF 1 GM/DEXTROSE 100 ML IV ONE (06:12)
[2017-01-08] MEDS: HYDROCHLOROTHIAZIDE 50 MG TAB PO SCH (08:51)
[2017-01-08] MEDS: ENOXAPARIN 40 MG/0.4 ML SYR SC SCH (08:52)
[2017-01-08] MEDS: FAMOTIDINE 20 MG TAB PO SCH ×2 (08:52→20:25)
[2017-01-08] MEDS: MICAFUNGIN NA 100 MG in NS 100 ML IV SCH (08:52)
--- NOTE | 2017-01-08 09:37 | HOSPPROG ---
Hospitalist Progress Note Assessment/Plan: Colon cancer s/p colectomy with anastomotic leak and intra-abdominal abscess - septic shock physiology resolved. WBC's on the rise though remains afebrile. * Cont Micofungin and Zosyn, discussed case with ID * Likely needs repeat CT, will discuss with surgery * aspirate 12/13 with Enterococcus, recent aspirate 12/20 ngtd * R subdiaphragmatic abscess aspirated 12/29, albeit incompletely, Cx growing enterococcus and anaerobic GNR. reaspirated 12/30, Cx ngtd. Acute respiratory failure in setting of R pleural effusion and suspected PNA: trach'd, off vent >24 hrs. effusion is exudate, likely 2/2 subdiaphragmatic abscess. weaned off precedex and fentanyl drips. speech following, speaking now pleural fluid cx ngtd rpt CXR 01/03 with interval improvement of effusion and consolidation discussed case with pulm NSVT: ekg and trop nl, remains stable anemia: s/p 3 days of IV iron and 2 units prbc's. hgb stable. cont to monitor. ongoing menses: hgb remains stable, though it seems she has abnormal uterine bleeding and should have outpt COMMUNITY ADMINISTRATOR consult once her other more pressing issues are resolved nutrition: ng tube out, po intake improving -cont pepcid -encouraging po intake Deconditioning - encourage activity, cont PT/OT Trichomonas in urine Koenig out today DVT prophylaxis * Lovenox resumed dispo cont inpt / icu, may go to LTAC later in the week Subjective: Pt in good spirits, up in chair, talking well. No fevers. No abdominal pain. Uterine bleeding persists. Objective: Vital Signs Temp Pulse Resp BP Pulse Ox 37.0 C 97 18 152/81 H 97 01/08/17 04:00 01/08/17 08:50 01/08/17 08:50 01/08/17 08:51 01/08/17 08:50 Microbiology 12/29/16 12:15 Gram Stain - Final Peritoneal Fluid - Aspirate Laboratory Results 01/08/17 05:25 01/08/17 05:25 01/07/17 01/08/17 01/09/17 05:59 05:59 05:59 Intake Total 1620 2477 Output Total 2275 786 Balance -655 1691 PT 15.2 SEC (12.0-15.0) H 12/19/16 04:08 INR 1.20 (0.83-1.16) H 12/19/16 04:08 - Physical Exam Constitutional: no apparent distress Eyes: PERRL Ears, Nose, Mouth, Throat: moist mucous membranes Cardiovascular: regular rate and rhythym Respiratory: no respiratory distress, other (dim on the right, c/w pleural effusion) Gastrointestinal: normoactive bowel sounds, soft, non-tender abdomen, other (TARA drain with serosanguinous output and a few purulent clumps) Skin: warm Musculoskeletal: full muscle strength Neurologic: AAOx3 Psychiatric: interacting appropriately ICD10 Worksheet Patient Problems: Problems Problem Status Onset Colon cancer Acute
--- NOTE | 2017-01-08 10:27 | PCMIDPN ---
Assessment/Plan: # Severe septic shock, now resolved # Polymicrobial Peritonitis/abdominal abscess. Enterococcus and anaerobes isolated. Multiple abscesses along the liver, s/p IR drains. Drain output looks much less purulent today.TARA output is remaining stable with a total of 75 cc/daily. WBC slightly up, but slow clinical improvement. --continue on Zosyn for GI lemuel and known enterococcus; micafungin --> yeast on gram stain from original surgery + colonized with non albicans yeast --WBC improved, discuss with surgery repeat imaging in the next day or two. Clinically stable therefore not emergent --duration of antibiotic therapy not clear at this point as unclear if there is adequate source control as above microbiology 12/13 surgery gram stain: GPR, GPC, GNR, yeast: Cx enterococcus 12/14 blood cx (2) negative 12/17 sputum: Ana albicans and non albicans Ana 12/18 blood cultures 2 set negative 12/20 abdominal aspirate: Gram stain neg; Cx negative 12/28 blood cx (2) Neg 12/29 Abscess aspirate 1+ GPC, Cx enterococcus + anaerobic GNR 12/29 pleural fluid aspirate: Gram stain neg for organisms, cx neg meds zosyn 3.375gm IV q6h 12/14 #26 micafungin 100mg IV daily #26 Subjective: Generally feeling okay. Continued menstrual cycle. Objective: Vital Signs Temp Pulse Resp BP Pulse Ox 37.0 C 97 18 152/81 H 97 01/08/17 04:00 01/08/17 08:50 01/08/17 08:50 01/08/17 08:51 01/08/17 08:50 Microbiology 12/29/16 12:15 Gram Stain - Final Peritoneal Fluid - Aspirate Laboratory Results 01/08/17 05:25 01/08/17 05:25 01/07/17 01/08/17 01/09/17 05:59 05:59 05:59 Intake Total 1620 2477 Output Total 2275 786 Balance -655 1691 General: Smiling, interactive nontoxic HEENT: Moist mucous membranes, several teeth missing CV: RRR no murmur Chest: Decreased breath sounds right base Abdomen: Midline wound VAC, mild distention, nontender, [address] right side with mixed purulent and serous material, minimal output 15 and 20 cc/ 24 hours PICC line C/D/I Skin: No rash ICD10 Worksheet Patient Problems: Problems Problem Status Onset Colon cancer Acute
[2017-01-08] MEDS ORDERED: IOPAMIDOL (ISOVUE-300) 100 ML BTL IV ONE (11:45)
--- NOTE | 2017-01-08 12:02 | SOAPPROG ---
SOAP Progress Note Assessment/Plan: Assessment/Plan: wound vac removed continue to monitor fever with tylenol Hopefully off vent within next 1-2 days S: Patient was asleep when examined O: Gen: opens eye to verbal stimulation HEENT: ET tube, NG tube Abd: distended, tender to palpation, wound vac intact to suction, TARA with serosanguineous drain Pelvic: ponce 12/15/16 20:37 CONTINUES TO IMPROVE THIS P.M. 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 Objective: Vital Signs Temp Pulse Resp BP Pulse Ox 37.0 C 95 17 161/105 H 95 01/08/17 11:54 01/08/17 11:54 01/08/17 11:54 01/08/17 11:54 01/08/17 11:54 Microbiology 12/29/16 12:15 Gram Stain - Final Peritoneal Fluid - Aspirate Laboratory Results 01/08/17 05:25 01/08/17 05:25 01/07/17 01/08/17 01/09/17 05:59 05:59 05:59 Intake Total 1620 2477 Output Total 2275 786 Balance -655 1691 PT 15.2 SEC (12.0-15.0) H 12/19/16 04:08 INR 1.20 (0.83-1.16) H 12/19/16 04:08 ICD10 Worksheet Patient Problems: Problems Problem Status Onset Colon cancer Acute
--- NOTE | 2017-01-08 13:41 | PDINTPN ---
Blocker Metal Base Progress Note Assessment/Plan: Assessment: 56 F with newly diagnosed colon cancer s/p colectomy complicated by anastamotic leak/peritonitis and sepsis, and respiratory failure. She had difficulty with weans and required tracheostomy 12/[address] Kruger without complication. * Acute respiratory failure with hypoxia- Doing well on 40% trach collar with PMSV. Off vent for 72 hours, on RA with trach. Probably can D/C trach. * Peritonitis- Stable after subphrenic abscess drainage. WBC up again today, but otherwise no signs of worsening despite increased abdominal fluid collection. No fever. On Micafungin, Zosyn. * Pneumonia: Bibasilar. Improved on CXR/CT, possibly due, in part, to diuresis in addition to antibiotics and drainage of perihepatic fluid. * Anemia- H/H low but trending up without signs of bleeding. * MARTA- Resolved. Excellent UOP, I<O today. * May be ready for LTACH in a few days. Family prefers [facility]. However, if she continue to improve daily, might be able to go home in the next weeks or two. * Elevated LFTs: Mildly elevated ? related to antibiotics, critical illness, sub -phrenic abscesses. Plan: Increase activity. Follow CXR, continue antibiotics, RUQ abscess drainage. Repeat Lasix. ? Drainage of abdominal fluid collection, per surgery and ID. Probably can remove trach if no further surgery planned. OK to transfer to SDU. 01/08/17 13:48 Subjective: Feels a bit better, stronger. Appetite still poor, doesn't like the food. No dyspnea. Objective: Vital Signs Temp Pulse Resp BP Pulse Ox 37.0 C 95 17 161/105 H 95 01/08/17 11:54 01/08/17 11:54 01/08/17 11:54 01/08/17 11:54 01/08/17 11:54 Microbiology 12/29/16 12:15 Gram Stain - Final Peritoneal Fluid - Aspirate Laboratory Results 01/08/17 05:25 01/08/17 05:25 01/07/17 01/08/17 01/09/17 05:59 05:59 05:59 Intake Total 1620 2477 Output Total 2275 786 Balance -655 1691 PT 15.2 SEC (12.0-15.0) H 12/19/16 04:08 INR 1.20 (0.83-1.16) H 12/19/16 04:08 CT Abdomen: Improved perihepatic fluid collections. Increased epigastric fluid collection. Improved RLL effusion/consolidation. Images reviewed. Physical Exam - Physical Exam General Appearance: alert, no apparent distress EENT: normal ENT inspection Neck: normal inspection, other (trach OK) Respiratory: lungs clear, normal breath sounds Cardiac/Chest: regular rate, rhythm, No edema Abdomen: normal bowel sounds, non-tender, soft Skin: normal color, warm/dry Extremities: non-tender Neuro/Psych: alert, normal mood/affect, oriented x 3 ICD10 Worksheet Patient Problems: Problems Problem Status Onset Colon cancer Acute
[2017-01-08] MEDS ORDERED: FUROSEMIDE 40 MG/4 ML VIAL IVP ONE (13:49)
[2017-01-08] MEDS: fentaNYL 100 MCG/2 ML INJ IVP PRN (15:30)
--- NOTE | 2017-01-08 17:19 | SOAPPROG ---
SOAP Progress Note Assessment/Plan: Assessment/Plan: wound vac removed continue to monitor fever with tylenol Hopefully off vent within next 1-2 days S: Patient was asleep when examined O: Gen: opens eye to verbal stimulation HEENT: ET tube, NG tube Abd: distended, tender to palpation, wound vac intact to suction, TARA with serosanguineous drain Pelvic: ponce 12/15/16 20:37 CONTINUES TO IMPROVE THIS P.M. 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 01/08/17 17:18 FOLLOW-UP CT SHOWS MID ABDOMINAL EPIGASTRIC ABSCESS WHICH SHOULD BE AMENABLE TO PERCUTANEOUS DRAINAGE / IF NOT THE INCISION AND DRAINAGE WILL BE NEEDED / WILL REFER TO IR Objective: Vital Signs Temp Pulse Resp BP Pulse Ox 36.9 C 89 28 H 167/105 H 97 01/08/17 16:00 01/08/17 16:00 01/08/17 16:00 01/08/17 16:00 01/08/17 16:00 Microbiology 12/29/16 12:15 Gram Stain - Final Peritoneal Fluid - Aspirate Laboratory Results 01/08/17 05:25 01/08/17 05:25 01/07/17 01/08/17 01/09/17 05:59 05:59 05:59 Intake Total 1620 2477 Output Total 2275 786 Balance -655 1691 PT 15.2 SEC (12.0-15.0) H 12/19/16 04:08 INR 1.20 (0.83-1.16) H 12/19/16 04:08 ICD10 Worksheet Patient Problems: Problems Problem Status Onset Colon cancer Acute
[2017-01-08 18:12] LABS: POTASSIUM 3.5 mEq/L (3.5-5.2)
[2017-01-08] MEDS: POTASSIUM Cl (KCl) 50 ML IV SCH ×3 (22:01→23:36)
[2017-01-09] MEDS: PIPERACILLIN/TAZO 3.375 GM/DEX 50 ML IV SCH ×4 (00:04→18:06)
[2017-01-09 04:17] LABS: % IMMATURE GRANULYOCYTES 0.7 % (0.0-1.1); ABSOLUTE IMMATURE GRANULOCYTES 0.11 10^3/uL (0.00-0.10); ABSOLUTE NRBC COUNT 0.02 10^3/uL (0-0.01); ADD DIFF? NO; ADD MORPH? NO; ADD SCAN? NO; ATYPICAL LYMPHOCYTE FLAG 10 (0-99); FRAGMENT RBC FLAG 0 (0-99); HEMATOCRIT 34.3 % (38.0-47.0); HEMOGLOBIN 11.4 g/dL (12.6-16.3); LEFT SHIFT FLG 10 (0-99); LIPEMIA HEMOLYSIS FLAG 80 (0-99); MEAN CELL HEMOGLOBIN 29.8 pg (27.9-34.1); MEAN CELL HEMOGLOBIN CONCENTR. 33.2 g/dL (32.4-36.7); MEAN CELL VOLUME 89.8 fL (81.5-99.8); MEAN PLATELET VOLUME 9.7 fL (8.7-11.7); NRBC-AUTO% 0.1 % (0.0-0.2); PLATELET CLUMPS FLAG 20 (0-99); PLATELET COUNT 412 10^3/uL (150-400); RED BLOOD CELL COUNT 3.82 10^6/uL (4.18-5.33); RED CELL DISTRIBUTION WIDTH 16.4 % (11.5-15.2)
[2017-01-09 04:24] LABS: INR 1.4 (0.83-1.16); PROTIME(PATIENT) 17.1 SEC (12.0-15.0)
[2017-01-09 04:32] LABS: MAGNESIUM 1.7 mg/dL (1.6-2.3); POTASSIUM 3.7 mEq/L (3.5-5.2)
[2017-01-09] MEDS ORDERED: MAGNESIUM SULF 1 GM/DEXTROSE 100 ML IV ONE (05:48)
[2017-01-09] MEDS ORDERED: POTASSIUM Cl (KCl) 50 ML IV ONE (05:48)
[2017-01-09] MEDS: FAMOTIDINE 20 MG TAB PO SCH ×2 (08:11→21:16)
[2017-01-09] MEDS: HYDROCHLOROTHIAZIDE 50 MG TAB PO SCH (08:11)
[2017-01-09] MEDS: MICAFUNGIN NA 100 MG in NS 100 ML IV SCH (08:12)
[2017-01-09] MEDS ORDERED: ACETAMINOPHEN 325 MG TAB PO PRN (08:46)
--- NOTE | 2017-01-09 09:50 | SOAPPROG ---
SOAP Progress Note Assessment/Plan: Assessment: s/p right hemicolectomy for colon cancer and anastomotic dehiscence at staple line s/p ex lap with washout and reanastomosis s/p drainage of abscess above liver Neuro - controlled Resp - Thoracentesis. Trach out Cards - stable GI - Return of bowel function. Taking PO. Monitor drain output. New epigastric abscess on CT - to IR today for perc drain Renal - good uop Skin - Wound vac change tues/fri. Wound with healthy granulation tissue. No evidence of succus Heme/ID- on broad spectrum Dispo - continue inpatient. Discussed c Dr. Sandoval S: doing well. asking when she can go home. pain controlled O: Sitting up in chair comfortable. Dressing in place where trach came out. Voice improving, No increased WOB. Bowel sounds present, soft, Vac dressing intact to suction. Soft and nontender to palpation. Drains recently emptied. SCDs in place. 01/14/17 16:29 Objective: Vital Signs Temp Pulse Resp BP Pulse Ox 37.0 C 88 32 H 146/94 H 96 01/09/17 08:00 01/09/17 08:00 01/09/17 08:00 01/09/17 08:11 01/09/17 08:00 Microbiology 12/29/16 12:15 Gram Stain - Final Peritoneal Fluid - Aspirate Laboratory Results 01/09/17 04:05 01/09/17 04:05 01/08/17 01/09/17 01/10/17 05:59 05:59 05:59 Intake Total 2477 1643 Output Total 786 1199 Balance 1691 444 PT 17.1 SEC (12.0-15.0) H 01/09/17 04:05 INR 1.40 (0.83-1.16) H 01/09/17 04:05 ICD10 Worksheet Patient Problems: Problems Problem Status Onset Colon cancer Acute
--- NOTE | 2017-01-09 09:52 | PCMIDPN ---
Assessment/Plan: Assessment/Plan: * Septic shock due to anastomotic leak with polymicrobial peritoneal contamination: Marked clinical improvement. Perihepatic abscess cultures with Enterococcus faecalis and anaerobic gram-negative debbie. CT yesterday shows epigastric fluid collection with plans for IR drainage today to assess for abscess. Will send for anaerobic and fungal cultures. Continue Zosyn and micafungin. * Diarrhea: Persistent mucousy diarrhea; will repeat C difficile toxin testing (recognizing tested on 01/05/2017) given persistent leukocytosis. 01/09/17 09:47 01/09/17 09:52 Subjective: Patient sitting up in chair. Continue diarrhea with mucus. Mild abdominal discomfort. Objective: Vital Signs Temp Pulse Resp BP Pulse Ox 37.0 C 88 32 H 146/94 H 96 01/09/17 08:00 01/09/17 08:00 01/09/17 08:00 01/09/17 08:11 01/09/17 08:00 Microbiology 12/29/16 12:15 Gram Stain - Final Peritoneal Fluid - Aspirate Laboratory Results 01/09/17 04:05 01/09/17 04:05 01/08/17 01/09/17 01/10/17 05:59 05:59 05:59 Intake Total 2477 1643 Output Total 786 1199 Balance 1691 444 Zosyn # 27 Micafungin # 27 Perihepatic abscess cultures with enterococcus faecalis and anaerobic gram- negative debbie - Physical Exam General Appearance: alert, no apparent distress EENT: No scleral icterus, No thrush Respiratory: lungs clear, No respiratory distress (Anterolaterally) Cardiac/Chest: regular rate, rhythm Extremities: pedal edema (1+) Abdomen: non-tender, No distended - Line/s LUE PICC Lines: No drainage, No erythema ICD10 Worksheet Patient Problems: Problems Problem Status Onset Colon cancer Acute
--- NOTE | 2017-01-09 11:20 | SOAPPROG ---
SOAP Progress Note Assessment/Plan: Assessment/Plan: wound vac removed continue to monitor fever with tylenol Hopefully off vent within next 1-2 days S: Patient was asleep when examined O: Gen: opens eye to verbal stimulation HEENT: ET tube, NG tube Abd: distended, tender to palpation, wound vac intact to suction, TARA with serosanguineous drain Pelvic: ponce 12/15/16 20:37 CONTINUES TO IMPROVE THIS P.M. 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 01/08/17 17:18 FOLLOW-UP CT SHOWS MID ABDOMINAL EPIGASTRIC ABSCESS WHICH SHOULD BE AMENABLE TO PERCUTANEOUS DRAINAGE / IF NOT THE INCISION AND DRAINAGE WILL BE NEEDED / WILL REFER TO IR 01/09/17 11:19 abd soft/ eating a little/ afebrile/ ct shows epigastric abscess/ pulled out her own trach but doing well/ will try IR drainage Objective: Vital Signs Temp Pulse Resp BP Pulse Ox 37.0 C 88 32 H 146/94 H 96 01/09/17 08:00 01/09/17 08:00 01/09/17 08:00 01/09/17 08:11 01/09/17 08:00 Microbiology 12/29/16 12:15 Gram Stain - Final Peritoneal Fluid - Aspirate Laboratory Results 01/09/17 04:05 01/09/17 04:05 01/08/17 01/09/17 01/10/17 05:59 05:59 05:59 Intake Total 2477 1643 Output Total 786 1199 Balance 1691 444 PT 17.1 SEC (12.0-15.0) H 01/09/17 04:05 INR 1.40 (0.83-1.16) H 01/09/17 04:05 ICD10 Worksheet Patient Problems: Problems Problem Status Onset Colon cancer Acute
--- NOTE | 2017-01-09 11:34 | HOSPPROG ---
Hospitalist Progress Note Assessment/Plan: 56 yo F with complicated hospital course starting 12/09/16 with hemicolectomy for colon adenocarcinoma and subsequent anastomotic leak requiring repeat surgery with ileocolic anastamosis and complications of septic shock due to anastamotic leak/peritonitis # septic shock: 2/2 bowel perforation as next, resolved now although does have continued leukocytosis that has been essentially stable. Monitoring, continued on abx currently micofungin/zosyn since 12/14 # anastamotic leak/polymicrobial intra abdominal abscess:: growing enterococcus and anaerobic GNR, ID/gen surg/IR involved. Subhepatic abscess decreased in size on personal review of most recent abd ct with [address], but mid abdominal epigastric fluid collection significantly increased with plans for IR to drain today. # acute hypoxic respiratory failure: s/p trach and subsequent extubation and then self dc of trach last night, doing well. Multifactorial with loculated pleural effusions as well as bibasilar pna # pneumonia: bibasilar pneumonia with associated multiloculated pleural effusions as above, covered by abx as above. Thoracentesis performed and pleural fluid culture negative however patient had been on abx already prior to tap. 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 related to abx versus subhepatic abscess # dispo: IP status, likely can transfer to med surg Patient new to my care. Old records reviewed and summarized as above. Care plan reviewed with ID and pulmonary as well as multidisciplinary care team. Subjective: no significant overnight events, patient feeling better but states she is hungry and wonders when she can eat Objective: Vital Signs Temp Pulse Resp BP Pulse Ox 37.0 C 88 32 H 146/94 H 96 01/09/17 08:00 01/09/17 08:00 01/09/17 08:00 01/09/17 08:11 01/09/17 08:00 Microbiology 12/29/16 12:15 Gram Stain - Final Peritoneal Fluid - Aspirate Laboratory Results 01/09/17 04:05 01/09/17 04:05 01/08/17 01/09/17 01/10/17 05:59 05:59 05:59 Intake Total 2477 1643 Output Total 786 1199 Balance 1691 444 PT 17.1 SEC (12.0-15.0) H 01/09/17 04:05 INR 1.40 (0.83-1.16) H 01/09/17 04:05 awake alert nad anicteric op clear rrr no mrg bibasilar crackles, normal wob soft nt nd trace ble edema warm dry well perfused oriented appropriate - Time Spent With Patient Time Spent with Patient: greater than 35 minutes Time Spent with Patient: Greater than 35 minutes spent on this patients care, greater than 50% of time spent counseling, educating, and coordinating care regarding the above mentioned plan. ICD10 Worksheet Patient Problems: Problems Problem Status Onset Colon cancer Acute
--- NOTE | 2017-01-09 13:09 | PDINTPN ---
Tower Technician Progress Note Assessment/Plan: Assessment: Status post perforated bowel/anastomotic leak with peritonitis. Initial surgery 12/09 with subsequent perforation. Repaired 12/13. ID following. On broad-spectrum antibiotics and antifungals. Wound VAC and drain in place. Central fluid collection appears larger on CT scan yesterday. For percutaneous drainage today, with cultures. Clinically she is doing quite well. Sepsis, hypotension. Resolved, off pressors. Doing well.. Acute respiratory failure. Resolved, she removed her tracheostomy tube last night and is doing well. Right lower lobe pneumonia, query aspiration. Resolving. Acute renal failure: Resolved, Koenig out Nutrition: On orals Recent diagnosis of colon cancer, status post resection on . DVT prophylaxis: Subcu lovenox GI prophylaxis: Pepcid, eating Plan: Continue care in the intensive care unit. For percutaneous abscess drainage today. Await Gram stain and cultures. Continue IV antibiotics, per Infectious Disease. Follow pulmonary status after decannulation: Currently doing well. Follow chest x-ray, laboratory. Advance activity as tolerated. Continue oral intake. All the above discussed with the patient, nursing, respiratory, and the ICU multi disciplinary team. 35 minutes of critical care time spent directly with the patient. Subjective: Doing well. No complaints. Anxious to eat. Denies shortness of breath or significant pain. Passing gas. Self decannulated last night regarding her tracheostomy tube. Objective: Vital Signs Temp Pulse Resp BP Pulse Ox 36.6 C 86 18 153/98 H 98 01/09/17 12:00 01/09/17 12:00 01/09/17 12:00 01/09/17 12:00 01/09/17 12:00 Microbiology 12/29/16 12:15 Gram Stain - Final Peritoneal Fluid - Aspirate Laboratory Results 01/09/17 04:05 01/09/17 04:05 01/08/17 01/09/17 01/10/17 05:59 05:59 05:59 Intake Total 2477 1643 Output Total 786 1199 Balance 1691 444 PT 17.1 SEC (12.0-15.0) H 01/09/17 04:05 INR 1.40 (0.83-1.16) H 01/09/17 04:05 Laboratory Tests 01/08/17 01/09/17 01/09/17 05:25 04:05 09:30 PT 17.1 H INR 1.40 H Calcium 9.4 Magnesium 1.6 Total Bilirubin 1.5 H AST 71 H ALT 48 Albumin 3.6 C. difficile Tox (PCR) NEGATIVE CT abdomen yesterday: Improvement in abdominal and pleural fluid collections with the exception of the mid epigastric fluid which is increasing. Physical Exam - Physical Exam General Appearance: alert, no apparent distress, obese EENT: other (On room air) Neck: normal inspection (No JVD), other (Tracheostomy tube removed yesterday by patient. Site dressed. No obvious air leak. No erythema. No drainage.) Respiratory: lungs clear (Anteriorly), decreased breath sounds (At the bases), rales (Few at bases ), No rhonchi, No wheezing Cardiac/Chest: regular rate, rhythm Abdomen: soft, No normal bowel sounds (Decreased, present), No non-tender (Mild tenderness) Pelvic Exam: other Skin: normal color, warm/dry Extremities: pedal edema (Present, decreasing) Neuro/Psych: no motor/sensory deficits, No cognition abnormalities ICD10 Worksheet Patient Problems: Problems Problem Status Onset Colon cancer Acute
[2017-01-09] MEDS ORDERED: LIDOCAINE 1% 30 ML SDV ONE (13:17)
[2017-01-09] MEDS ORDERED: FLUMAZENIL 0.5 MG/5 ML MDV IVP ONE (13:45)
[2017-01-09] MEDS ORDERED: MIDAZOLAM 2 MG/2 ML VIAL ONE (13:46)
[2017-01-09] MEDS ORDERED: fentaNYL 100 MCG/2 ML INJ ONE (13:46)
--- NOTE | 2017-01-09 15:10 | POSTOPPROG ---
Post Op Note Date of Operation: 01/09/17 Surgeon: Suleiman Taylor Pre-op Diagnosis: Abdominal sepsis Post-op Diagnosis: same Indication: undrained fluid collection Procedure: CT guided percutaneous drainage of abdominal fluid collection Findings: 250 ml yellow fluid, minimally turbid Inf/Abcess present in the surg proc area at time of surgery?: Yes Depth: Organ Space EBL: Minimal Drains: Other (10 F pigtail drain.) Specimen(s): 20 ml mildly turbid yellow fluid sent for microbiology.
[2017-01-09] MEDS: OXYCODONE/APAP 5/325 TAB PO PRN (16:09)
[2017-01-09 19:23] LABS: POTASSIUM 3.4 mEq/L (3.5-5.2)
[2017-01-09] MEDS ORDERED: POTASSIUM CL 10 MEQ TAB PO ONE (19:25)
[2017-01-09] MEDS ORDERED: diphenhydrAMINE 25 MG CAP PO ONE (23:10)
[2017-01-10] MEDS: PIPERACILLIN/TAZO 3.375 GM/DEX 50 ML IV SCH ×5 (00:20→23:02)
[2017-01-10 05:45] LABS: % IMMATURE GRANULYOCYTES 0.6 % (0.0-1.1); ABSOLUTE IMMATURE GRANULOCYTES 0.08 10^3/uL (0.00-0.10); ABSOLUTE NRBC COUNT 0.02 10^3/uL (0-0.01); ADD DIFF? NO; ADD MORPH? NO; ADD SCAN? NO; ATYPICAL LYMPHOCYTE FLAG 10 (0-99); FRAGMENT RBC FLAG 10 (0-99); HEMATOCRIT 33.1 % (38.0-47.0); HEMOGLOBIN 10.9 g/dL (12.6-16.3); LEFT SHIFT FLG 10 (0-99); LIPEMIA HEMOLYSIS FLAG 80 (0-99); MEAN CELL HEMOGLOBIN 29.6 pg (27.9-34.1); MEAN CELL HEMOGLOBIN CONCENTR. 32.9 g/dL (32.4-36.7); MEAN CELL VOLUME 89.9 fL (81.5-99.8); MEAN PLATELET VOLUME 9.8 fL (8.7-11.7); NRBC-AUTO% 0.1 % (0.0-0.2); PLATELET CLUMPS FLAG 0 (0-99); PLATELET COUNT 380 10^3/uL (150-400); RED BLOOD CELL COUNT 3.68 10^6/uL (4.18-5.33); RED CELL DISTRIBUTION WIDTH 16.3 % (11.5-15.2)
[2017-01-10 06:07] LABS: ALANINE AMINOTRANSFERASE 52 IU/L (9-52); ALBUMIN 3.9 g/dL (3.5-5.0); ALKALINE PHOSPHATASE 262 IU/L (38-126); ANION GAP 16 mEq/L (8-16); ASPARTATE AMINOTRANSFERASE 87 IU/L (14-46); BILIRUBIN,TOTAL 1.4 mg/dL (0.1-1.4); CALCIUM 9.6 mg/dL (8.5-10.4); CARBON DIOXIDE 25 mEq/l (22-31); CHLORIDE 97 mEq/L (97-110); CREATININE 0.9 mg/dL (0.6-1.0); GLOMERULAR FILTRATION RATE > 60; GLUCOSE 108 mg/dL (70-100); MAGNESIUM 1.8 mg/dL (1.6-2.3); POTASSIUM 3.8 mEq/L (3.5-5.2); SODIUM 138 mEq/L (134-144); TOTAL PROTEIN 7.9 g/dL (6.3-8.2)
[2017-01-10] MEDS ORDERED: MAGNESIUM SULF 1 GM/DEXTROSE 100 ML IV ONE (06:22)
[2017-01-10] MEDS ORDERED: POTASSIUM CL 10 MEQ TAB PO ONE ×2 (06:22→20:26)
[2017-01-10] MEDS: ENOXAPARIN 40 MG/0.4 ML SYR SC SCH (07:45)
[2017-01-10] MEDS: FAMOTIDINE 20 MG TAB PO SCH ×2 (07:46→20:24)
[2017-01-10] MEDS: HYDROCHLOROTHIAZIDE 50 MG TAB PO SCH (07:46)
[2017-01-10] MEDS: MICAFUNGIN NA 100 MG in NS 100 ML IV SCH (08:51)
--- NOTE | 2017-01-10 10:25 | SOAPPROG ---
SOAP Progress Note Assessment/Plan: Assessment: s/p right hemicolectomy for colon cancer and anastomotic dehiscence at staple line s/p ex lap with washout and reanastomosis s/p drainage of abscess above liver s/p drainage of epigastric fluid collection - serous Neuro - pain controlled Resp - Thoracentesis. Trach out. doing well Cards - stable, off pressors GI - Return of bowel function. Taking PO. Monitor drain output Renal - good uop Skin - Wound vac change tu/fri. Heme/ID- on broad spectrum Dispo - continue inpatient. OK to transfer to med surg from our perspective S: feeling well. eating well. anxious to go home with home care O: Sitting up in chair comfortable. Dressing in place where trach came out. Voice improving, No increased WOB, ctab decreased at bases. RRR. Bowel sounds present, soft, Vac dressing intact to suction. Soft and nontender to palpation. Drain with serous fluid. SCDs in place. 01/10/17 10:23 Objective: Vital Signs Temp Pulse Resp BP Pulse Ox 36.8 C 94 22 H 150/88 H 97 01/10/17 08:00 01/10/17 08:00 01/10/17 08:00 01/10/17 08:00 01/10/17 08:00 Microbiology 12/29/16 12:15 Gram Stain - Final Peritoneal Fluid - Aspirate 01/09/17 14:45 Gram Stain - Final Abdomen - Aspirate Laboratory Results 01/10/17 05:28 01/10/17 05:28 01/09/17 01/10/17 01/11/17 05:59 05:59 05:59 Intake Total 1643 1430 Output Total 1199 1295 Balance 444 135 PT 17.1 SEC (12.0-15.0) H 01/09/17 04:05 INR 1.40 (0.83-1.16) H 01/09/17 04:05 ICD10 Worksheet Patient Problems: Problems Problem Status Onset Colon cancer Acute
[2017-01-10] MEDS: OXYCODONE/APAP 5/325 TAB PO PRN (11:21)
--- NOTE | 2017-01-10 12:06 | PCMIDPN ---
Assessment/Plan: Assessment/Plan: 1. Septic shock secondary to Polymicrobial peritonitis associated with anastomotic leak and sid-hepatic abscesses -History of [place] Ca of colon s/p hemicolectomy 12/09/16 complicated by anastomotic leak as above. -S/p Wash out 12/13/16 -s/p JACIEL drains to regarding the sid-hepatic abscesses, on 12/29 and 12/30. New drain placed yesterday for additional collection. CX pending (no org on GS) -Recent abdominal cx: Gs many organisms, cx with E. fecalis; -Peritoneal cx: 12/29---gpc on GS, ngtd. 12/30: no org on GS, cultures ngtd -Pleural cx: no org on GS, cultures ngtd -wbc trending down -Currently on Zosyn + Micafungin - Meds zosyn 3.375gm q6 - has been on varying dosing of zosyn since 12/14/16---D#28 micafungin 100mg daily- 12/14/16---D#28 TPN Subjective: Afebrile. trach out, off vent. sitting up in chair. Denies sob. occasional cough with phlegm. less abd discomfort overall. curernt discomfort related to the recent drain placed yesterday. Drains with serous drainage. Objective: Vital Signs Temp Pulse Resp BP Pulse Ox 36.9 C 89 26 H 148/97 H 98 01/10/17 11:40 01/10/17 11:40 01/10/17 11:40 01/10/17 11:40 01/10/17 11:40 Microbiology 12/29/16 12:15 Gram Stain - Final Peritoneal Fluid - Aspirate 01/09/17 14:45 Gram Stain - Final Abdomen - Aspirate Laboratory Results 01/10/17 05:28 01/10/17 05:28 01/09/17 01/10/17 01/11/17 05:59 05:59 05:59 Intake Total 1643 1430 Output Total 1199 1295 Balance 444 135 - Physical Exam General Appearance: alert, no apparent distress Respiratory: coarse breath sounds (at bases) Cardiac/Chest: regular rate, rhythm Extremities: No swelling Abdomen: normal bowel sounds, non-tender, other (two jaciel drains noted. both with mostly serous drainage. midline abd wound noted today with wound vac off. large area of mostly granulation tissue/clean base superficial wound. few spots with adherent slough noted. ), No distended Skin: No erythema ICD10 Worksheet Patient Problems: Problems Problem Status Onset Colon cancer Acute
--- NOTE | 2017-01-10 12:23 | PDINTPN ---
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 Initial surgery 12/09 with subsequent perforation. Repaired 12/13. ID following. On broad-spectrum antibiotics and antifungals. Wound VAC and drain in place. Central fluid collection drained yesterday, serous by report. G stain negative : No white blood cells, no organism seen. Clinically she is doing quite well. Sepsis, hypotension. Resolved, off pressors. Doing well.. Acute respiratory failure. Resolved, status post removal of tracheostomy tube. Right lower lobe pneumonia, query aspiration. Resolving, chest x-ray improved. Acute renal failure: Resolved, Koenig out Nutrition: On orals Recent diagnosis of colon cancer, status post resection on . DVT prophylaxis: Subcu lovenox GI prophylaxis: Pepcid, eating Plan: Continue care. Can transfer to a medical-surgical bed. Continue IV antibiotics, per Infectious Disease. Follow chest x-ray intermittently, laboratory. Advance activity as tolerated. Continue oral intake. All the above discussed with the patient, nursing, and the ICU multi disciplinary team. 30 minutes of critical care time spent directly with the patient. I will sign off at this point. Please call with any problems or questions. Subjective: Doing well, eating. Some abdominal tenderness, not a significant problem. Denies shortness of breath. Objective: Vital Signs Temp Pulse Resp BP Pulse Ox 36.9 C 89 26 H 148/97 H 98 01/10/17 11:40 01/10/17 11:40 01/10/17 11:40 01/10/17 11:40 01/10/17 11:40 Microbiology 12/29/16 12:15 Gram Stain - Final Peritoneal Fluid - Aspirate 01/09/17 14:45 Gram Stain - Final Abdomen - Aspirate Laboratory Results 01/10/17 05:28 01/10/17 05:28 01/09/17 01/10/17 01/11/17 05:59 05:59 05:59 Intake Total 1643 1430 Output Total 1199 1295 Balance 444 135 PT 17.1 SEC (12.0-15.0) H 01/09/17 04:05 INR 1.40 (0.83-1.16) H 01/09/17 04:05 CXR: Improving infiltrate/effusion at the right base. Physical Exam - Physical Exam General Appearance: alert, no apparent distress, obese, other (Up in chair) EENT: PERRL/EOMI, other (On) Neck: normal inspection (No JVD) Respiratory: lungs clear, decreased breath sounds (At bases) Cardiac/Chest: regular rate, rhythm Abdomen: normal bowel sounds, distended, other (Wound VAC in place, drains), No non-tender Skin: normal color, warm/dry Extremities: pedal edema Neuro/Psych: no motor/sensory deficits, No cognition abnormalities ICD10 Worksheet Patient Problems: Problems Problem Status Onset Colon cancer Acute
--- NOTE | 2017-01-10 14:01 | WOCRNPDOC ---
WOCRN Advanced Assessment Note - Skin Integrity Problem, Advanced Assess Abdomen Dressing Type: Black Vac Foam, Wound Vac Dressing Description: Intact Exudate Amount: Minimal Exudate Color: Reddish/Yellow Exudate Characteristic(s): Serosanguinous Integumentary Issue Intervention: Dressing Changed Sirisha Wound Swelling: None Wound Bed Color: Red, Yellow Wound Bed Constitution: Granulation Tissue (85%), Adhered Slough (15%) Wound Edges: Epithelizing Site Odor: None Site Measurement - Head-to-Toe Length X Width X Depth (cm): 18.5cmx5.1cmx1.5cm Skin Integrity Problem Comment: Wound vac dressing change at the bedside at the request of Magdalena GIVENS. Assessed site w/ Dr. Joseph. Wound dimensions smaller than previous assessment, and epithelialization noted along wound margins. There remain two areas of adhered slough in medial-proximal aspect. Remaining wound bed is copious granulation tissue. Sirisha-wound prepped and draped, and vac dressing reapplied using 1 piece of vac granulofoam dressing. Settings continue at 125mmHg, low continuous. Report given to Magdalena GVIENS. Next dressing change will be Saturday 01/13.
--- NOTE | 2017-01-10 16:38 | HOSPPROG ---
Hospitalist Progress Note Assessment/Plan: 56 yo F with complicated hospital course starting 12/09/16 with hemicolectomy for colon adenocarcinoma and subsequent anastomotic leak requiring repeat surgery with ileocolic anastamosis and complications of septic shock due to anastamotic leak/peritonitis # septic shock: 2/2 bowel perforation as next, resolved now although does have continued leukocytosis that has been essentially stable. Monitoring, continued on abx currently micofungin/zosyn since 12/14 # anastamotic leak/polymicrobial intra abdominal abscess:: growing enterococcus and anaerobic GNR, ID/gen surg/IR involved. Subhepatic abscess decreased in size on personal review of most recent abd ct with [address],and now placement of midepigastric drain for other enlarging fluid collection. Wound vac in place. Abx as above. # acute hypoxic respiratory failure: s/p trach and subsequent extubation and then self dc of trach tube, doing well currently on RA. Multifactorial with loculated pleural effusions as well as bibasilar pna # pneumonia: bibasilar pneumonia with associated multiloculated pleural effusions as above, covered by abx as above. Thoracentesis performed and pleural fluid culture negative however patient had been on abx already prior to tap. # MARTA: in setting of above and resolved # anemia: s/p IV iron and transfusion of 3 units prbc since admission, now stable # nsvt: personal review of tele now in sr # DUB: post menopausal bleeding has been present since admission, will need f/u with SENIOR QUALITY ANALYST when above resolved # nutrition: NG tube out, taking a diet but not eating much, dietary consult # deconditioning: working with pt/ot, may need snf # elevated lfts: mildly elevated and relatively stable, ? related to abx versus subhepatic abscess # dispo: IP status, likely can transfer to med surg Care plan reviewed with ID and pulmonary as well as multidisciplinary care team. Subjective: no significant overnight events, eating breakfast, denies new pain, ambulating with pt Objective: Vital Signs Temp Pulse Resp BP Pulse Ox 36.8 C 80 18 147/97 H 97 01/10/17 16:00 01/10/17 16:00 01/10/17 16:00 01/10/17 16:00 01/10/17 16:00 Microbiology 01/09/17 14:45 Gram Stain - Final Abdomen - Aspirate 12/29/16 12:15 Gram Stain - Final Peritoneal Fluid - Aspirate Laboratory Results 01/10/17 05:28 01/10/17 05:28 01/09/17 01/10/17 01/11/17 05:59 05:59 05:59 Intake Total 1643 1430 Output Total 1199 1295 Balance 444 135 PT 17.1 SEC (12.0-15.0) H 01/09/17 04:05 INR 1.40 (0.83-1.16) H 01/09/17 04:05 awake alert nad anicteric op clear rrr no mrg bibasilar crackles, normal wob soft nt nd trace ble edema warm dry well perfused oriented appropriate - Time Spent With Patient Time Spent with Patient: greater than 35 minutes Time Spent with Patient: Greater than 35 minutes spent on this patients care, greater than 50% of time spent counseling, educating, and coordinating care regarding the above mentioned plan. ICD10 Worksheet Patient Problems: Problems Problem Status Onset Colon cancer Acute
[2017-01-10 20:17] LABS: POTASSIUM 3.5 mEq/L (3.5-5.2)
[2017-01-11 04:04] LABS: % IMMATURE GRANULYOCYTES 0.5 % (0.0-1.1); ABSOLUTE IMMATURE GRANULOCYTES 0.07 10^3/uL (0.00-0.10); ADD DIFF? NO; ADD MORPH? NO; ADD SCAN? NO; ATYPICAL LYMPHOCYTE FLAG 20 (0-99); FRAGMENT RBC FLAG 20 (0-99); HEMATOCRIT 33.8 % (38.0-47.0); HEMOGLOBIN 11.2 g/dL (12.6-16.3); LEFT SHIFT FLG 10 (0-99); LIPEMIA HEMOLYSIS FLAG 80 (0-99); MEAN CELL HEMOGLOBIN 29.6 pg (27.9-34.1); MEAN CELL HEMOGLOBIN CONCENTR. 33.1 g/dL (32.4-36.7); MEAN CELL VOLUME 89.4 fL (81.5-99.8); PLATELET CLUMPS FLAG 0 (0-99); PLATELET COUNT 387 10^3/uL (150-400); RED BLOOD CELL COUNT 3.78 10^6/uL (4.18-5.33); RED CELL DISTRIBUTION WIDTH 16.1 % (11.5-15.2)
[2017-01-11 04:52] LABS: ANION GAP 13 mEq/L (8-16); CALCIUM 9.8 mg/dL (8.5-10.4); CARBON DIOXIDE 25 mEq/l (22-31); CHLORIDE 97 mEq/L (97-110); CREATININE 0.8 mg/dL (0.6-1.0); GLOMERULAR FILTRATION RATE > 60; GLUCOSE 90 mg/dL (70-100); MAGNESIUM 1.8 mg/dL (1.6-2.3); SODIUM 135 mEq/L (134-144)
[2017-01-11] MEDS ORDERED: MAGNESIUM SULF 1 GM/DEXTROSE 100 ML IV ONE (05:35)
[2017-01-11] MEDS: PIPERACILLIN/TAZO 3.375 GM/DEX 50 ML IV SCH (05:55)
[2017-01-11] MEDS: FAMOTIDINE 20 MG TAB PO SCH ×2 (07:47→20:28)
[2017-01-11] MEDS: OXYCODONE/APAP 5/325 TAB PO PRN ×2 (07:47→15:45)
[2017-01-11] MEDS: HYDROCHLOROTHIAZIDE 50 MG TAB PO SCH (07:47)
[2017-01-11] MEDS: ENOXAPARIN 40 MG/0.4 ML SYR SC SCH (07:50)
[2017-01-11] MEDS: MICAFUNGIN NA 100 MG in NS 100 ML IV SCH (08:51)
--- NOTE | 2017-01-11 11:41 | PCMIDPN ---
Assessment/Plan: Assessment/Plan: * Septic shock due to anastomotic leak with polymicrobial peritoneal contamination: Continued clinical improvement. White blood cell count has decreased. Epigastric fluid collection status post drainage without evidence of purulence. Culture remains negative to date. Has now received 29 days of micafungin based on Gram stain showing yeast; think this can be discontinued given no growth of yeast on culture specimens. Will transition Zosyn to Unasyn since no Pseudomonas has been isolated with plans to complete 4 weeks of treatment post drainage of perihepatic abscess (tentative stop date of 01/26/17). * Diarrhea: C diff toxin x2 negative. 01/11/17 11:38 Subjective: Patient continues to feel improved. Anxious to go home. No abdominal pain present. Up ambulating in halls. Objective: Vital Signs Temp Pulse Resp BP Pulse Ox 36.7 C 93 22 H 135/86 H 97 01/11/17 06:11 01/11/17 08:00 01/11/17 08:00 01/11/17 08:00 01/11/17 08:00 Microbiology 01/09/17 14:45 Gram Stain - Final Abdomen - Aspirate 12/29/16 12:15 Gram Stain - Final Peritoneal Fluid - Aspirate Laboratory Results 01/11/17 03:45 01/11/17 03:45 01/10/17 01/11/17 01/12/17 05:59 05:59 05:59 Intake Total 1430 1882 Output Total 1295 250 Balance 135 1632 Zosyn # 29 Micafungin # 29 Epigastric fluid collection Gram stain negative with culture no growth to date - Physical Exam General Appearance: alert, no apparent distress EENT: pharynx normal, No scleral icterus Cardiac/Chest: regular rate, rhythm Abdomen: non-tender, other (Wound VAC in place without surrounding erythema), No distended Skin: No rash ICD10 Worksheet Patient Problems: Problems Problem Status Onset Colon cancer Acute
[2017-01-11] MEDS: AMPICILLIN/SULBACTAM 3 GM in NS 100 ML IV SCH ×3 (11:55→23:15)
--- NOTE | 2017-01-11 14:23 | SOAPPROG ---
SOAP Progress Note Assessment/Plan: Assessment: s/p right hemicolectomy for colon cancer and anastomotic dehiscence at staple line s/p ex lap with washout and reanastomosis s/p drainage of abscess above liver Neuro - po pain meds Resp - Much improved. Trach out. Breathing comfortably Cards - stable GI - Return of bowel function. Tolerating diet. Does not like the hospital food Renal - good uop Skin - Wound vac change tu/fri. Consider Amiofix under vac at next change Heme/ID- on broad spectrum - Cultures pending. Dispo - floor - hopefully home with home health later this week S: Sitting in bed, making jokes. O: Dressing over neck. Lungs decreased at bases, Slight tachycardia. BS present. WV to suction. SCDs Plan: 12/10/16 12:43 12/11/16 09:53 12/13/16 21:40 12/19/16 09:17 12/22/16 10:15 12/24/16 08:32 12/24/16 08:35 12/25/16 10:28 12/29/16 09:15 12/31/16 11:43 01/11/17 14:23 01/11/17 14:50 Objective: Vital Signs Temp Pulse Resp BP Pulse Ox 36.7 C 93 22 H 135/86 H 97 01/11/17 06:11 01/11/17 08:00 01/11/17 08:00 01/11/17 08:00 01/11/17 08:00 Microbiology 01/09/17 14:45 Gram Stain - Final Abdomen - Aspirate 12/29/16 12:15 Gram Stain - Final Peritoneal Fluid - Aspirate Laboratory Results 01/11/17 03:45 01/11/17 03:45 01/10/17 01/11/17 01/12/17 05:59 05:59 05:59 Intake Total 1430 1882 Output Total 1295 250 400 Balance 135 1632 -400 PT 17.1 SEC (12.0-15.0) H 01/09/17 04:05 INR 1.40 (0.83-1.16) H 01/09/17 04:05 ICD10 Worksheet Patient Problems: Problems Problem Status Onset Colon cancer Acute - ICD10 Problem Qualifiers (1) Colon cancer Qualifiers: Colon location: C
--- NOTE | 2017-01-11 16:42 | HOSPPROG ---
Hospitalist Progress Note Assessment/Plan: 56 yo F with complicated hospital course starting 12/09/16 with hemicolectomy for colon adenocarcinoma and subsequent anastomotic leak requiring repeat surgery with ileocolic anastamosis and complications of septic shock due to anastamotic leak/peritonitis # septic shock: 2/2 bowel perforation as next, resolved now although does have continued leukocytosis that has been essentially stable. Monitoring, continued on abx currently micofungin 12/14-01/11; zosyn /-01/11 and now unasyn. # anastamotic leak/polymicrobial intra abdominal abscess:: growing enterococcus and anaerobic GNR, ID/gen surg/IR involved. Subhepatic abscess decreased in size on personal review of most recent abd ct with [address],and now placement of midepigastric drain for other enlarging fluid collection. Wound vac in place. Abx as above. # acute hypoxic respiratory failure: s/p trach and subsequent extubation and then self dc of trach tube, doing well currently on RA. Multifactorial with loculated pleural effusions as well as bibasilar pna # pneumonia: bibasilar pneumonia with associated multiloculated pleural effusions as above, covered by abx as above. # MARTA: in setting of above and resolved # anemia: s/p IV iron and transfusion of 3 units prbc since admission, now stable # nsvt: personal review of tele now in sr # DUB: post menopausal bleeding has been present since admission, will need f/u with SECRET CODE EXPERT when above resolved # nutrition: NG tube out, taking a diet but not eating much, dietary consult # deconditioning: much improved, ambulating independently # elevated lfts: mildly elevated and relatively stable, ? related to abx versus subhepatic abscess # dispo: IP status, will be ready for dc soon pending plan for wound vac/abx. Patient very adamant that she will not want to dc to snf Care plan reviewed with ID and pulmonary as well as multidisciplinary care team. Subjective: no significant overnight events, patient states she is feeling much better, she is very eager to get out of hospital Objective: Vital Signs Temp Pulse Resp BP Pulse Ox 36.7 C 92 22 H 134/94 H 97 01/11/17 16:00 01/11/17 16:00 01/11/17 16:00 01/11/17 16:00 01/11/17 08:00 Microbiology 01/09/17 14:45 Gram Stain - Final Abdomen - Aspirate 12/29/16 12:15 Gram Stain - Final Peritoneal Fluid - Aspirate Laboratory Results 01/11/17 03:45 01/11/17 03:45 01/10/17 01/11/17 01/12/17 05:59 05:59 05:59 Intake Total 1430 1882 Output Total 1295 250 560 Balance 135 1632 -560 PT 17.1 SEC (12.0-15.0) H 01/09/17 04:05 INR 1.40 (0.83-1.16) H 01/09/17 04:05 awake alert nad anicteric op clear rrr no mrg bibasilar crackles, normal wob soft nt nd trace ble edema warm dry well perfused oriented appropriate - Time Spent With Patient Time Spent with Patient: greater than 35 minutes Time Spent with Patient: Greater than 35 minutes spent on this patients care, greater than 50% of time spent counseling, educating, and coordinating care regarding the above mentioned plan. ICD10 Worksheet Patient Problems: Problems Problem Status Onset Colon cancer Acute
[2017-01-12 03:36] LABS: % IMMATURE GRANULYOCYTES 0.5 % (0.0-1.1); ABSOLUTE IMMATURE GRANULOCYTES 0.06 10^3/uL (0.00-0.10); ADD DIFF? NO; ADD MORPH? NO; ADD SCAN? NO; ATYPICAL LYMPHOCYTE FLAG 10 (0-99); FRAGMENT RBC FLAG 0 (0-99); HEMATOCRIT 32.6 % (38.0-47.0); LEFT SHIFT FLG 0 (0-99); LIPEMIA HEMOLYSIS FLAG 80 (0-99); MEAN CELL HEMOGLOBIN 30.1 pg (27.9-34.1); MEAN CELL HEMOGLOBIN CONCENTR. 33.7 g/dL (32.4-36.7); MEAN CELL VOLUME 89.3 fL (81.5-99.8); MEAN PLATELET VOLUME 9.6 fL (8.7-11.7); PLATELET CLUMPS FLAG 0 (0-99); PLATELET COUNT 348 10^3/uL (150-400); RED BLOOD CELL COUNT 3.65 10^6/uL (4.18-5.33)
[2017-01-12 03:46] LABS: ANION GAP 14 mEq/L (8-16); CALCIUM 9.8 mg/dL (8.5-10.4); CARBON DIOXIDE 26 mEq/l (22-31); CHLORIDE 97 mEq/L (97-110); CREATININE 0.7 mg/dL (0.6-1.0); GLOMERULAR FILTRATION RATE > 60; GLUCOSE 92 mg/dL (70-100); POTASSIUM 3.8 mEq/L (3.5-5.2); SODIUM 137 mEq/L (134-144)
[2017-01-12] MEDS: AMPICILLIN/SULBACTAM 3 GM in NS 100 ML IV SCH ×4 (05:58→23:45)
[2017-01-12] MEDS: HYDROCHLOROTHIAZIDE 50 MG TAB PO SCH (08:26)
[2017-01-12] MEDS: FAMOTIDINE 20 MG TAB PO SCH ×2 (08:26→20:21)
[2017-01-12] MEDS: ENOXAPARIN 40 MG/0.4 ML SYR SC SCH (08:27)
--- NOTE | 2017-01-12 11:41 | HOSPPROG ---
Hospitalist Progress Note Assessment/Plan: DIAGNOSES: # septic shock, peritonitis 2/2 bowel perforation # anastamotic leak/polymicrobial intra abdominal abscess # acute hypoxic respiratory failure: s/p trach and subsequent extubation and then self dc of trach tube # Pneumonia with loculated pleural effusions # MARTA: in setting of above, resolved # anemia: s/p IV iron and transfusion of 3 units prbc since admission, now stable # nsvt # DUB: post menopausal bleeding has been present since admission, will need f/u with HOGSHEAD HOOPER when above resolved # nutrition: NG tube out, taking a diet but not eating much, dietary consult # deconditioning: much improved, ambulating independently She appears overall stable at this time and ready to transfer out of ICU. PLANS: -transfer out of ICU today -continue current antibiotics -continue wound care therapies -physical and occupational therapies -continue DVT prophylaxis -can stop H2 nga at this time SUBJECTIVE: Not much in the way of pain. Remains weak. Eating some food but appetite is not great No shortness of breath or fever symptoms OBJECTIVE Vitals reviewed: Stable without fever Exam: alert oriented skin warm dry color ok resps not labored lungs clear BSs heart regular abd wound VAC, bowel sounds present limbs warm, no edema iv site ok Objective: Vital Signs Temp Pulse Resp BP Pulse Ox 36.8 C 89 22 H 139/99 H 96 01/12/17 11:10 01/12/17 11:10 01/12/17 11:10 01/12/17 11:10 01/12/17 11:10 Microbiology 01/09/17 14:45 Gram Stain - Final Abdomen - Aspirate 12/29/16 12:15 Gram Stain - Final Peritoneal Fluid - Aspirate Laboratory Results 01/12/17 03:25 01/12/17 03:25 01/11/17 01/12/17 01/13/17 06:59 06:59 06:59 Intake Total 1882 730 500 Output Total 250 835 300 Balance 1632 -105 200 PT 17.1 SEC (12.0-15.0) H 01/09/17 04:05 INR 1.40 (0.83-1.16) H 01/09/17 04:05 ICD10 Worksheet Patient Problems: Problems Problem Status Onset Colon cancer Acute
--- NOTE | 2017-01-12 17:28 | PCMIDPN ---
Assessment/Plan: Assessment: Peritonitis and sepsis status post anastomotic leak. Currently covered with UNasyn monotherapy. Abdominal aspirate from 12/29 growing sensitive Enterococcus faecalis and an anaerobe. Patient extubated and progressing nicely. Transferring to the floor later today. Plan: 1. Continue Unasyn. 2. Follow clinical course and most recent abdominal fluid culture data. Subjective: Patient is without fever or other complaint. Denies abdominal symptoms. As energized and happy as I have seen her. Objective: unasyn #1 Vital Signs Temp Pulse Resp BP Pulse Ox 36.7 C 87 26 H 152/100 H 96 01/12/17 15:14 01/12/17 15:14 01/12/17 15:14 01/12/17 15:14 01/12/17 15:14 Microbiology 01/09/17 14:45 Gram Stain - Final Abdomen - Aspirate 12/29/16 12:15 Gram Stain - Final Peritoneal Fluid - Aspirate Laboratory Results 01/12/17 03:25 01/12/17 03:25 01/11/17 01/12/17 01/13/17 05:59 05:59 05:59 Intake Total 1882 730 500 Output Total 250 835 300 Balance 1632 -105 200 - Physical Exam General Appearance: WD/WN, alert, no apparent distress, non-toxic Respiratory: lungs clear, normal breath sounds, No respiratory distress Cardiac/Chest: regular rate, rhythm, No tachycardia Extremities: non-tender, normal inspection Abdomen: non-tender, soft Skin: normal color, warm/dry, No rash Neuro/Psych: alert, normal mood/affect, oriented x 3 ICD10 Worksheet Patient Problems: Problems Problem Status Onset Colon cancer Acute
[2017-01-12] MEDS: OXYCODONE/APAP 5/325 TAB PO PRN (18:25)
--- NOTE | 2017-01-12 21:11 | SOAPPROG ---
SOAP Progress Note Assessment/Plan: Assessment: s/p right hemicolectomy for colon cancer and anastomotic dehiscence at staple line s/p ex lap with washout and reanastomosis s/p drainage of abscess above liver Neuro - po pain meds Resp - Much improved. Trach out. Breathing comfortably Cards - stable GI - Return of bowel function. Tolerating diet. Does not like the hospital food Renal - good uop Skin - Wound vac change tu/fri. Consider Amiofix under vac at next change. Drains out soon. Heme/ID- on broad spectrum - Cultures pending. Dispo - floor - hopefully home with home health later this week S: Sitting in bed, making jokes. O: Trach site clean Lungs decreased at bases, Slight tachycardia. BS present. WV to suction. SCDs Plan: 12/10/16 12:43 12/11/16 09:53 12/13/16 21:40 12/19/16 09:17 12/22/16 10:15 12/24/16 08:32 12/24/16 08:35 12/25/16 10:28 12/29/16 09:15 12/31/16 11:43 01/11/17 14:23 01/11/17 14:50 01/12/17 21:10 Objective: Vital Signs Temp Pulse Resp BP Pulse Ox 36.7 C 87 26 H 152/100 H 96 01/12/17 15:14 01/12/17 15:14 01/12/17 15:14 01/12/17 15:14 01/12/17 15:14 Microbiology 01/09/17 14:45 Gram Stain - Final Abdomen - Aspirate 12/29/16 12:15 Gram Stain - Final Peritoneal Fluid - Aspirate Laboratory Results 01/12/17 03:25 01/12/17 03:25 01/11/17 01/12/17 01/13/17 05:59 05:59 05:59 Intake Total 1882 730 700 Output Total 250 835 333 Balance 1632 -105 367 PT 17.1 SEC (12.0-15.0) H 01/09/17 04:05 INR 1.40 (0.83-1.16) H 01/09/17 04:05 ICD10 Worksheet Patient Problems: Problems Problem Status Onset Colon cancer Acute - ICD10 Problem Qualifiers (1) Colon cancer Qualifiers: Colon location: C
[2017-01-13] MEDS: AMPICILLIN/SULBACTAM 3 GM in NS 100 ML IV SCH ×4 (05:33→23:57)
[2017-01-13] MEDS: OXYCODONE/APAP 5/325 TAB PO PRN ×4 (07:08→20:41)
[2017-01-13] MEDS: ENOXAPARIN 40 MG/0.4 ML SYR SC SCH (08:24)
[2017-01-13] MEDS: HYDROCHLOROTHIAZIDE 50 MG TAB PO SCH (08:25)
[2017-01-13] MEDS: FAMOTIDINE 20 MG TAB PO SCH ×2 (08:25→20:41)
--- NOTE | 2017-01-13 12:36 | SOAPPROG ---
SOAP Progress Note Assessment/Plan: Assessment: s/p right hemicolectomy for colon cancer and anastomotic dehiscence at staple line s/p ex lap with washout and reanastomosis Neuro - po pain meds Resp - Much improved. Trach out. Breathing comfortably Cards - stable GI - Return of bowel function. Tolerating diet. Does not like the hospital food Renal - good uop Skin - Amniofill under wound vac. Will change weekly on Fridays. Drains our prior to d/c Heme/ID- on broad spectrum Dispo - hopefully home tomorrow with wound vac and home care. Seen c Dr. Cat S: Sitting in bed, no complaints but wants to go home! O: Laying inbed, comfortable, NAD No increased WOB Trach site clean Midline wound 17.5 x 4 . 0.5cm healthy granulation. Applied amniofill - procedure note to follow Objective: Vital Signs Temp Pulse Resp BP Pulse Ox 36.6 C 87 20 144/104 H 96 01/13/17 07:57 01/13/17 07:57 01/13/17 07:57 01/13/17 08:25 01/13/17 07:57 Microbiology 01/09/17 14:45 Gram Stain - Final Abdomen - Aspirate 12/29/16 12:15 Gram Stain - Final Peritoneal Fluid - Aspirate Anaerobic Culture - Final Enterococcus Faecalis Anaerobic Gram Positive [place] Laboratory Results 01/12/17 03:25 01/12/17 03:25 01/12/17 01/13/17 01/14/17 05:59 05:59 05:59 Intake Total 730 700 Output Total 835 341 Balance -105 359 PT 17.1 SEC (12.0-15.0) H 01/09/17 04:05 INR 1.40 (0.83-1.16) H 01/09/17 04:05 ICD10 Worksheet Patient Problems: Problems Problem Status Onset Colon cancer Acute
--- NOTE | 2017-01-13 15:10 | PCMIDPN ---
Assessment/Plan: Assessment/Plan: * Septic shock due to anastomotic leak with polymicrobial peritoneal contamination: Continued clinical improvement. Formal identification of anaerobe now most consistent with gram-positive everett rather than gram-negative everett. Both will be covered by beta-lactam/beta lactamase inhibitor. Likely patient will be discharged tomorrow with ongoing care as outpatient. Plan Zosyn by continuous infusion through 01/26/2017 which represents 4 weeks post drainage of perihepatic abscess. Weekly CBC and CMP on treatment. Findings and plan discussed with patient and case management. 01/13/17 15:07 Subjective: Patient continues to feel better. No abdominal pain. Now transferred to floor. Objective: Vital Signs Temp Pulse Resp BP Pulse Ox 36.6 C 87 20 144/104 H 96 01/13/17 07:57 01/13/17 07:57 01/13/17 07:57 01/13/17 08:25 01/13/17 07:57 Microbiology 12/29/16 12:15 Gram Stain - Final Peritoneal Fluid - Aspirate Anaerobic Culture - Final Enterococcus Faecalis Anaerobic Gram Positive [place] 01/09/17 14:45 Gram Stain - Final Abdomen - Aspirate Laboratory Results 01/12/17 03:25 01/12/17 03:25 01/12/17 01/13/17 01/14/17 05:59 05:59 05:59 Intake Total 730 700 Output Total 835 341 Balance -105 359 Unasyn #2, antibiotics # 31 - Physical Exam General Appearance: alert, no apparent distress EENT: pharynx normal, No scleral icterus, No thrush Cardiac/Chest: regular rate, rhythm Abdomen: non-tender, other (Wound VAC in place without surrounding erythema), No distended - Line/s LUE PICC Lines: No drainage, No erythema ICD10 Worksheet Patient Problems: Problems Problem Status Onset Colon cancer Acute
--- NOTE | 2017-01-13 15:12 | PDIAF ---
- Diagnosis Diagnosis: Peritonitis, perihepatic abscess Code Status: Full Code - Medication Management Discharge Medications: Medications to Continue on Transfer Aspirin EC [Aspirin EC 325 mg (*)] 325 mg PO DAILY 12/05/16 [Last Taken 12/05/16 ] Hydrochlorothiazide [HCTZ (*)] 50 mg PO DAILY 12/05/16 [Last Taken 12/08/16] Quinapril HCl [Accupril 40 MG] 40 mg PO DAILY 12/05/16 [Last Taken 12/08/16] amLODIPine BESYLATE [Norvasc 10 mg (*)] 10 mg PO DAILY 12/05/16 [Last Taken ] Convex Grinder Operator Antibiotics: Zosyn 13.5 g IV daily by continuous infusion Shelter Antibiotic Stop Date: 01/26/17 Discharge Medications: Refer to the Discharge Home Medication list for PRN reason. PICC Care - Routine: Yes - Orders Services needed: Home Intermediate Care Face to Face: I certify that this patient was under my care and that I had the required [id number] encounter meeting the encounter requirements on the discharge day. My findings support the fact that the patient is homebound as defined in CMS Chapter 7 Medicare Benefits Manual 30.1.1, The condition of the patient is such that there exists a normal inability to leave home and consequently, leaving home would require a considerable and taxing effort. Diet Texture: Regular Texture Diet, Thin Liquids - Labs/Radiology CBC Date: 01/16/17 (Weekly Q Monday) CMP Date: 01/16/17 (Weekly Q Monday) Call or Fax Lab and Imaging Results to: Dr. Johnson, - Follow Up Care Current Providers and Referrals: KAMLESH BOB NP [Other] Steven Johnson MD [Medical Doctor] - 01/19/17 2:00 pm
[2017-01-14] MEDS: OXYCODONE/APAP 5/325 TAB PO PRN ×2 (04:53→13:37)
[2017-01-14] MEDS: AMPICILLIN/SULBACTAM 3 GM in NS 100 ML IV SCH ×2 (04:54→12:36)
[2017-01-14 07:55] VITALS: BP 145/93; PULSE 89; RESP 18; TEMP 97.9; O2SAT 98
[2017-01-14] MEDS: HYDROCHLOROTHIAZIDE 50 MG TAB PO SCH (08:05)
[2017-01-14] MEDS: FAMOTIDINE 20 MG TAB PO SCH (08:05)
[2017-01-14] MEDS: ENOXAPARIN 40 MG/0.4 ML SYR SC SCH (08:05)
--- NOTE | 2017-01-14 10:20 | PDIAF ---
- Diagnosis Diagnosis: Peritonitis, perihepatic abscess Code Status: Full Code - Medication Management Discharge Medications: Medications to Continue on Transfer Aspirin EC [Aspirin EC 325 mg (*)] 325 mg PO DAILY 12/05/16 [Last Taken 12/05/16 ] Hydrochlorothiazide [HCTZ (*)] 50 mg PO DAILY 12/05/16 [Last Taken 12/08/16] amLODIPine BESYLATE [Norvasc 10 mg (*)] 10 mg PO DAILY 12/05/16 [Last Taken ] Ampicillin/Sulbactam [Unasyn] 3 gm IV Q6HRS #112 vial 01/14/17 [Last Taken Unknown] oxyCODONE/APAP 5/325 [Percocet 5/325 (*)] 2 tab PO Q4HRS PRN #30 tab 01/14/17 [ Last Taken Unknown] traZODone [traZODONE 50MG (*)] 25 - 50 mg PO HS PRN #30 tab 01/14/17 [Last Taken Unknown] Jail Antibiotics: Zosyn 13.5 g IV daily by continuous infusion Live Truck Technician Antibiotic Stop Date: 01/26/17 Discharge Medications: Refer to the Discharge Home Medication list for PRN reason. PICC Care - Routine: Yes - Orders Services needed: Home Care, Registered Nurse, Certified Traveling Construction Superintendent, Physical Therapy, Occupational Therapy Home Care Face to Face: I certify that this patient was under my care and that I had the required [id number] encounter meeting the encounter requirements on the discharge day. My findings support the fact that the patient is homebound as defined in CMS Chapter 7 Medicare Benefits Manual 30.1.1, The condition of the patient is such that there exists a normal inability to leave home and consequently, leaving home would require a considerable and taxing effort. Diet Recommendation: no restrictions on diet Diet Texture: Regular Texture Diet Wound Care Instructions: wound vac - leave in place until her f/u appt with Dr. Cat - Labs/Radiology CBC Date: 01/16/17 (Weekly Q Monday) CMP Date: 01/16/17 (Weekly Q Monday) Call or Fax Lab and Imaging Results to: Dr. Johnson, - Follow Up Care Current Providers and Referrals: KAMLESH BOB NP [Other] Steven Johnson MD [Medical Doctor] - 01/19/17 2:00 pm Tasha Cat MD [Medical Doctor] - 01/20/17
--- NOTE | 2017-01-14 10:23 | SOAPPROG ---
SOAP Progress Note Assessment/Plan: Assessment: s/p right hemicolectomy for colon cancer and anastomotic dehiscence at staple line s/p ex lap with washout and reanastomosis Neuro - po pain meds Resp - Much improved. Trach out. Breathing comfortably Cards - stable GI - Return of bowel function. Tolerating diet. Does not like the hospital food Renal - good uop Skin - Amniofill under wound vac. Will change weekly on Fridays. Drains our prior to d/c Heme/ID- on broad spectrum . home with 4 weeks iv antibiotics Dispo - d/c home today with wound vac and home care. Seen c Dr. Cat S: Sitting in bed, no complaints but wants to go home! O: Laying inbed, comfortable, NAD No increased WOB Trach site clean Midline wound vac to suction 01/14/17 10:23 Objective: Vital Signs Temp Pulse Resp BP Pulse Ox 36.6 C 89 18 145/93 H 98 01/14/17 07:53 01/14/17 07:53 01/14/17 07:53 01/14/17 08:05 01/14/17 07:53 Microbiology 12/29/16 12:15 Gram Stain - Final Peritoneal Fluid - Aspirate Anaerobic Culture - Final Enterococcus Faecalis Anaerobic Gram Positive [place] 01/09/17 14:45 Gram Stain - Final Abdomen - Aspirate Laboratory Results 01/12/17 03:25 01/12/17 03:25 01/13/17 01/14/17 01/15/17 05:59 05:59 05:59 Intake Total 700 300 Output Total 341 Balance 359 300 PT 17.1 SEC (12.0-15.0) H 01/09/17 04:05 INR 1.40 (0.83-1.16) H 01/09/17 04:05 ICD10 Worksheet Patient Problems: Problems Problem Status Onset Colon cancer Acute
--- NOTE | 2017-01-14 17:52 | HOSPPROG ---
Hospitalist Progress Note Assessment/Plan: DIAGNOSES: # septic shock, peritonitis 2/2 bowel perforation # anastamotic leak/polymicrobial intra abdominal abscess # acute hypoxic respiratory failure: s/p trach and subsequent extubation and then self dc of trach tube # Pneumonia with loculated pleural effusions # MARTA: in setting of above, resolved # anemia: s/p IV iron and transfusion of 3 units prbc since admission, now stable # nsvt # DUB: post menopausal bleeding has been present since admission, will need f/u with [employer] when above resolved # nutrition: NG tube out, taking a diet but not eating much, dietary consult # deconditioning: much improved, ambulating independently She appears overall stable at this time and ready for discharge PLANS: -she will go home today -I have reviewed the use and care of wound vacc w her -she is referred to gynecology for evaluation of fibroids with bleeding -she will continue on another 4 weeks of abx [facility] SUBJECTIVE: feels good almost no pain OBJECTIVE Vitals reviewed: Stable without fever Exam: alert oriented skin warm dry color ok resps not labored lungs clear BSs heart regular abd wound VAC, bowel sounds present limbs warm, no edema iv site ok Objective: Vital Signs Temp Pulse Resp BP Pulse Ox 36.6 C 89 18 145/93 H 98 01/14/17 07:53 01/14/17 08:35 01/14/17 07:53 01/14/17 08:05 01/14/17 08:35 Microbiology 12/29/16 12:15 Gram Stain - Final Peritoneal Fluid - Aspirate Anaerobic Culture - Final Enterococcus Faecalis Anaerobic Gram Positive [place] 01/09/17 14:45 Gram Stain - Final Abdomen - Aspirate Laboratory Results 01/12/17 03:25 01/12/17 03:25 01/13/17 01/14/17 01/15/17 06:59 06:59 06:59 Intake Total 700 300 Output Total 341 Balance 359 300 PT 17.1 SEC (12.0-15.0) H 01/09/17 04:05 INR 1.40 (0.83-1.16) H 01/09/17 04:05 ICD10 Worksheet Patient Problems: Problems Problem Status Onset Colon cancer Acute
--- NOTE | 2017-01-14 17:52 | GDS ---
[f rep st] DISCHARGE SUMMARY ADMISSION DIAGNOSIS: Right colon cancer. SECONDARY DIAGNOSES: 1. Septic shock due to anastomotic leak, resolved. 2. Hypokalemia, resolved. 3. Acute renal failure, resolved. 4. Hypertension. 5. Acute respiratory failure, resolved. 6. Acute blood-loss anemia, resolved. 7. Metabolic acidosis, resolved. 8. Hypocalcemia, resolved. 9. Right lower lobe pneumonia, improved. 10. Hypernatremia, resolved. 11. Elevated LFTs resolved. REASON FOR ADMISSION: The patient is a pleasant 56-year-old woman who had colon cancer completely r emoved by colonoscopy. She presented during this admission for definitive right hemicolectomy. She was admitted for surgical intervention, pain control, observation. HOSPITAL COURSE: She was taken to the operating room on 12/09/[address] Tasha Cat for a laparos copic-assisted right hemicolectomy. Pathology from the surgery was negative for malignancy. On pos toperative day #1, she was started on Invanz for leukocytosis. On postoperative day #2, she began p assing flatus and her diet was advanced. On postoperative day #3, she had an abdominal x-ray which showed ileus and a chest x-ray which showed some atelectasis. On postoperative day #4, she develope d worsening pain and distention, and an NG tube was placed. She was seen by the hospitalist for con sultation of her comorbidities. A followup abdominal x-ray showed pneumoperitoneum. She became ext remely hypotensive. She returned to the operating room that evening for exploratory laparotomy with bowel resection. She was found to have an anastomotic leak. She had a TARA drain placed. Her fasci a was closed with a wound VAC over top and NG tube was placed. She remained intubated. Postoperative day #1, a PICC line was placed. A chest x-ray showed a developing right lower lobe pn eumonia. She was seen by Infectious Disease, who changed her antibiotics from Invanz to Zosyn, dapt omycin, and micafungin. She has also seen by Nephrology for acute renal failure. Postoperative day #2, she was started on TPN. Postoperative day #3, she was weaned off pressors and her cardiovascul ar status was stable. On postoperative day #4, she had a bronchoscopy to remove secretions. On pos toperative day #5, she developed increased leukocytosis. A CT of the abdomen and pelvis showed asci hernesto without evidence of loculated fluid collections or abscesses. She had bilateral atelectasis wit h a right pleural effusion. On postoperative day #6, she had a repeat bronchoscopy which showed min imal mucus. The daptomycin was discontinued. On postoperative day #7, she went in for a paracentes is and 2.2 L of serous fluid was removed. Negative culture. Postoperative day #9, a chest x-ray sh owed the right pleural effusion to be stable. On postoperative day #10, a chest CT showed bilateral pneumonia with a right pleural effusion and atelectasis. On postoperative #11, bronchoscopy was pe rformed which showed mild mucous plugging. On postoperative day #13, until this point she did not t olerate weans on the vent and was taken in for percutaneous tracheostomy placement by Dr. Kruger. O n postoperative day #14, trickle feeds were started and she was weaned off TPN. On postoperative da y #15, a CT abdomen and pelvis showed a loculated fluid collection along the surface of the liver as well as a right pleural effusion. On postoperative day #16, she was taken by IR for CT-guided drrambo nage of the abscess. Only 1 mL of purulent fluid was drained. On this day, she also went in for ri ght thoracentesis and 1 L of serous fluid was drained. Negative culture. She also received 2 units of packed red blood cells for acute blood-loss anemia. On postoperative day #17, she returned to I R for drain replacement, at which time 145 mL of purulent fluid was removed. Negative cultures. On postoperative day #22, she was evaluated by Speech Therapy for a swallow evaluation, which she pass ed without aspiration. On postoperative day #24, her Koenig catheter was removed. On postoperative day #26, an abdominal and pelvic CT showed an increase in size of a fluid collection in the mid abdo men, epigastric region, with increased leukocytosis. On postoperative day #27, she returned to Inte rventional Radiology for percutaneous abscess drainage. Approximately 250 mL were removed. Her tra cheostomy tube was removed on postoperative day #27 and her diet was advanced. On postop day #29, h er antibiotics were switched to Unasyn. On postoperative day #30, AmnioFill was applied underneath her wound VAC. On postoperative day #31, her TARA drains were removed; and on postoperative day #32, she was stable and ready for discharge. CONDITION: She is being discharged home with home care services of nursing (nurse assistant teaching professor, physic al therapy, and occupational therapy), in stable condition. Her pain is controlled with oral pain m edication. She is tolerating a regular diet and ambulating independently. DISCHARGE INSTRUCTIONS AND FOLLOWUP: She will follow up with Dr. Tasha Cat in 1 week for a wound check and VAC change. In addition, she will follow up with Dr. Steven Johsnon of Infectious Disease. Kendell christy will have home care for IV antibiotics and assistance with ADLs. She will have labs drawn on Mond ay. She understands to avoid heavy lifting, pushing, or pulling. Diet as tolerated. She may not s hower with the wound VAC in place. She understands to call our office with any worsening symptoms, questions, or concerns. /[id number]/MODL
--- NOTE | 2017-01-14 20:08 | GPN ---
[f rep st] PROCEDURE NOTE DATE OF PROCEDURE: 01/13/2017 PREPROCEDURE DIAGNOSIS: Midline surgical wound dehiscence. POSTPROCEDURE DIAGNOSIS: Midline surgical wound dehiscence. PROCEDURE PERFORMED: Application of tissue derived skin substitute, AmnioFill. FINDINGS: The wound measured 17.5 x 4 x 0.5 cm with 100% healthy granulation tissue in the base. Am nioFill 500 mg [id number], expiration 06/11/2021. INDICATIONS: The patient is a 56-year-old woman who developed an anastomotic leak of her right hem icolectomy. Her fascia was closed but a wound VAC was placed in the subcutaneous tissue. It has been healing in over the past 1 month since her surgery. The skin is too tight to perform delayed primar y closure. DESCRIPTION OF PROCEDURE: The patient was verbally consented for the procedure. She was lying in th e supine position. The wound VAC dressing was removed and the wound was irrigated with normal saline . The wound measured 17.5 x 4 x 0.5 cm. There was 100% healthy granulation tissue and did not requir e sharp debridement. I then applied AmnioFill 500 mg followed by her wound VAC dressing. She will re turn to the clinic in 1 week for a VAC change and wound check. /[id number]/MODL
== END 2017-01-14 16:01 | disposition home health service (06) | DRG 3 ==
LOC: F3E 10:14 → F2N 12-13 21:39 → F3E 01-12 10:51
PROVIDERS: ADMIT Surgery; ATTEND Surgery
PROC: 0DTF0ZZ Resection of Right Large Intestine, Open Approach (ICD-10-PCS; principal; 2016-12-09 12:15)
PROC: 0DNF0ZZ Release Right Large Intestine, Open Approach (ICD-10-PCS; principal; 2016-12-09 12:15)
PROC: 5A1955Z Respiratory Ventilation, Greater than 96 Consecutive Hours (ICD-10-PCS; 2016-12-13)
PROC: 0BH17EZ Insertion of Endotracheal Airway into Trachea, Via Natural or Artificial Opening (ICD-10-PCS; 2016-12-13)
PROC: 0DNF0ZZ Release Right Large Intestine, Open Approach (ICD-10-PCS; 2016-12-13)
PROC: 0DTE0ZZ Resection of Large Intestine, Open Approach (ICD-10-PCS; 2016-12-13)
PROC: 2W13X6Z Compression of Abdominal Wall using Pressure Dressing (ICD-10-PCS; 2016-12-13)
PROC: 0DH67UZ Insertion of Feeding Device into Stomach, Via Natural or Artificial Opening (ICD-10-PCS; 2016-12-13)
PROC: 02HV33Z Insertion of Infusion Device into Superior Vena Cava, Percutaneous Approach (ICD-10-PCS; 2016-12-14)
PROC: 02HV33Z Insertion of Infusion Device into Superior Vena Cava, Percutaneous Approach (ICD-10-PCS; 2016-12-15)
PROC: 0BC68ZZ Extirpation of Matter from Right Lower Lobe Bronchus, Via Natural or Artificial Opening Endoscopic (ICD-10-PCS; 2016-12-17)
PROC: 0B9B8ZZ Drainage of Left Lower Lobe Bronchus, Via Natural or Artificial Opening Endoscopic (ICD-10-PCS; 2016-12-17)
PROC: 0BCB8ZZ Extirpation of Matter from Left Lower Lobe Bronchus, Via Natural or Artificial Opening Endoscopic (ICD-10-PCS; 2016-12-17)
PROC: 0W9G3ZX Drainage of Peritoneal Cavity, Percutaneous Approach, Diagnostic (ICD-10-PCS; 2016-12-20)
PROC: 0B114F4 Bypass Trachea to Cutaneous with Tracheostomy Device, Percutaneous Endoscopic Approach (ICD-10-PCS; 2016-12-26)
PROC: 0BJ08ZZ Inspection of Tracheobronchial Tree, Via Natural or Artificial Opening Endoscopic (ICD-10-PCS; 2016-12-26)
PROC: 0W9G3ZZ Drainage of Peritoneal Cavity, Percutaneous Approach (ICD-10-PCS; 2016-12-29)
PROC: 0W993ZX Drainage of Right Pleural Cavity, Percutaneous Approach, Diagnostic (ICD-10-PCS; 2016-12-29)
PROC: 0W9G30Z Drainage of Peritoneal Cavity with Drainage Device, Percutaneous Approach (ICD-10-PCS; 2016-12-29)
PROC: 0WPG30Z Removal of Drainage Device from Peritoneal Cavity, Percutaneous Approach (ICD-10-PCS; 2016-12-29)
PROC: 30233N1 Transfusion of Nonautologous Red Blood Cells into Peripheral Vein, Percutaneous Approach (ICD-10-PCS; 2016-12-29)
PROC: 0W9G3ZZ Drainage of Peritoneal Cavity, Percutaneous Approach (ICD-10-PCS; 2016-12-30)
PROC: 0W9G3ZZ Drainage of Peritoneal Cavity, Percutaneous Approach (ICD-10-PCS; 2017-01-09)
DX: C18.2 Malignant neoplasm of ascending colon (principal); T81.4XXA Infection following a procedure, initial encounter; R65.21 Severe sepsis with septic shock; A41.81 Sepsis due to Enterococcus; K91.89 Other postprocedural complications and disorders of digestive system; K66.8 Other specified disorders of peritoneum; K66.0 Peritoneal adhesions (postprocedural) (postinfection); N17.9 Acute kidney failure, unspecified; J96.01 Acute respiratory failure with hypoxia; T81.32XA Disruption of internal operation (surgical) wound, not elsewhere classified, initial encounter; K65.1 Peritoneal abscess; D62 Acute posthemorrhagic anemia; J69.0 Pneumonitis due to inhalation of food and vomit; J90 Pleural effusion, not elsewhere classified; K56.7 Ileus, unspecified; E87.6 Hypokalemia; E83.51 Hypocalcemia; E87.0 Hyperosmolality and hypernatremia; J98.11 Atelectasis; J98.09 Other diseases of bronchus, not elsewhere classified; E66.01 Morbid (severe) obesity due to excess calories; Z68.41 Body mass index [BMI] 40.0-44.9, adult; E87.2 Acidosis; N93.8 Other specified abnormal uterine and vaginal bleeding; A59.00 Urogenital trichomoniasis, unspecified; I95.9 Hypotension, unspecified; I10 Essential (primary) hypertension; F17.210 Nicotine dependence, cigarettes, uncomplicated
CPT/HCPCS: 86860-90; 86870-90; 86905-90; 86922-90; 92507-GN; 92523-GN; 92610-GN; 92611-GN; 97110-GP; 97112-GP; 97116-GP; 97162-GP; 97166-GO; 97530-GO; 97530-GP; 97535-GO; 99001-90; C1729; C1751; C1769; J0295; J0360; J0697; J0878; J1100; J1170; J1200; J1335; J1650; J1885; J2060; J2248; J2250; J2310; J2370; J2405; J2543; J2704; J2710; J2916; J2997; J3010; J3475; J3490; P9016; P9041; P9047; Q9967

== ENCOUNTER 2017-01-20 10:33 | Observation (INO) | payer OTHER ==
[2017-01-20] MEDS ORDERED: IOPAMIDOL (ISOVUE-300) 100 ML BTL ONE (11:15)
[2017-01-20] MEDS ORDERED: ONDANSETRON DISINTEGRATING 4 MG TAB PO PRN (13:05)
[2017-01-20] MEDS ORDERED: diphenhydrAMINE 25 MG CAP PO PRN (13:05)
[2017-01-20] MEDS ORDERED: NS 1,000 ML IV SCH (13:15)
--- NOTE | 2017-01-20 14:05 | PCMIDPN ---
Assessment/Plan: # Postoperative infection of the abdomen s/p anastomotic leak after partial colectomy, Cultures showed Enterococcus and anaerobe but infection presumed polymicrobial. WBC normal today for the first time and CT today shows decreased size of intra-abdominal fluid collections. -- Can give Unasyn while hospitalized based on prior culture results for blood cx -- Stop date 01/26/17 # Nausea, vomiting, mid epigastric pain x2 days, denies sick contact. No peritoneal signs on exam. Midline wound appears significantly smaller than my last exam, wound VAC is present. DDx: medication/antibiotic toxicity, line infection. patient has a triple-lumen PICC line which may be a bit more prone to infection. Intra-abd process seems unlikely. -- await LFTs and creatinine -- check blood cultures -- AF, normal wbc will defer additional empiric antibiotic coverage. Care coordination with Dr. Tasha Cat 01/20/17 16:18 Subjective: 56-year-old woman with recent prolonged hospital course following severe septic shock from peritonitis/abscess from anastomotic leak who presents to ID complaining of nausea. Nausea continued and worsened today and CT scan was repeated but shows no clear etiology to nausea. Patient was admitted today for management and further evaluationof intractable nausea. Objective: Vital Signs Temp Pulse Resp BP Pulse Ox 36.5 C 94 19 139/94 H 96 01/20/17 13:03 01/20/17 13:03 01/20/17 13:03 01/20/17 13:03 01/20/17 13:03 - Physical Exam General Appearance: alert, no apparent distress EENT: poor dentition, No thrush Respiratory: lungs clear Neck: supple Cardiac/Chest: regular rate, rhythm Extremities: No pedal edema Abdomen: non-tender, soft, distended, other (midline wound vac in place), No tender Skin: No rash Neuro/Psych: alert, normal mood/affect, oriented x 3 - Line/s LUE PICC Lines: other (partially pulled out but no abn at insertion site. triple lumem), No drainage, No erythema - Time Spent With Patient Time Spent with Patient: greater than 35 minutes Time Spent with Patient: Greater than 35 minutes spent on this patients care, greater than 50% of time spent counseling, educating, and coordinating care regarding the above mentioned plan. ICD10 Worksheet Patient Problems: Problems Problem Status Onset Colon cancer Acute
[2017-01-20] MEDS: ONDANSETRON 4 MG/2 ML VIAL IVP PRN ×2 (14:19→20:12)
[2017-01-20 14:51] LABS: % IMMATURE GRANULYOCYTES 0.4 % (0.0-1.1); ABSOLUTE IMMATURE GRANULOCYTES 0.03 10^3/uL (0.00-0.10); ADD DIFF? NO; ADD MORPH? NO; ADD SCAN? NO; ATYPICAL LYMPHOCYTE FLAG 20 (0-99); FRAGMENT RBC FLAG 0 (0-99); HEMATOCRIT 36.3 % (38.0-47.0); HEMOGLOBIN 12.3 g/dL (12.6-16.3); LEFT SHIFT FLG 0 (0-99); LIPEMIA HEMOLYSIS FLAG 90 (0-99); MEAN CELL HEMOGLOBIN 29.6 pg (27.9-34.1); MEAN CELL HEMOGLOBIN CONCENTR. 33.9 g/dL (32.4-36.7); MEAN CELL VOLUME 87.5 fL (81.5-99.8); MEAN PLATELET VOLUME 9.7 fL (8.7-11.7); PLATELET CLUMPS FLAG 0 (0-99); PLATELET COUNT 322 10^3/uL (150-400); RED BLOOD CELL COUNT 4.15 10^6/uL (4.18-5.33); RED CELL DISTRIBUTION WIDTH 14.5 % (11.5-15.2)
[2017-01-20] MEDS ORDERED: PROMETHAZINE HCL 25 MG SUPPR PR PRN (14:54)
[2017-01-20] MEDS ORDERED: PROMETHAZINE HCL 25 MG TAB PO PRN (14:54)
[2017-01-20 15:20] LABS: ALANINE AMINOTRANSFERASE 34 IU/L (9-52); ALBUMIN 4.3 g/dL (3.5-5.0); ALKALINE PHOSPHATASE 249 IU/L (38-126); ANION GAP 15 mEq/L (8-16); ASPARTATE AMINOTRANSFERASE 47 IU/L (14-46); BILIRUBIN,TOTAL 1.1 mg/dL (0.1-1.4); CALCIUM 10.4 mg/dL (8.5-10.4); CARBON DIOXIDE 29 mEq/l (22-31); CHLORIDE 97 mEq/L (97-110); CREATININE 0.6 mg/dL (0.6-1.0); GLOMERULAR FILTRATION RATE > 60; GLUCOSE 116 mg/dL (70-100); SODIUM 141 mEq/L (134-144); TOTAL PROTEIN 8.3 g/dL (6.3-8.2)
[2017-01-20 15:49] LABS: POTASSIUM 2.7 mEq/L (3.5-5.2)
[2017-01-20] MEDS ORDERED: PROTOCOL POTASSIUM 1 DOSE MISC PRN (16:05)
[2017-01-20] MEDS ORDERED: D5W 1/2 NS W/ 40 KCl/L 1,000 ML IV SCH (16:15)
[2017-01-20] MEDS ORDERED: POTASSIUM Cl (KCl) 100 ML IV SCH (16:15)
[2017-01-20] MEDS: POTASSIUM Cl (KCl) 100 ML IV SCH ×4 (16:41→22:31)
[2017-01-20] MEDS ORDERED: MAGNESIUM SULF 2 GM/WATER 50 ML IV ONE (17:24)
[2017-01-20] MEDS: AMPICILLIN/SULBACTAM 3 GM in NS 100 ML IV SCH ×2 (17:33→23:47)
--- NOTE | 2017-01-20 17:42 | SOAPPROG ---
SOAP Progress Note Assessment/Plan: Assessment: 56yo F with complicated surgical course s/p R hemicolectomy with anastomotic leak admitted c nausea and vomiting Found to be severely hypokalemic - replacing Abd CT with improvement of fluid collections - no new abscesses Hospitalists to see ID to see Diet as tolerated Formal H&P to follow by Dr. Cat Plan: 01/20/17 17:40 Objective: Vital Signs Temp Pulse Resp BP Pulse Ox 36.5 C 94 19 139/94 H 96 01/20/17 13:03 01/20/17 13:03 01/20/17 13:03 01/20/17 13:03 01/20/17 13:03 Laboratory Results 01/20/17 14:28 01/20/17 14:28 ICD10 Worksheet Patient Problems: Problems Problem Status Onset Colon cancer Acute
--- NOTE | 2017-01-20 17:59 | PDGENHP ---
History and Physical - Chief Complaint Acute nausea - History of Present Illness Primary surgeon: Dr. Cat Primary infectious disease: Dr. Johnson HPI: 56-year-old female presents with acute nausea associated abdominal pain with onset of symptoms approximately 36 hours ago induration persistent there after. The patient reports that this has resulted in inability to tolerate oral intake for fear of exacerbating the nausea. She has been taking Percocet at home to alleviate her abdominal pain and she does not believe that the Percocet has been associated to any nausea. She has also been utilizing home IV antibiotics and does not believe there is any temporal association between the and her nausea. Her after mentioned symptoms have resulted in associated weakness characterizes generalized, rendering patient to have difficulties with ambulating. She otherwise denies any recent medication changes and she denies any overt constipation or diarrhea. History Information - Allergies/Home Medication List Allergies/Adverse Reactions: No Known Allergies Allergy (Unverified 12/08/16 15:30) Home Medications: Aspirin EC [Aspirin EC 325 mg (*)] 325 mg PO DAILY 12/05/16 [Last Taken 01/20/17 ] Hydrochlorothiazide [HCTZ (*)] 50 mg PO DAILY 12/05/16 [Last Taken 01/20/17] amLODIPine BESYLATE [Norvasc 10 mg (*)] 10 mg PO DAILY 12/05/16 [Last Taken 08/27] Ondansetron Odt [Zofran Odt 4 mg (*)] 4 mg PO Q4H PRN 01/20/17 [Last Taken 01/20] I have personally reviewed and updated: family history, medical history, social history, surgical history - Past Medical History Additional medical history: Polymicrobial anastomotic leak with recent hospitalization for septic shock, placed on home IV antibiotics - Surgical History Additional surgical history: 12/09/2016 partial colectomy May complicated by anastomotic leak, requiring wound VAC. Cholecystectomy. Spinal surgery - Family History Additional family history: 2nd degree relative with colon cancer, no recent contacts - Social History Smoking Status: Light smoker Alcohol Use: Other (Characterizes moderate) Drug Use: None Additional social history: Patient reports she lives alone Review of Systems ROS: 10pt was reviewed & negative except for what was stated in HPI & below Constitutional: Reports: weakness Gastrointestinal: Reports: abdominal pain, nausea Physical Exam Temp Pulse Resp BP Pulse Ox 36.5 C 94 19 139/94 H 96 01/20/17 13:03 01/20/17 13:03 01/20/17 13:03 01/20/17 13:03 01/20/17 13:03 Constitutional: no apparent distress, not in pain, chronically ill appearing, uncomfortable (Patient feels bothered) Eyes: PERRL, anicteric sclera, EOMI Ears, Nose, Mouth, Throat: moist mucous membranes, hearing normal, ears appear normal, no oral mucosal ulcers Cardiovascular: regular rate and rhythym, systolic murmur (2/6 systolic murmur at the apex), No edema Respiratory: no respiratory distress, no rales or rhonchi, clear to auscultation Gastrointestinal: normoactive bowel sounds, other (Central abdominal wound VAC, tenderness to palpation in the upper hemidiaphragm), No guarding, No distension Skin: other (No erythema or induration surrounding the surgical site) Neurologic: AAOx3, No weakness (Motor strength 5/5 bilateral lower extremity) Psychiatric: not encephalopathic, flat affect, agitated Lab Data & Imaging Review 01/20/17 14:28 01/20/17 14:28 WBC 8.17 10^3/uL (3.80-9.50) 01/20/17 14:28 RBC 4.15 10^6/uL (4.18-5.33) L 01/20/17 14:28 Hgb 12.3 g/dL (12.6-16.3) L 01/20/17 14:28 Hct 36.3 % (38.0-47.0) L 01/20/17 14:28 MCV 87.5 fL (81.5-99.8) 01/20/17 14:28 MCH 29.6 pg (27.9-34.1) 01/20/17 14:28 MCHC 33.9 g/dL (32.4-36.7) 01/20/17 14:28 RDW 14.5 % (11.5-15.2) 01/20/17 14:28 Plt Count 322 10^3/uL (150-400) 01/20/17 14:28 MPV 9.7 fL (8.7-11.7) 01/20/17 14:28 Neut % (Auto) 82.5 % (39.3-74.2) H 01/20/17 14:28 Lymph % (Auto) 8.4 % (15.0-45.0) L 01/20/17 14:28 [place] % (Auto) 5.5 % (4.5-13.0) 01/20/17 14:28 Eos % (Auto) 2.1 % (0.6-7.6) 01/20/17 14:28 Baso % (Auto) 1.1 % (0.3-1.7) 01/20/17 14:28 Nucleat RBC Rel Count 0.0 % (0.0-0.2) 01/20/17 14:28 Absolute Neuts (auto) 6.74 10^3/uL (1.70-6.50) H 01/20/17 14: Absolute Lymphs (auto) 0.69 10^3/uL (1.00-3.00) L 01/20/17 14: Absolute Monos (auto) 0.45 10^3/uL (0.30-0.80) 01/20/17 14:28 Absolute Eos (auto) 0.17 10^3/uL (0.03-0.40) 01/20/17 14: Absolute Basos (auto) 0.09 10^3/uL (0.02-0.10) 01/20/17 14: Absolute Nucleated RBC 0.00 10^3/uL (0-0.01) 01/20/17 14:28 Immature Gran % 0.4 % (0.0-1.1) 01/20/17 14: Immature Gran # 0.03 10^3/uL (0.00-0.10) 01/20/17 14:28 Sodium 141 mEq/L (134-144) 01/20/17 14:28 Potassium 2.7 mEq/L (3.5-5.2) L* 01/20/17 14:28 Chloride 97 mEq/L (97-110) 01/20/17 14:28 Carbon Dioxide 29 mEq/l (22-31) 01/20/17 14:28 Anion Gap 15 mEq/L (8-16) 01/20/17 14:28 BUN 4 mg/dL (7-23) L 01/20/17 14:28 Creatinine 0.6 mg/dL (0.6-1.0) 01/20/17 14:28 Estimated GFR > 60 01/20/17 14:28 Glucose 116 mg/dL (70-100) H 01/20/17 14:28 Calcium 10.4 mg/dL (8.5-10.4) 01/20/17 14:28 Total Bilirubin 1.1 mg/dL (0.1-1.4) 01/20/17 14:28 AST 47 IU/L (14-46) H 01/20/17 14:28 ALT 34 IU/L (9-52) 01/20/17 14:28 Alkaline Phosphatase 249 IU/L (38-126) H 01/20/17 14:28 Total Protein 8.3 g/dL (6.3-8.2) H 01/20/17 14:28 Albumin 4.3 g/dL (3.5-5.0) 01/20/17 14:28 Visualized and Interpreted imaging results: Yes Interpretation: CT scan of the abdomen demonstrating no obstruction, a stable right subphrenic fluid collection, reduction in right pericolic gas, reduction in the peripancreatic fluid collection Assessment & Plan Assessment: 56-year-old female presenting with acute abdominal pain in the setting of recent polymicrobial anastomotic leak, complicated by acute severe hypokalemia Plan: 1. Nausea and abdominal pain. Acute, new problems provider, further workup indicated. Potential etiologies include waxing and waning abdominal symptoms from her prior polymicrobial infection and anastomotic leak versus urinary tract infection versus pancreatitis versus med-effect (percocet induced) -add on a lipase presenting labs -send urinalysis -continue to monitor liver panel -supportive care with pain medications and antiemetics per Dr. Cat -recommend adjusting pain Rx to oxycodone IR 2. Hypokalemia. Acute, severe, new problem, further workup indicated. Most likely secondary to poor oral intake in the setting of nausea and abdominal pain -outside records reviewed including 01/14/2017 discharge summary by Magdalena Verde , outlining patient's most recent hospitalization which included acute kidney injury, creatinine 0.7 at that time, potassium was 3.8, potassium down trended 3.3 on follow-up outpatient labs with ongoing normal creatinine level -get magnesium level, replete with 2 g IV now -continue D5 half-normal saline with 40 mEq of supplemental potassium -continue replacement of potassium with 40 mEq IV per potassium protocol -monitor on telemetry a given correction and repeat potassium and magnesium level in a.m. I discussed the patient's presentation with Dr. Tasha Cat, primary surgery service, discussed that Hospital medicine will continue to consult in this patient's care, general surgery remains primary service.
[2017-01-20] MEDS: OXYCODONE/APAP 5/325 TAB PO PRN (20:07)
--- NOTE | 2017-01-21 00:15 | GHP ---
[f rep st] HISTORY AND PHYSICAL DATE OF ADMISSION: 01/20/2017 CHIEF COMPLAINT: Nausea, malaise, and abdominal pain. HISTORY OF PRESENT ILLNESS: The patient is a 56-year-old woman who recently had a complicated course due to colectomy for colon cancer when she developed an anastomotic leak and sepsis. She had acute kidney injury that resolved. She had acute respiratory failure and pneumonia, which have also resolved. She was discharged home with a wound VAC and IV antibiotics. She has been tolerating the antibiotics quite well. She was feeling well until approximately January 19 when she developed increased nausea and upper abdominal pain. Her laboratory work from January 16 was within normal limits. I saw her in my office today, and due to her not appearing well, I scheduled her for a stat CT scan. The CT scan is overall very encouraging. All of the fluid collections have improved since her last CT on January 08. There were no bowel obstructions, and there was specifically no new epigastric fluid collection. Due to her weakness, I admitted her to the hospital. PAST MEDICAL HISTORY: Hypertension. PAST SURGICAL HISTORY: Cholecystectomy, spine surgery, colectomy, exploratory laparotomy with washout. HOME MEDICATIONS: Amlodipine, hydrochlorothiazide, quinapril, and she was on Zosyn. ALLERGIES: No known drug allergies. FAMILY HISTORY: Significant for a CVA in her father, type 2 diabetes in her mother, hyperlipidemia in her father. SOCIAL HISTORY: She works in [employer]. She has never used illegal drugs, and she denies tobacco use. She has not used alcohol recently. She lives alone REVIEW OF SYSTEMS: A 10-point review of systems is otherwise negative, except for HPI. PHYSICAL EXAM: VITAL SIGNS: 36.5, 94, 139/94, 19, 96% on room air. GENERAL: Pleasant, but lying in bed and appears weak. HEENT: Normocephalic. No gross hearing deficits. Mucous membranes moist. Pupils equal and round. No scleral icterus. Poor dentition. Mucous membranes moist. LUNGS: Clear to auscultation bilaterally. No increased work of breathing. CARDIAC: Regular rate. ABDOMEN: She is tender in the epigastric area. Her wound has healthy granulation tissue, and no signs of dehiscence. She is soft. SKIN: Warm and dry. MUSCULOSKELETAL: Normal gait. Normal nails. NEUROLOGIC: Grossly intact. LABORATORY DATA: Results reviewed. CT per HPI. Her white count is 8.17, hemoglobin and hematocrit 12.3 and 36.3, and platelets are 322. A chemistry panel is within normal limits, with the exception of potassium of 2.7. IMPRESSION AND PLAN: The patient is a 56-year-old woman, status post colon resection and anastomotic leak, who has been recovering well from the complications. She now presents with weakness. She is hypokalemic. I have put her on potassium. I have also included potassium in her IV fluids. We will recheck this in the morning. Dr. Ocampo with Infectious Disease has been consulted, and place her on Unasyn. I also asked Dr. Ortega with Internal Medicine to see her for her hypertension, as well as her hypokalemia. /[id number]/MODL MTDD
[2017-01-21 01:00] LABS: MAGNESIUM 2.3 mg/dL (1.6-2.3); POTASSIUM 3.4 mEq/L (3.5-5.2)
[2017-01-21] MEDS ORDERED: POTASSIUM CL 10 MEQ TAB PO ONE ×2 (01:09→08:14)
[2017-01-21] MEDS: OXYCODONE/APAP 5/325 TAB PO PRN ×2 (01:32→08:29)
[2017-01-21] MEDS: AMPICILLIN/SULBACTAM 3 GM in NS 100 ML IV SCH ×2 (05:08→12:00)
[2017-01-21 05:26] LABS: % IMMATURE GRANULYOCYTES 0.4 % (0.0-1.1); ABSOLUTE IMMATURE GRANULOCYTES 0.03 10^3/uL (0.00-0.10); ADD DIFF? NO; ADD MORPH? NO; ADD SCAN? NO; ATYPICAL LYMPHOCYTE FLAG 30 (0-99); FRAGMENT RBC FLAG 0 (0-99); HEMATOCRIT 33.2 % (38.0-47.0); LEFT SHIFT FLG 0 (0-99); LIPEMIA HEMOLYSIS FLAG 80 (0-99); MEAN CELL HEMOGLOBIN 28.7 pg (27.9-34.1); MEAN CELL HEMOGLOBIN CONCENTR. 33.1 g/dL (32.4-36.7); MEAN CELL VOLUME 86.7 fL (81.5-99.8); MEAN PLATELET VOLUME 9.8 fL (8.7-11.7); PLATELET CLUMPS FLAG 10 (0-99); PLATELET COUNT 311 10^3/uL (150-400); RED BLOOD CELL COUNT 3.83 10^6/uL (4.18-5.33); RED CELL DISTRIBUTION WIDTH 14.6 % (11.5-15.2)
[2017-01-21 05:56] LABS: ALANINE AMINOTRANSFERASE 28 IU/L (9-52); ALBUMIN 3.8 g/dL (3.5-5.0); ALKALINE PHOSPHATASE 194 IU/L (38-126); ANION GAP 15 mEq/L (8-16); ASPARTATE AMINOTRANSFERASE 39 IU/L (14-46); BILIRUBIN,TOTAL 0.9 mg/dL (0.1-1.4); CALCIUM 9.6 mg/dL (8.5-10.4); CARBON DIOXIDE 24 mEq/l (22-31); CHLORIDE 101 mEq/L (97-110); CREATININE 0.7 mg/dL (0.6-1.0); GLOMERULAR FILTRATION RATE > 60; GLUCOSE 95 mg/dL (70-100); MAGNESIUM 2.1 mg/dL (1.6-2.3); POTASSIUM 3.3 mEq/L (3.5-5.2); SODIUM 140 mEq/L (134-144); TOTAL PROTEIN 7.4 g/dL (6.3-8.2)
[2017-01-21 06:24] LABS: COLOR YELLOW; LEUKOCYTE ESTERASE,URINE 2+ (NEGATIVE); NITRITE,URINE NEGATIVE (NEGATIVE)
[2017-01-21 06:26] LABS: BACTERIA TRACE /hpf (NONE SEEN); MUCUS TRACE /lpf (NONE-1+); WBC,URINE 25-50 /hpf (0-3)
[2017-01-21 07:41] VITALS: PULSE 82
[2017-01-21] MEDS ORDERED: HYDROCHLOROTHIAZIDE 25 MG TAB PO SCH (09:00)
[2017-01-21] MEDS ORDERED: ASPIRIN EC 325 MG TAB PO SCH (09:00)
[2017-01-21] MEDS ORDERED: ALTEPLASE 2 MG VIAL IVP PRN (09:20)
--- NOTE | 2017-01-21 09:25 | HOSPPROG ---
Hospitalist Progress Note Assessment/Plan: 56-year-old with a history of colon cancer status post resection complicated by sepsis and abscess presents with increased weakness. Found to have severe hypokalemia on admission. She is feeling much better after potassium supplementation overnight and wants to go home. No new complaints today. # history of colon cancer complicated by anastomotic leak with polymicrobial currently on a 4 week course of antibiotics at home * patient pulled out PICC line will order single lumen PICC prior to discharge * finish home on antibiotics # hypokalemia, likely a result of her medications. Will send her home with potassium supplement and order a blood test this week to recheck her potassium level * at potassium 40 mEq daily, repeat potassium on Monday if it is elevated she can decrease her dose to 20 mEq daily # hypertension: Stable today Subjective: feeling good wants to go home, accidentally pulled out her PICC line yesterday. Patient new to me and chart reviewed Objective: Vital Signs Temp Pulse Resp BP Pulse Ox 36.8 C 82 14 121/90 H 92 01/21/17 07:41 01/21/17 07:41 01/21/17 07:41 01/21/17 09:20 01/21/17 07:41 Laboratory Results 01/21/17 05:00 01/21/17 05:00 01/20/17 01/21/17 01/22/17 05:59 05:59 05:59 Intake Total 1063 169 Balance 1063 169 - Physical Exam Constitutional: no apparent distress, appears nourished, not in pain Eyes: PERRL, anicteric sclera, EOMI Ears, Nose, Mouth, Throat: moist mucous membranes, hearing normal, ears appear normal Cardiovascular: regular rate and rhythym, systolic murmur, No JVD, No tachycardia, No bradycardia, No edema Respiratory: no respiratory distress, no rales or rhonchi, clear to auscultation Gastrointestinal: normoactive bowel sounds, soft, non-tender abdomen Genitourinary: no bladder fullness Skin: warm, normal color Neurologic: AAOx3 Psychiatric: interacting appropriately, not anxious, not encephalopathic ICD10 Worksheet Patient Problems: Problems Problem Status Onset Colon cancer Acute
--- NOTE | 2017-01-21 10:32 | GDS ---
[f rep st] DISCHARGE SUMMARY DIAGNOSES: 1. Hypokalemia, resolved. 2. Hypertension. 3. Colon cancer, status post resection. 4. Sepsis and history of abscess, with increased weakness. HOSPITAL COURSE: The patient is a 56-year-old, patient of Dr. Cat and Dr. Johnson, who was admitted previously for colectomy complicated by sepsis and polymicrobial infection. She has been on IV anti biotics at home. She comes in with increasing weakness. On evaluation she had severe hypokalemia a nd was admitted for potassium replacement. Today she feels much better and wants to go home, she velásquez s no other complaints today. CONDITION ON DISCHARGE: Good. PHYSICAL EXAMINATION: VITAL SIGNS: Vital signs are stable. Her potassium level is 3.3. GENERAL: Exam is normal. Unfortunately she did pull out her PICC line previously, we will replace that prior to her going almas e so she can resume her usual antibiotic therapy. DISCHARGE MEDICATIONS: Please see discharge medication form. FOLLOWUP: Will be with Dr. Cat and Dr. Johnson as previously scheduled. She will need to get her PI CC line placed prior to discharge. She will need a potassium level in 3 days, if it is elevated she can decrease her potassium to 20 mEq daily. This will be sent to [facility] at Dr. Cat's offi ce. /[id number]/MODL
[2017-01-21 10:56] VITALS: BP 121/88; RESP 18; TEMP 98.4; O2SAT 96
--- NOTE | 2017-01-21 11:00 | SOAPPROG ---
SOAP Progress Note Assessment/Plan: Assessment: DOING WELL/ EATING OK/ K 3.3/ WOUND VAC IN PLACE NO NEW PROBLEMS Plan:HOME TODAY ON KCL SUPPLEMENTS 01/21/17 10:58 Objective: Vital Signs Temp Pulse Resp BP Pulse Ox 36.9 C 82 18 121/88 H 96 01/21/17 10:55 01/21/17 10:55 01/21/17 10:55 01/21/17 10:55 01/21/17 10:55 Laboratory Results 01/21/17 05:00 01/21/17 05:00 01/20/17 01/21/17 01/22/17 05:59 05:59 05:59 Intake Total 1063 169 Balance 1063 169 ICD10 Worksheet Patient Problems: Problems Problem Status Onset Colon cancer Acute
[2017-01-22] MEDS ORDERED: POTASSIUM CL 20 MEQ TAB PO SCH (09:00)
== END 2017-01-21 14:30 | disposition home or self-care (01) ==
LOC: FIMAGING 10:33 → F3E 12:16
PROVIDERS: ADMIT Surgery; ATTEND Internal Medicine
PROC: 02HV33Z Insertion of Infusion Device into Superior Vena Cava, Percutaneous Approach (ICD-10-PCS; principal; 2017-01-21)
DX: E87.6 Hypokalemia (principal); T81.4XXD Infection following a procedure, subsequent encounter; B96.89 Other specified bacterial agents as the cause of diseases classified elsewhere; Z45.2 Encounter for adjustment and management of vascular access device; R11.2 Nausea with vomiting, unspecified; Z85.038 Personal history of other malignant neoplasm of large intestine; I10 Essential (primary) hypertension; F17.200 Nicotine dependence, unspecified, uncomplicated; Z98.890 Other specified postprocedural states; Z90.49 Acquired absence of other specified parts of digestive tract; Z79.2 Long term (current) use of antibiotics
CPT/HCPCS: 36569; 74177; 77001; C1751; G0378; J0295; J2405; Q9967

== ENCOUNTER 2017-06-15 22:11 | Emergency (ER) | payer OTHER, MEDICAID ==
[2017-06-15 22:22] VITALS: BP 129/89; PULSE 87; RESP 18; TEMP 97.3; O2SAT 97
--- NOTE | 2017-06-15 22:24 | EDPHY ---
H & P Stated Complaint: fall w/ etoh HPI/ROS: HPI CHIEF COMPLAINT: Fall, head injury, alcohol intoxication HISTORY OF PRESENT ILLNESS: This patient very pleasant 56-year-old female she does have significant past medical history for hypertension, she presents emergency room after she drank which she describes a very large bloody [place]. She became intoxicated. She tripped and fell at home with head strike. Unknown LOC. She presents emergency room neurologically intact GCS 15, alert and orient x4 by private vehicle. She has a rather large right forehead hematoma. She does complain of a headache. No chest pain no shortness of breath no neck pain. She states that she drank too much alcohol this evening. Past Medical History: hypertension Past Surgical History: No recent surgery Social History: Denies daily drugs tobacco. Does drink alcohol. Family History: Noncontributory ROS REVIEW OF SYSTEMS: A comprehensive 10 point review of systems is otherwise negative aside from elements mentioned in the history of present illness. Exam Constitutional intoxicated, smells of alcohol, GCS 15, alert or x4, triage nursing summary reviewed, vital signs reviewed, awake/alert. Eyes normal conjunctivae and sclera, EOMI, PERRLA. HENT head/neck: Rather large right forehead hematoma. Moist mucus membranes, no epistaxis, neck supple/ no meningismus, no raccoon eyes. Respiratory clear to auscultation bilaterally, normal breath sounds, no respiratory distress, no wheezing. Cardiovascular rate normal, regular rhythm, no murmur, no edema, distal pulses normal. Gastrointestinal soft, non-tender, no rebound, no guarding, normal bowel sounds, no distension, no pulsatile mass. Genitourinary no CVA tenderness. Musculoskeletal no midline vertebral tenderness, full range of motion, no calf swelling, no tenderness of extremities, no meningismus, good pulses, neurovascularly intact. Skin pink, warm, & dry, no rash, skin atraumatic. Neurologic awake, alert and oriented x 3, AAOx3, moves all 4 extremities equally, motor intact, sensory intact, CN II-XII intact, normal cerebellar, normal vision, normal speech. Psychiatric normal mood/affect. Heme/Lymph/Immune no lymphadenopathy. Differential Diagnosis: Includes but is not limited to and in no particular order: Acute alcohol intoxication, alcohol intoxication with fall, closed head injury, intracranial bleed, subdural, hematoma Medical Decision Making: Plan for this patient CT head without contrast for trauma. Breath alcohol. Re-evaluation: Breath alcohol 170. Time of breath alcohol 10:49 p.m. 2309: ED CT scan of the head without contrast for trauma shows scalp hematoma otherwise unremarkable CT scan been known no skull fracture. No intracranial bleed. Dr. Johnson. Patient ambulated well throughout the emergency room no ataxia. Clinically sober. Safe for discharge. Understands return emergency room if he has worsening symptoms questions or concerns. Source: Patient - Personal History Current Tetanus Diphtheria and Acellular Pertussis (TDAP): Yes Tetanus Vaccine Date: less than 10 years - Medical/Surgical History Hx Asthma: No Hx Chronic Respiratory Disease: No Hx Diabetes: No Hx Cardiac Disease: No Hx Renal Disease: No Hx Cirrhosis: No Hx Alcoholism: No Hx HIV/AIDS: No Hx Splenectomy or Spleen Trauma: No Other PMH: htn, CA - Social History Smoking Status: Light smoker Constitutional: Initial Vital Signs Temperature (C) 36.3 C 06/15/17 22:19 Heart Rate 87 06/15/17 22:19 Respiratory Rate 18 06/15/17 22:19 Blood Pressure 129/89 H 06/15/17 22:19 O2 Sat (%) 97 06/15/17 22:19 O2 Delivery Mode Room Air Allergies/Adverse Reactions: No Known Allergies Allergy (Verified 06/15/17 22:17) Home Medications: Medication Instructions Recorded Aspirin EC [Aspirin EC 325 mg (*)] 325 mg PO DAILY 12/05/16 Hydrochlorothiazide [HCTZ (*)] 50 mg PO DAILY 12/05/16 Medical Decision Making - Diagnostics Imaging Results: Imaging Impressions Head CT 06/15/17 22:26 Impression: 1. Negative for intracranial hemorrhage. 2. Suspect small vessel ischemic disease. 3. Scalp hematoma. 4. See above report for additional findings. Results called and discussed with Dr. Moshe Grey MD on 06/15/2017 at 22:58 Departure - Departure Disposition: Home, Routine, Self-Care Clinical Impression: Alcohol intoxication Qualifiers: Complication of substance-induced condition: uncomplicated Qualified Code(s): F10.920 - Alcohol use, unspecified with intoxication, uncomplicated Traumatic hematoma of forehead Qualifiers: Encounter type: initial encounter Qualified Code(s): S00.83XA - Contusion of other part of head, initial encounter Condition: Good Instructions: Alcohol Intoxication (ED), Contusion in Adults (ED), Hematoma (ED ) Additional Instructions: 1. Return emergency room if you have worsening symptoms includes vomiting, severe headach. 2. Ice your head.
== END 2017-06-15 23:10 | disposition home or self-care (01) ==
DX: S00.83XA Contusion of other part of head, initial encounter (principal); F10.920 Alcohol use, unspecified with intoxication, uncomplicated; I10 Essential (primary) hypertension; F17.200 Nicotine dependence, unspecified, uncomplicated; W01.198A Fall on same level from slipping, tripping and stumbling with subsequent striking against other object, initial encounter; Y92.009 Unspecified place in unspecified non-institutional (private) residence as the place of occurrence of the external cause